=== PATIENT | female | born 1955 | race Caucasian/White ===

== ENCOUNTER → 2020-08-07 15:10 | Outpatient (BNVA) | payer MEDICARE, OTHER, SELFPAY | PROVIDERS: Visit Provider Hospitalist | DX: Z76.89 Persons encountering health services in other specified circumstances (principal) | CPT/HCPCS: Q3014 ==

== ENCOUNTER → 2021-02-05 15:00 | Outpatient (BNVA) | payer MEDICARE, OTHER, SELFPAY | PROVIDERS: PCP Physician Assistant; Visit Provider Hospitalist | DX: J45.20 Mild intermittent asthma, uncomplicated (principal); G47.10 Hypersomnia, unspecified; G47.30 Sleep apnea, unspecified; G47.33 Obstructive sleep apnea (adult) (pediatric) | CPT/HCPCS: 99212 ==

== ENCOUNTER 2021-04-22 10:43 | Outpatient (REF) | payer MEDICARE, OTHER, SELFPAY ==
[2021-04-22 11:55] LABS: Hematocrit 33.2 % (37-47); Hemoglobin 10.8 g/dl (12.0-16.0); Mean Corpuscular HGB Conc 32.5 g/dl (31.0-35.0); Mean Corpuscular Hemoglobin 29.6 pg (27.0-33.0); Mean Platelet Volume 11.1 fL (9.4-12.3); Platelet Count 255 X10*3/uL (160-400); Red Blood Count 3.65 X10*6/uL (4.20-5.50); Red Cell Distribution Width 12.4 % (11.0-16.0); White Blood Count 8.2 X10*3/uL (4.8-10.8)
[2021-04-22 12:48] LABS: Creatinine Urine 43.03 mg/dL; Microalbum/Creatinine Ratio Ur 20.9 ug/mg cr
[2021-04-22 14:09] LABS: Alanine Aminotransferase 16 U/L (0-31); Albumin Level 4.1 g/dL (3.5-5.0); Alkaline Phosphatase 93 U/L (39-117); Anion Gap 13 (12-20); Aspartate Amino Transferase 16 U/L (5-31); Bilirubin Total 0.5 mg/dL (0.0-1.0); Blood Urea Nitrogen 12 mg/dL (9-16); Carbon Dioxide 28 mmol/L (22-29); Chloride 105 mmol/L (96-108); Cholesterol 170 mg/dL; Estimated Glomerular Filt Rate > 60; Glucose Fasting 150 mg/dL (60-99); HDL Cholesterol 50 mg/dL; LDL Cholesterol Calculated 100 mg/dl; Potassium 3.7 mmol/L (3.3-5.1); Sodium 142 mmol/L (135-145); Total Protein 6.6 g/dL (6.5-8.0); Triglycerides 100 mg/dL
[2021-04-22 14:33] LABS: TSH reflex Free T4 0.72 uIU/mL (0.32-4.0)
== END 2021-04-22 10:44 | disposition home or self-care (01) ==
LOC: HO.LAB 10:43
PROVIDERS: PCP Physician Assistant; Visit Provider Physician Assistant
DX: I10 Essential (primary) hypertension (principal); E11.65 Type 2 diabetes mellitus with hyperglycemia; Z79.4 Long term (current) use of insulin
CPT/HCPCS: 36415; 80053; 80061; 82043; 84443; 85027

== ENCOUNTER → 2021-05-02 14:46 | Outpatient (BNVA) | payer MEDICARE, OTHER, SELFPAY | PROVIDERS: PCP Physician Assistant; Referring Provider Physician Assistant; Visit Provider Surgery | DX: D17.1 Benign lipomatous neoplasm of skin and subcutaneous tissue of trunk (principal) | CPT/HCPCS: 99202 ==

== ENCOUNTER → 2021-05-09 15:09 | Outpatient (BNVA) | payer MEDICARE, OTHER, SELFPAY | PROVIDERS: PCP Physician Assistant; Visit Provider Hospitalist | DX: J45.20 Mild intermittent asthma, uncomplicated (principal); J31.0 Chronic rhinitis; R09.81 Nasal congestion; G47.33 Obstructive sleep apnea (adult) (pediatric); E11.9 Type 2 diabetes mellitus without complications; I10 Essential (primary) hypertension; E78.00 Pure hypercholesterolemia, unspecified; E04.1 Nontoxic single thyroid nodule; R53.83 Other fatigue; D64.9 Anemia, unspecified; R60.0 Localized edema; Z77.22 Contact with and (suspected) exposure to environmental tobacco smoke (acute) (chronic); Z88.8 Allergy status to other drugs, medicaments and biological substances; Z88.6 Allergy status to analgesic agent; Z91.041 Radiographic dye allergy status; Z99.89 Dependence on other enabling machines and devices | CPT/HCPCS: 99212 ==

== ENCOUNTER 2021-05-20 13:39 | Outpatient (REF) | payer MEDICARE, OTHER, SELFPAY ==
--- NOTE | ~2021-05-20 | US_ITS ---
EXAMINATION: US ABDOMEN LIMITED CLINICAL INFORMATION: Benign lipomatous neoplasm of skin and subcutaneous tissue. Fullness lesion over left lower flank. Lipoma-like lesion over right flank. COMPARISON: None TECHNIQUE: Targeted ultrasound to bilateral flank (lumps). FINDINGS: The only discrete finding is seen over palpable region of the left lower lateral hip. There is a hypoechoic 1.0 x 0.7 x 1.0 cm well-circumscribed structure with some mildly increased through sound transmission and no internal vascularity. No edematous change within the soft tissues identified. This may represent a lipoma. US/US abdomen limited IMPRESSION: Of patient's complaint of palpable abnormalities, the only defined structure was about the left lower lateral hip where there is a subcutaneous well-circumscribed nonvascular structure with benign appearance and may represent lipoma.
[2021-05-20 14:02] LABS: MANUAL DIFF FLAG NO
[2021-05-20 14:28] LABS: Basophils Percent Auto 0.3 % (0-2); Eosinophils Absolute Auto 0.2 X10*3/uL (0.0-0.4); Eosinophils Percent Auto 1.8 % (0-4); Hematocrit 32.7 % (37-47); Hemoglobin 10.5 g/dl (12.0-16.0); Imm Gran Abs Auto 0.02 X10*3/uL (0.00-0.03); Imm Gran Pct Auto 0.2 % (0.0-0.4); Lymphocytes Absolute Auto 1.9 X10*3/uL (1.2-4.9); Lymphocytes Percent Auto 20.8 % (20-40); Mean Corpuscular HGB Conc 32.1 g/dl (31.0-35.0); Mean Corpuscular Hemoglobin 28.7 pg (27.0-33.0); Mean Corpuscular Volume 89.3 fL (80-98); Mean Platelet Volume 10.9 fL (9.4-12.3); Monocytes Absolute Auto 0.8 X10*3/uL (0.1-1.2); Monocytes Percent Auto 9.3 % (2-11); Neutrophils Absolute Auto 6.1 X10*3/uL (2.0-8.3); Neutrophils Percent Auto 67.6 % (45-73); Platelet Count 250 X10*3/uL (160-400); Red Blood Count 3.66 X10*6/uL (4.20-5.50); Red Cell Distribution Width 12.3 % (11.0-16.0)
[2021-05-20 14:55] LABS: Iron 27 mcg/dL (30-160); Percent Iron Saturation 9 % (15-50); Total Iron Binding Capacity 294 mcg/dL (228-428); Unsaturated Iron Binding 267 ug/dL
[2021-05-20 15:16] LABS: Ferritin 107 ng/mL (10-250)
[2021-05-20 15:31] LABS: Folate 14.7 ng/mL (> or = 4.0); Vitamin B12 492 pg/mL (200-900)
== END 2021-05-20 13:40 | disposition home or self-care (01) ==
LOC: HO.US 13:39
PROVIDERS: Hospitalist; PCP Physician Assistant; Visit Provider Physician Assistant
DX: D50.9 Iron deficiency anemia, unspecified (principal); D64.9 Anemia, unspecified; D17.1 Benign lipomatous neoplasm of skin and subcutaneous tissue of trunk
CPT/HCPCS: 36415; 76705; 82607; 82728; 82746; 83540; 85025

== ENCOUNTER 2021-08-30 11:36 | Outpatient (REF) | payer MEDICARE, OTHER, SELFPAY ==
--- NOTE | ~2021-08-30 | MM_ITS ---
EXAMINATION: BONE DENSITOMETRY CLINICAL INDICATION: Asymptomatic menopausal state. COMPARISON: This is the patient's baseline examination. TECHNIQUE: Using a [employer] DXA System (software version: 13.1) manufactured by [employer], dual-energy x-ray absorptiometry was performed of the lumbar spine and left hip. The images are of good technical quality. Summary results are attached. FINDINGS: AP SPINE L1-L3 (excluding L4): The data of L1-L4 has been changed to exclude the L4 vertebral body, because at this level may cause overestimation of lumbar spine density. BMD 1.732 g/cm2, Z-score 5.1, T-score 4.7, normal. LEFT FEMUR, NECK: BMD 0.888 g/cm2, Z-score -0.4, T-score -1.1, osteopenia. LEFT FEMUR, TOTAL: BMD 1.065 g/cm2, Z-score 0.8, T-score 0.5, normal. IDENTIFIED RISK FACTORS: Renal, family history (parental hip fracture), secondary osteoporosis, thiazide, menopause. HISTORY OF FRACTURE: None listed. MEDICATIONS: Calcium supplements or multivitamin, vitamin D. MM/XR DEXA axial skeleton IMPRESSION: 1. DIAGNOSIS: Osteopenia based on the lowest T-score value of -1.1 in the femoral neck applying World Health Organization criteria. 2. 10-YEAR FRACTURE RISK PREDICTION, FRAX: Major osteoporotic fracture (clinical spine, forearm, hip or shoulder) 14.3%. Hip fracture 0.5%. 3. Treatment Recommendations: NOF guidelines recommend consideration for treatment in postmenopausal women and men age 50 and older presenting with the following: -A hip or vertebral (clinical or morphometric) fracture. -T-score less than or equal to -2.5 at the femoral neck or spine after appropriate evaluation to exclude secondary causes. -Low bone mass at the hip or spine and a 10-year fracture probability by FRAX of greater than or equal to 3% for hip fracture or greater than or equal to 20% for major osteoporotic fracture based on the [place] adapted WHO algorithm. 4. Other Recommendations: All treatment decisions require clinical judgment and consideration of individual patient factors, including patient preferences, comorbidities, previous drug use, risk factors not captured in the FRAX model (e.g. frailty, falls, vitamin D deficiency, increased bone turnover, interval significant decline in bone density) and possible under or overestimation of fracture risk by FRAX. Additional medical evaluation for secondary cause of low bone mineral density may be appropriate. FUTURE SCAN RECOMMENDATION: People with diagnosed cases of osteoporosis or at high risk for fracture should have regular bone mineral density tests. For patients eligible for Medicare, routine testing is allowed once every 2 years. The testing frequency can be increased to one year for patients who have rapidly progressing disease, those who are receiving or discontinuing medical therapy to restore bone mass, or have additional risk factors.
[2021-08-30 13:02] LABS: Creatinine Urine 87.64 mg/dL; Microalbum/Creatinine Ratio Ur 23.9 ug/mg cr
== END 2021-08-30 11:37 | disposition home or self-care (01) ==
LOC: HO.MAMMO 11:36
PROVIDERS: Absent Provider Internal Medicine; PCP Physician Assistant; Visit Provider Physician Assistant
DX: Z13.820 Encounter for screening for osteoporosis (principal); M85.80 Other specified disorders of bone density and structure, unspecified site; Z78.0 Asymptomatic menopausal state; E55.9 Vitamin D deficiency, unspecified; E11.29 Type 2 diabetes mellitus with other diabetic kidney complication; R63.5 Abnormal weight gain; Z79.899 Other long term (current) drug therapy
CPT/HCPCS: 36415; 77080; 80053; 80061; 82043; 82306; 83036; 83540; 84443; 85025

== ENCOUNTER 2021-09-02 08:28 | Outpatient (REF) | payer MEDICARE, OTHER, SELFPAY ==
[2021-09-02 08:55] LABS: MANUAL DIFF FLAG NO
[2021-09-02 09:17] LABS: Basophils Percent Auto 0.4 % (0-2); Eosinophils Absolute Auto 0.2 X10*3/uL (0.0-0.4); Eosinophils Percent Auto 1.8 % (0-4); Hematocrit 38.5 % (37.0-47.0); Hemoglobin 12.5 g/dl (12.0-16.0); Imm Gran Abs Auto 0.04 X10*3/uL (0.00-0.03); Imm Gran Pct Auto 0.5 % (0.0-0.4); Lymphocytes Absolute Auto 2.9 X10*3/uL (1.2-4.9); Lymphocytes Percent Auto 34.6 % (20-40); Mean Corpuscular HGB Conc 32.5 g/dl (31.0-35.0); Mean Corpuscular Hemoglobin 27.9 pg (27.0-33.0); Mean Corpuscular Volume 85.9 fL (80.0-98.0); Mean Platelet Volume 10.4 fL (9.4-12.3); Monocytes Absolute Auto 0.7 X10*3/uL (0.1-1.2); Monocytes Percent Auto 8.5 % (2-11); Neutrophils Absolute Auto 4.6 x10*3/uL (2.0-8.3); Neutrophils Percent Auto 54.2 % (45-73); Platelet Count 250 X10*3/uL (160-400); Red Blood Count 4.48 X10*6/uL (4.20-5.50); White Blood Count 8.5 X10*3/uL (4.8-10.8)
[2021-09-02 09:37] LABS: Estimated Average Glucose 177 mg/dL; Hemoglobin A1c % 7.8 %
[2021-09-02 10:56] LABS: Alanine Aminotransferase 15 U/L (0-31); Albumin Level 4.1 g/dL (3.5-5.0); Alkaline Phosphatase 82 U/L (39-117); Anion Gap 13 (12-20); Aspartate Amino Transferase 17 U/L (5-31); Bilirubin Total 0.9 mg/dL (0.0-1.0); Blood Urea Nitrogen 13 mg/dL (9-16); Calcium 9.4 mg/dL (8.4-10.2); Carbon Dioxide 29 mmol/L (22-29); Chloride 105 mmol/L (96-108); Cholesterol 154 mg/dL; Estimated Glomerular Filt Rate > 60; Glucose Random 122 mg/dL (60-115); HDL Cholesterol 44 mg/dL; Iron 97 mcg/dL (30-160); LDL Cholesterol Calculated 83 mg/dl; Percent Iron Saturation 29 % (15-50); Potassium 3.6 mmol/L (3.3-5.1); Sodium 143 mmol/L (135-145); Total Iron Binding Capacity 330 mcg/dL (228-428); Triglycerides 135 mg/dL; Unsaturated Iron Binding 233 ug/dL
[2021-09-02 11:05] LABS: TSH reflex Free T4 0.83 uIU/mL (0.32-4.0); Vitamin D 25-OH Total 32.8 ng/mL (>30)
== END 2021-09-02 08:29 | disposition home or self-care (01) ==
LOC: HO.LAB 08:28
PROVIDERS: Internal Medicine; PCP Physician Assistant; Visit Provider Physician Assistant
DX: E55.9 Vitamin D deficiency, unspecified (principal); E11.29 Type 2 diabetes mellitus with other diabetic kidney complication; R63.5 Abnormal weight gain
CPT/HCPCS: 36415; 80053; 80061; 82306; 83036; 83540; 84443; 85025

== ENCOUNTER → 2021-09-20 14:45 | Outpatient (BNVA) | payer MEDICARE, OTHER, SELFPAY | PROVIDERS: PCP Physician Assistant; Visit Provider Hospitalist | DX: G47.33 Obstructive sleep apnea (adult) (pediatric) (principal); J45.20 Mild intermittent asthma, uncomplicated | CPT/HCPCS: 99212 ==

== ENCOUNTER → 2021-12-19 13:35 | Outpatient (BNVA) | payer MEDICARE, OTHER, SELFPAY | PROVIDERS: PCP Physician Assistant; Referring Provider Physician Assistant; Visit Provider Surgery | DX: K42.9 Umbilical hernia without obstruction or gangrene (principal) | CPT/HCPCS: 99212 ==

== ENCOUNTER 2022-04-21 12:36 | Emergency (ER) | payer MEDICARE, OTHER, SELFPAY ==
[2022-04-21 12:48] VITALS: BP 169/61; PULSE 69; RESP 18; TEMP 36.6; O2SAT 96; BMI 39.1
[2022-04-21 13:16] LABS: MANUAL DIFF FLAG NO
[2022-04-21 13:19] LABS: Appearance Urine Clear; Basophils Absolute Auto 0.1 X10*3/uL (0.0-0.2); Basophils Percent Auto 0.5 % (0-2); Color Urine Yellow; Eosinophils Absolute Auto 0.1 X10*3/uL (0.0-0.4); Eosinophils Percent Auto 0.8 % (0-4); Glucose Urine UA Negative (Negative); Hematocrit 38.3 % (37.0-47.0); Hemoglobin 12.7 g/dl (12.0-16.0); Imm Gran Abs Auto 0.02 X10*3/uL (0.00-0.03); Imm Gran Pct Auto 0.2 % (0.0-0.4); Leukocyte Esterase Urine Moderate (2+) (Negative); Lymphocytes Absolute Auto 2.7 X10*3/uL (1.2-4.9); Lymphocytes Percent Auto 27.1 % (20-40); Mean Corpuscular HGB Conc 33.2 g/dl (31.0-35.0); Mean Corpuscular Hemoglobin 29.3 pg (27.0-33.0); Mean Corpuscular Volume 88.5 fL (80.0-98.0); Mean Platelet Volume 10.2 fL (9.4-12.3); Monocytes Absolute Auto 0.7 X10*3/uL (0.1-1.2); Monocytes Percent Auto 7.3 % (2-11); Neutrophils Absolute Auto 6.4 x10*3/uL (2.0-8.3); Neutrophils Percent Auto 64.1 % (45-73); Nitrite Urine Negative (Negative); PH 7.5 (5.0-9.0); Platelet Count 272 X10*3/uL (160-400); Red Blood Count 4.33 X10*6/uL (4.20-5.50); UMIC TRIGGER UACC YES; Urine Blood Negative (Negative); Urine Ketones Negative (Negative); Urine Protein Trace mg/dL (Neg-Trace); White Blood Count 9.9 X10*3/uL (4.8-10.8)
[2022-04-21 13:24] LABS: Bacteria Urine None Seen (None Seen); Hyaline Casts Urine 0-2 /LPF (0-2); RBC Urine 0-2 /HPF (0-2); Squamous Epithelial Cell Urine 0-2 /HPF (0-2); UACC Culture Trigger YES
[2022-04-21 13:38] LABS: Alanine Aminotransferase 17 U/L (0-31); Albumin Level 4.5 g/dL (3.5-5.0); Alkaline Phosphatase 76 U/L (39-117); Anion Gap 17 (12-20); Aspartate Amino Transferase 19 U/L (5-31); Bilirubin Total 1.1 mg/dL (0.0-1.0); Blood Urea Nitrogen 15 mg/dL (9-16); Calcium 9.6 mg/dL (8.4-10.2); Carbon Dioxide 27 mmol/L (22-29); Chloride 101 mmol/L (96-108); Creatinine Clr Calc Pharmacy 54.8; Estimated Glomerular Filt Rate 43; Glucose Random 211 mg/dL (60-115); Potassium 3.7 mmol/L (3.3-5.1); Sodium 141 mmol/L (135-145); Total Protein 7.6 g/dL (6.5-8.0)
--- NOTE | 2022-04-21 16:58 | ED_ITS ---
HPI - General Adult General Chief complaint: Back Pain/Injury Stated complaint: R flank pin/back pain/abd pain Time Seen by Provider: 04/21/22 16:53 Source: patient Mode of arrival: ambulatory Limitations: no limitations History of Present Illness HPI narrative: 66-year-old female with history of HTN, DM on insulin, obesity, NSTEMI, WYATT, bipolar, depression, who presents to the ER for evaluation of right-sided lower back pain for the last few days. she reports the pain is located in her right lower back and at times radiates to her right groin when she walks. She reports the pain is worse with any movement, especially when she goes from sitting to standing or lying to sitting. She denies any dysuria, hematuria, difficulty voiding. No fever or chills. No abdominal pain but she has had some nausea whe n her back pain is severe. MD complaint: Right low back and flank pain Onset (ago): day(s) Location: back Radiation: flank Severity: moderate Severity scale (1-10): 7 Quality: stabbing and aching Pain Consistency: intermittent Relieving factors: rest Exacerbating factors: movement Associated symptoms: nausea/vomiting Treatments prior to arrival: none Related Data Home Medications Medication Instructions Recorded Confirmed lurasidone 40 mg tablet (Latuda) 40 mg PO DAILY 08/07/20 12/19/21 insulin degludec 200 unit/mL (3 80 unit subcut BEDTIME 01/17/21 12/19/21 mL) subcutaneous pen vilazodone 20 mg tablet (Viibryd) 40 mg PO DAILY 05/02/21 12/19/21 insulin aspart U-100 100 unit/mL 15 - 17 unit subcut TID 09/20/21 12/19/21 (3 mL) subcutaneous pen (Novolog Flexpen U-100 Insulin aspart) pen needle, diabetic 31 gauge x #50 ea 12/19/21 12/19/21 3/16 (BD Ultra-Fine Mini Pen Needle) Previous Rx's Medication Instructions Recorded nystatin 100,000 unit/gram topical 1 appl topical DAILY 30 days #60 01/17/21 powder grams albuterol sulfate 90 mcg/actuation 2 inh inhalation Q6H PRN shortness 02/05/21 breath activated powder inhaler of breath or wheezing 30 days #1 ea (ProAir RespiClick) atorvastatin 40 mg tablet 40 mg PO DAILY 90 days #90 tabs 09/09/21 hydrochlorothiazide 25 mg tablet 25 mg PO QAM 90 days #90 tabs 09/09/21 losartan 100 mg tablet 100 mg PO DAILY #90 tabs 09/09/21 calcium carbonate 500 mg-vitamin 1 tab PO BID 90 days #180 tabs 02/25/22 D3 10 mcg (400 unit) tablet (Oyster Shell Calcium-Vitamin D3) blood pressure test kit-large #1 ea 02/27/22 isosorbide mononitrate 60 mg 60 mg PO DAILY 90 days #90 tabs 03/23/22 tablet,extended release 24 hr cefuroxime axetil 250 mg tablet 250 mg PO BID 7 days #14 tabs 04/21/22 cyclobenzaprine 10 mg tablet 10 mg PO Q8H PRN muscle spasm #10 04/21/22 tabs Allergies Allergy/AdvReac Type Severity Reaction Status Date / Time aspirin Allergy Severe GI trouble Verified 12/19/21 13:38 Iodinated Contrast Media Allergy Severe Difficulty Verified 12/19/21 13:38 Breathing amlodipine AdvReac Intermediate leg Verified 12/19/21 13:38 swelling Review of Systems Review of Systems: Constitutional: No Fever, No Chills ENT/Mouth: No sore throat, No Rhinorrhea, No Swallowing Difficulty Cardiovascular: No Chest Pain, No SOB, No Orthopnea, No Edema Respiratory: No Cough, No Sputum, No Wheezing, No dyspnea Gastrointestinal: + Nausea, No Vomiting, No Diarrhea, No abdominal Pain, No Hematochezia, No Melena Genitourinary: No Dysuria, No Urinary Frequency, No Hematuria Musculoskeletal: No joint pain, + Myalgias Skin: No Skin Lesions, No rash Neuro: No Weakness, No Numbness, No Dizziness, No Headache Psych: + Anxiety/Panic, No Depression Heme/Lymph: No Bruising, No Lymphadenopathy Endocrine: No Polyuria, No Polydipsia PMFSH Past Medical History Medical History Anemia Asthma Diabetes High cholesterol Hypersomnia with sleep apnea Hypertension Lower extremity edema WYATT (obstructive sleep apnea) Thyroid nodule Surgical History History of removal of cyst Uterine polyp Family History Family History Father Stroke Diabetes Mother Hypertension COPD (chronic obstructive pulmonary disease) CHF (congestive heart failure) Maternal Grandmother Stroke Other Mental health disorder Substance use disorder Social History Social History Housing: House Alcohol intake: never Patient Tobacco Use Status: Never used Tobacco Second Hand Smoke Exposure: Yes service: No Current occupational status: retired Physical Exam ED Vital Signs: Vital Signs - 24 hr 04/21/22 12:48 Temperature 97.9 F Pulse Rate 69 Respiratory Rate 18 Blood Pressure 169/61 H Pulse Oximetry 96 Oxygen Delivery Method Room Air BMI result Body Mass Index 39.1 Appearance: Alert. Oriented X3. No acute distress. Eyes: Pupils equal, round and reactive to light. ENT: Pharynx normal. Neck: Normal inspection. Neck supple. CVS: Normal heart rate and rhythm. Pulses normal. Respiratory: No respiratory distress. Breath sounds normal. Abdomen: Obese, Soft and nontender. +BS x4 Back: middle and upper lumbar area with soft tissue tenderness, no CVA tenderness. No midline tenderness. negative straight leg raise test Skin: Skin warm and dry. Normal skin color. Normal skin turgor. No rashes. Extremities: No lower extremity edema. Neuro: Oriented X 3. No motor deficit. No sensory deficit. Course Course Course Narrative: 66-year-old female presents to the ER for evaluation of right-sided flank pain for the last few days. It is worse with movement. She has some soft tissue tenderness on examination in her lumbar area, no CVA tenderness. No urinary symptoms. Her lab workup today is unremarkable. Her urinalysis shows leukocyte esterase and wbc's consistent with UTI. Will treat accordingly. Will also treat for soft tissue/ muscle spasm with muscle relaxer. She will follow-up with her PCP. Any worsening symptoms she will return back to the ER. She is stable for DC home. Medical Decision Making Lab Data Result diagrams: 04/21/22 13:09 04/21/22 13:09 Labs: Lab Results 04/21/22 04/21/22 04/21/22 Range/Units 13:09 13:09 13:09 WBC 9.9 (4.8-10.8) X10*3/uL RBC 4.33 (4.20-5.50) X10*6/uL Hgb 12.7 (12.0-16.0) g/dl Hct 38.3 (37.0-47.0) % MCV 88.5 (80.0-98.0) fL MCH 29.3 (27.0-33.0) pg MCHC 33.2 (31.0-35.0) g/dl RDW 13.0 (11.0-16.0) % Plt Count 272 (160-400) X10*3/uL MPV 10.2 (9.4-12.3) fL Immature Gran % (Auto) 0.2 (0.0-0.4) % Neut % (Auto) 64.1 (45-73) % Lymph % (Auto) 27.1 (20-40) % [place] % (Auto) 7.3 (2-11) % Eos % (Auto) 0.8 (0-4) % Baso % (Auto) 0.5 (0-2) % Lymph # (Auto) 2.7 (1.2-4.9) X10*3/uL [place] # (Auto) 0.7 (0.1-1.2) X10*3/uL Eos # (Auto) 0.1 (0.0-0.4) X10*3/uL Baso # (Auto) 0.1 (0.0-0.2) X10*3/uL Abs Immat Gran (auto) 0.02 (0.00-0.03) X10*3/uL Absolute Neuts (auto) 6.4 (2.0-8.3) x10*3/uL Absolute Nucleated RBC 0.000 (0.0-0.012) X10*3/uL Nucleated RBC % (auto) 0.0 (0.0-0.2) /100WBC Sodium 141 (135-145) mmol/L Potassium 3.7 (3.3-5.1) mmol/L Chloride 101 (96-108) mmol/L Carbon Dioxide 27 (22-29) mmol/L Anion Gap 17 (12-20) BUN 15 (9-16) mg/dL Creatinine 1.24 (0.5-1.4) mg/dL Estim Creat Clear Calc 54.8 Estimated GFR 43 Random Glucose 211 H (60-115) mg/dL Calcium 9.6 (8.4-10.2) mg/dL Total Bilirubin 1.1 H (0.0-1.0) mg/dL AST 19 (5-31) U/L ALT 17 (0-31) U/L Alkaline Phosphatase 76 (39-117) U/L Total Protein 7.6 (6.5-8.0) g/dL Albumin 4.5 (3.5-5.0) g/dL Urine Color Yellow Urine Appearance Clear Urine pH 7.5 (5.0-9.0) Ur Specific [place] 1.010 (1.005-1.025) Urine Protein Trace (Neg-Trace) mg/dL Urine Glucose (UA) Negative (Negative) mg/dL Urine Ketones Negative (Negative) mg/dL Urine Blood Negative (Negative) Urine Nitrite Negative (Negative) Ur Leukocyte Esterase Moderate (2+) H (Negative) Urine RBC 0-2 (0-2) /HPF Urine WBC 11-20 H (0-5) /HPF Ur Squamous Epith Cells 0-2 (0-2) /HPF Urine Bacteria None Seen (None Seen) Hyaline Casts 0-2 (0-2) /LPF Discharge Plan Discharge Clinical Impression: Acute UTI, Low back pain Patient Disposition: Home, Self-Care Instructions: Urinary Tract Infection in Women (ED), Acute Low Back Pain (ED) Additional Instructions: Your BUN/Cr today were 15/1.24. Your urine only had trace protein but showed infection. Take the prescribed antibiotic as directed for UTI. Start taking it this even ing. M sure drinking plenty of water and staying hydrated. Take the prescribed muscle relaxer as needed for low back pain and muscle pain. Also recommend using a heating pad to the area for 20 minutes at a time several times throughout the day. Recommend trial of Motrin and Tylenol as well. Follow-up with your primary care doctor If you develop new or worsening symptoms call 911 or come back to the ER for further evaluation. Prescriptions: New cyclobenzaprine 10 mg tablet 10 mg PO Q8H PRN (Reason: muscle spasm) Qty: 10 0RF cefuroxime axetil 250 mg tablet 250 mg PO BID 7 Days Qty: 14 0RF No Action hydrochlorothiazide 25 mg tablet 25 mg PO QAM 90 Days Qty: 90 2RF atorvastatin 40 mg tablet 40 mg PO DAILY 90 Days Qty: 90 2RF losartan 100 mg tablet 100 mg PO DAILY Qty: 90 2RF calcium carbonate-vitamin D3 [Oyster Shell Calcium-Vit D3] 500 mg-10 mcg (400 unit) tablet 1 tab PO BID 90 Days Qty: 180 1RF (DME) blood pressure test kit-large Kit See Rx Instructions .Route Qty: 1 0RF Rx Instructions: As directed isosorbide mononitrate 60 mg tablet extended release 24 hr 60 mg PO DAILY 90 Days Qty: 90 2RF Tresiba FlexTouch U-200 200 unit/mL (3 mL) insulin pen 80 unit subcut BEDTIME nystatin 100,000 unit/gram powder 1 appl topical DAILY 30 Days Qty: 60 3RF Viibryd 20 mg tablet 40 mg PO DAILY Latuda 40 mg tablet 40 mg PO DAILY Rx Instructions: must administer with food (at least 350 calories) ProAir RespiClick 90 mcg/actuation aerosol powdr breath activated 2 inh inhalation Q6H PRN (Reason: shortness of breath or wheezing) 30 Days Qty: 1 11RF insulin aspart U-100 [Novolog Flexpen U-100 Insulin] 100 unit/mL (3 mL) insulin pen 15 - 17 unit subcut TID (DME) pen needle, diabetic [BD Ultra-Fine Mini Pen Needle] 31 gauge x 3/16 needle See Rx Instructions subcut .MEDSUPPLY Qty: 50 Rx Instructions: As directed Referrals: Tadeo Dukes PA-C [Primary Care Provider] -
== END 2022-04-21 18:02 | disposition home or self-care (01) ==
LOC: HO.ED 17:31
PROVIDERS: Emergency Provider Internal Medicine; PCP Physician Assistant
DX: N39.0 Urinary tract infection, site not specified (principal); M54.50 Low back pain, unspecified; I10 Essential (primary) hypertension; E11.9 Type 2 diabetes mellitus without complications; E78.5 Hyperlipidemia, unspecified; Z79.4 Long term (current) use of insulin; Z79.02 Long term (current) use of antithrombotics/antiplatelets; Z79.899 Other long term (current) drug therapy
CPT/HCPCS: 36415; 80053; 81001; 85025; 87086; 99282; 99283

== ENCOUNTER 2022-05-08 11:08 | Outpatient (REF) | payer MEDICARE, OTHER, SELFPAY ==
--- NOTE | ~2022-05-08 | XR_ITS ---
EXAMINATION: XR THORACIC SPINE XR LUMBAR SPINE CLINICAL INFORMATION: Back pain. Sciatica, M54.30 COMPARISON: Chest radiographs 09/07/2019, CT abdomen and pelvis 08/17/2019. TECHNIQUE: Thoracic spine is imaged in 3 views. The lumbar spine is imaged in 3 views. There are a total of 6 views. FINDINGS: Thoracic spine: There is normal thoracic segmentation with 12 rib-bearing thoracic vertebrae of normal height and normal thoracic kyphosis. There is no thoracic vertebral compression, spondylolisthesis or erosive changes. No destructive process or paraspinal soft tissue swelling. There are scattered mild degenerative disc changes. There are bridging anterior and right lateral osteophytes with some scattered ossification of the anterior longitudinal spinal ligament. Similar findings on prior chest 09/07/2019. Lumbar spine: Normal lumbar segmentation with 5 nonrib-bearing lumbar vertebrae of normal height and normal lumbar lordosis. There is no lumbar vertebral compression, destructive process, or spondylolisthesis. There are degenerative disc changes L3-L4 with disc narrowing. No erosive change. Multilevel partially bridging anterior and right lateral osteophytes are again noted. The SI joints show no ankylosis or erosive changes or subchondral sclerosis. Visualized sacrum are unremarkable. XR/XR lumbar spine 2-3V IMPRESSION: -No thoracic or lumbar vertebral compression, spondylolisthesis, or destructive process. -Mild scattered degenerative disc changes thoracic spine. Degenerative disc changes L3-L4. -Multilevel thoracic and lumbar bridging osteophytes greater than the degenerative disc changes along with scattered ossification anterior spinal ligament. Findings may be associated with diffuse idiopathic skeletal hyperostosis.
--- NOTE | ~2022-05-08 | XR_ITS ---
EXAMINATION: XR THORACIC SPINE XR LUMBAR SPINE CLINICAL INFORMATION: Back pain. Sciatica, M54.30 COMPARISON: Chest radiographs 09/07/2019, CT abdomen and pelvis 08/17/2019. TECHNIQUE: Thoracic spine is imaged in 3 views. The lumbar spine is imaged in 3 views. There are a total of 6 views. FINDINGS: Thoracic spine: There is normal thoracic segmentation with 12 rib-bearing thoracic vertebrae of normal height and normal thoracic kyphosis. There is no thoracic vertebral compression, spondylolisthesis or erosive changes. No destructive process or paraspinal soft tissue swelling. There are scattered mild degenerative disc changes. There are bridging anterior and right lateral osteophytes with some scattered ossification of the anterior longitudinal spinal ligament. Similar findings on prior chest 09/07/2019. Lumbar spine: Normal lumbar segmentation with 5 nonrib-bearing lumbar vertebrae of normal height and normal lumbar lordosis. There is no lumbar vertebral compression, destructive process, or spondylolisthesis. There are degenerative disc changes L3-L4 with disc narrowing. No erosive change. Multilevel partially bridging anterior and right lateral osteophytes are again noted. The SI joints show no ankylosis or erosive changes or subchondral sclerosis. Visualized sacrum are unremarkable. XR/XR thoracic spine 2V IMPRESSION: -No thoracic or lumbar vertebral compression, spondylolisthesis, or destructive process. -Mild scattered degenerative disc changes thoracic spine. Degenerative disc changes L3-L4. -Multilevel thoracic and lumbar bridging osteophytes greater than the degenerative disc changes along with scattered ossification anterior spinal ligament. Findings may be associated with diffuse idiopathic skeletal hyperostosis.
[2022-05-08 12:21] LABS: Hematocrit 39.8 % (37.0-47.0); Hemoglobin 12.7 g/dl (12.0-16.0); Mean Corpuscular HGB Conc 31.9 g/dl (31.0-35.0); Mean Corpuscular Hemoglobin 28.7 pg (27.0-33.0); Mean Corpuscular Volume 89.8 fL (80.0-98.0); Mean Platelet Volume 10.7 fL (9.4-12.3); Platelet Count 252 X10*3/uL (160-400); Red Blood Count 4.43 X10*6/uL (4.20-5.50); Red Cell Distribution Width 12.9 % (11.0-16.0); White Blood Count 8.2 X10*3/uL (4.8-10.8)
[2022-05-08 12:48] LABS: Appearance Urine Clear; Color Urine Yellow; Glucose Urine UA Negative (Negative); Leukocyte Esterase Urine Negative (Negative); Nitrite Urine Negative (Negative); Specific Gravity - Urine <= 1.005 (1.005-1.025); Urine Blood Negative (Negative); Urine Ketones Negative (Negative); Urine Protein Negative (Neg-Trace)
[2022-05-08 12:57] LABS: Alanine Aminotransferase 14 U/L (0-31); Albumin Level 4.4 g/dL (3.5-5.0); Alkaline Phosphatase 80 U/L (39-117); Anion Gap 14 (12-20); Aspartate Amino Transferase 16 U/L (5-31); Bilirubin Total 0.6 mg/dL (0.0-1.0); Blood Urea Nitrogen 21 mg/dL (9-16); Calcium 9.3 mg/dL (8.4-10.2); Carbon Dioxide 30 mmol/L (22-29); Chloride 102 mmol/L (96-108); Cholesterol 138 mg/dL; Estimated Glomerular Filt Rate 49; Glucose Fasting 126 mg/dL (60-99); HDL Cholesterol 48 mg/dL; LDL Cholesterol Calculated 76 mg/dl; Potassium 3.9 mmol/L (3.3-5.1); Sodium 142 mmol/L (135-145); Total Protein 7.1 g/dL (6.5-8.0); Triglycerides 73 mg/dL
[2022-05-08 13:23] LABS: TSH reflex Free T4 0.49 uIU/mL (0.32-4.0)
== END 2022-05-08 11:09 | disposition home or self-care (01) ==
LOC: HO.LAB 11:08
PROVIDERS: PCP Physician Assistant; Visit Provider Physician Assistant
DX: E78.00 Pure hypercholesterolemia, unspecified (principal); R30.0 Dysuria; M54.14 Radiculopathy, thoracic region; M54.30 Sciatica, unspecified side
CPT/HCPCS: 36415; 72070; 72100; 80053; 80061; 81003; 84443; 85027

== ENCOUNTER 2022-05-15 13:23 | Outpatient (REF) | payer MEDICARE, OTHER, SELFPAY ==
--- NOTE | ~2022-05-15 | XR_ITS ---
EXAMINATION: XR KNEE AP STANDING CLINICAL INFORMATION: Pain right knee. COMPARISON: None TECHNIQUE: AP view of both knees is performed with patient weightbearing. FINDINGS: Right: Mild narrowing medial knee joint compartment. No erosive change, subchondral sclerosis, or chondrocalcinosis. Left: No definite knee joint compartment narrowing. No subchondral sclerosis or erosive change. Bony mineralization appears slightly lesser on the left likely related to technical factors/heel effect. XR/XR knee standing BI IMPRESSION: 1. Right: Mild narrowing medial knee joint compartment. No erosive change. 2. Left: No definite knee joint narrowing. No subchondral sclerosis or erosive change.
== END 2022-05-15 13:24 | disposition home or self-care (01) ==
LOC: HO.XRAY 13:23
PROVIDERS: PCP Physician Assistant; Visit Provider Physician Assistant
DX: G89.29 Other chronic pain (principal); M25.561 Pain in right knee; M25.562 Pain in left knee
CPT/HCPCS: 73565

== ENCOUNTER 2022-06-20 14:00 | Outpatient (RCR) | payer MEDICARE, OTHER, SELFPAY ==
--- NOTE | 2022-05-22 18:16 | MHC.PT.EP ---
[facility] [place] Office [place] Office [place] Office [address] [phone] F: [phone] F: [phone] F: [phone] F: [phone] Physical Therapy Plan of Care Date of Evaluation: Date of Surgery: N/A Diagnosis: Unspecified thoracic, thoracolumbar, and lumbosacral intervertebral disc disorder Assessment: Pt is a pleasant 66yo F who presents to PT with R sided low back pain. She presents to PT with current impairments in pain, decreased lumbar ROM, decreased core stabilization, decreased hip/glute strength, decreased muscle length, soft tissue restrictions, and impaired posture. She is limited functionally by prolonged sitting, twisting, turning over in bed, getting out of bed, prolonged standing, and bending. She is a good candidate for skilled PT in order to address current impairments to facilitate return to PLOF. She is recommended to be seen 2x/week for 4 weeks and will be reassessed at that time. Frequency and Duration: The patient will be seen 2x/week for 4 weeks Short Term Goals: Pt will be I with HEP to promote self management of symptoms Pt will demonstrate improvements in postural awareness and body mechanics throughout the day Perinatal Instructor Goals: Pt will tolerate standing and walking > 30 min with minimal to no pain in low back Pt will return to weekly work out classes at [facility] with minimal to no pain Pt will demonstrate improvements in function as evidenced by statistically significant improvement in LEFI outcome measure Treatment Plan: Modalities to reduce pain, spasms and effusion. Manual therapy to restore motion and function. Therapeutic exercise to improve strength and flexibility. Neuromuscular re-education for posture and balance. Therapeutic activities to return to functional activities of daily living. Electronically signed by: Leidy Bai, PT, DPT Please sign and return to therapist. Thank you for your referral.
--- NOTE | 2022-06-23 15:26 | MHC.PT.DC ---
[facility] [place] [facility] [place] Office [place] Office [address] Shah [address] [phone] F: [phone] F: [phone] F: [phone] F: [phone] Physical Therapy Discharge Report Diagnosis: Unspecified thoracic, thoracolumbar, and lumbosacral intervertebral disc disorder Date of Surgery: N/A Date of Evaluation: 05/22/22 Date of Discharge: 06/23/22 Treatments to Date: 9 Cancellations to Date: 0 No Shows to Date: 0 Discharge Status: Achieved Goals Improved Function Independent with HEP Discharge Summary: Pt was seen for PT from 05/22/22-06/20/22. Her last attended appointment was 06/20/22. She has made excellent progress since SOC. She has met her STGs and LTGs. She has consistently had minimal to no pain. She has returned to walking up to 35 min, returned to her exercise class at the [facility], and has returned to playing pickleball. Pt is being D/C from skilled PT at this time as she has reached her PLOF and is I with HEP. Electronically signed by: Leidy Bai, PT, DPT Please sign and return to therapist. Thank you for your referral.
== END 2022-06-23 15:26 | disposition home or self-care (01) ==
LOC: HO.PT 14:00
PROVIDERS: PCP Physician Assistant; Visit Provider Physician Assistant
DX: M51.9 Unspecified thoracic, thoracolumbar and lumbosacral intervertebral disc disorder (principal)
CPT/HCPCS: 97110; 97161

== ENCOUNTER 2022-07-17 13:12 | Outpatient (REF) | payer MEDICARE, OTHER, SELFPAY | END 2022-07-17 13:13 | disposition home or self-care (01) | LOC: HO.SH 13:12 | PROVIDERS: Visit Provider Physician Assistant | DX: Z01.118 Encounter for examination of ears and hearing with other abnormal findings (principal); H90.3 Sensorineural hearing loss, bilateral | CPT/HCPCS: 92557; 92567; 92700 ==

== ENCOUNTER 2022-10-31 09:58 | Outpatient (REF) | payer MEDICARE, OTHER, SELFPAY ==
[2022-10-31 12:11] LABS: Hematocrit 36.9 % (37.0-47.0); Hemoglobin 11.9 g/dl (12.0-16.0); Mean Corpuscular HGB Conc 32.2 g/dl (31.0-35.0); Mean Corpuscular Hemoglobin 28.7 pg (27.0-33.0); Mean Corpuscular Volume 89.1 fL (80.0-98.0); Mean Platelet Volume 10.9 fL (9.4-12.3); Platelet Count 260 X10*3/uL (160-400); Red Blood Count 4.14 X10*6/uL (4.20-5.50); Red Cell Distribution Width 13.1 % (11.0-16.0); White Blood Count 7.5 X10*3/uL (4.8-10.8)
[2022-10-31 12:43] LABS: Alanine Aminotransferase 13 U/L (0-31); Albumin Level 4.2 g/dL (3.5-5.0); Alkaline Phosphatase 72 U/L (39-117); Anion Gap 14 (12-20); Aspartate Amino Transferase 16 U/L (5-31); Bilirubin Total 0.9 mg/dL (0.0-1.0); Blood Urea Nitrogen 18 mg/dL (9-16); Calcium 9.2 mg/dL (8.4-10.2); Carbon Dioxide 29 mmol/L (22-29); Chloride 105 mmol/L (96-108); Cholesterol 160 mg/dL; Estimated Glomerular Filt Rate 49; Glucose Fasting 110 mg/dL (60-99); HDL Cholesterol 46 mg/dL; LDL Cholesterol Calculated 95 mg/dl; Potassium 4.3 mmol/L (3.3-5.1); Sodium 144 mmol/L (135-145); Total Protein 6.9 g/dL (6.5-8.0); Triglycerides 98 mg/dL
[2022-10-31 13:07] LABS: TSH reflex Free T4 0.41 uIU/mL (0.32-4.0)
[2022-10-31 13:23] LABS: Creatinine Urine 190.97 mg/dL; Microalbum/Creatinine Ratio Ur 11.5 ug/mg cr
== END 2022-10-31 09:59 | disposition home or self-care (01) ==
LOC: HO.LAB 09:58
PROVIDERS: PCP Physician Assistant; Visit Provider Physician Assistant
DX: J45.20 Mild intermittent asthma, uncomplicated (principal); I10 Essential (primary) hypertension; E11.65 Type 2 diabetes mellitus with hyperglycemia; Z79.4 Long term (current) use of insulin; G47.33 Obstructive sleep apnea (adult) (pediatric)
CPT/HCPCS: 36415; 80053; 80061; 82043; 84443; 85027; 99212

== ENCOUNTER 2023-02-18 06:44 | Emergency (ER) | payer MEDICARE, OTHER, SELFPAY ==
[2023-02-18 06:54] VITALS: BP 157/64; PULSE 71; RESP 18; TEMP 36.7; O2SAT 98; BMI 39.9
[2023-02-18 07:15] LABS: Appearance Urine Clear; Color Urine Yellow; Glucose Urine UA Negative (Negative); Leukocyte Esterase Urine Moderate (2+) (Negative); Nitrite Urine Negative (Negative); UMIC TRIGGER UACC YES; Urine Blood Large (3+) (Negative); Urine Ketones Negative (Negative); Urine Protein 100 (2+) mg/dL (Neg-Trace)
[2023-02-18 07:20] LABS: Bacteria Urine 3+ (None Seen); Hyaline Casts Urine 0-2 /LPF (0-2); RBC Urine >20 /HPF (0-2); UACC Culture Trigger YES; WBC Urine >50 /HPF (0-5)
--- NOTE | 2023-02-18 07:45 | PC.NURSE ---
pt a&o x4, pleasant, calm and cooperative. reporting 5/10 pain that runs from the abdomen to BL flank to lower back. pt sts urinary frequency since yesterday but sts no pain/blood in urine. UA collected. pt currently resting quietly on stretcher in no apparent distress. rr even/unlabored. wctm
--- NOTE | 2023-02-18 07:46 | ED.ABDPAIN ---
HPI - Abdominal Pain General Chief Complaint: Abdominal Pain Stated Complaint: Back/Abdominal Pain Time Seen by Provider: 02/18/23 07:23 Source: patient Mode of arrival: ambulatory Limitations: no limitations History of Present Illness HPI narrative: 67 yo female with DM, HTN, high chol, presents with increasing abdominal pressure and back pressure. She is urinating frequently. MD elicited complaint: abdominal pain Pertinent past history: past UTI Onset (ago): hour(s) Pain Consistency: constant Quality: aching Related Data Home Medications Medication Instructions Recorded Confirmed lurasidone 40 mg tablet (Latuda) 40 mg PO DAILY 08/07/20 11/17/22 vilazodone 20 mg tablet (Viibryd) 40 mg PO DAILY 05/02/21 11/17/22 insulin aspart U-100 100 unit/mL 15 - 17 unit subcut TID 09/20/21 11/17/22 (3 mL) subcutaneous pen (Novolog FlexPen U-100 Insulin aspart) pen needle, diabetic 31 gauge x #50 ea 12/19/21 11/17/2210/16 (BD Ultra-Fine Mini Pen Needle) doxazosin 4 mg tablet 4 mg PO DAILY 10/31/22 11/17/22 trihexyphenidyl 2 mg tablet mg PO 10/31/22 11/17/22 multivitamin with minerals 1 cap PO DAILY 11/17/22 11/17/22 trihexyphenidyl 2 mg tablet 2 mg PO DAILY 11/17/22 11/17/22 Previous Rx's Medication Instructions Recorded albuterol sulfate 90 mcg/actuation 2 inh inhalation Q6H PRN shortness 02/05/21 breath activated powder inhaler of breath or wheezing 30 days #1 ea (ProAir RespiClick) blood pressure test kit-large #1 ea 02/27/22 acetaminophen 650 mg 650 mg PO Q12H 30 days #60 tabs 05/15/22 tablet,extended release (Tylenol Arthritis Pain) atorvastatin 40 mg tablet 40 mg PO DAILY 90 days #90 tabs 07/14/22 albuterol sulfate 90 mcg/actuation 2 inh inhalation Q6H PRN shortness 10/31/22 breath activated powder inhaler of breath or wheezing 30 days #1 ea (ProAir RespiClick) hydrochlorothiazide 25 mg tablet 25 mg PO QAM 90 days #90 tabs 11/17/22 isosorbide mononitrate 60 mg 60 mg PO DAILY 90 days #90 tabs 01/06/23 tablet,extended release 24 hr hydrocortisone valerate 0.2 % 1 appl topical BID PRN skin 01/08/23 topical ointment irritation 15 days #15 grams calcium carbonate 500 mg-vitamin 1 tab PO BID 90 days #180 tabs 01/26/23 D3 10 mcg (400 unit) tablet (Oyster Shell Calcium-Vitamin D3) insulin degludec 200 unit/mL (3 80 unit (0.4 mL) subcut BEDTIME 90 02/05/23 mL) subcutaneous pen days #36 mL losartan 100 mg tablet 100 mg PO DAILY #90 tabs 02/16/23 cephalexin 500 mg capsule 500 mg PO Q6H 7 days #28 caps 02/18/23 Allergies Allergy/AdvReac Type Severity Reaction Status Date / Time aspirin Allergy Severe GI trouble Verified 11/17/22 14:29 Iodinated Contrast Media Allergy Severe Difficulty Verified 11/17/22 14:29 Breathing amlodipine AdvReac Intermediate leg Verified 11/17/22 14:29 swelling Review of Systems Review of Systems Yes all other systems are reviewed and are negative FOR[facility]LY [facility] Past Medical History Medical History Anemia Asthma Diabetes High cholesterol Hypersomnia with sleep apnea Hypertension Lower extremity edema [place]ATT (obstructive sleep apnea) Thyroid nodule Surgical History History of removal of cyst Uterine polyp Family History Family History Father Stroke Diabetes Mother Hypertension COPD (chronic obstructive pulmonary disease) CHF (congestive heart failure) Maternal Grandmother Stroke Other Mental health disorder Substance use disorder Social History Social History Housing: House Alcohol intake: never Patient Tobacco Use Status: Never used Tobacco Smoked in Last 30 Days: No Second Hand Smoke Exposure: Yes Use of substances other than those prescribed or required for medical reasons: No Advance Directives: No Advance Directives Information Provided: Yes service: No Current occupational status: retired Cognitive needs: No Hearing needs: No Vision needs: Yes (Glasses) Physical Exam ED Vital Signs: Vital Signs - 24 hr 02/18/23 06:54 Temperature 98.1 F Pulse Rate 71 Respiratory Rate 18 Blood Pressure 157/64 H Pulse Oximetry 98 Oxygen Delivery Method Room Air BMI result Body Mass Index 39.9 Const Other: obese Orientation/consciousness: oriented to person and patient oriented x3 Limitations: no limitations HENMT Head: Yes normal to inspection Ears: external ears normal General nose exam: Normal external nose present Mouth: Normal oral and palatal mucosa present and oropharynx normal Throat: Yes posterior oropharynx normal Eyes General: appearance normal, both eyes and all related structures Neck Neck: Yes normal visual inspection Chest Chest palpation & inspection: normal inspection of the chest Resp Auscultation: clear to auscultation bilaterally Cardio Jugular venous distension: no JVD Rate: regular rate Rhythm: regular rhythm Heart sounds: S1 normal heart sound present and S2 normal heart sound present GI Inspection: Yes normal to inspection Palpation (GI): Soft to palpation, nontender and No hepatosplenomegaly present Auscultation: normal bowel sounds General: Yes no CVA tenderness Back/Spine/Pelvis Back: no CVA tenderness Skin General skin exam: no rashes or lesions noted Neuro General: oriented to person and patient oriented x3 Cranial nerves: Yes CN's II-XII intact bilaterally Motor exam (neuro): 5/5 motor strength present throughout Extrem General: Yes normal to inspection Psych Appearance: grossly normal Course Reevaluation(s) Reevaluation #1: Patient with UTI will dc on keflex Time: 07:53 Medical Decision Making Differential Diagnosis Differential Diagnoses: The differential diagnosis associated with the presentation includes (UTI, diverticulitis, pyelonephritis, lumbago,) Admission/Observation Consideration of admission/observation: Escalation of care including admission/observation considered (IN this obese female with DM, HTN, HIgh Cholesterol with abdominal pain admission was considered) Lab Data MDM Lab Attestation statement: I reviewed the patient's lab results. (significant for increased WBC, RBC and nitrites) Labs: Lab Results 02/18/23 Range/Units 07:08 Urine Color Yellow Urine Appearance Clear Urine pH 6.0 (5.0-9.0) Ur Specific [place] 1.010 (1.005-1.025) Urine Protein 100 (2+) H (Neg-Trace) mg/dL Urine Glucose (UA) Negative (Negative) mg/dL Urine Ketones Negative (Negative) mg/dL Urine Blood Large (3+) H (Negative) Urine Nitrite Negative (Negative) Ur Leukocyte Esterase Moderate (2+) H (Negative) Urine RBC >20 H (0-2) /HPF Urine WBC >50 H (0-5) /HPF Ur Squamous Epith Cells 3-5 (0-2) /HPF Urine Bacteria 3+ (None Seen) Hyaline Casts 0-2 (0-2) /LPF External Record Review External record reviewed: Outpatient record Tests considered The following testing was considered but not selected: I considered obtaining a CT of the abdomen but her urine is obviously infected Prescription Management I considered prescription management with: Pain Medication (narcotic pain meds considered but will allow her abx to act) Chronic Conditions Patient?s care impacted by: Diabetes, Hypertension and Other (obesity, mental illness) Discharge Plan Discharge Clinical Impression: Urinary tract infection Patient Disposition: Home, Self-Care Instructions: Urinary Tract Infection in Older Adults (ED) Prescriptions: New cephalexin 500 mg capsule 500 mg PO Q6H 7 Days Qty: 28 0RF No Action (DME) blood pressure test kit-large Kit See Rx Instructions .Route Qty: 1 0RF Rx Instructions: As directed atorvastatin 40 mg tablet 40 mg PO DAILY 90 Days Qty: 90 2RF isosorbide mononitrate 60 mg tablet extended release 24 hr 60 mg PO DAILY 90 Days Qty: 90 2RF hydrocortisone valerate 0.2 % ointment 1 appl topical BID PRN (Reason: skin irritation) 15 Days Qty: 15 0RF calcium carbonate-vitamin D3 [Oyster Shell Calcium-Vit D3] 500 mg-10 mcg (400 unit) tablet 1 tab PO BID 90 Days Qty: 180 1RF insulin degludec 200 unit/mL (3 mL) insulin pen 80 unit subcut BEDTIME 90 Days Qty: 36 0RF losartan 100 mg tablet 100 mg PO DAILY Qty: 90 2RF Viibryd 20 mg tablet 40 mg PO DAILY acetaminophen [Tylenol Arthritis Pain] 650 mg tablet extended release 650 mg PO Q12H 30 Days Qty: 60 3RF tetanus-diphtheria toxoids-Td 2-2 Lf unit/0.5 mL suspension 0.5 ml IM ONCE Qty: 0.5 0RF multivitamin with minerals Capsule 1 cap PO DAILY trihexyphenidyl 2 mg tablet 2 mg PO DAILY Rx Instructions: give with food (meal/snack) hydrochlorothiazide 25 mg tablet 25 mg PO QAM 90 Days Qty: 90 2RF Latuda 40 mg tablet 40 mg PO DAILY Rx Instructions: must administer with food (at least 350 calories) ProAir RespiClick 90 mcg/actuation aerosol powdr breath activated 2 inh inhalation Q6H PRN (Reason: shortness of breath or wheezing) 30 Days Qty: 1 11RF insulin aspart U-100 [Novolog FlexPen U-100 Insulin] 100 unit/mL (3 mL) insulin pen 15 - 17 unit subcut TID (DME) pen needle, diabetic [BD Ultra-Fine Mini Pen Needle] 31 gauge x 3/16 needle See Rx Instructions subcut .MEDSUPPLY Qty: 50 Rx Instructions: As directed doxazosin 4 mg tablet 4 mg PO DAILY trihexyphenidyl 2 mg tablet PO ProAir RespiClick 90 mcg/actuation aerosol powdr breath activated 2 inh inhalation Q6H PRN (Reason: shortness of breath or wheezing) 30 Days Qty: 1 11RF Referrals: Tadeo Dukes PA-C [Primary Care Provider] - 5 days
[2023-02-18] MEDS: cephALEXin 500 MG CAPSULE PO (08:11)
== END 2023-02-18 08:15 | disposition home or self-care (01) ==
PROVIDERS: Emergency Provider Emergency Medicine; PCP Physician Assistant
DX: N39.0 Urinary tract infection, site not specified (principal); B96.89 Other specified bacterial agents as the cause of diseases classified elsewhere; E11.9 Type 2 diabetes mellitus without complications; I10 Essential (primary) hypertension; E78.5 Hyperlipidemia, unspecified; Z79.4 Long term (current) use of insulin; Z79.899 Other long term (current) drug therapy
CPT/HCPCS: 81001; 87086; 87088; 87186; 99283; 99284

== ENCOUNTER 2023-02-19 13:51 | Outpatient (AMB) | payer MEDICARE, OTHER, SELFPAY ==
[2023-02-19 13:53] VITALS: BP 118/68; PULSE 81; O2SAT 97; BMI 40.0
--- NOTE | 2023-02-19 13:53 | MHC.PC.OV ---
Vital Signs 02/19/23 13:53 Height 5 ft 5 in Weight 240 lb 6 oz BMI 40.0 BP 118/68 Blood Pressure Location Lt brachial Position Sitting Pulse 81 Pulse Source Pulse Oximeter Pulse Oximetry (%) 97 Oxygen Delivery Method Room Air Intake Visit Reasons: f/u DMII Allergies aspirin Allergy (Severe, Verified 02/19/23 14:01) GI trouble Iodinated Contrast Media Allergy (Severe, Verified 02/19/23 14:01) Difficulty Breathing amlodipine Adverse Reaction (Intermediate, Verified 02/19/23 14:01) leg swelling Medication List - Last Reconciled 02/19/23 by Tadeo Dukes PA-C acetaminophen ER (Tylenol Arthritis Pain) 650 mg PO Q12H 30 days albuterol sulfate 90 mcg/actuation (ProAir RespiClick) 2 inhalations inhalation Q6H PRN 30 days albuterol sulfate 90 mcg/actuation (ProAir RespiClick) 2 inhalations inhalation Q6H PRN 30 days atorvastatin 40 mg PO DAILY 90 days blood pressure test kit-large As directed calcium carbonate-vitamin D3 500 mg-10 mcg (400 unit) (Oyster Shell Calcium-Vitamin D3) 1 tab PO BID 90 days cephalexin 500 mg PO Q6H 7 days doxazosin 4 mg PO DAILY hydrochlorothiazide 25 mg PO QAM 90 days hydrocortisone valerate 0.2% 1 appl topical BID PRN 15 days insulin aspart U-100 (Novolog FlexPen U-100 Insulin aspart) 15 - 17 units subcut TID insulin degludec 80 units (0.4 mL) subcut BEDTIME 90 days isosorbide mononitrate ER 60 mg PO DAILY 90 days losartan 100 mg PO DAILY lurasidone (Latuda) 40 mg PO DAILY multivitamin with minerals 1 cap PO DAILY pen needle, diabetic (BD Ultra-Fine Mini Pen Needle) As directed trihexyphenidyl 2 mg PO DAILY trihexyphenidyl mg PO vilazodone (Viibryd) 40 mg PO DAILY Tobacco use date assessed: 11/17/22 HPI f/u DMII HPI Details Patient is a 67-year-old female here today for follow-up visit? Patient has a past medical history significant for type 2 diabetes, hyperlipidemia, hypertension, history of non STEMI,? asthma, WYATT, major depression, PTSD Concerns--> recently seen at the ER for acute lower abdominal pain and dysuria. Found to have UTI and was treated for with cephalexin. Report having diarrhea as of late. She denies any fevers or abdominal pain. She believes she has IBS D. Has taken loperamide which has helped reduce her diarrhea. Diarrhea likely cause of her UTI. She also does report having some significant issues with swallowing mostly solids. She attributes this to having a dry throat though would like evaluation. PLAN: Will send for barium swallow and GI referral for endoscopy. .. MDD: Is followed by a med provider whom prescribes her mental health meds.? She feels her mental health medications are helping her tremendously with decreasing her depression. .. Obstructive sleep apnea:? Patient followed by pulmonology and continues on APAP at night with decent affect. .. HTN:? Patient's blood pressure acceptable today in office.? Has started to use doxazosin at night and feels it is better control her blood pressure. ? She otherwise denies any headaches, chest discomforts or shortness of breath.? She reports she has been in some pain due to her lower back .. DMII: Has been compliant with her Insulins.? Patient is followed by hospitalist physician now in [facility]. Most recent A1c at 7.0 from 7.5 .? Unfortunately no weight loss since last office visit.? She reports blood sugars have been elevated as of lately. .. Asthma:? Has been well controlled with p.r.n. use of albuterol inhaler.? Denies any nighttime awakenings with asthma symptoms.? Does use a CPAP machine at night .. Laboratory Tests 05/15/22 10/31/22 11/17/22 10:42 11:02 14:25 RBC 4.14 L Hgb A1c (Clinic) 6.5 H 7.5 H Urine Blood Ur Leukocyte Stacy ase Urine Bacteria 02/18/23 07:08 RBC Hgb A1c (Clinic) Urine Blood Large (3+) H Ur Leukocyte Stacy ase Moderate (2+) H Urine Bacteria 3+ PFSH Medical History Anemia Asthma Diabetes High cholesterol Hypersomnia with sleep apnea Hypertension Lower extremity edema WYATT (obstructive sleep apnea) Thyroid nodule Surgical History History of removal of cyst Uterine polyp Family History Father Stroke Diabetes Mother Hypertension COPD (chronic obstructive pulmonary disease) CHF (congestive heart failure) Maternal Grandmother Stroke Other Mental health disorder Substance use disorder Social History Housing: House Alcohol intake: never Patient Tobacco Use Status: Never used Tobacco Second Hand Smoke Exposure: Yes service: No Current occupational status: retired Cognitive needs: No Hearing needs: No Vision needs: Yes (Glasses) Questionnaire PHQ-9 Over the last 2 weeks, how often have you been bothered by any of the following problems? 1. Little interest or pleasure in doing things: nearly every day 2. Feeling down, depressed, or hopeless: more than half the days 3. Trouble falling or staying asleep, or sleeping too much: nearly every day 4. Feeling tired or having little energy: not at all 5. Poor appetite or overeating: more than half the days 6. Feeling bad about yourself - or that you are a failure or have let yourself or your family down: more than half the days 7. Trouble concentrating on things, such as reading the newspaper or watching television: not at all 8. Moving or speaking so slowly that other people could have noticed. Or the opposite - being so fidgety or restless that you have been moving around a lot more than usual: not at all 9. Thoughts that you would be better off or of hurting yourself in some way: not at all Total score: 12 Depression Screening Interpretation: Positive 47067 - PHQ-9 Billing: Yes Source: Developed by Drs. Jakob Batres, Kayla Whitney, Iglesia Moreira and colleagues, with an educational vanda from [employer]. Thrive Questionnaire Date Thrive assessed: 11/17/22 I am a: Patient What is your living situation today?: I have a steady place to live Within the past 12 months, did the food you bought not last and you didn't have the money to get more?: Never true Within the past 12 months, did you worry whether your food would run out before you got money to buy more?: Never true Currently or been in a relationship where the following occur: no concerns reported AUDIT C Alcohol Use Questionnaire (AUDIT-C) 1. How often do you have a drink containing alcohol?: Never 3. How often do you have six or more drinks on one occasion?: Never Total Score: 0 YANIQUE-7 AMB Questionnaire YANIQUE-7 Date YANIQUE - 7 assessed: 11/17/22 Feeling nervous, anxious, or on edge: 0 = Not at all Not being able to stop or control worryin = Not at all Worrying too much about different things: 0 = Not at all Trouble relaxin = Not at all Being so restless that it is hard to sit still: 0 = Not at all Becoming easily annoyed or irritable: 0 = Not at all Feeling afraid as if something awful might happen: 0 = Not at all Total YANIQUE-7 score (0-4 normal; 5-9 mild; 10-14 moderate; 15-21 severe): 0 Source: Developed by Drs. Jakob Batres, Kayla Whitney, Iglesia Moreira and colleagues, with an educational vanda from [employer]. YANIQUE-7 Assessment Billing YANIQUE-7 Assessment Tool: YANIQUE-7 Assessment 35553 ACT Questionnaire In the past 4 weeks, how much of the time did your asthma keep you from getting as much done at work, school or at home?: None of the time During the past 4 weeks, how often have you had shortness of breath?: Not at all During the past 4 weeks, how often did your asthma symptoms wake you up at night or earlier than usual in the morning?: Not at all During the past 4 weeks, how often have you had to use your rescue inhaler or nebulizer medication?: Not at all How would you rate your asthma control during the past 4 weeks?: Completely controlled ACT Interpretation: Negative Score: 25 Review of Systems Const Denies headache(s) Eyes Denies loss of vision ENT Denies vertigo, Denies dizziness, Denies headache(s) and Denies sore throat Card Denies chest pain, Denies leg edema and Denies lightheadedness Resp Denies cough, Denies hemoptysis and Denies wheezing GI Denies abdominal pain, Denies melena, Denies constipation, Denies diarrhea and Denies vomiting Denies urinary frequency, Denies dysuria and Denies urinary urgency Musc Denies arthralgias, Denies joint swelling, Denies numbness and Denies tingling Neuro Denies Abnormal speech present, Denies behavioral changes, Denies vertigo, Denies dizziness, Denies headache(s), Denies loss of vision, Denies memory loss, Denies numbness and Denies tingling Psych Reports anxiety, Denies behavioral changes, Reports depression, Denies memory loss and Denies panic attacks Johnnie/Lymph Denies easy bleeding and Denies easy bruising Aller/Immun Denies wheezing Physical exam (Primary Care) Vital Signs: Last Vital Signs Pulse 81 02/19/23 13:53 BP 118/68 02/19/23 13:53 Pulse Ox 97 02/19/23 13:53 Oxygen Delivery Method Room Air 02/19/23 13:53 BMI result Body Mass Index 40.0 BMI Assessment/Plan discussion: High Tobacco/Smoking Status: Tobacco use Status Tobacco use date assessed 11/17/22 02/19/23 13:59 Patient Tobacco Use Status Never used Tobacco 02/19/23 13:59 PHQ-9: PHQ-9 Score PHQ-9: Total score 12 02/19/23 14:31 Depression Screening Interpretation: Positive Thrive Assessment: Date of Thrive Assessment Date Thrive assessed 11/17/22 02/19/23 13:59 Currently or been in a relationship where the following occur: no concerns reported Const Other: Morbidly obese General: no acute distress, alert and awake Nutritional Appearance: well nourished Orientation/consciousness: oriented to person, oriented to place and oriented to time HENMT Ears: TM's normal bilaterally General nose exam: Normal nasal mucous membranes and turbinates present Eyes Conjunctivae: conjunctivae normal Sclerae: sclerae normal Pupils: Equal, round and reactive pupils present Neck Neck: Yes no lymphadenopathy and Yes no JVD Thyroid: Thyroid normal Carotids: no bruits Resp Effort & Inspection: normal respiratory effort and not tachypneic Auscultation: no crackles, no rales, no rhonchi and no wheezes Cardio Rate: regular rate Rhythm: regular rhythm Heart sounds: no murmurs and normal S1 and S2 GI Palpation (GI): Soft to palpation, nontender, no hepatomegaly and no splenomegaly Auscultation: normal bowel sounds Skin General skin exam: no rashes or lesions noted and dry skin Neuro General: oriented to person, oriented to place and oriented to time Cranial nerves: Yes Equal, round and reactive pupils present Speech: No Abnormal speech present Gait exam (Neuro): Normal gait present Motor exam (neuro): no tremor noted Extrem Right upper extremity: full ROM Left upper extremity: full ROM Right lower extremity: full ROM; no edema Left lower extremity: full ROM; no edema Psych Mental Status: mental status grossly normal Speech and movement: Normal speech and movement present Affect: normal affect Attitude: cooperative Thought process: Normal thought process present Results AMB Hemoglobin A1c AMB Hemoglobin A1c 7.3 % Last Edit by Ashwini Alegria MA on 02/19/23 14:02 Immunizations pneumoc 20-moira conj-dip cr(PF) Performing Provider: Tadeo Dukes PA-C Administered by: Ashwini Alegria MA on 02/19/23 14:31 Dose Route Admin Location Lot Number Expiration Date NDC Media Relations Coordinator 0.5 mL IM Left Deltoid [id number] 04/03/24 4102-2001-02 [employer] VIS Given Date VIS Provided VIS Publication Date 02/19/23 Single Vaccine 21 Eligibility Eligibility Date Funding Source Not VFC Eligible 02/19/23 Private Results Reviewed Results Reviewed: Laboratory Last Values Hgb A1c (Clinic) 7.3 % (4.0-6.0) H 02/19/23 13:59 Assessment and Plan Assessment & Plan (1) MDD (major depressive disorder), recurrent episode, moderate: Code(s): F33.1 - Major depressive disorder, recurrent, moderate Plan: Patient's PHQ-9 score positive for moderate depression which has been existing condition for her. She does speak with a mental health therapist and a med psych provider who manages her mental health medication. She feels stable at this time from a mental health point of view. 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 Will continue current anti-hyperglycemic medication with goal A1c to remain below 7.0 (3) Asthma: Code(s): J45.909 - Unspecified asthma, uncomplicated Qualifiers: Asthma complication type: uncomplicated Asthma persistence: intermittent Asthma severity: mild Qualified Code(s): J45.20 - Mild intermittent asthma, uncomplicated Plan: Patient reports her asthma has been fairly well controlled with current p.r.n. use of her albuterol inhaler. Denies any nighttime awakenings with asthma symptoms or recent asthma exacerbations. (4) High cholesterol: Code(s): E78.00 - Pure hypercholesterolemia, unspecified Plan: Patient continues on statin therapy with out side effect. Most recent lipid panel showing appropriate total cholesterol and LDL. Goal LDL to be below 100 (5) Irritable bowel syndrome with diarrhea: Code(s): K58.0 - Irritable bowel syndrome with diarrhea Plan: Patient has intermittent diarrhea most consistent with that irritable bowel syndrome in the setting of her moderate to severe mental health disorders. Will also test for food allergy in and celiac. Advised on loperamide in use of the stool bulking agent (6) Dysphagia: Comment: GI eval Code(s): R13.10 - Dysphagia, unspecified Qualifiers: Dysphagia type: unspecified Qualified Code(s): R13.10 - Dysphagia, unspecified Plan: Patient continues to have dysphagia mostly with solids, will send for barium swallow to evaluate for any esophageal strictures or rings. Will also refer to GI for both her intermittent diarrhea and perhaps have endoscopy for dysphagia. (7) Obese: Code(s): E66.9 - Obesity, unspecified Qualifiers: Obesity type: due to excess calories Obesity classification: adult class 2 (BMI 35 - 39.9) Serious obesity comorbidity presence: with serious comorbidity Body mass index: BMI 37.0-37.9 Qualified Code(s): E66.01 - Morbid (severe) obesity due to excess calories; Z68.37 - Body mass index [BMI] 37.0-37.9, adult Plan: Patient does understand her BMI is over 40 will work on being more physically active and adapting to better eating habits to reduce her weight Orders: Orders Comprehensive [place]. 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 Lipid Panel Today E78.00 - Pure hypercholesterolemia, unspecified [place] barium swallow Today R13.10 - Dysphagia, unspecified Complete Blood Count no Diff Today E11.65 - Type 2 diabetes mellitus with hyperglycemia, Z79.4 - [facility] (current) use of insulin Hemoglobin A1c Today E11.65 - Type 2 diabetes mellitus with hyperglycemia, Z79.4 - [facility] (current) use of insulin Rast Allergen Today K58.0 - Irritable bowel syndrome with diarrhea Transglutaminase IgA Today K58.0 - Irritable bowel syndrome with diarrhea, R14.0 - Abdominal distension (gaseous) Transglutaminase Ab IgG Today K58.0 - Irritable bowel syndrome with diarrhea, R14.0 - Abdominal distension (gaseous) Pneumococcal 20 Immunization Today E11.65 - Type 2 diabetes mellitus with hyperglycemia, Z23 - Encounter for immunization, Z79.4 - 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 senior 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 AMB Hemoglobin A1c Today E11.9 - Type 2 diabetes mellitus without complications Referrals Gastroenterology Referral R13.10 - Dysphagia, unspecified Coding Level of Care Code Est Pt Level 4 (48533) Diagnoses MDD (major depressive disorder), recurrent episode, moderate F33.1 Diabetes E11.65; Z79.4 Diabetes mellitus complication status: with hyperglycemia Diabetes mellitus grants specialist insulin use: with mcc use Diabetes mellitus type: type 2 Asthma J45.20 Asthma complication type: uncomplicated Asthma persistence: intermittent Asthma severity: mild High cholesterol E78.00 Irritable bowel syndrome with diarrhea K58.0 Dysphagia R13.10 Dysphagia type: unspecified Obese E66.01; Z68.37 Obesity type: due to excess calories Obesity classification: adult class 2 (BMI 35 - 39.9) Serious obesity comorbidity presence: with serious comorbidity Body mass index: BMI 37.0-37.9 Additional Codes YANIQUE-7 Assessment Billing - YANIQUE-7 Assessment Tool: YANIQUE-7 Assessment [id number] ([id number])
== END 2023-02-19 14:35 | disposition home or self-care (01) ==
PROVIDERS: PCP Physician Assistant; Visit Provider Physician Assistant
DX: E11.65 Type 2 diabetes mellitus with hyperglycemia (principal); K58.0 Irritable bowel syndrome with diarrhea; F33.1 Major depressive disorder, recurrent, moderate; Z79.4 Long term (current) use of insulin; J45.20 Mild intermittent asthma, uncomplicated; E78.00 Pure hypercholesterolemia, unspecified; R13.10 Dysphagia, unspecified; E66.01 Morbid (severe) obesity due to excess calories; Z68.37 Body mass index [BMI] 37.0-37.9, adult; Z23 Encounter for immunization; E11.9 Type 2 diabetes mellitus without complications
CPT/HCPCS: 83036; 90471; 90677; 99214

== ENCOUNTER 2023-02-19 14:37 | Outpatient (REF) | payer MEDICARE, OTHER, SELFPAY | END 2023-02-19 14:38 | disposition home or self-care (01) | LOC: HO.LAB 14:37 | PROVIDERS: PCP Physician Assistant; Visit Provider Physician Assistant | DX: K58.0 Irritable bowel syndrome with diarrhea (principal); Z91.09 Other allergy status, other than to drugs and biological substances | CPT/HCPCS: 36415; 86003 ==

== ENCOUNTER 2023-04-16 14:35 | Outpatient (AMB) | payer MEDICARE, OTHER, SELFPAY ==
--- NOTE | 2023-04-16 14:40 | MHC.OFFVIS ---
Intake Vital Signs 04/16/23 14:46 Height 5 ft 5 in Weight 240 lb BMI 39.9 BP 154/68 H Blood Pressure Location Lt brachial Position Sitting Pulse 72 Intake Visit Reasons: Dysphagia Intake Note: Patient new consult for Dysphagia and diarrhea Patient cc: dysphagia with solid food, between constipation and diarrhea, and also acid reflex. 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 Accompanied by: Self / Same As Patient Allergies aspirin Allergy (Severe, Verified 04/16/23 14:40) GI trouble Iodinated Contrast Media Allergy (Severe, Verified 04/16/23 14:40) Difficulty Breathing amlodipine Adverse Reaction (Intermediate, Verified 04/16/23 14:40) leg swelling HPI HPI Comments History of Present Illness Details 67-year-old female referred with dysphagia to solid for > 1 year- especially pnut butter- she has a test by psych- that was negative- she uses Cpap Her throat get dry- she has a sore throat alot- drinking smoothies-acid reflux- not taking a ppi-no nausea or vomiting-again admits she does not eat healthy-no culprits identified or avoided appetite is good- metamucil- she just started - taking every few days- she says it really helps to form she had a normal colonoscopy < 4 years ago- Dr. Herrera- she has loose stool a couple times a week- she sdmits to poor diet- blood sugars have been high- She says when she eats better she does not have diarrhea- admits to clenching jaw and tension Lives alone No nausea, vomiting, hematemesis, hematochezia fever or chills PFSH Medical History (Updated 04/16/23 @ 15:19 by Oxana Portillo PA-C) Lower extremity edema Thyroid nodule Anemia Hypersomnia with sleep apnea High cholesterol Diabetes Hypertension Asthma WYATT (obstructive sleep apnea) Surgical History Uterine polyp History of removal of cyst Family History Father Stroke Diabetes Mother Hypertension COPD (chronic obstructive pulmonary disease) CHF (congestive heart failure) Maternal Grandmother Stroke Other Mental health disorder Substance use disorder Social History Housing: House Alcohol intake: never Patient Tobacco Use Status: Never used Tobacco Second Hand Smoke Exposure: Yes service: No Current occupational status: retired Cognitive needs: No Hearing needs: No Vision needs: Yes (Glasses) Review of Systems Const All systems reviewed & are unremarkable except as noted in HPI and below Denies chills and Denies fever(s) ENT Reports dysphagia and Reports odynophagia Card Denies chest pain and Denies dyspnea Resp Denies dyspnea GI Reports dysphagia, Reports heartburn, Denies nausea, Reports odynophagia and Denies vomiting Psych Reports anxiety, Reports depression, Denies homicidal ideation and Denies suicidal ideation Physical Exam Vital Signs: Last Vital Signs Pulse 72 04/16/23 14:46 BP 154/68 H 04/16/23 14:46 BMI result Body Mass Index 39.9 Const General: comfortable Nutritional Appearance: overweight Orientation/consciousness: patient oriented x3 Limitations: no limitations Eyes Sclerae: sclerae normal Resp Effort & Inspection: normal respiratory effort and able to speak in complete sentences Auscultation: clear to auscultation bilaterally, no crackles, no rales, rhonchi and no wheezes Cardio Rate: regular rate Rhythm: regular rhythm Heart sounds: S1 normal heart sound present and S2 normal heart sound present GI Inspection: Yes obesity Palpation (GI): Soft to palpation and nontender Auscultation: normal bowel sounds Neuro General: patient oriented x3 Extrem General: Yes full ROM Psych Speech and movement: Clear speech present Affect: Labile affect present Attitude: cooperative Thought process: Normal thought process present Results Reviewed Results Reviewed: HGA1c> 7 Assessment & Plan Assessment & Plan (1) Dysphagia: Comment: GI eval awaiting BS EGD pos dil r/o pud, esophagitis/ Code(s): R13.10 - Dysphagia, unspecified Qualifiers: Dysphagia type: unspecified Qualified Code(s): R13.10 - Dysphagia, unspecified (2) Asthma: Code(s): J45.909 - Unspecified asthma, uncomplicated Qualifiers: Asthma severity: mild Asthma persistence: intermittent Asthma complication type: uncomplicated Qualified Code(s): J45.20 - Mild intermittent asthma, uncomplicated (3) WYATT (obstructive sleep apnea): Code(s): G47.33 - Obstructive sleep apnea (adult) (pediatric) Orders: Orders EDG - GI Use Only 04/16/23 Medications: New omeprazole 20 mg PO DAILY 30 caps 5RF Patient Instructions: omeprazole 20 mg reflux precautions- avoid culprits EGD pos dil, however reassess after barium study Chew well eat slowly See back after Barium for progress- / ppi Coding Level of Care Code New Pt Level 3 (38251) Diagnoses Dysphagia, unspecified type R13.10 Dysphagia type: unspecified Mild intermittent asthma without complication J45.20 Asthma severity: mild Asthma persistence: intermittent Asthma complication type: uncomplicated WYATT (obstructive sleep apnea) G47.33 Time Spent (min) 30
[2023-04-16 14:46] VITALS: BP 154/68; PULSE 72; BMI 39.9
== END 2023-04-16 15:25 | disposition home or self-care (01) ==
PROVIDERS: PCP Physician Assistant; Visit Provider Physician Assistant
DX: R13.10 Dysphagia, unspecified (principal); J45.20 Mild intermittent asthma, uncomplicated; G47.33 Obstructive sleep apnea (adult) (pediatric)
CPT/HCPCS: 99203

== ENCOUNTER → 2023-04-16 14:35 | Outpatient (BNVA) | payer MEDICARE, OTHER, SELFPAY | PROVIDERS: PCP Physician Assistant; Visit Provider Physician Assistant ==

== ENCOUNTER 2023-05-12 08:21 | Outpatient (REF) | payer MEDICARE, OTHER, SELFPAY | END 2023-05-12 08:22 | disposition home or self-care (01) | LOC: HO.XRAY 08:21 | PROVIDERS: PCP Physician Assistant; Visit Provider Physician Assistant | DX: R13.10 Dysphagia, unspecified (principal) | CPT/HCPCS: 74220 ==

== ENCOUNTER → 2023-05-12 08:23 | Outpatient (BNV) | payer MEDICARE, OTHER, SELFPAY | PROVIDERS: PCP Physician Assistant; Visit Provider Radiology Diagnostic Radiology | DX: R13.10 Dysphagia, unspecified (principal) | CPT/HCPCS: 74221 ==

== ENCOUNTER 2023-05-18 12:36 | Outpatient (AMB) | payer MEDICARE, OTHER, SELFPAY ==
--- NOTE | 2023-05-18 12:57 | MHC.OFFVIS ---
Intake Vital Signs 05/18/23 13:01 Height 5 ft 5 in Weight 244 lb 11.41 oz BMI 40.7 BP 196/75 H Blood Pressure Location Lt brachial Position Sitting Pulse 63 Intake Visit Reasons: 1 month follow up Intake Note: Rocio presents in the office as a 1 month follow up. CC: She would like to know if taking omeprazole can effect the kidneys at all. Other than that she states no concerns. Allergies aspirin Allergy (Severe, Verified 05/18/23 13:02) GI trouble Iodinated Contrast Media Allergy (Severe, Verified 05/18/23 13:02) Difficulty Breathing amlodipine Adverse Reaction (Intermediate, Verified 05/18/23 13:02) leg swelling Medication List - Last Reconciled 05/18/23 by Oxana Portillo PA-C albuterol sulfate 90 mcg/actuation (ProAir RespiClick) 2 inhalations inhalation Q6H PRN 30 days albuterol sulfate 90 mcg/actuation (ProAir RespiClick) 2 inhalations inhalation Q6H PRN 30 days atorvastatin 40 mg PO DAILY 90 days blood pressure test kit-large As directed calcium carbonate-vitamin D3 500 mg-10 mcg (400 unit) (Oyster Shell Calcium-Vitamin D3) 1 tab PO BID 90 days cephalexin 500 mg PO Q6H doxazosin 4 mg PO DAILY hydrochlorothiazide 25 mg PO QAM 90 days hydrocortisone valerate 0.2% 1 appl topical BID PRN 15 days insulin aspart U-100 (Novolog FlexPen U-100 Insulin aspart) 15 - 17 units subcut TID insulin degludec 80 units subcut BEDTIME isosorbide mononitrate ER 60 mg PO DAILY losartan 100 mg PO DAILY lurasidone (Latuda) 80 mg PO DAILY multivitamin with minerals 1 cap PO DAILY omeprazole 20 mg PO DAILY pen needle, diabetic (BD Ultra-Fine Mini Pen Needle) As directed trihexyphenidyl 2 mg PO DAILY trihexyphenidyl mg PO vilazodone (Viibryd) 40 mg PO DAILY HPI HPI Comments History of Present Illness Details A 67-year-old female seen with a dysphagia follows up after recent barium study. She notes improvement with reflux - taking omeprazole 20 mg daily-however does not want to continue taking omeprazole due to side effects that she may experience. Occasional dysphagia -details vague Does not like taking medications. No weight loss Hypertensive, no headache, dizziness, visual change shortness of breath or chest pain Currently she has no nausea, vomiting, hematemesis, hematochezia fever chills she is established with [facility] Medical History Lower extremity edema Thyroid nodule Anemia Hypersomnia with sleep apnea High cholesterol Diabetes Hypertension Asthma WYATT (obstructive sleep apnea) Surgical History Hx of colonoscopy History of esophagogastroduodenoscopy (EGD) Uterine polyp History of removal of cyst Family History Father Stroke Diabetes Mother Hypertension COPD (chronic obstructive pulmonary disease) CHF (congestive heart failure) FHx: colonic polyps Maternal Grandmother Stroke Sister FHx: colonic polyps Other Mental health disorder Substance use disorder Social History Housing: House Alcohol intake: never Patient Tobacco Use Status: Never used Tobacco Second Hand Smoke Exposure: Yes service: No Current occupational status: retired Cognitive needs: No Hearing needs: No Vision needs: Yes (Glasses) Review of Systems Const All systems reviewed & are unremarkable except as noted in HPI and below Denies chills, Denies fever(s) and Denies headache(s) ENT Reports dysphagia (Intermittent) and Denies headache(s) Card Denies chest pain, Denies rapid heart rate, Denies palpitations and Denies dyspnea Resp Denies dyspnea GI Denies abdominal pain, Reports dysphagia (Intermittent) and Reports heartburn (Improved) Neuro Denies headache(s) Endo Denies palpitations Physical Exam Vital Signs: Last Vital Signs Pulse 63 05/18/23 13:01 BP 196/75 H 05/18/23 13:01 BMI result Body Mass Index 40.7 Const General: cooperative, comfortable and no acute distress Nutritional Appearance: overweight Orientation/consciousness: patient oriented x3 Limitations: no limitations Resp Effort & Inspection: normal respiratory effort and able to speak in complete sentences Auscultation: clear to auscultation bilaterally Cardio Rate: regular rate Rhythm: regular rhythm Neuro General: patient oriented x3 Results Reviewed Results Reviewed: FL/FL barium swallow IMPRESSION: 1. Small type I hiatus hernia. 2. Mild gastroesophageal reflux to the level of the nathalia noted episodically. No mucosal changes. Mild presbyesophagus. 3. Moderate cricopharyngeal achalasia present. No evidence of laryngeal penetration or aspiration. 4. Normal-appearing stomach, du Assessment & Plan Assessment & Plan (1) Achalasia of the cricopharyngeus muscle: Code(s): K22.0 - Achalasia of cardia (2) Hiatal hernia: Code(s): K44.9 - Diaphragmatic hernia without obstruction or gangrene (3) Acid reflux: Code(s): K21.9 - Gastro-esophageal reflux disease without esophagitis Patient Instructions: Pleasant, overweight 67-year-old obese hypertensive female follows up after-Barium swallow for dysphagia. Reviewed reflux precautions- Reviewed report, discussed EGD- prefers to see primary early interventionist as he does her colonoscopy and he will have all her records. Copy of report given to patient she will schedule appointment to see Deshawn Encourage encouraged to take medications as prescribed-certainly antihypertensives Continue to monitor BP Appreciate the opportunity assist in the care the patient Coding Level of Care Code Est Pt Level 3 (16069) Diagnoses Achalasia of the cricopharyngeus muscle K22.0 Hiatal hernia K44.9 Acid reflux K21.9 Time Spent (min) 25
[2023-05-18 13:01] VITALS: BP 196/75; PULSE 63; BMI 40.7
== END 2023-05-18 14:10 | disposition home or self-care (01) ==
PROVIDERS: PCP Physician Assistant; Visit Provider Physician Assistant
DX: K22.0 Achalasia of cardia (principal); K44.9 Diaphragmatic hernia without obstruction or gangrene; K21.9 Gastro-esophageal reflux disease without esophagitis
CPT/HCPCS: 99213

== ENCOUNTER → 2023-05-18 12:36 | Outpatient (BNVA) | payer MEDICARE, OTHER, SELFPAY | PROVIDERS: PCP Physician Assistant; Visit Provider Physician Assistant | DX: K22.0 Achalasia of cardia (principal); K21.9 Gastro-esophageal reflux disease without esophagitis; K44.9 Diaphragmatic hernia without obstruction or gangrene | CPT/HCPCS: 99212 ==

== ENCOUNTER 2023-09-01 08:10 | Outpatient (AMB) | payer MEDICARE, OTHER, SELFPAY ==
[2023-09-01 08:30] VITALS: BP 138/58; PULSE 65; O2SAT 98; BMI 40.1
--- NOTE | 2023-09-01 08:30 | MHC.PC.OV ---
Vital Signs 09/01/23 08:30 Height 5 ft 5 in Weight 241 lb BMI 40.1 BP 138/58 L Blood Pressure Location Lt brachial Position Sitting Pulse 65 Pulse Source Pulse Oximeter Pulse Oximetry (%) 98 Oxygen Delivery Method Room Air Intake Visit Reasons: f/u DMII/ HTN, rescheduled from 08/20/23 Sales Account Director Required: No Dry Man: Not Required per policy Accompanied by: Self / Same As Patient Allergies aspirin Allergy (Severe, Verified 09/01/23 08:52) GI trouble Iodinated Contrast Media Allergy (Severe, Verified 09/01/23 08:52) Difficulty Breathing amlodipine Adverse Reaction (Intermediate, Verified 09/01/23 08:52) leg swelling Medication List - Last Reconciled 09/01/23 by Tadeo Dukes PA-C albuterol sulfate 90 mcg/actuation (ProAir RespiClick) 2 inhalations inhalation Q6H PRN 30 days atorvastatin 40 mg PO DAILY 90 days blood pressure test kit-large As directed bupropion HCl 300 mg PO DAILY calcium carbonate-vitamin D3 500 mg-10 mcg (400 unit) (Oyster Shell Calcium-Vitamin D3) 1 tab PO BID 90 days doxazosin 4 mg PO DAILY 90 days hydrochlorothiazide 25 mg PO QAM 90 days hydrocortisone valerate 0.2% 1 appl topical BID PRN 15 days insulin aspart U-100 (Novolog FlexPen U-100 Insulin aspart) 15 - 17 units subcut TID insulin degludec 76 units subcut BEDTIME isosorbide mononitrate ER 60 mg PO DAILY 90 days losartan 100 mg PO DAILY lurasidone (Latuda) 80 mg PO DAILY multivitamin with minerals 1 cap PO DAILY omeprazole 20 mg PO DAILY pen needle, diabetic (BD Ultra-Fine Mini Pen Needle) As directed trihexyphenidyl 2 mg PO DAILY vilazodone (Viibryd) 40 mg PO DAILY Tobacco use date assessed: 09/01/23 Fall risk assessment: No Falls in past year Last assessed Fall Risk: 09/01/23 Dental Screening Dental Screen Date: 09/01/23 Did you have a dental visit in the last 12 months?: Yes Did you have a dental problem in the last 6 months where you did not have access to dental care?: No Was dental information given to patient?: Patient has dentist HPI f/u DMII/ HTN, rescheduled from 08/20/23 HPI Details Patient is a 67-year-old female here today for follow-up visit? Patient has a past medical history significant for type 2 diabetes, hyperlipidemia, hypertension, history of non STEMI,? asthma, WYATT, major depression, PTSD Concerns--> .. MDD: Is followed by a med provider whom prescribes her mental health meds.? Recently started on Wellbutrin which has significantly helped her depression. .. Obstructive sleep apnea:? Patient followed by pulmonology and continues on APAP at night with decent affect. .. HTN:? Patient's blood pressure acceptable today in office.? Has started to use doxazosin at night and feels it is better control her blood pressure. ? She otherwise denies any headaches, chest discomforts or shortness of breath.? She reports she has been in some pain due to her lower back .. DMII: Has been compliant with her Insulins.? Patient is followed by seafood and service meat manager now in [facility]. Most recent A1c at 7.1 done in June of 2023.? Has lost a little bit of weight since last office visit .. Asthma:? Has been well controlled with p.r.n. use of albuterol inhaler.? Denies any nighttime awakenings with asthma symptoms.? Does use a CPAP machine at night Laboratory Tests 11/17/22 02/19/23 14:25 13:59 Hgb A1c (Clinic) 7.5 H 7.3 H PFSH Medical History Lower extremity edema Thyroid nodule Anemia Hypersomnia with sleep apnea High cholesterol Diabetes Hypertension Asthma WYATT (obstructive sleep apnea) Surgical History Hx of colonoscopy History of esophagogastroduodenoscopy (EGD) Uterine polyp History of removal of cyst Family History Father Stroke Diabetes Mother Hypertension COPD (chronic obstructive pulmonary disease) CHF (congestive heart failure) FHx: colonic polyps Maternal Grandmother Stroke Sister FHx: colonic polyps Other Mental health disorder Substance use disorder Social History Housing: House Alcohol intake: never Patient Tobacco Use Status: Never used Tobacco Second Hand Smoke Exposure: Yes service: No Current occupational status: retired Cognitive needs: No Hearing needs: No Vision needs: Yes (Glasses) Questionnaire PHQ-9 Over the last 2 weeks, how often have you been bothered by any of the following problems? 1. Little interest or pleasure in doing things: nearly every day 2. Feeling down, depressed, or hopeless: more than half the days 3. Trouble falling or staying asleep, or sleeping too much: nearly every day 4. Feeling tired or having little energy: not at all 5. Poor appetite or overeating: more than half the days 6. Feeling bad about yourself - or that you are a failure or have let yourself or your family down: more than half the days 7. Trouble concentrating on things, such as reading the newspaper or watching television: not at all 8. Moving or speaking so slowly that other people could have noticed. Or the opposite - being so fidgety or restless that you have been moving around a lot more than usual: not at all 9. Thoughts that you would be better off or of hurting yourself in some way: not at all Total score: 12 Depression Screening Interpretation: Positive Depression Screening Follow-up: Existing condition and In treatment Depression Screening Done: Yes 02481 - PHQ-9 Billing: Yes Source: Developed by Drs. Jakob Batres, Kayla Whitney, Iglesia Moreira and colleagues, with an educational vanda from [employer]. Thrive Questionnaire Date Thrive assessed: 09/01/23 I am a: Patient What is your living situation today?: I have a steady place to live Within the past 12 months, did the food you bought not last and you didn't have the money to get more?: Never true Within the past 12 months, did you worry whether your food would run out before you got money to buy more?: Never true Do you have trouble paying for medicines?: No Do you have trouble getting transportation to medical appointments?: No Do you have trouble paying your heating and electricity bill?: No Do you have trouble taking care of your child, family member or friend?: No Do you have trouble with day-to-day activities such as bathing, preparing meals, shopping, managing finances, etc.?: No Are you currently unemployed and looking for a job?: No Are you interested in more education?: No Please select the resources that you would like help with: None THRIVE Score: 0 AUDIT C Alcohol Use Questionnaire (AUDIT-C) 1. How often do you have a drink containing alcohol?: Never 3. How often do you have six or more drinks on one occasion?: Never Total Score: 0 YANIQUE-7 AMB Questionnaire YANIQUE-7 Date YANIQUE - 7 assessed: 09/01/23 Feeling nervous, anxious, or on edge: 0 = Not at all Not being able to stop or control worryin = Not at all Worrying too much about different things: 0 = Not at all Trouble relaxin = Not at all Being so restless that it is hard to sit still: 0 = Not at all Becoming easily annoyed or irritable: 0 = Not at all Feeling afraid as if something awful might happen: 0 = Not at all Total YANIQUE-7 score (0-4 normal; 5-9 mild; 10-14 moderate; 15-21 severe): 0 Source: Developed by Drs. Jakob Batres, Kayla Whitney, Iglesia Moreira and colleagues, with an educational vanda from [employer]. YANIQUE-7 Assessment Billing YANIQUE-7 Assessment Tool: YANIQUE-7 Assessment 78849 Review of Systems Const Denies headache(s) Eyes Denies loss of vision ENT Denies vertigo, Denies dizziness, Denies headache(s) and Denies sore throat Card Denies chest pain, Denies leg edema and Denies lightheadedness Resp Denies cough, Denies hemoptysis and Denies wheezing GI Denies abdominal pain, Denies melena, Denies constipation, Denies diarrhea and Denies vomiting Denies urinary frequency, Denies dysuria and Denies urinary urgency Musc Denies arthralgias, Denies joint swelling, Denies numbness and Denies tingling Neuro Denies Abnormal speech present, Denies behavioral changes, Denies vertigo, Denies dizziness, Denies headache(s), Denies loss of vision, Denies memory loss, Denies numbness and Denies tingling Psych Denies anxiety, Denies behavioral changes, Denies depression, Denies memory loss and Denies panic attacks Johnnie/Lymph Denies easy bleeding and Denies easy bruising Aller/Immun Denies wheezing Physical exam (Primary Care) Vital Signs: Last Vital Signs Pulse 65 09/01/23 08:30 BP 138/58 L 09/01/23 08:30 Pulse Ox 98 09/01/23 08:30 Oxygen Delivery Method Room Air 09/01/23 08:30 BMI result Body Mass Index 40.1 BMI Assessment/Plan discussion: High Tobacco/Smoking Status: Tobacco use Status Tobacco use date assessed 09/01/23 09/01/23 08:33 Patient Tobacco Use Status Never used Tobacco 09/01/23 08:33 PHQ-9: PHQ-9 Score PHQ-9: Total score 12 09/01/23 08:46 Depression Screening Interpretation: Positive Depression Screening Follow-up: Existing condition and In treatment Thrive Assessment: Date of Thrive Assessment Date Thrive assessed 09/01/23 09/01/23 08:33 Const Other: Morbidly obese General: healthy appearing, no acute distress, alert and awake Nutritional Appearance: well nourished Orientation/consciousness: oriented to person, oriented to place and oriented to time HENMT Ears: TM's normal bilaterally General nose exam: Normal nasal mucous membranes and turbinates present Eyes Conjunctivae: conjunctivae normal Sclerae: sclerae normal Pupils: Equal, round and reactive pupils present Neck Neck: Yes no lymphadenopathy and Yes no JVD Thyroid: Thyroid normal Carotids: no bruits Resp Effort & Inspection: normal respiratory effort and not tachypneic Auscultation: no crackles, no rales, no rhonchi and no wheezes Cardio Rate: regular rate Rhythm: regular rhythm Heart sounds: no murmurs and normal S1 and S2 GI Palpation (GI): Soft to palpation, nontender, no hepatomegaly and no splenomegaly Auscultation: normal bowel sounds Skin General skin exam: no rashes or lesions noted and dry skin Neuro General: oriented to person, oriented to place and oriented to time Cranial nerves: Yes Equal, round and reactive pupils present Speech: No Abnormal speech present Gait exam (Neuro): Normal gait present Motor exam (neuro): no tremor noted Extrem Right upper extremity: full ROM Left upper extremity: full ROM Right lower extremity: full ROM; no edema Left lower extremity: full ROM; no edema Psych Mental Status: mental status grossly normal Speech and movement: Normal speech and movement present Affect: normal affect Attitude: cooperative Thought process: Normal thought process present Assessment and Plan Assessment & Plan (1) Diabetes: Code(s): E11.9 - Type 2 diabetes mellitus without complications Qualifiers: Diabetes mellitus complication detail: with diabetic retinopathy Diabetes mellitus complication status: with ophthalmic complications Diabetes mellitus fci insulin use: with tapering machine operator use Diabetes mellitus macular edema: without macular edema Diabetes mellitus type: type 2 Diabetic retinopathy severity: with mild nonproliferative retinopathy Laterality: bilateral Qualified Code(s): E11.3293 - Type 2 diabetes mellitus with mild nonproliferative diabetic retinopathy without macular edema, bilateral; Z79.4 - FCI (current) use of insulin Plan: Patient's type 2 diabetes currently well controlled on current diabetic med regime. Will continue current anti-hyperglycemic medication with goal A1c to remain below 7.0 (2) MDD (major depressive disorder), recurrent episode, moderate: Code(s): F33.1 - Major depressive disorder, recurrent, moderate Plan: Patient's PHQ-9 score positive for moderate depression which has been existing condition for her. She does speak with a mental health therapist and a med psych provider who manages her mental health medication. She feels stable at this time from a mental health point of view. She was recently placed on Wellbutrin which has been helpful for her depression (3) Asthma: Code(s): J45.909 - Unspecified asthma, uncomplicated Qualifiers: Asthma complication type: uncomplicated Asthma persistence: intermittent Asthma severity: mild Qualified Code(s): J45.20 - Mild intermittent asthma, uncomplicated Plan: Patient reports her asthma has been fairly well controlled with current p.r.n. use of her albuterol inhaler. Denies any nighttime awakenings with asthma symptoms or recent asthma exacerbations. (4) High cholesterol: Code(s): E78.00 - Pure hypercholesterolemia, unspecified Plan: Patient continues on statin therapy with out side effect. Most recent lipid panel showing appropriate total cholesterol and LDL. Goal LDL to be below 100 (5) Obese: Code(s): E66.9 - Obesity, unspecified Qualifiers: Body mass index: BMI 37.0-37.9 Obesity classification: adult class 2 (BMI 35 - 39.9) Obesity type: due to excess calories Serious obesity comorbidity presence: with serious comorbidity Qualified Code(s): E66.01 - Morbid (severe) obesity due to excess calories; Z68.37 - Body mass index [BMI] 37.0-37.9, adult Plan: Patient does understand her BMI is over 40 will work on being more physically active and adapting to better eating habits to reduce her weight (6) CKD (chronic kidney disease) stage 3, GFR 30-59 ml/min: Code(s): N18.30 - Chronic kidney disease, stage 3 unspecified Qualifiers: Chronic kidney disease stage 3 subtype: unspecified whether 3a or 3b Qualified Code(s): N18.30 - Chronic kidney disease, stage 3 unspecified Plan: Patient continues to follow Nephrology in [place]. Has been trying to manage her diabetes and hypertension. Will continue to avoid nephrotoxins. Coding Level of Care Code Est Pt Level 4 (20243) Diagnoses Type 2 diabetes mellitus with both eyes affected by mild nonproliferative retinopathy without macular edema, with long-term current use of insulin E11.3293; Z79.4 Diabetes mellitus complication detail: with diabetic retinopathy Diabetes mellitus complication status: with ophthalmic complications Diabetes mellitus tapering machine operator insulin use: with tapering machine operator use Diabetes mellitus macular edema: without macular edema Diabetes mellitus type: type 2 Diabetic retinopathy severity: with mild nonproliferative retinopathy Laterality: bilateral MDD (major depressive disorder), recurrent episode, moderate F33.1 Mild intermittent asthma without complication J45.20 Asthma complication type: uncomplicated Asthma persistence: intermittent Asthma severity: mild High cholesterol E78.00 Class 2 severe obesity due to excess calories with serious comorbidity and body mass index (BMI) of 37.0 to 37.9 in adult E66.01; Z68.37 Body mass index: BMI 37.0-37.9 Obesity classification: adult class 2 (BMI 35 - 39.9) Obesity type: due to excess calories Serious obesity comorbidity presence: with serious comorbidity Stage 3 chronic kidney disease, unspecified whether stage 3a or 3b CKD N18.30 Chronic kidney disease stage 3 subtype: unspecified whether 3a or 3b Additional Codes YANIQUE-7 Assessment Billing - YANIQUE-7 Assessment Tool: YANIQUE-7 Assessment [id number] ([id number])
== END 2023-09-01 09:10 | disposition home or self-care (01) ==
PROVIDERS: PCP Physician Assistant; Visit Provider Physician Assistant
DX: E11.3293 Type 2 diabetes mellitus with mild nonproliferative diabetic retinopathy without macular edema, bilateral (principal); Z79.4 Long term (current) use of insulin; F33.1 Major depressive disorder, recurrent, moderate; N18.30 Chronic kidney disease, stage 3 unspecified; E66.01 Morbid (severe) obesity due to excess calories; Z68.37 Body mass index [BMI] 37.0-37.9, adult; J45.20 Mild intermittent asthma, uncomplicated; E78.00 Pure hypercholesterolemia, unspecified
CPT/HCPCS: 99214

== ENCOUNTER 2023-10-30 12:56 | Outpatient (REF) | payer MEDICARE, OTHER, SELFPAY ==
--- NOTE | ~2023-10-30 | XR_ITS ---
EXAMINATION: XR CHEST CLINICAL INFORMATION: Asthma. COMPARISON: Chest radiographs dated 09/07/2019. TECHNIQUE: Frontal and lateral views of the chest were obtained. FINDINGS: The heart, great vessels, pulmonary vasculature and mediastinum are normal. The lungs show no focal infiltrate, effusion or pneumothorax. There is mild elevation of the right hemidiaphragm. There is no acute osseous abnormality. There is multi-level thoracolumbar spondylosis. XR/XR chest 2V IMPRESSION: No active cardiopulmonary disease.
== END 2023-10-30 12:57 | disposition home or self-care (01) ==
LOC: HO.XRAY 12:56
PROVIDERS: PCP Physician Assistant; Visit Provider Hospitalist
DX: J45.20 Mild intermittent asthma, uncomplicated (principal); G47.33 Obstructive sleep apnea (adult) (pediatric)
CPT/HCPCS: 71046; 99212

== ENCOUNTER 2023-10-30 12:56 | Outpatient (AMB) | payer MEDICARE, OTHER, SELFPAY ==
[2023-10-30 13:02] VITALS: PULSE 72; O2SAT 96; BMI 39.8
--- NOTE | 2023-10-30 13:02 | A.OFFVIS_ITS ---
Intake Vital Signs 10/30/23 13:02 Height 5 ft 5 in Weight 239 lb BMI 39.8 Pulse 72 Pulse Source Pulse Oximeter Pulse Oximetry (%) 96 Oxygen Delivery Method Room Air Intake Visit Reasons: Asthma Audit Specialist Required: No Allergies aspirin Allergy (Severe, Verified 10/30/23 13:04) GI trouble Iodinated Contrast Media Allergy (Severe, Verified 10/30/23 13:04) Difficulty Breathing amlodipine Adverse Reaction (Intermediate, Verified 10/30/23 13:04) leg swelling HPI HPI Comments History of Present Illness Details The patient is a 67-year-old woman with a known history of obstructive sleep apnea on CPAP in addition to asthma and chronic rhinitis. She continues to use her CPAP every night. The CPAP therapy continues to be effective in beneficial. She does use it for more than 4 hours. However, her machine is no longer working correctly. The patient also has a question of CO2 retention. Therefore she may benefit from a titration study. The patient also has been having increasing nasal congestion. This is resulting in a upper airway cough syndrome. She continues to use her rescue inhaler. She does not tolerate the HFA formulations. She cannot synchronized to be able to use it. The only short- acting beta agonist that she can uses the respiclik device. She did have her pulmonary function studies demonstrating a mild restrictive ventilatory defect. Therefore, she should get an x-ray at some point. 09/20/2021 the patient has a telephone visit today. Overall the patient has been doing well. Her respiratory status has been stable. She has been using her medications as prescribed. In addition to that she continues to use CPAP every night. The CPAP therapy continues to be affective and beneficial. She does use it for more than 4 hours a night. Sometimes she does get a dry mouth and she is going to increase the humidification. I instructed her on how to do it herself. She did bring her mask, Quatro medium. Seems like the mask rides up and is uncomfortable. I fitted her for an F20 medium mask which seem to fit alot better. I also downloaded her APAP and her AHI was 1. We will continue the current APAP settings. Her asthma has been in good control. No need for her AIRAM. She is working on her weight loss. 10/31/2022 the patient is here for a pulmonary follow-up visit. The patient complains of dyspnea on exertion. [id number] severity. She blames that on her weight gain. Now she is working on weight management and increase exercise. She is motivated. We did go for brief walking oximetry the patient was able to maintain adequate pulse ox although she is tachycardic up to about 111. Patient will continue to exercise and monitor closely heart rate. She does benefit from the albuterol prior to exercise. 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 Therefore she responds very well to the a ProAir RespiClick. Will send that 1 to the pharmacy. The patient does continue to use her CPAP. CPAP therapy continues to be affecting beneficial. She does get supplies from [employer]. She does use it more than 4 hours a night. Will send a script for additional supplies. If the patient has any issues she can always call back in follow-up in a year's time. If she continues to have shortness of breath she knows she can always get an x-ray of 1 available for her. 10/30/2023 the patient is here for a pulmonary follow-up visit. Overall she continues to do fairly well. She has been exercising more regularly. She does use the RespiClick with very good effect. Although it is only temporizing. Unfortunately he has not been covered. I do believe that she would be better off with a long-acting beta agonist. I will send her AirDuo to the pharmacy. She can use it twice a day. She can use her rescue inhaler as needed. In the meantime she has been using her CPAP. CPAP therapy continues to be affecting beneficial. She does use it for more than 4 hours a night. Will go ahead and request supplies from a [employer] company. The patient should get a chest x-ray since she has not had 1 in some time. An order will be available for her. [facility] Medical History Lower extremity edema Thyroid nodule Anemia Hypersomnia with sleep apnea High cholesterol Diabetes Hypertension Asthma WYATT (obstructive sleep apnea) Surgical History Hx of colonoscopy History of esophagogastroduodenoscopy (EGD) Uterine polyp History of removal of cyst Family History Father Stroke Diabetes Mother Hypertension COPD (chronic obstructive pulmonary disease) CHF (congestive heart failure) FHx: colonic polyps Maternal Grandmother Stroke Sister FHx: colonic polyps Other Mental health disorder Substance use disorder Social History Housing: House Alcohol intake: never Patient Tobacco Use Status: Never used Tobacco Second Hand Smoke Exposure: Yes service: No Current occupational status: retired Cognitive needs: No Hearing needs: No Vision needs: Yes (Glasses) Review of Systems Const Denies headache(s) Eyes Denies loss of vision ENT Denies vertigo, Denies dizziness, Denies headache(s) and Denies sore throat Card Denies chest pain, Denies leg edema and Denies lightheadedness Resp Denies cough, Denies hemoptysis and Denies wheezing GI Denies abdominal pain, Denies melena, Denies constipation, Denies diarrhea and Denies vomiting Denies urinary frequency, Denies dysuria and Denies urinary urgency Musc Denies arthralgias, Denies joint swelling, Denies numbness and Denies tingling Neuro Denies Abnormal speech present, Denies behavioral changes, Denies confusion, Denies vertigo, Denies dizziness, Denies headache(s), Denies loss of vision, Denies memory loss, Denies numbness and Denies tingling Psych Denies anxiety, Denies behavioral changes, Denies confusion, Denies depression, Denies memory loss and Denies panic attacks Johnnie/Lymph Denies easy bleeding and Denies easy bruising Aller/Immun Denies wheezing Physical Exam Vital Signs: Last Vital Signs Pulse 72 10/30/23 13:02 Pulse Ox 96 10/30/23 13:02 Oxygen Delivery Method Room Air 10/30/23 13:02 BMI result Body Mass Index 39.8 Const General: No confusion Orientation/consciousness: No confusion Neck Neck: Yes normal visual inspection, Yes full ROM and Yes no lymphadenopathy Chest Chest palpation & inspection: normal inspection of the chest Resp Auscultation: no wheezes and diminished lung sounds Cardio Rate: regular rate Rhythm: regular rhythm Heart sounds: S1 normal heart sound present and S2 normal heart sound present GI Palpation (GI): Soft to palpation and nontender Auscultation: normal bowel sounds Skin General skin exam: rashes and/or lesions noted Neuro General: No confusion Speech: No Abnormal speech present Assessment & Plan Assessment & Plan (1) WYATT (obstructive sleep apnea): Code(s): G47.33 - Obstructive sleep apnea (adult) (pediatric) (2) Asthma: Code(s): J45.909 - Unspecified asthma, uncomplicated Qualifiers: Asthma complication type: uncomplicated Asthma persistence: intermittent Asthma severity: mild Qualified Code(s): J45.20 - Mild intermittent asthma, uncomplicated Plan Continue AIRAM as needed and prior to exercise rx proair respiclick, the patient has arthritis making very difficult to use the HFA Add Airduo Continue APAP therapy mask F20 full face mask CXR F/U 12 months Orders: Orders XR chest 2V 10/30/23 J45.909 - Unspecified asthma, uncomplicated Medications: New fluticasone propion-salmeterol 113-14 mcg/actuation (AirDuo RespiClick) 1 inh inhalation Q12H 1 ea 6RF Refilled albuterol sulfate 90 mcg/actuation (ProAir RespiClick) 2 inhalations inhalation Q6H 30 days PRN 1 ea 11RF shortness of breath or wheezing Coding Level of Care Code Est Pt Level 4 (18535) Diagnoses WYATT (obstructive sleep apnea) G47.33 Mild intermittent asthma without complication J45.20 Asthma complication type: uncomplicated Asthma persistence: intermittent Asthma severity: mild Time Spent (min) 17
== END 2023-10-30 13:31 | disposition home or self-care (01) ==
PROVIDERS: PCP Physician Assistant; Visit Provider Hospitalist
DX: G47.33 Obstructive sleep apnea (adult) (pediatric) (principal); J45.20 Mild intermittent asthma, uncomplicated
CPT/HCPCS: 99214

== ENCOUNTER 2024-01-08 11:53 | Outpatient (REF) | payer MEDICARE, OTHER, SELFPAY | END 2024-01-08 11:54 | disposition home or self-care (01) | LOC: HO.SH 11:53 | PROVIDERS: Visit Provider Physician Assistant | DX: Z01.118 Encounter for examination of ears and hearing with other abnormal findings (principal); H90.3 Sensorineural hearing loss, bilateral | CPT/HCPCS: 92557 ==

== ENCOUNTER 2024-03-01 13:18 | Outpatient (AMB) | payer MEDICARE, OTHER, SELFPAY ==
[2024-03-01 13:29] VITALS: BP 136/58; PULSE 78; O2SAT 97; BMI 38.5
--- NOTE | 2024-03-01 13:29 | AM.OFFVISMDC ---
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 Patient has a past medical history significant for type 2 diabetes, CKD stage 3, major depressive disorder, anemia and hypertension. Today we discussed her holy cross of care and end of life planning. Was given a MOLST filled out and scanned into documents. Vaccine: UTD with COVID and flu, up-to-date with pneumonia shingles and tetanus .. Colonoscopy: Dr shafer did colonoscopy in 2018- repeat 10 years. .. MAmmo: UTD-has upcoming mammogram in fall of 2023 .. [employer]: [facility] [employer] [employer] [facility] Ramiro Harrington. . Bone density: Done in 2021 which did show osteopenia of the femoral neck. Will repeat bone density HPI Comments History of Present Illness Details reviewed past medical history- yes reviewed surgical / hospitalization history- yes reviewed current medications- yes reviewed family history- yes home safety throw rugs? grab bars? raised toilet seat? working smoke detectors? activities of daily living difficulty bathing or showering? difficulty dressing? difficulty using the toilet? difficulty getting in and out of bed? difficulty walking? receives help from other person's with any of the above tasks? instrumental activities of daily living uses telephone - gets to place out of walking distance- go shopping for groceries- repairs own meals- does own minor home maintenance- does own laundry- does own housework- manages own money- currently takes medication- end of life planning discussed advanced directives- yes advanced directives on file? discussed wishes expressed in advanced directives. fall risk have you had any falls with injuries in the past year? have you had 2 or more falls in the past year? fall risk assessment: [facility] Medical History Lower extremity edema Thyroid nodule Anemia Hypersomnia with sleep apnea High cholesterol Diabetes Hypertension Asthma WYATT (obstructive sleep apnea) Surgical History Hx of colonoscopy History of esophagogastroduodenoscopy (EGD) Uterine polyp History of removal of cyst Family History Father Stroke Diabetes Mother Hypertension COPD (chronic obstructive pulmonary disease) CHF (congestive heart failure) FHx: colonic polyps Maternal Grandmother Stroke Sister FHx: colonic polyps Other Mental health disorder Substance use disorder Social History Housing: House Alcohol intake: never Patient Tobacco Use Status: Never used Tobacco Second Hand Smoke Exposure: Yes service: No Current occupational status: retired Cognitive needs: No Hearing needs: No Vision needs: Yes (Glasses) Questionnaire Medicare Wellness Checkup What [age] 65-70 What gender do you identify with?: female During the past 4 weeks, how much have you been bothered by emotional problems such as feeling anxious, depressed, irritable, sad or downhearted, and blue?: slightly During the past 4 weeks, has your physical & emotional health limited your social activities with family, friends, neighbors, or groups?: not at all During the past 4 weeks, how much bodily pain have you generally had?: very mild pain During the past 4 weeks, was someone available to help you if you needed & wanted help?: yes, as much as I wanted During the past 4 weeks, what was the hardest physical activity you could do for at least 2 minutes?: moderate Can you get to places out of walking distance without help? (For eg., can you travel alone on buses, taxis or drive your car?): Yes Can you go shopping for groceries or clothes without someone's help?: Yes Can you prepare your own meals?: Yes Can you do your housework without help?: No Because of any health problems, do you need the help of another person with your personal care needs such as eating, bathing, dressing or getting around the house?: No Can you handle your own money without help?: Yes During the past 4 weeks, how would you rate your health in general?: good During the past 4 weeks how have things been going for you?: very well; could hardly better Are you having difficulties driving your car?: no Do you always fasten your seat belt when you are in a car?: yes, usually During past 4 weeks, have you been bothered by the following: never: Sexual problems?, Trouble eating well? and Problems using the telephone?, seldom: Teeth or denture problems? and Tiredness or fatigue? and sometimes: Falling or dizzy when standing up Have you fallen 2 or more times in the past year?: No Are you afraid of falling?: No Are you a smoker?: no During the past 4 weeks, how many drinks of wine, beer, or other alcoholic beverages did you have?: no alcohol at all Do you exercise for about 20 minutes 3 or more times a week?: yes, all the time Have you been given information to help with the following?: yes: Keeping track of your medications? and no: Hazards in your house that might hurt you? How often do you have trouble taking medicines the way you have been told to take them?: I always take medicine as prescribed How confident are you that you can control & manage most of your health problems?: very confident What is your race?: White Mini Mental State Exam (MMSE) Orientation What is the (year) (season) (date) (day) (month)?: year and season Where are we (state) (county) (town or city) (hospital) (floor)?: town or city Attention & Calculation (CHOOSE ONE) Ask pt to begin with 100 & count backward by 7. Stop after 5 repeats. If pt cannot ask them to spell the word WORLD backward.: 86 Spell WORLD backwards (DLROW): 5 letters Score Score: 9 Activity of Daily Living Bathing - sponge bath, tub bath or shower: receives no assistance (gets in/out by self, if usual bathing means Dressing - getting clothes from closets & drawers, including inner/outer garments & fasteners.: gets clothes & gets completely dressed without help Toileting - going to the 'toilet room' for urine/bowel elimination & cleaning self/arranging clothes: goes to toilet room, cleans self, arranges clothes without help Transfer: moves in & out of bed and chair without help (may use support object) Continence: controls urination/bowel movements completely by self Feeding: feeds self without help Total Score: 0 Information obtained from: patient Using telephone: independent Traveling: independent Shopping: independent Preparing meals: independent Housework: independent Taking medicine: independent Managing money: independent PHQ-9 Over the last 2 weeks, how often have you been bothered by any of the following problems? 1. Little interest or pleasure in doing things: not at all 2. Feeling down, depressed, or hopeless: not at all 3. Trouble falling or staying asleep, or sleeping too much: several days 4. Feeling tired or having little energy: not at all 5. Poor appetite or overeating: not at all 6. Feeling bad about yourself - or that you are a failure or have let yourself or your family down: not at all 7. Trouble concentrating on things, such as reading the newspaper or watching television: not at all 8. Moving or speaking so slowly that other people could have noticed. Or the opposite - being so fidgety or restless that you have been moving around a lot more than usual: not at all 9. Thoughts that you would be better off or of hurting yourself in some way: not at all Total score: 1 Depression Screening Interpretation: Negative Depression Screening Done: Yes 67940 - PHQ-9 Billing: Yes Source: Developed by Drs. Jakob Batres, Kayla Whitney, Iglesia Moreira and colleagues, with an educational vanda from [employer]. Physical Exam Vital Signs: Last Vital Signs Pulse 78 03/01/24 13:29 BP 136/58 L 03/01/24 13:29 Pulse Ox 97 03/01/24 13:29 Oxygen Delivery Method Room Air 03/01/24 13:29 BMI result Body Mass Index 38.5 HEENT Other: hearing screening whisper test- Eyes Other: vision screening- 20/20 OS OD OU Other: urinary incontinence? no Neuro Other: balance Romberg- normal tandem walk test- able walk-in turned test- able rise from sit to stand- within 2 seconds Assessment & Plan Assessment & Plan (1) Medicare annual wellness visit, initial: Code(s): Z00.00 - Encounter for general adult medical examination without abnormal findings Plan: As per HPI (2) Post-menopausal: Code(s): Z78.0 - Asymptomatic menopausal state Plan: Bone density in 2021 showing osteopenia of the femoral neck. Has been started calcium supplementation has been working nonweightbearing exercises. Will recheck bone density Orders: Orders AMB Hemoglobin A1c 03/01/24 E11.3293 - Type 2 diabetes mellitus with mild nonproliferative diabetic retinopathy without macular edema, bilateral, Z79.4 - longterm (current) use of insulin Lipid Panel 03/01/24 E78.00 - Pure hypercholesterolemia, unspecified XR DEXA axial skeleton 03/01/24 Z78.0 - Asymptomatic menopausal state Quality Reporting (2019) Depression/Bipolar (159/160/161/177) PHQ-9: Total score: 1 Coding Level of Care Code Medicare First (G0438) Diagnoses Medicare annual wellness visit, initial Z00.00 Post-menopausal Z78.0 CPT Codes Advance Care Planning - Time spent: 1-15 minutes, on File ([id number]) Advance Care Planning Advance Care Planning discussion: Completed/Scanned Date of discussion: 03/01/24 Forms completed: MOLST Time spent: 1-15 minutes, on File Actual minutes spent: 6
== END 2024-03-01 14:05 | disposition home or self-care (01) ==
PROVIDERS: PCP Physician Assistant; Visit Provider Physician Assistant
DX: Z00.00 Encounter for general adult medical examination without abnormal findings (principal); Z78.0 Asymptomatic menopausal state; E11.22 Type 2 diabetes mellitus with diabetic chronic kidney disease; N18.30 Chronic kidney disease, stage 3 unspecified
CPT/HCPCS: 1123F; G0438

== ENCOUNTER 2024-04-12 10:10 | Outpatient (REF) | payer MEDICARE, OTHER, SELFPAY ==
--- NOTE | ~2024-04-12 | MM_ITS ---
EXAMINATION: BONE DENSITOMETRY CLINICAL INDICATION: Menopause. COMPARISON: Baseline BD dated 08/30/2021. TECHNIQUE: Using a [employer] DXA System (software version: 13.1) manufactured by [employer], dual-energy x-ray absorptiometry was performed of the lumbar spine and left hip. The images are of good technical quality. Summary results are attached. FINDINGS: LEFT FEMUR, NECK: Current: BMD 1.013 g/cm2, Z-score 0.6, T-score -0.2, normal. Baseline: BMD 0.888 g/cm2. LEFT FEMUR, TOTAL: Current: BMD 1.178 g/cm2, Z-score 1.8, T-score 1.4, normal, 10.6% increase from baseline (<5% change is not significant). Baseline: BMD 1.065 g/cm2. AP SPINE L1-L4 (excluding L2): The data of L1-L4 has been changed to exclude the L2 vertebral body, because significant degenerative change at this level may cause overestimation of lumbar spine density. Current: BMD 1.787 g/cm2, Z-score 5.6, T-score 5.1, normal, 7.5% increase from baseline (<5% change is not significant). Baseline: BMD 1.663 g/cm2. IDENTIFIED RISK FACTORS: Menopause, family history (parent hip fracture), renal. HISTORY OF FRACTURE: None listed. MEDICATIONS: Calcium, vitamin D. MM/XR DEXA axial skeleton IMPRESSION: 1. DIAGNOSIS: Normal bone density based on the lowest T-score value of -0.2 in the femoral neck applying World Health Organization criteria. 2. 10-YEAR FRACTURE RISK PREDICTION, FRAX: According to the guidelines, FRAX calculation should only be performed on patients in the osteopenia bone density category. Therefore, FRAX was not performed on this patient. 3. Treatment Recommendations: NOF guidelines recommend consideration for treatment in postmenopausal women and men age 50 and older presenting with the following: -A hip or vertebral (clinical or morphometric) fracture. -T-score less than or equal to -2.5 at the femoral neck or spine after appropriate evaluation to exclude secondary causes. -Low bone mass at the hip or spine and a 10-year fracture probability by FRAX of greater than or equal to 3% for hip fracture or greater than or equal to 20% for major osteoporotic fracture based on the [place] adapted WHO algorithm. 4. Other Recommendations: All treatment decisions require clinical judgment and consideration of individual patient factors, including patient preferences, comorbidities, previous drug use, risk factors not captured in the FRAX model (e.g. frailty, falls, vitamin D deficiency, increased bone turnover, interval significant decline in bone density) and possible under or overestimation of fracture risk by FRAX. FUTURE SCAN RECOMMENDATION: People with diagnosed cases of osteoporosis or at high risk for fracture should have regular bone mineral density tests. For patients eligible for Medicare, routine testing is allowed once every 2 years. The testing frequency can be increased to one year for patients who have rapidly progressing disease, those who are receiving or discontinuing medical therapy to restore bone mass, or have additional risk factors. Electronically signed by: Bogdan Marquez MD 04/29/2024 03:35 PM EDT
== END 2024-04-12 10:11 | disposition home or self-care (01) ==
LOC: HO.MAMMO 10:10
PROVIDERS: PCP Physician Assistant; Visit Provider Physician Assistant
DX: Z13.820 Encounter for screening for osteoporosis (principal); Z78.0 Asymptomatic menopausal state
CPT/HCPCS: 77080

== ENCOUNTER 2024-06-27 14:45 | Outpatient (AMB) | payer MEDICARE, OTHER, SELFPAY ==
[2024-06-27 14:49] VITALS: BP 130/58; PULSE 76; O2SAT 97; BMI 38.0
--- NOTE | 2024-06-27 14:49 | MHC.OFFVIS ---
Vital Signs 06/27/24 14:49 Height 5 ft 5 in Weight 228 lb 2.855 oz BMI 38.0 BP 130/58 L Blood Pressure Location Lt brachial Position Sitting Pulse 76 Pulse Source Pulse Oximeter Pulse Oximetry (%) 97 Oxygen Delivery Method Room Air Intake Visit Reasons: asthma Skills Auditor Required: No Allergies aspirin Allergy (Severe, Verified 06/27/24 14:52) GI trouble Iodinated Contrast Media Allergy (Severe, Verified 06/27/24 14:52) Difficulty Breathing amlodipine Adverse Reaction (Intermediate, Verified 06/27/24 14:52) leg swelling HPI Comments Details: The patient is a 68-year-old woman with a known history of obstructive sleep apnea on CPAP in addition to asthma and chronic rhinitis. She continues to use her CPAP every night. The CPAP therapy continues to be effective in beneficial. She does use it for more than 4 hours. However, her machine is no longer working correctly. The patient also has a question of CO2 retention. Therefore she may benefit from a titration study. The patient also has been having increasing nasal congestion. This is resulting in a upper airway cough syndrome. She continues to use her rescue inhaler. She does not tolerate the HFA formulations. She cannot synchronized to be able to use it. The only short-acting beta agonist that she can uses the respiclik device. She did have her pulmonary function studies demonstrating a mild restrictive ventilatory defect. Therefore, she should get an x-ray at some point. 09/20/2021 the patient has a telephone visit today. Overall the patient has been doing well. Her respiratory status has been stable. She has been using her medications as prescribed. In addition to that she continues to use CPAP every night. The CPAP therapy continues to be affective and beneficial. She does use it for more than 4 hours a night. Sometimes she does get a dry mouth and she is going to increase the humidification. I instructed her on how to do it herself. She did bring her mask, Quatro medium. Seems like the mask rides up and is uncomfortable. I fitted her for an F20 medium mask which seem to fit alot better. I also downloaded her APAP and her AHI was 1. We will continue the current APAP settings. Her asthma has been in good control. No need for her AIRAM. She is working on her weight loss. 10/31/2022 the patient is here for a pulmonary follow-up visit. The patient complains of dyspnea on exertion. [id number] severity. She blames that on her weight gain. Now she is working on weight management and increase exercise. She is motivated. We did go for brief walking oximetry the patient was able to maintain adequate pulse ox although she is tachycardic up to about 111. Patient will continue to exercise and monitor closely heart rate. She does benefit from the albuterol prior to exercise. 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 Therefore she responds very well to the a ProAir RespiClick. Will send that 1 to the pharmacy. The patient does continue to use her CPAP. CPAP therapy continues to be affecting beneficial. She does get supplies from [employer]. She does use it more than 4 hours a night. Will send a script for additional supplies. If the patient has any issues she can always call back in follow-up in a year's time. If she continues to have shortness of breath she knows she can always get an x-ray of 1 available for her. 06/27/2024 the patient is here for a pulmonary follow-up visit. Overall she continues to do fairly well. She has been exercising more regularly. She does use the RespiClick with very good effect. Although it is only temporizing. Unfortunately he has not been covered. I do believe that she would be better off with a long-acting beta agonist. I will send her AirDuo to the pharmacy. She can use it twice a day. She did pick it up but has not used it. We did review it again. She can use her rescue inhaler as needed. She does not tolerate the HFA formulations. But, we provided her with a spacer and she used the AIRAM with the spacer well. In the meantime she has been using her CPAP. CPAP therapy continues to be affecting beneficial. She does use it for more than 4 hours a night. Will go ahead and request supplies from a [employer] company. [facility] Medical History Lower extremity edema Thyroid nodule Anemia Hypersomnia with sleep apnea High cholesterol Diabetes Hypertension Asthma WYATT (obstructive sleep apnea) Surgical History Hx of colonoscopy History of esophagogastroduodenoscopy (EGD) Uterine polyp History of removal of cyst Family History Father Stroke Diabetes Mother Hypertension COPD (chronic obstructive pulmonary disease) CHF (congestive heart failure) FHx: colonic polyps Maternal Grandmother Stroke Sister FHx: colonic polyps Other Mental health disorder Substance use disorder Social History Housing: House Alcohol intake: never Patient Tobacco Use Status: Never used Tobacco Second Hand Smoke Exposure: Yes service: No Current occupational status: retired Cognitive needs: No Hearing needs: No Vision needs: Yes (Glasses) Review of Systems Const Denies headache(s) and Reports weight loss Eyes Denies loss of vision ENT Denies vertigo, Denies dizziness, Denies headache(s) and Denies sore throat Card Denies chest pain, Denies leg edema and Denies lightheadedness Resp Denies cough, Denies hemoptysis and Denies wheezing GI Denies abdominal pain, Denies melena, Denies constipation, Denies diarrhea and Denies vomiting Denies urinary frequency, Denies dysuria and Denies urinary urgency Musc Denies arthralgias, Denies joint swelling, Denies numbness and Denies tingling Neuro Denies Abnormal speech present, Denies behavioral changes, Denies confusion, Denies vertigo, Denies dizziness, Denies headache(s), Denies loss of vision, Denies memory loss, Denies numbness and Denies tingling Psych Denies anxiety, Denies behavioral changes, Denies confusion, Denies depression, Denies memory loss and Denies panic attacks Johnnie/Lymph Denies easy bleeding and Denies easy bruising Aller/Immun Denies wheezing Physical Exam Vital Signs: Last Vital Signs Pulse 76 06/27/24 14:49 BP 130/58 L 06/27/24 14:49 Pulse Ox 97 06/27/24 14:49 Oxygen Delivery Method Room Air 06/27/24 14:49 BMI result Body Mass Index 38.0 Const General: No confusion Orientation/consciousness: No confusion Neck Neck: Yes normal visual inspection, Yes full ROM and Yes no lymphadenopathy Chest Chest palpation & inspection: normal inspection of the chest Resp Auscultation: no wheezes and diminished lung sounds Cardio Rate: regular rate Rhythm: regular rhythm Heart sounds: S1 normal heart sound present and S2 normal heart sound present GI Palpation (GI): Soft to palpation and nontender Auscultation: normal bowel sounds Skin General skin exam: rashes and/or lesions noted Neuro General: No confusion Speech: No Abnormal speech present Assessment & Plan Assessment & Plan (1) WYATT (obstructive sleep apnea): Code(s): G47.33 - Obstructive sleep apnea (adult) (pediatric) Category: Medical (2) Asthma: Code(s): J45.909 - Unspecified asthma, uncomplicated Category: Medical Qualifiers: Asthma severity: mild Asthma persistence: intermittent Asthma complication type: uncomplicated Qualified Code(s): J45.20 - Mild intermittent asthma, uncomplicated Plan Continue AIRAM as needed and prior to exercise AIRAM with spacer start Airduo Continue APAP therapy mask F20 full face mask CXR F/U 12 months Coding Level of Care Code Est Pt Level 4 (57814) Diagnoses WYATT (obstructive sleep apnea) G47.33 Mild intermittent asthma without complication J45.20 Asthma severity: mild Asthma persistence: intermittent Asthma complication type: uncomplicated Time Spent (min) 17
== END 2024-06-27 15:12 | disposition home or self-care (01) ==
PROVIDERS: PCP Physician Assistant; Visit Provider Hospitalist
DX: G47.33 Obstructive sleep apnea (adult) (pediatric) (principal); J45.20 Mild intermittent asthma, uncomplicated
CPT/HCPCS: 99214

== ENCOUNTER → 2024-06-27 14:45 | Outpatient (BNVA) | payer MEDICARE, OTHER, SELFPAY | PROVIDERS: PCP Physician Assistant; Visit Provider Hospitalist | DX: J45.20 Mild intermittent asthma, uncomplicated (principal); G47.33 Obstructive sleep apnea (adult) (pediatric); J31.0 Chronic rhinitis; Z77.22 Contact with and (suspected) exposure to environmental tobacco smoke (acute) (chronic); Z99.89 Dependence on other enabling machines and devices | CPT/HCPCS: 99212 ==

== ENCOUNTER 2024-09-01 09:58 | Outpatient (AMB) | payer MEDICARE, OTHER, SELFPAY ==
[2024-09-01 10:09] VITALS: BP 140/80; PULSE 68; TEMP 36.2; O2SAT 96; BMI 37.5
--- NOTE | 2024-09-01 10:09 | MHC.PC.OV ---
Vital Signs 09/01/24 10:09 Height 5 ft 5 in Weight 225 lb 4 oz BMI 37.5 BP 140/80 H Blood Pressure Location Lt brachial Position Sitting Pulse 68 Pulse Source Pulse Oximeter Temp 97.1 F Temp Source Temporal Artery Scan Pulse Oximetry (%) 96 Oxygen Delivery Method Room Air Intake Visit Reasons: f/u DMII/ HTN Surgical Corsetier Required: No Accompanied by: Self / Same As Patient Allergies aspirin Allergy (Severe, Verified 09/01/24 10:15) GI trouble Iodinated Contrast Media Allergy (Severe, Verified 09/01/24 10:15) Difficulty Breathing amlodipine Adverse Reaction (Intermediate, Verified 09/01/24 10:15) leg swelling Medication List - Last Reconciled 09/01/24 by Renetta Quiros PA-C albuterol sulfate 90 mcg/actuation 2 inhalations inhalation Q6H PRN 30 days albuterol sulfate 90 mcg/actuation (ProAir RespiClick) 2 inhalations inhalation Q6H PRN 30 days atorvastatin 40 mg PO DAILY 90 days blood pressure test kit-large As directed bupropion HCl XL 300 mg PO DAILY calcium carbonate-vitamin D3 500 mg-10 mcg (400 unit) (Oyster Shell Calcium-Vitamin D3) 1 tab PO BID 90 days cholecalciferol (vitamin D3) 25 mcg PO DAILY cyanocobalamin (vitamin B-12) 1,000 mcg PO DAILY doxazosin 4 mg PO DAILY 90 days fluticasone propion-salmeterol 113-14 mcg/actuation (AirDuo RespiClick) 1 inh inhalation Q12H hydrochlorothiazide 25 mg PO QAM 90 days hydrocortisone valerate 0.2% 1 appl topical BID PRN 15 days insulin aspart U-100 (Novolog FlexPen U-100 Insulin aspart) 15 - 17 units subcut TID insulin degludec 76 units (0.38 mL) subcut BEDTIME isosorbide mononitrate ER 60 mg PO DAILY 90 days losartan 100 mg PO DAILY lurasidone (Latuda) 80 mg PO DAILY melatonin 20 mg PO DAILY multivitamin with minerals 1 cap PO DAILY omeprazole 20 mg PO DAILY pen needle, diabetic (BD Ultra-Fine Mini Pen Needle) As directed trihexyphenidyl 2 mg PO DAILY vilazodone (Viibryd) 40 mg PO DAILY Tobacco use date assessed: 09/01/24 Fall risk assessment: No Falls in past year Last assessed Fall Risk: 09/01/24 Dental Screening Dental Screen Date: 09/01/24 Did you have a dental visit in the last 12 months?: Yes Did you have a dental problem in the last 6 months where you did not have access to dental care?: No Was dental information given to patient?: Patient has dentist HPI f/u DMII/ HTN HPI Details 68-year-old female with past medical history of obstructive sleep apnea, asthma, hypertension, diabetes mellitus, hypercholesterolemia, NSTEMI, depression, IBS, chronic kidney disease last seen by PA 02/2024 coming in for follow up.?In review of the notes, patient had colonoscopy completed 08/30/2024 advised to repeat colonoscopy in 5 years for surveillance. She was seen by her stone trimmer 06/2024 continue on albuterol as needed, started on AirDuo, continued on APAP therapy in order for chest x-ray advised to follow up in 12 months. She was seen by R[facility]ment[facility] endocrinology 04/2024 maintained on Tresiba and NovoLog. Patient tells us today she has been having numbness and tingling from her elbow down to her wrist. The sensation is typically positional and will resolve with moving the arm around. Numbness and tingling has been present for the last 2 weeks and we will wax and wane. She notices it mostly while leaning on that elbow. She was seen by her kidney specialist advised to start Farxiga however it was not covered by insurance and is working on getting it covered through a 3rd constitution party. Her blood pressure has been good at all of the specialists and the bottle assembler is happy with her numbers. She does mentioned she ate a lot of salt yesterday and has been doing a lot of running around so that could be why it is elevated today. [facility] Medical History Lower extremity edema Thyroid nodule Anemia Hypersomnia with sleep apnea High cholesterol Diabetes Hypertension Asthma WYATT (obstructive sleep apnea) Surgical History Hx of colonoscopy History of esophagogastroduodenoscopy (EGD) Uterine polyp History of removal of cyst Family History Father Stroke Diabetes Mother Hypertension COPD (chronic obstructive pulmonary disease) CHF (congestive heart failure) FHx: colonic polyps Maternal Grandmother Stroke Sister FHx: colonic polyps Other Mental health disorder Substance use disorder Social History Housing: House Alcohol intake: never Patient Tobacco Use Status: Never used Tobacco Second Hand Smoke Exposure: Yes service: No Current occupational status: retired Cognitive needs: No Hearing needs: No Vision needs: Yes (Glasses) Questionnaire PHQ-9 Over the last 2 weeks, how often have you been bothered by any of the following problems? 1. Little interest or pleasure in doing things: several days 2. Feeling down, depressed, or hopeless: more than half the days 3. Trouble falling or staying asleep, or sleeping too much: several days 4. Feeling tired or having little energy: more than half the days 5. Poor appetite or overeating: nearly every day 6. Feeling bad about yourself - or that you are a failure or have let yourself or your family down: more than half the days 7. Trouble concentrating on things, such as reading the newspaper or watching television: not at all 8. Moving or speaking so slowly that other people could have noticed. Or the opposite - being so fidgety or restless that you have been moving around a lot more than usual: not at all 9. Thoughts that you would be better off or of hurting yourself in some way: not at all Total score: 11 [id number] - PHQ-9 Billing: Yes Source: Developed by Drs. Jakob Batres, Kayla Whitney, Iglesia Moreira and colleagues, with an educational vanda from [employer]. Thrive Questionnaire Date Thrive assessed: 09/01/24 I am a: Patient What is your living situation today?: I have a steady place to live Within the past 12 months, did the food you bought not last and you didn't have the money to get more?: Never true Within the past 12 months, did you worry whether your food would run out before you got money to buy more?: Never true Do you have trouble paying for medicines?: No Do you have trouble getting transportation to medical appointments?: No Do you have trouble paying your heating and electricity bill?: No Do you have trouble taking care of your child, family member or friend?: No Do you have trouble with day-to-day activities such as bathing, preparing meals, shopping, managing finances, etc.?: No Are you currently unemployed and looking for a job?: No Are you interested in more education?: No Please select the resources that you would like help with: None Currently or been in a relationship where the following occur: No concerns reported THRIVE Score: 0 AUDIT C Alcohol Use Questionnaire (AUDIT-C) 1. How often do you have a drink containing alcohol?: Never 3. How often do you have six or more drinks on one occasion?: Never Total Score: 0 YANIQUE-7 AMB Questionnaire YANIQUE-7 Date YANIQUE - 7 assessed: 09/01/24 Feeling nervous, anxious, or on edge: 2 = More than half the days Not being able to stop or control worryin = More than half the days Worrying too much about different things: 2 = More than half the days Trouble relaxin = Several days Being so restless that it is hard to sit still: 0 = Not at all Becoming easily annoyed or irritable: 0 = Not at all Feeling afraid as if something awful might happen: 1 = Several days Total YANIQUE-7 score (0-4 normal; 5-9 mild; 10-14 moderate; 15-21 severe): 8 Source: Developed by Drs. Jakob Batres, Kayla Whitney, Iglesia Moreira and colleagues, with an educational vanda from [employer]. YANIQUE-7 Assessment Billing YANIQUE-7 Assessment Tool: YANIQUE-7 Assessment 56117 Review of Systems Const Denies body aches, Denies chills, Denies fever(s), Denies headache(s) and Denies poor appetite Eyes Reports no additional complaints ENT Denies dizziness and Denies headache(s) Card Denies chest pain, Denies syncope, Denies edema, Denies irregular heart rhythm, Denies lightheadedness and Denies dyspnea Resp Denies cough and Denies dyspnea GI Denies abdominal pain, Denies constipation, Denies diarrhea, Denies nausea and Denies vomiting Reports no additional complaints Musc Reports no additional complaints and Denies abnormal gait Skin/Breast Reports system reviewed and no additional complaints, except as documented Neuro Reports as per HPI, Denies abnormal gait, Denies dizziness, Denies syncope and Denies headache(s) Psych Reports no additional complaints Physical exam (Primary Care) Vital Signs: Last Vital Signs Temp 97.1 F 09/01/24 10:09 Pulse 68 09/01/24 10:09 BP 140/80 H 09/01/24 10:09 Pulse Ox 96 09/01/24 10:09 Oxygen Delivery Method Room Air 09/01/24 10:09 BMI result Body Mass Index 37.5 Tobacco/Smoking Status: Tobacco use Status Tobacco use date assessed 09/01/24 09/01/24 10:16 Patient Tobacco Use Status Never used Tobacco 09/01/24 10:16 PHQ-9: PHQ-9 Score PHQ-9: Total score 11 09/01/24 10:16 Thrive Assessment: Date of Thrive Assessment Date Thrive assessed 09/01/24 09/01/24 10:16 Currently or been in a relationship where the following occur: No concerns reported Const General: cooperative, healthy appearing, comfortable and no acute distress Orientation/consciousness: patient oriented x3 HENMT Head: Yes normocephalic Ears: hearing grossly normal bilaterally General nose exam: Normal external nose present Eyes General: appearance normal, both eyes and all related structures Conjunctivae: conjunctivae normal Neck Neck: Yes full ROM and Yes no lymphadenopathy Resp Effort & Inspection: normal respiratory effort Auscultation: clear to auscultation bilaterally, no crackles, no rales, no rhonchi and no wheezes Cardio Rate: regular rate Rhythm: regular rhythm Skin General skin exam: no rashes or lesions noted Neuro General: patient oriented x3 Gait exam (Neuro): Normal gait present Extrem Other: Strength, sensation and pulses intact in bilateral upper extremities General: Yes normal to inspection, Yes full ROM and No edema Psych Affect: normal affect Attitude: cooperative Insight: Good insight present (Psych) Judgement: Good judgement present (Psych) Office Procedures Flu Questionnaire Does the patient have a severe egg allergy?: No Results AMB Hemoglobin A1c AMB Hemoglobin A1c 6.9 % Last Edit by CE Chance on 09/01/24 10:17 Immunizations Fluarix Triv [id number] (PF) 45 mcg (15 mcg x 3)/0.5 mL IM syringe Performing Provider: Tadeo Dukes PA-C Performing Location: [facility] [place] Adult [facility] Documented (not given) by: CE Chance on 09/01/24 10:17 Reason Not Given: Received Previously Results Reviewed Results Reviewed: Laboratory Last Values Hgb A1c (Clinic) 6.9 % (4.0-6.0) H 09/01/24 10:16 Coding Level of Care Code Est Pt Level 4 (89268) Diagnoses Stage 3 chronic kidney disease, unspecified whether stage 3a or 3b CKD N18.30 Chronic kidney disease stage 3 subtype: unspecified whether 3a or 3b Acid reflux K21.9 High cholesterol E78.00 Type 2 diabetes mellitus with both eyes affected by mild nonproliferative retinopathy without macular edema, with long-term current use of insulin E11.3293; Z79.4 Diabetes mellitus type: type 2 Diabetes mellitus penitentiary insulin use: with penitentiary use Diabetes mellitus complication status: with ophthalmic complications Diabetes mellitus complication detail: with diabetic retinopathy Diabetic retinopathy severity: with mild nonproliferative retinopathy Diabetes mellitus macular edema: without macular edema Laterality: bilateral Essential hypertension I10 Hypertension type: essential hypertension Mild intermittent asthma without complication J45.20 Asthma severity: mild Asthma persistence: intermittent Asthma complication type: uncomplicated Class 2 severe obesity due to excess calories with serious comorbidity and body mass index (BMI) of 37.0 to 37.9 in adult E66.01; Z68.37 Obesity type: due to excess calories Obesity classification: adult class 2 (BMI 35 - 39.9) Serious obesity comorbidity presence: with serious comorbidity Body mass index: BMI 37.0-37.9 Numbness and tingling in left arm R20.0; R20.2 Additional Codes YANIQUE-7 Assessment Billing - YANIQUE-7 Assessment Tool: YANIQUE-7 Assessment 78240 ([id number]) PHQ-9 - 03497 - PHQ-9 Billing: Yes ([id number]) Assessment & Plan Assessment & Plan (1) CKD (chronic kidney disease) stage 3, GFR 30-59 ml/min: Code(s): N18.30 - Chronic kidney disease, stage 3 unspecified Category: Medical Qualifiers: Chronic kidney disease stage 3 subtype: unspecified whether 3a or 3b Qualified Code(s): N18.30 - Chronic kidney disease, stage 3 unspecified Plan: Continue to follow with bottle assembler. Avoid kidney irritants such as NSAIDs and stay well hydrated. (2) Acid reflux: Code(s): K21.9 - Gastro-esophageal reflux disease without esophagitis Category: Medical Plan: Avoid trigger foods such as citrus, tomato products, soda, caffeine, spicy foods and other foods that may be irritating to your stomach. Avoid laying flat 3-4 hours after eating and elevate the head of the bed 30 degrees to prevent acid from moving into the esophagus. Continue on omeprazole 20 (3) High cholesterol: Code(s): E78.00 - Pure hypercholesterolemia, unspecified Category: Medical Plan: Avoid foods that are high in cholesterol such as red meat, fried foods, eggs and baked goods. Triglyceride goal of less than 150 and LDL goal of less than 70. Reminded patient about blood work (4) Diabetes: Code(s): E11.9 - Type 2 diabetes mellitus without complications Category: Medical Qualifiers: Diabetes mellitus type: type 2 Diabetes mellitus penitentiary insulin use: with penitentiary use Diabetes mellitus complication status: with ophthalmic complications Diabetes mellitus complication detail: with diabetic retinopathy Diabetic retinopathy severity: with mild nonproliferative retinopathy Diabetes mellitus macular edema: without macular edema Laterality: bilateral Qualified Code(s): E11.3293 - Type 2 diabetes mellitus with mild nonproliferative diabetic retinopathy without macular edema, bilateral; Z79.4 - terminal clerk (current) use of insulin Plan: Decrease the amount of carbohydrates such as pasta, bread, rice, and potatoes and limit the amount of sweets. Although fruits are generally healthy they should be eaten in moderation as they are still high in sugar. Hemoglobin A1c goal of less than 7%. Currently following with [facility] endocrinology maintained on current insulin dose. (5) Hypertension: Code(s): I10 - Essential (primary) hypertension Category: Medical Qualifiers: Hypertension type: essential hypertension Qualified Code(s): I10 - Essential (primary) hypertension Plan: Continue on current blood pressure medication. Avoid salt intake and encourage healthy diet and regular exercise. Blood pressure mildly elevated today advised patient to monitor blood pressures at home and reach out to the office blood pressures are persistently over 140/90. (6) Asthma: Code(s): J45.909 - Unspecified asthma, uncomplicated Category: Medical Qualifiers: Asthma severity: mild Asthma persistence: intermittent Asthma complication type: uncomplicated Qualified Code(s): J45.20 - Mild intermittent asthma, uncomplicated Plan: Asthma currently controlled on present medications. Continue on albuterol as needed. Avoid triggers such as allergies. (7) Obese: Code(s): E66.9 - Obesity, unspecified Category: Medical Qualifiers: Obesity type: due to excess calories Obesity classification: adult class 2 (BMI 35 - 39.9) Serious obesity comorbidity presence: with serious comorbidity Body mass index: BMI 37.0-37.9 Qualified Code(s): E66.01 - Morbid (severe) obesity due to excess calories; Z68.37 - Body mass index [BMI] 37.0-37.9, adult Plan: Healthy diet and regular exercise is encouraged. (8) Numbness and tingling in left arm: Code(s): R20.0 - Anesthesia of skin; R20.2 - Paresthesia of skin Category: Medical Plan: Patient complaining of intermittent numbness and tingling in the left arm that will come and go with positional changes. Denies any pain or swelling of the left arm. Ordered for upper extremity EMG for further evaluation. Strength, sensation and pulses intact in bilateral upper extremities Plan This note was constructed using voice recognition software. While every effort has been made to ensure accuracy and director council on aging, still areas may have been included sometimes these areas may affect the content or meeting of the given symptoms. Total time spent caring for the patient today was 20 minutes. This includes time spent before the visit reviewing the chart, time spent during the visit, and time spent after the visit and documentation. Orders: Orders Influenza [id number] Immunization Today Tadeo Dukes PA-C Z23 - Encounter for immunization Lipid Panel Today Renetta Quiros PA-C E78.00 - Pure hypercholesterolemia, unspecified AMB Hemoglobin A1c Today Tadeo Dukes PA-C E11.3293 - Type 2 diabetes mellitus with mild nonproliferative diabetic retinopathy without macular edema, bilateral, Z79.4 - terminal clerk (current) use of insulin NE electromyogram (EMG) Today Renetta Quiros PA-C R20.0 - Anesthesia of skin, R20.2 - Paresthesia of skin
--- OUTSIDE RECORDS SUMMARY | 2024-09-01 13:07 | XMS_ITS | Clinical Summary ---
Author Organization [facility] Address [address] [place] [address] Phone Care Team Providers Care Patient Transporter Name Role Phone Tadeo Dukes Primary Care Provider [phone] Allergies Active Allergy Reactions Criticality Noted Date Comments Amlodipine Swelling 07/13/2023 Aspirin GI intolerance Medium 07/12/2018 Cashew Nut (Anacardium Occidentale) Skin Test Diarrhea Low 07/12/2018 Iodinated Contrast Media Other (see comments),Hives,Shortness of breath High 07/12/2018 IV dye Peanut (Diagnostic) Diarrhea Low 07/12/2018 Medications albuterol HFA (PROVENTIL HFA;VENTOLIN HFA) 108 (90 Base) MCG/ACT inhaler Inhale 2 puffs every 6 (six) hours if needed Active atorvastatin (LIPITOR) 40 MG tablet Take 40 mg by mouth in the morning. Active Calcium Carb-Cholecalci ferol 500-10 MG-MCG tablet Take 1 tablet by mouth 2 (two) times a day 05/12/20 22 Active cholecalciferol (VITAMIN D-3 SUPER STRENGTH) 50 MCG (2000 UT) tablet Take 2,000 Units by mouth in the morning. Active NovoLOG FLEXPEN 100 UNIT/ML injection INJECT 12 TO 19 UNITS SUBCUTANEOUSLY 2 TO 3 TIMES DAILY BEFORE MEAL(S) 05/13/20 22 Active Tresiba FlexTouch 200 UNIT/ML injection INJECT 80 UNITS SUBCUTANEOUSLY AT BEDTIME FOR 90 DAYS 06/19/20 22 Active lurasidone (LATUDA) 40 MG tablet Take 80 mg by mouth in the morning. Active Melatonin 5 MG tablet Take 10 mg by mouth daily Active losartan (COZAAR) 100 MG tablet Take 100 mg by mouth 1 (one) time each day Active hydroCHLOROthia zide 25 MG tablet 05/30/20 22 Active isosorbide mononitrate (IMDUR) 60 MG 24 hr tablet 05/13/20 22 Active omeprazole (PriLOSEC) [address] capsule Take 20 mg by mouth 1 (one) time each day 07/06/20 23 Active buPROPion XL (WELLBUTRIN XL) 300 MG 24 hr tablet Take 300 mg by mouth every morning 07/07/20 23 Active cyanocobalamin (VITAMIN B-12) 100 MCG tablet Take 100 mcg by mouth in the morning. Active Vilazodone HCl (Viibryd) 40 MG tablet Take by mouth Active doxazosin (CARDURA) 4 MG tablet TAKE 1 TABLET EVERY MORNING 90 tablet 3 01/20/20 24 Active buPROPion XL (WELLBUTRIN XL) 150 MG 24 hr tablet TAKE 1 TABLET BY MOUTH IN THE MORNING TAKE WITH THE 300 MG TABLET 05/13/20 24 Active Dapagliflozin Propanediol 5 MG tablet Take 5 mg by mouth 1 (one) time each day in the morning 90 tablet 3 07/18/20 24 025 Active nitrofurantoin, macrocrystal-mo nohydrate, (Macrobid) 100 MG capsule Take 1 capsule (100 mg total) by mouth in the morning and 1 capsule (100 mg total) in the evening. Do all this for 7 days. 14 capsule 08/01/20 24 025 Active Problems Problem Noted Date Diagnosed Date Chronic kidney disease stage 3 06/18/2022 Hypertensive chronic kidney disease, unspecified, with chronic kidney disease stage I through stage IV, or unspecified 06/18/2022 Renal disorder due to type 2 diabetes mellitus 1 08/18/2021 Candidiasis 06/19/2020 Overview (06/23/2022): Hx recurrent/persistent sx; has and uses Nystatin ointment and also now miconazole powder with reasonably good effect. Last Assessment & Plan: Rocio will continue with Nystatin ointment. We also reviewed cotton bras/clothing, airing out trunk/breast area when possible. Encounters Date Type Department Care Team Description 07/26/2024 Refill [facility] [address] [place] [phone] Gunner Cantorley 07/18/2024 1:15 PM EST Office Visit [facility] [address] [place] [address] [phone] Oliver Drake MD Stage 3 chronic kidney disease, not otherwise specified (HCC) (Primary Dx); Hypertension; Type 2 diabetes mellitus with diabetic chronic kidney disease (HCC); Isolated proteinuria 07/14/2024 Orders Only [facility] [address] [phone] Oliver Drake MD 07/11/2024 Travel from Last 3 Months Immunizations Name Administration Dates Next Due DTaP 12/31/2011 Influenza, MDCK, PF, Quadrivalent 07/19/2018 Influenza, Quadrivalent, With Preservative 05/29,04/13/2018 Influenza, Recombinant, Quadrivalent, Pf 020 Pneumococcal Polysaccharide 06/12/2014 Shingrix 01/22/2020,07/09/2019 Zoster 05/20/2017 Family History Medical History Relation Comments Diabetes Brother Dementia Father Diabetes Father Stroke Father COPD Mother Cancer Mother Diabetes Mother Hypertension Mother Diabetes Sibling 1 Cancer Sibling 2 Diabetes Sister Relation Status Comments Brother Father Mother Sibling 1 Sibling 2 Sister Social History Tobacco Use Types Packs/Day Years Used Date Smoking Tobacco: Never Passive Smoke Exposure: Never Smokeless Tobacco: Never Tobacco Cessation:Counseling Given: No Alcohol Use Standard Drinks/Week Comments No 0 (1 standard drink = 0.6 oz pur e alcohol) Comments Unknown Sex and Gender Information Value Date Recorded Sex Assigned at Not on file Legal Sex Female 5:02 PM EST Gender Identity Female 07/11/2024 10:24 AM EST Sexual Orientation Lesbian 07/11/2024 10 :24 AM EST Last Filed Vital Signs Vital Sign Reading Time Taken Comments Blood Pressure 124/62 07/18/2024 1:10 PM EST Pulse 60 07/18/2024 1:10 PM EST Temperature - - Respiratory Rate - - Oxygen Saturation 95% 07/13/2023 2:01 PM EST Inhaled Oxygen Concentration - - Weight 104 kg (230 lb) 07/18/2024 1:10 PM EST Height - - Body Mass Index - - Plan of Treatment Upcoming Encounters Date Type Department Care Team (Late st Contact Info) Description 07/17/2025 1:15 PM EST Office Visit [facility] [address] [phone] Oliver Drake MD [address] [phone] Health Maintenance Due Date Last Done Comments Breast Cancer Screening 1956 Colorectal Cancer Screening: Annual FOBT 2005 Colorectal Cancer Screening: Colonoscopy 2005 Colorectal Cancer Screening: Sigmoidoscopy 2005 Pneumococcal Vaccine: 65+ Years (2 of 2 - PCV) 06/12/2015 06/12/2014 Diabetes: Hemoglobin A1C 09/03/2020 Diabetes: Ophthalmology Exam 09/03/2020 Diabetes: Pedal Pulse Checked 09/03/2020 Diabetes: Sensory Foot Exam 09/03/2020 Diabetes: Visual Foot Exam 09/03/2020 Influenza Vaccine (#1) 2024 0, 05/29/2019, 07/19/2018, Additional history exists Hepatitis B Vaccine Aged Out No longe r eligible based on patient's age to complete this topic Procedures Procedure Name Priority Date/Time Associated Diagnosis Comments URINE ALBUMIN / CREATININE RATIO Routine 07/14/2024 10:13 AM EST RENAL FUNCTION PANEL Routine 07/14/2024 10:13 AM EST from Last 3 Months Results * Urine Albumin / Creatinine Ratio (07/14/2024 10:13 AM EST) Creatinine, Ur 27.5 Not Estab. mg/dL [facility] Urine Microalbumin 5.3 Not Estab. ug/mL [facility] Microalbumin/Crea tinine Ratio 19 0 - 29 mg/g creat [facility] Comment: ? Normal: ?0 - ??29 ? Moderately increased: 30 - 300 ? Severely increased: ? >300 07/14/2024 10:1 3 AM EST 07/14/2024 us Oliver Drake MD LAB URINE ORDERABLES Final Resul t [facility] [address] [place] [address] * (ABNORMAL) Renal Function Panel (07/14/2024 10:13 AM EST) Glucose 86 70 - 99 mg/dL [facility] BUN 15 8 - 27 mg/dL [facility] Creatinine 1.11(H) 0.57 - 1.00 mg/dL [facility] eGFR CKD-EPI CR 2020 54(L) >59 mL/min/1.7 3 [facility] BUN/Creatinine Ratio 14 12 - 28 [facility] Sodium 142 134 - 144 mmol/L [facility] Potassium 3.9 3.5 - 5.2 mmol/L [facility] Chloride 104 96 - 106 mmol/L [facility] Bicarbonate (CO2) 24 20 - 29 mmol/L [facility] Calcium 9.4 8.7 - 10.3 mg/dL [facility] Phosphorus 3.5 3.0 - 4.3 mg/dL [facility] Albumin 4.2 3.9 - 4.9 g/dL [facility] 07/14/2024 10:1 3 AM EST 07/14/2024 Oliver Drake MD LAB BLOOD ORDERABLES Final Resul t [facility] [address] [place] [phone] from Last 3 Months Insurance MEDICARE [facility] MEDICARE [facility] Care Teams Patient Transporter Relationship Specialty Start Date End Date Tadeo Dukes PA [address] [place] [address], [address] [place] [address] PCP - General Physician Director Of Strategy & Mobile 06/23/22
--- OUTSIDE RECORDS SUMMARY | 2024-09-01 13:07 | XMS_ITS | Encounter Summary ---
Author Organization [facility] Address [address] [place] [address] Care Team Providers Care Tong Setter Name Role Phone Tadeo Dukes Primary Care Provider Reason for Visit * Reason Onset Date Comments Medication Problem 08/26/2024 Encounter Details Date Type Department Care Team (Late st Contact Info) Description 08/26/2024 Telephone Gastroenterology - [address] [place] [phone] Wanda Edwards MA Medication Problem Social History Tobacco Use Types Packs/Day Years Used Date Smoking Tobacco: Never Smokeless Tobacco: Never Alcohol Use Standard Drinks/Week Comments No 0 (1 standard drink = 0.6 oz pur e alcohol) Sex and Gender Information Value Date Recorded Sex Assigned at Not on file Gender Identity Not on file Sexual Orientation Not on file Job Start Date Occupation Industry Not on file Not on file Not on file documented as of this encounter Progress Notes * Wanda Edwards MA - 08/26/2024 2:[address] Herrera told patient that rarely in some cases can cause issues. We also know that chronic acid reflux leads to Moncada's esophagus and cancer. We prefer her not to have reflux. Ultimately her decision regarding medication. Told her if she wants to come in and discuss with md or blacksmith apprentice or pa's. Previous Messages documented in this encounter Plan of Treatment Not on file documented as of this encounter Visit Diagnoses Not on filedocumented in this encounter Care Teams Tong Setter Relationship Specialty Start Date End Date Tadeo Dukes PA [address] [place] [phone] PCP - General Physician Pepper Cutter 05/30/24 documented as of this encounter
--- OUTSIDE RECORDS SUMMARY | 2024-09-01 13:07 | XMS_ITS | Clinical Summary ---
Author Organization [facility] [address] [facility] Address [address] [place] [address] Phone Care Team Providers Care Senior Engineering Manager Name Role Phone Tadeo Dukes Primary Care Provider Allergies Active Allergy Reactions Criticality Noted Date Comments Amlodipine 06/21/2024 Aspirin 06/23/2017 GI trouble Iodinated Contrast Media 08/14/2017 Nut - Unspecified 07/19/2018 Medications Medication Sig Dispensed Refills Start Date End Date Status losartan (COZAAR) 100 mg tablet Take 100 mg by mouth daily. Active hydroCHLOROthiazi de (HYDRODIURIL) 25 mg tablet Take 25 mg by mouth daily. Active lurasidone (LATUDA) 40 mg tablet Take 1 tablet (40 mg total) by mouth 1 (one) time each day. Active atorvastatin (LIPITOR) 40 mg tablet Take 40 mg by mouth daily. 12/09/2018 Active isosorbide mononitrate (IMDUR) 30 mg 24 hr tablet Take 2 tablets (60 mg total) by mouth 1 (one) time each day. 01/24/2019 Active pen needle, diabetic (BD Ultra-Fine Short Pen Needle) 31 gauge x 5/16 needle 12/13/2018 Active albuterol HFA (PROAIR HFA ; PROVENTIL HFA ; VENTOLIN HFA) 90 mcg/actuation inhaler Inhale 2 Puffs into the lungs 4 times daily as needed for Wheezing or Shortness of Breath for up to 30 days. 02/14/2019 Active albuterol sulfate (ProAir RespiClick) 90 mcg/actuation aerosol powdr breath activated inhale 2 puffs by mouth four times a day if needed for (DYSPNEA AND WHEEZING, OR 15 MINUTES PRIOR TO EXERCISE) 02/09/2019 Active insulin degludec (Tresiba FlexTouch U-100) 100 unit/mL (3 mL) injection pen Inject into the skin. Active insulin aspart (NovoLOG Flexpen U-100 Insulin) 100 unit/mL (3 mL) injection pen Inject into the skin. Active omeprazole OTC (PriLOSEC OTC) 20 mg EC tablet Take 1 tablet (20 mg total) by mouth 1 (one) time each day. Do not crush, chew, or split. Active omeprazole (PriLOSEC) [address] capsuleIndication s:Gastroesophagea l reflux disease without esophagitis TAKE 1 CAPSULE ONE TIME DAILY . DO NOT CRUSH OR CHEW. 60 capsule 5 08/24/2024 Active omeprazole (PriLOSEC) [address] capsuleIndication s:Gastroesophagea l reflux disease without esophagitis Take 1 capsule (40 mg total) by mouth 1 (one) time each day. Do not crush or chew. 30 each 1 07/28/2024 08/24/2024 Discontinue d(Reorder) Active Problems Problem Noted Date Diagnosed Date NSTEMI (non-ST elevated myocardial infarction) 0 01/11/2021 Allergic rhinitis 06/23/2017 Asthma 06/23/2017 CKD (chronic kidney disease) stage 3, GFR 30-59 ml/min 06/23/2017 GERD (gastroesophageal reflux disease) 7 Assessment & Plan (06/21/2024 8:56 AM EST): Continue Omeprazole 40mg daily History of alcohol abuse 06/23/2017 Overview (05/30/2024): In AA HTN (hypertension) 06/23/2017 Major depression 06/23/2017 WYATT on CPAP 06/23/2017 Type 2 diabetes mellitus with renal manifestatio ns 06/23/2017 Vitamin D deficiency 06/23/2017 Hyperlipidemia 06/23/2017 Encounters Date Type Department Care Team Description 08/26/2024 Telephone Gastroenterology - [address] [place] [address] Wanda Edwards MA Medication Problem 06/21/2024 8:40 AM EST Office Visit Gastroenterology - [address] [phone] Kimber Liang NP Gastroesophageal reflux disease, unspecified whether esophagitis present (Primary Dx); Family history of colonic polyps; Diarrhea, unspecified type 06/21/2024 Telephone Gastroenterology - [address] [phone] Cortez Herrera MD from Last 3 Months Immunizations Name Administration Dates Next Due DTaP (Infanrix) 6wks to less than 7yo 12/31/2011 Influenza Quadravalent, MDCK , 0.5ml, preservative free (Flucelvax) 6mo and older 07/19/2018 Pneumococcal polysaccharide 23 valent (Pneumovax 23) 2yo and older 06/12/2014 Surgical History Surgery Date Site/Laterality Comments OTHER SURGICAL HISTORY 1999 PROCEDURE: ---- OTHER ----; COMMENT: uterine polyp removed Medical History Medical History Date Comments CKD (chronic kidney disease) stage 3, GFR 30-59 ml/min ([facility]) 06/23/2017 DX:CKD (chronic kidney dise ase) stage 3, GFR 30-59 ml/min ([facility]) Type 2 diabetes mellitus wit h renal manifestations ([facility]) 06/23/2017 DX:Type 2 diabetes mellitus with renal manifestations ([facility]) HTN (hypertension) 06/23/2017 DX:HTN (hyper tension) Hyperlipidemia 06/23/2017 DX:Hyperlipidemi a Major depression 06/23/2017 DX:Major depres pal GERD (gastroesophageal reflu x disease) 06/23/2017 DX:GERD (gastroesophageal re flux disease) Asthma 06/23/2017 DX:Asthma WYATT on CPAP 06/23/2017 DX:WYATT on CPAP Allergic rhinitis 06/23/2017 DX:Allergic rh initis Vitamin D deficiency 06/23/2017 DX:Vitamin D deficiency History of alcohol abuse 06/23/2017 DX:Hist ory of alcohol abuse; COMMENT: In AA Bipolar disorder ([facility]) DX:Bi polar disorder ([facility]) Family History Medical History Relation Name Comments Diabetes Brother Asthma Stroke Father Diabetes, CAD, Glaucoma, Drug/Alcohol Problems Diabetes Grandparent COPD Mother Hypertension Diabetes Sister IBS Relation Name Status Comments Brother Father Grandparent Mother Sister Social History Tobacco Use Types Packs/Day [...] file Not on file Not on file Obstetrics History Last Filed Vital Signs Vital Sign Reading Time Taken Comments Blood Pressure - - Pulse - - Temperature - - Respiratory Rate - - Oxygen Saturation - - Inhaled Oxygen Concentration - - Weight 105 kg (231 lb) 06/21/2024 8:24 AM EST Height 167.6 cm (5' 6 ) 06/21/2024 8:24 AM EST Body Mass Index 37.28 06/21/2024 8:24 AM EST Plan of Treatment Health Maintenance Due Date Last Done Comments Diabetes: Annual Foot Exam 1966 Diabetes: Annual Retina Eye Exam 1966 RSV Immunization Patients 60+ Years Old (1 - Risk 60-74 years 1-dose series) 2016 Depression Screening 07/06/2022 Falls Risk Assessment 07/06/2022 Hepatitis C Screening 07/06/2022 Medicare Annual Wellness Visit 07/06/2022 Osteoporosis Screening (Bone Density Screening) 07/06/2022 Social Influencers of Health Screening 07/06/2022 Diabetes: Blood Sugar Control Test (HGBA1C) 07/16/2022 Diabetes: Annual GFR (Glomerular Filtration Rate) 01/20/2025 01/21/2024, 06/23/2023, 01/23/2023 Hypertension/CHF/CAD Annual BMP Blood Test 01/20/2025 01/21/2024, 06/23/2023, 01/23/2023 Diabetes: Annual Urine Albumin-Creatinine Ratio (uACR) 01/24/2025 01/25/2024, 01/23/2023 Breast Cancer Screening 05/27/2026 05/27/2024 Cholesterol Screening (Lipid Panel) 04/20/2029 04/20/2024 DTaP,Tdap,and Td Vaccines (4 - Td or Tdap) 12/25/2033 12/26/2023, 11/17/2022, 12/31/2011 Colorectal Cancer Screening: Colonoscopy 08/18/2034 08/18/2024, 08/17/2024 Zoster Vaccines Completed 01/22/2020, 1201/2019, 05/20/2017 Pneumococcal Vaccine: 65+ Years Completed 02/19/2023, 06/12/2014 COVID-19 Vaccine Completed 04/30/2024, 07/2023, 05/12/2022, Additional history exists Influenza Vaccine Completed 04/30/2024, , 05/12/2022, Additional history exists HIB Vaccines Aged Out No longer eligi ble based on patient's age to complete this topic HPV Vaccines Aged Out No longer eligi ble based on patient's age to complete this topic Hepatitis A Vaccines Aged Out No long er eligible based on patient's age to complete this topic Hepatitis B Vaccines Aged Out No long er eligible based on patient's age to complete this topic IPV Vaccines Aged Out No longer eligi ble based on patient's age to complete this topic MMR Vaccines Aged Out No longer eligi ble based on patient's age to complete this topic Meningococcal ACWY Vaccine Aged Out N o longer eligible based on patient's age to complete this topic RSV Immunization Patients Under 20 months Aged Out No longer eligible based on patient's age to complete this topic Varicella Vaccines Aged Out No longer eligible based on patient's age to complete this topic Procedures Procedure Name Priority Date/Time Associated Diagnosis Comments COLONOSCOPY Routine 08/18/2024 9:04 AM EST EXTERNAL COLONOSCOPY REPORT Routine 08/17/2024 2:35 PM EST from Last 3 Months Results * COLONOSCOPY (08/18/2024 9:04 AM EST) Anatomical Region Laterality Modality Endoscopy Historical Provider GI~PROCEDURE CAROL WARD * External Colonoscopy Report (08/17/2024 2:35 PM EST) Anatomical Region Laterality Modality Endoscopy Historical Provider GI~PROCEDURE CAROL WARD from Last 3 Months Care Teams Senior Engineering Manager Relationship Specialty Start Date End Date Tadeo Dukes PA [address] [place] [phone] PCP - General Physician Home Service Advisor 05/30/24
== END 2024-09-01 10:45 | disposition home or self-care (01) ==
PROVIDERS: PCP Physician Assistant; Visit Provider Physician Assistant
DX: E11.3293 Type 2 diabetes mellitus with mild nonproliferative diabetic retinopathy without macular edema, bilateral (principal); Z79.4 Long term (current) use of insulin; Z23 Encounter for immunization

== ENCOUNTER → 2024-09-01 09:58 | Outpatient (BNVA) | payer MEDICARE, OTHER, SELFPAY | PROVIDERS: PCP Physician Assistant; Visit Provider Physician Assistant | DX: I12.9 Hypertensive chronic kidney disease with stage 1 through stage 4 chronic kidney disease, or unspecified chronic kidney disease (principal); E11.22 Type 2 diabetes mellitus with diabetic chronic kidney disease; N18.30 Chronic kidney disease, stage 3 unspecified; K21.9 Gastro-esophageal reflux disease without esophagitis; E78.00 Pure hypercholesterolemia, unspecified; E11.3293 Type 2 diabetes mellitus with mild nonproliferative diabetic retinopathy without macular edema, bilateral; Z79.4 Long term (current) use of insulin; J45.20 Mild intermittent asthma, uncomplicated; E66.01 Morbid (severe) obesity due to excess calories; Z68.37 Body mass index [BMI] 37.0-37.9, adult; R20.0 Anesthesia of skin; R20.2 Paresthesia of skin; Z71.3 Dietary counseling and surveillance | CPT/HCPCS: 83036; 90471; 96127; 99212 ==

== ENCOUNTER 2024-10-07 13:15 | Outpatient (REF) | payer MEDICARE, OTHER, SELFPAY ==
--- NOTE | 2024-10-07 13:22 | EMG_ITS ---
Chief complaint: Tingling from left medial elbow down to forearm but denies numbness on fingers. Reason for referral: Evaluate for ulnar neuropathy Referred by: Renetta REINOSO Procedure done: Left upper extremity NCS/EMG Precautions and/or limitations: None The limb temperature was monitored continuously and remained between 32-36 degrees C during the performance of the NCS. Ulnar motor NCS was performed with moderate elbow flexion between 70-90 degrees, with across-elbow distance of 10 cm. Nerve Conduction Studies Anti Sensory Summary Table ?Stim Site NR Onset (ms) Norm Onset (ms) Peak (ms) Norm Peak (ms) O-P Amp (?V) Norm O-P Amp Site1 Site2 Delta-0 (ms) Dist (cm) Colton (m/s) Norm Colton (m/s) Left Median Anti Sensory (2nd Digit) Wrist ? 3.2 3.9 <3.6 22.8 >10 Wrist 2nd Digit 3.2 14.0 44 Left Radial Anti Sensory (Thumb) Forearm ? 1.7 2.3 <3.1 18.5 Forearm Thumb 1.7 0.0 Left Ulnar Anti Sensory (5th Digit) Wrist ? 2.4 2.9 <3.7 22.4 >15.0 Wrist 5th Digit 2.4 14.0 58 Motor Summary Table ?Stim Site NR Onset (ms) Norm Onset (ms) O-P Amp (mV) Norm O-P Amp iAmp (mV) Amp (1st) (%) Site1 Site2 Delta-0 (ms) Dist (cm) Colton (m/s) Norm Colton (m/s) Left Median Motor (Abd Poll Brev) Wrist ? 3.9 <3.9 8.1 >4.5 9.9 100.0 Elbow Wrist 3.9 18.5 47 >45 Elbow ? 7.8 7.1 8.6 87.7 Left Ulnar Motor (Abd Dig Minimi) Wrist ? 2.7 <3.0 8.5 >5 10.9 100.0 B Elbow Wrist 3.2 17.0 53 >45 B Elbow ? 5.9 7.4 9.8 87.1 A Elbow B Elbow 1.2 10.0 83 >45 A Elbow ? 7.1 7.3 9.8 85.9 EMG ?Side Muscle Nerve Root Ins Act Fibs Psw Amp Dur Poly Recrt Int Pat Comment Left 1stDorInt Ulnar C8-T1 Nml Nml Nml Nml Nml 0 Nml Complete Left FlexCarRad Median C6-7 Nml Nml Nml Nml Nml 0 Nml Complete Left Biceps Musculocut C5-6 Nml Nml Nml Nml Nml 0 Nml Complete Left Triceps Radial C6-7-8 Nml Nml Nml Nml Nml 0 Nml Complete Left Deltoid Axillary C5-6 Nml Nml Nml Nml Nml 0 Nml Complete Left FlexCarpiUln Ulnar C8,T1 Nml Nml Nml Nml Nml 0 Nml Complete FINDINGS: Left median sensory nerve showed prolonged peak latency. Rest of nerves tested within normal. Concentric needle EMG was performed in selected muscles of the left upper extremity. Study did not reveal signs of electric abnormalities as shown in the table above. IMPRESSION: 1. This is a abnormal study. 2. There is no electrodiagnostic evidence for ulnar neuropathy, brachial plexopathy, or cervical radiculopathy to explain her symptoms. 3. 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 Patient confirms past history of CTS symptoms. CLINICAL COMMENT: Possible medial epicondylitis, trial [id number] counterforce brace, instructions given to patient. Thank you for your kind referral. Katie Nixon MD, SAGAR Board Certified, [place] [employer] and Rehabilitation (ABPMR) Board Certified, [place] Board of Electrodiagnostic Medicine (ABEM) CODIN [id number] MTDD
--- OUTSIDE RECORDS SUMMARY | 2024-10-07 14:51 | XMS_ITS | Clinical Summary ---
Author Organization [facility] [address] [facility] Address [address] [place] [address] Phone Care Team Providers Care Sports Announcer Name Role Phone Tadeo Dukes Primary Care Provider [phone] Allergies Active Allergy Reactions Criticality Noted Date Comments Amlodipine 06/21/2024 Aspirin 06/23/2017 GI trouble Iodinated Contrast Media 08/14/2017 Nut - Unspecified 07/19/2018 Medications losartan (COZAAR) 100 mg tablet Take 100 mg by mouth daily. Active hydroCHLOROthiaz lara (HYDRODIURIL) 25 mg tablet Take 25 mg by mouth daily. Active lurasidone (LATUDA) 40 mg tablet Take 1 tablet (40 mg total) by mouth 1 (one) time each day. Active atorvastatin (LIPITOR) 40 mg tablet Take 40 mg by mouth daily. 9 Active isosorbide mononitrate (IMDUR) 30 mg 24 hr tablet Take 2 tablets (60 mg total) by mouth 1 (one) time each day. 9 Active pen needle, diabetic (BD Ultra-Fine Short Pen Needle) 31 gauge x 5/16 needle 9 Active albuterol HFA (PROAIR HFA ; PROVENTIL HFA ; VENTOLIN HFA) 90 mcg/actuation inhaler Inhale 2 Puffs into the lungs 4 times daily as needed for Wheezing or Shortness of Breath for up to 30 days. 9 Active albuterol sulfate (ProAir RespiClick) 90 mcg/actuation aerosol powdr breath activated inhale 2 puffs by mouth four times a day if needed for (DYSPNEA AND WHEEZING, OR 15 MINUTES PRIOR TO EXERCISE) 9 Active insulin degludec (Tresiba FlexTouch U-100) 100 [...] split. Active omeprazole (PriLOSEC) [address] capsuleIndicatio ns:Gastroesophag eal reflux disease without esophagitis TAKE 1 CAPSULE ONE TIME DAILY . DO NOT CRUSH OR CHEW. 60 capsule 5 5 Active Active Problems Problem Noted Date Diagnosed Date [...] [address] [place] [address] Wanda Edwards [place] Medication Problem from Last 3 Months Immunizations Name Administration [...] kidney disease) stage 3, GFR 30-59 ml/min ([facility]) 06/23/2017 DX:CKD (chronic kidney dise ase) stage 3, GFR 30-59 ml/min ([facility]) Type 2 diabetes mellitus wit h renal manifestations ([facility]) 06/23/2017 DX:Type 2 diabetes mellitus with renal manifestations ([facility]) HTN (hypertension) 06/23/2017 DX:HTN (hyper tension) Hyperlipidemia [...] alcohol abuse; COMMENT: In AA Bipolar disorder ([facility]) DX:Bi polar disorder ([facility]) Family History Medical History Relation Name Comments [...] at Not on file Legal Sex Female 7:29 AM EST Gender Identity Not on file Sexual Orientation Not on file Obstetrics History Last Filed [...] Vaccines Completed 01/22/2020, 1201/2019, 05/20/2017 Pneumococcal Vaccine: 50+ Years Completed 02/19/2023, 06/12/2014 COVID-19 Vaccine Completed [...] patient's age to complete this topic Meningococcal B Vacine Aged Out No lo nger eligible based on patient's age to complete [...] Region Laterality Modality Endoscopy Historical Provider GI~PROCEDURE ORDERABLES F inal Result * External Colonoscopy Report (08/17/2024 2:35 PM EST) Anatomical Region Laterality Modality Endoscopy Historical Provider GI~PROCEDURE ORDERABLES F inal Result from Last 3 Months Insurance MEDICARE [facility] Care Teams Sports Announcer Relationship Specialty Start Date End Date Tadeo Dukes PA [address] [place] [phone] PCP - General Physician Freight Representative 05/30/24
--- OUTSIDE RECORDS SUMMARY | 2024-10-07 14:51 | XMS_ITS | Encounter Summary ---
Author Organization [facility] Address [address] [address] Phone Care Team Providers Care Chief Mechanical Officer Name Role Phone Tadeo Dukes Primary Care Provider [phone] Encounter Details Date Type Department Care Team (Late Contact Info) Description 09/29/2024 Office Communication [facility] [address] [id number] Nuha Booth [address] [phone] Social History Tobacco Use Types Packs/Day Years Used Date Smoking Tobacco: Never Passive Smoke Exposure: Never Smokeless Tobacco: Never Alcohol Use Standard Drinks/Week Comments No 0 (1 standard drink = 0.6 oz pur e alcohol) Comments Unknown Sex and Gender Information Value Date Recorded Sex Assigned at Not on file Legal Sex Female 5:02 PM EST Gender Identity Female 07/11/2024 10:24 AM EST Sexual Orientation Lesbian 07/11/2024 10 :24 AM EST documented as of this encounter Plan of Treatment Upcoming Encounters Date Type Department Care Team (Late Contact Info) Description 07/17/2025 1:15 PM EST Office Visit [facility] [address] [phone] Oliver Drake MD [address] [phone] documented as of this encounter Visit Diagnoses Not on filedocumented in this encounter Care Teams Chief Mechanical Officer Relationship Specialty Start Date End Date Tadeo Dukes PA [address] [place] [address], [address] [place] [address] PCP - General Physician Fish Housekeeper 06/23/22 documented as of this encounter
--- OUTSIDE RECORDS SUMMARY | 2024-10-07 14:51 | XMS_ITS | Clinical Summary ---
Author Organization [facility] Address [address] [facility] [address] [place] [address] Phone Care Team Providers Care Biomass Plant Technician Name Role Phone Tadeo Dukes Primary Care Provider [phone] Allergies Active Allergy Reactions Criticality Noted Date [...] 90 tablet 3 07/18/20 24 025 Active Active Problems Problem Noted Date Diagnosed [...] Encounters Date Type Department Care Team Description 09/29/2024 Office Communication [facility] [address] [phone] Nuha Booth 07/26/2024 Refill [facility] [address] [address] DevaughnKatrin 07/18/2024 1:15 PM EST Office Visit [facility] [address] [phone] Oliver Drake MD Stage 3 chronic kidney disease, not otherwise specified (HCC) (Primary Dx); Hypertension; Type 2 diabetes mellitus with diabetic chronic kidney disease (HCC); Isolated proteinuria 07/14/2024 Orders Only [facility] [address] [phone] Oliver Drake MD 07/11/2024 Travel from Last [...] Office Visit [facility] [address] [facility] [address] [place] [address] Oliver Drake MD [address] [facility] [address] [place] [address] Health Maintenance Due Date Last Done [...] Creatinine, Ur 27.5 Not Estab. mg/dL [facility] Urine Microalbumin 5.3 Not Estab. ug/mL [facility] Microalbumin/Crea tinine Ratio 19 0 - 29 mg/g creat [facility] Comment: ? Normal: ?0 - ??29 ? Moderately increased: 30 - 300 ? Severely increased: ? >300 07/14/2024 10:1 3 AM EST 07/14/2024 us Oliver Drake MD LAB URINE ORDERABLES [facility] [address] [place] [address] * (ABNORMAL) Renal Function Panel (07/14/2024 10:13 AM EST) Glucose 86 70 - 99 mg/dL [facility] BUN 15 8 - 27 mg/dL [facility] Creatinine 1.11(H) 0.57 - 1.00 mg/dL [facility] eGFR CKD-EPI CR 2020 54(L) >59 mL/min/1.7 3 [facility] BUN/Creatinine Ratio 14 12 - 28 [facility] Sodium 142 134 - 144 mmol/L [facility] Potassium 3.9 3.5 - 5.2 mmol/L [facility] Chloride 104 96 - 106 mmol/L [facility] Bicarbonate (CO2) 24 20 - 29 mmol/L [facility] Calcium 9.4 8.7 - 10.3 mg/dL [facility] Phosphorus 3.5 3.0 - 4.3 mg/dL [facility] Albumin 4.2 3.9 - 4.9 g/dL [facility] 07/14/2024 10:1 3 AM EST 07/14/2024 Oliver Drake MD LAB BLOOD ORDERABLES Final Resul t [facility] [address] [place] [phone] from Last 3 Months Insurance MEDICARE [facility] MEDICARE [facility] Care Teams Biomass Plant Technician Relationship Specialty Start Date End Date Tadeo Dukes PA [address] [place] [address], [address] [place], [place] [phone] PCP - General Physician Content Assistant 06/23/22
== END 2024-10-07 13:16 | disposition home or self-care (01) ==
LOC: HO.NEURO 13:15
PROVIDERS: PCP Physician Assistant
DX: R20.0 Anesthesia of skin (principal); R20.2 Paresthesia of skin
CPT/HCPCS: 95886; 95909

== ENCOUNTER → 2024-10-07 13:22 | Outpatient (BNV) | payer MEDICARE, OTHER, SELFPAY | PROVIDERS: PCP Physician Assistant; Visit Provider Physical Medicine & Rehabilitation | DX: G56.12 Other lesions of median nerve, left upper limb (principal) | CPT/HCPCS: 95886; 95909 ==

== ENCOUNTER 2024-12-05 09:30 | Outpatient (AMB) | payer MEDICARE, OTHER, SELFPAY ==
[2024-12-05 09:47] VITALS: BP 160/80; PULSE 67; O2SAT 100; BMI 37.7
--- NOTE | 2024-12-05 09:47 | MHC.PC.OV ---
Vital Signs 12/05/24 09:47 12/05/24 10:24 Height 5 ft 5 in Weight 226 lb 8 oz BMI 37.7 BP 160/80 H 150/70 H Blood Pressure Location Lt brachial Position Sitting Pulse 67 Pulse Source Pulse Oximeter Pulse Oximetry (%) 100 Oxygen Delivery Method Room Air Intake Visit Reasons: f/u DM / HTN / HLD Area Field Person Required: No Accompanied by: Self / Same As Patient Allergies aspirin Allergy (Severe, Verified 12/05/24 10:10) GI trouble Iodinated Contrast Media Allergy (Severe, Verified 12/05/24 10:10) Difficulty Breathing amlodipine Adverse Reaction (Intermediate, Verified 12/05/24 10:10) leg swelling Medication List - Last Reconciled 12/05/24 by Tadeo Dukes PA-C albuterol sulfate 90 mcg/actuation 2 inhalations inhalation Q6H PRN 30 days albuterol sulfate 90 mcg/actuation (ProAir RespiClick) 2 inhalations inhalation Q6H PRN 30 days atorvastatin 40 mg PO DAILY 90 days blood pressure test kit-large As directed bupropion HCl XL 300 mg PO DAILY calcium carbonate-vitamin D3 500 mg-10 mcg (400 unit) (Oyster Shell Calcium-Vitamin D3) 1 tab PO BID 90 days cholecalciferol (vitamin D3) 25 mcg PO DAILY cyanocobalamin (vitamin B-12) 1,000 mcg PO DAILY doxazosin 4 mg PO DAILY 90 days fluticasone propion-salmeterol 113-14 mcg/actuation (AirDuo RespiClick) 1 inh inhalation Q12H hydrochlorothiazide 25 mg PO QAM 90 days hydrocortisone valerate 0.2% 1 appl topical BID PRN 15 days insulin aspart U-100 (Novolog FlexPen U-100 Insulin aspart) 15 - 17 units subcut TID insulin degludec 76 units (0.38 mL) subcut BEDTIME isosorbide mononitrate ER 60 mg PO DAILY 90 days losartan 100 mg PO DAILY lurasidone (Latuda) 80 mg PO DAILY melatonin 20 mg PO DAILY multivitamin with minerals 1 cap PO DAILY omeprazole 20 mg PO DAILY pen needle, diabetic (BD Ultra-Fine Mini Pen Needle) As directed trihexyphenidyl 2 mg PO DAILY vilazodone (Viibryd) 40 mg PO DAILY Tobacco use date assessed: 09/01/24 Fall risk assessment: No Falls in past year Last assessed Fall Risk: 12/05/24 Dental Screening Dental Screen Date: 09/01/24 HPI f/u DM / HTN / HLD HPI Details Patient is a 69-year-old female here today for follow-up visit? Patient has a past medical history significant for type 2 diabetes, hyperlipidemia, hypertension, history of non STEMI,? asthma, WYATT, major depression, PTSD Concerns--> she reports having some left elbow pain and tingling. She did get an EMG of the left upper extremity that did show mild carpal tunnel syndrome. Her elbow issue has gotten a bit better and would like to continue working on conservative treatment. .. MDD: Is followed by a med provider whom prescribes her mental health meds. She reports recently starting Wellbutrin which has helped her mental health and depression.. .. Obstructive sleep apnea:? Patient followed by pulmonology and continues on APAP at night with decent affect. .. HTN:? Patient's blood pressure elevated today in office. She does report at times having some chest discomfort that radiates into her back. Attributes this to her anxiety and stress though of note had history of NSTEMI a few years ago. PLAN: Will send patient for cardiac stress testing to evaluate for cardiac ischemia on physical exertion. .. DMII: Has been compliant with her Insulins.? Patient is followed by credit collections analyst now in [facility]. She reports some most recent A1c was fairly stable..? Has lost a little bit of weight since last office visit .. Asthma/ WYATT:? Has been well controlled with p.r.n. use of albuterol inhaler.? Recently started on a maintenance inhaler(airduo) Denies any nighttime awakenings with asthma symptoms.? Does use a CPAP machine at night. [facility] Medical History Lower extremity edema Thyroid nodule Anemia Hypersomnia with sleep apnea High cholesterol Diabetes Hypertension Asthma WYATT (obstructive sleep apnea) Surgical History Hx of colonoscopy History of esophagogastroduodenoscopy (EGD) Uterine polyp History of removal of cyst Family History Father Stroke Diabetes Mother Hypertension COPD (chronic obstructive pulmonary disease) CHF (congestive heart failure) FHx: colonic polyps Maternal Grandmother Stroke Sister FHx: colonic polyps Other Mental health disorder Substance use disorder Social History Housing: House Alcohol intake: never Patient Tobacco Use Status: Never used Tobacco e-Cigarette/Vaping Use: Never Used Second Hand Smoke Exposure: Yes service: No Current occupational status: retired Cognitive needs: No Hearing needs: No Vision needs: Yes (Glasses) Questionnaire PHQ-9 Over the last 2 weeks, how often have you been bothered by any of the following problems? 1. Little interest or pleasure in doing things: not at all 2. Feeling down, depressed, or hopeless: not at all 3. Trouble falling or staying asleep, or sleeping too much: several days 4. Feeling tired or having little energy: not at all 5. Poor appetite or overeating: not at all 6. Feeling bad about yourself - or that you are a failure or have let yourself or your family down: not at all 7. Trouble concentrating on things, such as reading the newspaper or watching television: not at all 8. Moving or speaking so slowly that other people could have noticed. Or the opposite - being so fidgety or restless that you have been moving around a lot more than usual: not at all 9. Thoughts that you would be better off or of hurting yourself in some way: not at all Total score: 1 Depression Screening Interpretation: Negative Depression Screening Done: Yes 92132 - PHQ-9 Billing: Yes Source: Developed by Drs. Jakob Batres, Kayla Whitney, Iglesia Moreira and colleagues, with an educational vanda from [employer]. Thrive Questionnaire Date Thrive assessed: 11/28/24 I am a: Patient What is your living situation today?: I have a steady place to live Within the past 12 months, did the food you bought not last and you didn't have the money to get more?: Never true Within the past 12 months, did you worry whether your food would run out before you got money to buy more?: Never true Do you have trouble paying for medicines?: No Do you have trouble getting transportation to medical appointments?: No Do you have trouble paying your heating and electricity bill?: No Do you have trouble taking care of your child, family member or friend?: No Do you have trouble with day-to-day activities such as bathing, preparing meals, shopping, managing finances, etc.?: Yes Are you currently unemployed and looking for a job?: No Are you interested in more education?: No Please select the resources that you would like help with: None Currently or been in a relationship where the following occur: No concerns reported THRIVE Score: 0 AUDIT C Alcohol Use Questionnaire (AUDIT-C) 1. How often do you have a drink containing alcohol?: Never Total Score: 0 YANIQUE-7 AMB Questionnaire YANIQUE-7 Date YANIQUE - 7 assessed: 09/01/24 Feeling nervous, anxious, or on edge: 1 = Several days Not being able to stop or control worryin = Several days Worrying too much about different things: 1 = Several days Trouble relaxin = Not at all Being so restless that it is hard to sit still: 0 = Not at all Becoming easily annoyed or irritable: 0 = Not at all Feeling afraid as if something awful might happen: 1 = Several days Total YANIQUE-7 score (0-4 normal; 5-9 mild; 10-14 moderate; 15-21 severe): 4 Source: Developed by Drs. Jakob Batres, Kayla Whitney, Iglesia Moreira and colleagues, with an educational vanda from [employer]. YANIQUE-7 Assessment Billing YANIQUE-7 Assessment Tool: YANIQUE-7 Assessment 93017 Review of Systems Const Denies headache(s) Eyes Denies loss of vision ENT Denies vertigo, Denies dizziness, Denies headache(s) and Denies sore throat Card Denies chest pain, Denies leg edema and Denies lightheadedness Resp Denies cough, Denies hemoptysis and Denies wheezing GI Denies abdominal pain, Denies melena, Denies constipation, Denies diarrhea and Denies vomiting Denies urinary frequency, Denies dysuria and Denies urinary urgency Musc Denies arthralgias, Denies joint swelling, Denies numbness and Denies tingling Neuro Denies Abnormal speech present, Denies behavioral changes, Denies vertigo, Denies dizziness, Denies headache(s), Denies loss of vision, Denies memory loss, Denies numbness and Denies tingling Psych Denies anxiety, Denies behavioral changes, Denies depression, Denies memory loss and Denies panic attacks Johnnie/Lymph Denies easy bleeding and Denies easy bruising Aller/Immun Denies wheezing Physical exam (Primary Care) Vital Signs: Last Vital Signs Pulse 67 12/05/24 09:47 BP 150/70 H 12/05/24 10:24 Pulse Ox 100 12/05/24 09:47 Oxygen Delivery Method Room Air 12/05/24 09:47 Care Plan Goal for BP management: continue on doxazosin 4 mg, hydrochlorothiazide, isosorbide and losartan Next steps: Will work extensively on low-sodium diet and weight reduction to help control her blood pressure better BMI result Body Mass Index 37.7 BMI Assessment/Plan discussion: High BMI High, discussed plan: lifestyle, weight reduction, dietary and physical activity Tobacco/Smoking Status: Tobacco use Status Tobacco use date assessed 09/01/24 12/05/24 09:49 Patient Tobacco Use Status Never used Tobacco 12/05/24 09:49 e-Cigarette/Vaping Use Never Used 12/05/24 09:49 PHQ-9: PHQ-9 Score PHQ-9: Total score 1 12/05/24 10:08 Depression Screening Interpretation: Negative Thrive Assessment: Date of Thrive Assessment Date Thrive assessed 11/28/24 12/05/24 09:49 Currently or been in a relationship where the following occur: No concerns reported Const Other: Obese General: healthy appearing, no acute distress, alert and awake Nutritional Appearance: well nourished Orientation/consciousness: oriented to person, oriented to place and oriented to time HENMT Ears: TM's normal bilaterally General nose exam: Normal nasal mucous membranes and turbinates present Eyes Conjunctivae: conjunctivae normal Sclerae: sclerae normal Pupils: Equal, round and reactive pupils present Neck Neck: Yes no lymphadenopathy and Yes no JVD Thyroid: Thyroid normal Carotids: no bruits Resp Effort & Inspection: normal respiratory effort and not tachypneic Auscultation: no crackles, no rales, no rhonchi and no wheezes Cardio Rate: regular rate Rhythm: regular rhythm Heart sounds: no murmurs and normal S1 and S2 GI Palpation (GI): Soft to palpation, nontender, no hepatomegaly and no splenomegaly Auscultation: normal bowel sounds Skin General skin exam: no rashes or lesions noted and dry skin Neuro General: oriented to person, oriented to place and oriented to time Cranial nerves: Yes Equal, round and reactive pupils present Speech: No Abnormal speech present Gait exam (Neuro): Normal gait present Motor exam (neuro): no tremor noted Extrem Right upper extremity: full ROM Left upper extremity: full ROM Right lower extremity: full ROM; no edema Left lower extremity: full ROM; no edema Psych Mental Status: mental status grossly normal Speech and movement: Normal speech and movement present Affect: normal affect Attitude: cooperative Thought process: Normal thought process present Coding Level of Care Code Est Pt Level 4 (07515) Diagnoses Essential hypertension I10 Hypertension type: essential hypertension Stage 3 chronic kidney disease, unspecified whether stage 3a or 3b CKD N18.30 Chronic kidney disease stage 3 subtype: unspecified whether 3a or 3b High cholesterol E78.00 Type 2 diabetes mellitus with both eyes affected by mild nonproliferative retinopathy without macular edema, with long-term current use of insulin E11.3293; Z79.4 Diabetes mellitus complication detail: with diabetic retinopathy Diabetes mellitus complication status: with ophthalmic complications Diabetes mellitus mcc insulin use: with terminal supervisor use Diabetes mellitus macular edema: without macular edema Diabetes mellitus type: type 2 Diabetic retinopathy severity: with mild nonproliferative retinopathy Laterality: bilateral Mild intermittent asthma without complication J45.20 Asthma complication type: uncomplicated Asthma persistence: intermittent Asthma severity: mild Precordial pain R07.2 Chest pain type: precordial pain Class 2 obesity E66.812 Additional Codes PHQ-9 - 54823 - PHQ-9 Billing: Yes ([id number]) YANIQUE-7 Assessment Billing - YANIQUE-7 Assessment Tool: YANIQUE-7 Assessment 00413 ([id number]) Assessment & Plan Assessment & Plan (1) Hypertension: Code(s): I10 - Essential (primary) hypertension Category: Medical Qualifiers: Hypertension type: essential hypertension Qualified Code(s): I10 - Essential (primary) hypertension Plan: Continue on current blood pressure medication. Patient's blood pressure elevated today in office. She does not regularly monitor her blood pressure at home. She is on 4 different antihypertensives at this time at maximal doses. She would like to work on lifestyle modifications on reducing sodium and reducing her weight in hopes that her blood pressure will stabilize. Due to her reports of chest pain will send for cardiac stress test to evaluate for cardiac ischemia on physical exertion. Goal blood pressures to be below 140/90 (2) CKD (chronic kidney disease) stage 3, GFR 30-59 ml/min: Code(s): N18.30 - Chronic kidney disease, stage 3 unspecified Category: Medical Qualifiers: Chronic kidney disease stage 3 subtype: unspecified whether 3a or 3b Qualified Code(s): N18.30 - Chronic kidney disease, stage 3 unspecified Plan: Continue to follow with playground aide. Avoid kidney irritants such as NSAIDs and stay well hydrated. (3) High cholesterol: Code(s): E78.00 - Pure hypercholesterolemia, unspecified Category: Medical Plan: Avoid foods that are high in cholesterol such as red meat, fried foods, eggs and baked goods. Triglyceride goal of less than 150 and LDL goal of less than 70. Reminded patient about blood work (4) Diabetes: Code(s): E11.9 - Type 2 diabetes mellitus without complications Category: Medical Qualifiers: Diabetes mellitus complication detail: with diabetic retinopathy Diabetes mellitus complication status: with ophthalmic complications Diabetes mellitus mcc insulin use: with mcc use Diabetes mellitus macular edema: without macular edema Diabetes mellitus type: type 2 Diabetic retinopathy severity: with mild nonproliferative retinopathy Laterality: bilateral Qualified Code(s): E11.3293 - Type 2 diabetes mellitus with mild nonproliferative diabetic retinopathy without macular edema, bilateral; Z79.4 - manager long term care (current) use of insulin Plan: Decrease the amount of carbohydrates such as pasta, bread, rice, and potatoes and limit the amount of sweets. Although fruits are generally healthy they should be eaten in moderation as they are still high in sugar. Hemoglobin A1c goal of less than 7%. Currently following with [facility] endocrinology maintained on current insulin dose. (5) Asthma: Code(s): J45.909 - Unspecified asthma, uncomplicated Category: Medical Qualifiers: Asthma complication type: uncomplicated Asthma persistence: intermittent Asthma severity: mild Qualified Code(s): J45.20 - Mild intermittent asthma, uncomplicated Plan: Asthma currently controlled on present medications. Continue on albuterol as needed. Avoid triggers such as allergies. (6) Chest pain: Code(s): R07.9 - Chest pain, unspecified Category: Medical Qualifiers: Chest pain type: precordial pain Qualified Code(s): R07.2 - Precordial pain Plan: As above, will send for cardiac stress testing to evaluate for cardiac ischemia on physical exertion due to patient's report of chest discomfort at rest. Of note has a history of NSTEMI, was followed by Cardiology at the time though has lost her follow-up. (7) Class 2 obesity: Code(s): E66.812 - Obesity, class 2 Category: Medical Plan: Patient does understand her BMI is over 35 and will continue working on better eating habits and being more physically active to reduce her weight. Orders: Orders CA stress test 12/05/24 R07.2 - Precordial pain Patient Instructions: Goal: Blood pressure to be below 140/90, LDL to be below 100 Barriers: Adherence to physical activity and healthy eating habits
--- OUTSIDE RECORDS SUMMARY | 2024-12-05 10:18 | XMS_ITS | Clinical Summary ---
Author Organization [facility] [address] [facility] Address [address] [place] [address] Phone Care Team Providers Care Slot Operations Manager Name Role Phone Tadeo Dukes Primary [...] Ultra-Fine Short Pen Needle) 31 gauge x /16 needle 9 Active albuterol HFA (PROAIR HFA [...] Noted Date Diagnosed Date NSTEMI (non-ST elevated myoc ardial infarction) ([facility] V24, [facility] V28) 01/11/2021 Allergic rhinitis 06/23/2017 Asthma 06/23/2017 CKD (chronic kidney disease) stage 3, GFR 30-59 ml/min ([facility] V24, [facility] V28) 06/23/2017 GERD (gastroesophageal reflux disease) 7 Assessment & Plan (06/21/2024 8:56 AM EST): Continue Omeprazole 40mg daily History of alcohol abuse 06/23/2017 Overview (05/30/2024): In AA HTN (hypertension) 06/23/2017 Major depression 06/23/2017 WYATT on CPAP 06/23/2017 Type 2 diabetes mellitus wit h renal manifestations ([facility] V24, [facility] V28) 06/23/2017 Vitamin D deficiency 06/23/2017 Hyperlipidemia 06/23/2017 Immunizations Name Administration Dates Next Due DTaP [...] kidney disease) stage 3, GFR 30-59 ml/min ([facility] V24, [facility] V28) 06/23/2017 DX:CKD (chronic kidney disea se) stage 3, GFR 30-59 ml/min ([facility]) Type 2 diabetes mellitus wit h renal manifestations ([facility] V24, [facility] V28) 06/23/2017 DX:Type 2 diabetes mellitus with renal manifestations ([facility]) HTN (hypertension) 06/23/2017 DX:HTN (hyper tension) [...] alcohol abuse; COMMENT: In AA Bipolar disorder ([facility] V2 4, [facility] V28) DX:Bipolar disorder ([facility]) Family History Medical History Relation Name [...] Annual Retina Eye Exam 1966 RSV Immunization Adult Patients (1 - Risk 60-74 years 1-dose series) 2016 Depression Screening 07/06/2022 Falls Risk Assessment 07/06/2022 Hepatitis C Screening 07/06/2022 Medicare Annual Wellness Visit 07/06/2022 Osteoporosis Screening (Bone Density Screening) 07/06/2022 Social Influencers of Health Screening 07/06/2022 Diabetes: Blood Sugar Control Test (HGBA1C) 07/16/2022 COVID-19 Vaccine (8 - Moderna risk season) 2024 04/30/2024, 05/14/2023, 05/12/2022, Additional history exists Diabetes: Annual GFR (Glomerular Filtration Rate) 01/20/2025 [...] Pneumococcal Vaccine: 50+ Years Completed 02/19/2023, 06/12/2014 Influenza Vaccine Completed 04/30/2024, , 05/12/2022, Additional [...] age to complete this topic Meningococcal B Vaccine Aged Out No l onger eligible based on patient's age to complete this topic RSV Immunization Patients Under 20 months Aged Out No longer eligible based on patient's age to complete this topic Varicella Vaccines Aged Out No longer eligible based on patient's age to complete this topic Procedures Procedure Name Priority Date/Time Associated Diagnosis Comments COLONOSCOPY Routine 08/18/2024 9:04 AM EST from Last 3 Months or Most Recently Relevant to Health Maintenance Results * COLONOSCOPY (08/18/2024 9:04 AM EST) Anatomical Region Laterality Modality Endoscopy Historical Provider GI~PROCEDURE ORDERABLES F inal Result from Last 3 Months or Most Recently Relevant to Health Maintenance Insurance MEDICARE [facility] Care Teams Slot Operations Manager Relationship Specialty Start Date End Date Tadeo Dukes PA [facility] [place] [id number] PCP - General Physician [employer] 05/30/24
--- OUTSIDE RECORDS SUMMARY | 2024-12-05 10:19 | XMS_ITS | Clinical Summary ---
Author Organization [facility] Address [address] [facility] [address] [place] [address] Phone Care Team Providers Care Stitching Department Supervisor Name Role Phone Tadeo Dukes Primary Care Provider [phone] Allergies Active Allergy Reactions Criticality Noted Date [...] the morning 90 tablet 3 07/18/20 24 Active Active Problems Problem Noted Date Diagnosed [...] Encounters Date Type Department Care Team Description 11/22/2024 Documentation Only [facility] [address] [phone] Nuha Booth 09/29/2024 Office Communication [facility] [address] [phone] Nuha Booth from Last 3 Months Immunizations Immunization Administration Dates Next Due DTaP 12/31/2011 Influenza, [...] Office Visit [facility] [address] [phone] Oliver Drake MD [address] [phone] Health Maintenance Due Date Last Done Comments Breast Cancer Screening 1955 Colorectal Cancer Screening: Annual FOBT 2005 Colorectal Cancer Screening: Colonoscopy 2005 Colorectal Cancer Screening: Sigmoidoscopy 2005 Pneumococcal Vaccine: 50+ Years (2 of 2 - PCV) 06/12/2015 06/12/2014 Diabetes: Hemoglobin A1C 09/03/2020 Diabetes: Ophthalmology Exam 09/03/2020 Diabetes: Pedal Pulse Checked 09/03/2020 Diabetes: Sensory Foot Exam 09/03/2020 Diabetes: Visual Foot Exam 09/03/2020 Influenza Vaccine (Season Ended) 2025 05/14/2020, 05/29/2019, 07/19/2018, Additional history exists Pneumococcal Vaccine: Peds (0 to 5 Years) and At-Risk Patients (6 to 49 Years) Discontinued 06/12/2014 Hepatitis B Vaccine Aged Out No longe r eligible based on patient's age to complete this topic Procedures Procedure Name Priority Date/Time Associated Diagnosis Comments EXT RESULT ENTRY Routine 11/21/2024 from Last 3 Months Results * EXT RESULT ENTRY (11/21/2024) Sodium 140 137 - 147 Potassium 4.0 3.4 - 5.5 Carbon Dioxide 29 mmol/L Anion Gap 14 <=30 MMOL/L Glucose 152 60 - 200 BUN 17 4 - 21 mg/dL Creatinine 1.00 0.50 - 1.10 mg/dL Calcium 9.2 8.7 - 10.7 mg/dL eGFR Non-Afr Ethiopian 61 11/21/2024 us Historical Provider LAB BLOOD ORDERABLES Skylar l Result from Last 3 Months Insurance Medicare [facility] Medicare [facility] Care Teams Stitching Department Supervisor Relationship Specialty Start Date End Date Tadeo Dukes PA [address] [place] [address], [address] [place] [address] PCP - General Physician Hyperbaric Nurse 06/23/22
[2024-12-05 10:24] VITALS: BP 150/70
== END 2024-12-05 10:33 | disposition home or self-care (01) ==
LOC: HO.HMCH 09:31
PROVIDERS: PCP Physician Assistant; Visit Provider Physician Assistant
DX: I12.9 Hypertensive chronic kidney disease with stage 1 through stage 4 chronic kidney disease, or unspecified chronic kidney disease (principal); N18.30 Chronic kidney disease, stage 3 unspecified; E11.3293 Type 2 diabetes mellitus with mild nonproliferative diabetic retinopathy without macular edema, bilateral; Z79.4 Long term (current) use of insulin; E78.00 Pure hypercholesterolemia, unspecified; J45.20 Mild intermittent asthma, uncomplicated; R07.2 Precordial pain; E66.812 Obesity, class 2

== ENCOUNTER → 2024-12-05 09:30 | Outpatient (BNVA) | payer MEDICARE, OTHER, SELFPAY | PROVIDERS: PCP Physician Assistant; Visit Provider Physician Assistant | DX: I12.9 Hypertensive chronic kidney disease with stage 1 through stage 4 chronic kidney disease, or unspecified chronic kidney disease (principal); E11.22 Type 2 diabetes mellitus with diabetic chronic kidney disease; N18.30 Chronic kidney disease, stage 3 unspecified; E78.00 Pure hypercholesterolemia, unspecified; E11.3293 Type 2 diabetes mellitus with mild nonproliferative diabetic retinopathy without macular edema, bilateral; J45.20 Mild intermittent asthma, uncomplicated; R07.2 Precordial pain; E66.812 Obesity, class 2; Z68.37 Body mass index [BMI] 37.0-37.9, adult; Z79.4 Long term (current) use of insulin; Z71.3 Dietary counseling and surveillance | CPT/HCPCS: 96127; 99212 ==

== ENCOUNTER → 2025-01-23 08:19 | Outpatient (REF) | payer MEDICARE, OTHER, SELFPAY ==
--- NOTE | 2025-01-23 08:23 | CA_ITS ---
Acquisition Time: 2025-01-23 08:30:26 Total Exercise Time: 00:05:00 Test Indications: CP Medications: SEE H&P Protocol: KT Max HR: 141 BPM 92% of Pred: 152 BPM Max BP: 234/60 mmHG Max Work Load: 7.0 METS Exercise stress test with exercise 5 mins of Kt Protocol, achieving 92% MPHR, with reports of SOB, no chest pain, with isolated PVCs, with hypertensive response to exercise- max BP 234/60. With borderline downsloping ST inferiorly and anterolaterally meeting criteria for possible ischemia. In recovery, breathing returned to baseline. ST segment improved. BP improved to 136/64. Recommend nuclear stress test. Test reviewed with Dr. Patel. Referred By: Tadeo Dukes Electronically Signed By: Dirk Nicole
--- OUTSIDE RECORDS SUMMARY | 2025-01-23 08:28 | XMS_ITS | Clinical Summary ---
Author Organization [facility] [address] [facility] Address [address] [place] [address] Phone Care Team Providers Care Managing Consultant Clinical Professor Name Role Phone Tadeo Dukes Primary Care [...] Date NSTEMI (non-ST elevated myoc ardial infarction) ([facility] V24, [facility] V28) 01/11/2021 Allergic rhinitis 06/23/2017 Asthma 06/23/2017 CKD (chronic kidney disease) stage 3, GFR 30-59 ml/min ([facility] V24, [facility] V28) 06/23/2017 GERD (gastroesophageal reflux disease) 7 Assessment & Plan (06/21/2024 8:56 AM EST): Continue Omeprazole 40mg daily History of alcohol abuse 06/23/2017 Overview (05/30/2024): In AA HTN (hypertension) 06/23/2017 Major depression 06/23/2017 WYATT on CPAP 06/23/2017 Type 2 diabetes mellitus wit h renal manifestations ([facility] V24, [facility] V28) 06/23/2017 Vitamin D deficiency 06/23/2017 Hyperlipidemia [...] kidney disease) stage 3, GFR 30-59 ml/min ([facility] [place] [facility] [place] 06/23/2017 DX:CKD (chronic kidney disea se) stage 3, GFR 30-59 ml/min ([facility]) Type 2 diabetes mellitus wit h renal manifestations ([facility] [place], [facility] [place] 06/23/2017 DX:Type 2 diabetes mellitus with renal manifestations ([facility]) HTN (hypertension) 06/23/2017 DX:HTN (hyper tension) Hyperlipidemia [...] alcohol abuse; COMMENT: In AA Bipolar disorder ([facility] [place] 4, [facility] [place]) DX:Bipolar disorder ([facility]) Family History Medical History Relation Name Comments [...] Recently Relevant to Health Maintenance Insurance MEDICARE [facility] Care Teams Managing Consultant Clinical Professor Relationship Specialty Start Date End Date Tadeo Dukes PA [facility] [place] [phone] PCP - General Physician Mobile Engineer 05/30/24
== END ==
LOC: HO.CARD 08:19
PROVIDERS: PCP Physician Assistant; Visit Provider Physician Assistant
DX: R07.2 Precordial pain (principal)
CPT/HCPCS: 93017

== ENCOUNTER → 2025-01-23 08:23 | Outpatient (BNV) | payer MEDICARE, OTHER, SELFPAY | PROVIDERS: PCP Physician Assistant | DX: R06.02 Shortness of breath (principal); I49.3 Ventricular premature depolarization; R03.0 Elevated blood-pressure reading, without diagnosis of hypertension | CPT/HCPCS: 93016; 93018 ==

== ENCOUNTER 2025-02-14 14:29 | Outpatient (AMB) | payer MEDICARE, OTHER, SELFPAY ==
--- NOTE | 2025-02-14 14:33 | AM.OFFWIN_ITS ---
Intake Vital Signs 02/14/25 14:34 Height 5 ft 5 in Weight 226 lb 4 oz BMI 37.6 BP 154/63 H Blood Pressure Location Rt brachial Position Sitting Pulse 82 Pulse Source Pulse Oximeter Temp 99.0 F Temp Source Oral Pulse Oximetry (%) 97 Oxygen Delivery Method Room Air Intake Visit Reasons: EP swollen & pain on LT knee due to a fall Intake Note: Patient present left knee sore fell down 4 days ago worried, diabetic and knee not healing the way she'd like Patient Tobacco Use Status: Never used Tobacco Media Specialist Required: No Is last menstrual period known: No Post menopausal: Yes Patient : No Allergies aspirin Allergy (Severe, Verified 02/14/25 14:43) GI trouble Iodinated Contrast Media Allergy (Severe, Verified 02/14/25 14:43) Difficulty Breathing amlodipine Adverse Reaction (Intermediate, Verified 02/14/25 14:43) leg swelling Do you need a note to return to daycare/school/sports/work: No HPI HPI Comments History of Present Illness Details Patient is a 69 F who presents post fall with L knee pain Pt is a diabetic She had a trip and fall on Thursday and fell onto L knee R knee minimal injury with R arm scratch She said main complain is L knee abrasion Cleaned and has been using triple antibiotic ointment 2/10 ache Walking on it fine No fever or chills PFSH Medical History Lower extremity edema Thyroid nodule Anemia Hypersomnia with sleep apnea High cholesterol Diabetes Hypertension Asthma WYATT (obstructive sleep apnea) Surgical History Hx of colonoscopy History of esophagogastroduodenoscopy (EGD) Uterine polyp History of removal of cyst Family History Father Stroke Diabetes Mother Hypertension COPD (chronic obstructive pulmonary disease) CHF (congestive heart failure) FHx: colonic polyps Maternal Grandmother Stroke Sister FHx: colonic polyps Other Mental health disorder Substance use disorder Social History Housing: House Alcohol intake: never Patient Tobacco Use Status: Never used Tobacco e-Cigarette/Vaping Use: Never Used Second Hand Smoke Exposure: Yes Patient : No service: No Current occupational status: retired Cognitive needs: No Hearing needs: No Vision needs: Yes (Glasses) Review of Systems Const Denies chills, Denies fatigue and Denies fever(s) ENT Denies dizziness Card Denies chest pain, Denies syncope and Denies dyspnea Resp Denies dyspnea Musc Reports deformity (L knee swelling), Denies numbness, Reports stiffness and Denies tingling Skin/Breast Reports wounds Neuro Denies confusion, Denies dizziness, Denies syncope, Denies focal weakness, Denies numbness and Denies tingling Psych Denies confusion Endo Denies fatigue Physical Exam Vital Signs: Last Vital Signs Temp 99.0 F 02/14/25 14:34 Pulse 82 02/14/25 14:34 BP 154/63 H 02/14/25 14:34 Pulse Ox 97 02/14/25 14:34 Oxygen Delivery Method Room Air 02/14/25 14:34 BMI result Body Mass Index 37.6 General: Non-toxic, NAD. Speaking full sentences. Skin: Warm dry throughout + edema noted to L anterior knee. She has one small scabbed abrasion to superior medial aspect of L knee. There is a larger superficial abrasion with central granulation tissue to L anterior knee lateral aspect to patella and along infrapatella region. No active drainage. + surrounding erythema to borders which is not circumfrential. No pitting edema Lower extremities otherwise equal in size/shape Eye: EOMI Neck: No c-spine ttp. Minimal R trapezius paravertebral muscle ttp. Respiratory: CTA bilaterally. No wheezes, rales or rhonchi Cardiac: RRR. No murmur. No calf tenderness to palpation bilaterally MSK: Full ROM extremities.+ ttp L anterior knee over wound but otherwise good ROM L knee with flexion and full extension. Neurology: Alert. No aphasia or facial droop. Gait without abnormality Psych: Good mood and affect Const General: No confusion Orientation/consciousness: No confusion Neuro General: No confusion Assessment & Plan Assessment & Plan (1) Cellulitis: Code(s): L03.90 - Cellulitis, unspecified Qualifiers: Site of cellulitis: extremity Site of cellulitis of extremity: lower extremity Laterality: left Qualified Code(s): L03.116 - Cellulitis of left lower limb Plan: Patient seen and evaluated. No concern for fx as pt ambulating without issue Discussed wound care and continue topical antibiotic and dressing changes Keep knee elevated to help with edema Keflex for concern early cellulitis with hx of diabetes Discussed monitor symptoms and return protocol Discussed leg edema, high fevers, calf pain go to ER Patient gave verbal understanding and had no additional questions or concerns at time of discharge All questions answered Medications: New cephalexin 500 mg PO Q12H 14 caps 0RF Coding Level of Care Code Est Pt Level 3 (59138) Diagnoses Cellulitis of left lower extremity L03.116 Site of cellulitis: extremity Site of cellulitis of extremity: lower extremity Laterality: left
[2025-02-14 14:34] VITALS: BP 154/63; PULSE 82; TEMP 37.2; O2SAT 97; BMI 37.6
--- OUTSIDE RECORDS SUMMARY | 2025-02-14 15:48 | XMS_ITS | Clinical Summary ---
Author Organization [facility] [address] [facility] Address [address] [place] [address] Phone Care Team Providers Care Appeals Examiner Name Role Phone Tadeo Dukes Primary Care [...] NSTEMI (non-ST elevated myoc ardial infarction) ([facility] V24, [facility] V28) 01/11/2021 Allergic rhinitis 06/23/2017 Asthma 06/23/2017 CKD (chronic kidney disease) stage 3, GFR 30-59 ml/min ([facility] V[facility], [facility] V28) 06/23/2017 GERD (gastroesophageal reflux disease) 7 Assessment & Plan (06/21/2024 8:56 AM EST): Continue Omeprazole 40mg daily History of alcohol abuse 06/23/2017 Overview (05/30/2024): In AA HTN (hypertension) 06/23/2017 Major depression 06/23/2017 WYATT on CPAP 06/23/2017 Type 2 diabetes mellitus wit h renal manifestations ([facility] V[facility], [facility] V28) 06/23/2017 Vitamin D deficiency 06/23/2017 Hyperlipidemia [...] kidney disease) stage 3, GFR 30-59 ml/min ([facility] V24, [facility] V28) 06/23/2017 DX:CKD (chronic kidney disea se) stage 3, GFR 30-59 ml/min ([facility]) Type 2 diabetes mellitus wit h renal manifestations ([facility] V24, [facility] V28) 06/23/2017 DX:Type 2 diabetes mellitus with renal manifestations ([facility]) HTN (hypertension) 06/23/2017 DX:HTN (hyper tension) Hyperlipidemia [...] alcohol abuse; COMMENT: In AA Bipolar disorder ([facility] V2 4, [facility] V28) DX:Bipolar disorder ([facility]) Family History Medical History Relation Name Comments [...] Urine Albumin-Creatinine Ratio (uACR) 01/24/2025 01/25/2024, 01/23/2023 Influenza Vaccine (#1) 2025 , 04/09/2023, 05/12/2022, Additional history exists Breast Cancer Screening 05/27/2026 05/27/2024 Cholesterol Screening (Lipid Panel) 04/20/2029 04/20/2024 DTaP,Tdap,and Td Vaccines (4 - Td or Tdap) 12/25/2033 12/26/2023, 11/17/2022, 12/31/2011 Colorectal Cancer Screening: Colonoscopy 08/18/2034 08/18/2024, 08/17/2024 Zoster Vaccines Completed 01/22/2020, 12/0 01/2019, 05/20/2017 Pneumococcal Vaccine: 50+ Years Completed 02/19/2023, 06/12/2014 HIB Vaccines Aged Out No longer eligi [...] AM EST) Anatomical Region Laterality Modality Endoscopy us Historical Provider GI~PROCEDURE ORDERABLES F inal Result from Last 3 Months or Most Recently Relevant to Health Maintenance Insurance MEDICARE [facility] Care Teams Appeals Examiner Relationship Specialty Start Date End Date Tadeo Dukes PA [address] [place] [phone] PCP - General Physician Dishwasher Busser 05/30/24
--- OUTSIDE RECORDS SUMMARY | 2025-02-14 15:48 | XMS_ITS | Clinical Summary ---
Author Organization [facility] Address [address] [facility] [address] [place] [address] Phone Care Team Providers Care Can Slider Name Role Phone Tadeo Dukes Primary Care Provider [phone] Allergies Active Allergy Reactions Criticality Noted Date [...] 40 MG tablet Take by mouth Active buPROPion XL (WELLBUTRIN XL) 150 MG 24 hr tablet TAKE 1 TABLET BY MOUTH IN THE MORNING TAKE WITH THE 300 MG TABLET 05/13/20 24 Active Dapagliflozin Propanediol 5 MG tablet Take 5 mg by mouth 1 (one) time each day in the morning 90 tablet 3 07/18/20 24 Active doxazosin (CARDURA) 4 MG tablet TAKE 1 TABLET EVERY MORNING 90 tablet 3 01/10/20 25 Active Active Problems Problem Noted Date Diagnosed [...] Encounters Date Type Department Care Team Description 01/09/2025 Refill [facility] [address] [place] [address] Oliver Drake MD 11/22/2024 Documentation Only [facility] [address] [phone] Nuha Booth from Last 3 Months Immunizations [...] Office Visit [facility] [address] [phone] Oliver Drake MD [address] [phone] Health Maintenance Due Date Last Done Comments [...] Visual Foot Exam 09/03/2020 Influenza Vaccine (#1) 2025 0, 05/29/2019, 07/19/2018, Additional history exists Pneumococcal Vaccine: [...] 9.2 8.7 - 10.7 mg/dL eGFR Non-Afr Dominican 61 11/21/2024 Historical Provider LAB BLOOD ORDERABLES Skylar l Result from Last 3 Months Insurance Medicare [facility] Medicare [facility] Care Teams Can Slider Relationship Specialty Start Date End Date Tadeo Dukes PA [address] [place] [address], [address] [place] [address] PCP - General Physician Field Artillery Operations Man 06/23/22
== END 2025-02-14 16:30 | disposition home or self-care (01) ==
PROVIDERS: PCP Physician Assistant; Visit Provider Physician Assistant
DX: L03.116 Cellulitis of left lower limb (principal)

== ENCOUNTER → 2025-02-14 14:29 | Outpatient (BNVA) | payer MEDICARE, OTHER, SELFPAY | PROVIDERS: PCP Physician Assistant; Visit Provider Physician Assistant | DX: L03.116 Cellulitis of left lower limb (principal) | CPT/HCPCS: 99212 ==

== ENCOUNTER 2025-03-24 11:21 | Outpatient (AMB) | payer MEDICARE, OTHER, SELFPAY ==
--- OUTSIDE RECORDS SUMMARY | 2025-03-24 11:25 | XMS_ITS | Encounter Summary ---
Author Organization [facility] Address [address] [place] [phone] Phone Care Team Providers Care Boiler Operator Helper Name Role Phone Tadeo Dukes Primary Care Provider + Encounter Details Date Type Department Care Team (Late st Contact Info) Description 03/10/2025 Transcribe Orders Virtual Department [address] [place] [address] Tadeo Dukes PA [address] [place] [address] Breast screening (Primary Dx) Social History Tobacco Use Types Packs/Day Years Used Date Smoking Tobacco: Never Cigarettes 0.5 18 Pipe Passive Smoke Exposure: Yes Smokeless Tobacco: Never Comments:Second-hand smoke o nly Alcohol Use Standard Drinks/Week Comments No 0 (1 standard drink = 0.6 oz pur e alcohol) Education Answer Date Recorded Are you interested in more education? Not on tita e 11/28/2022 Are you concerned about learning? Not on file 11/28/2022 No 11/28/2022 No 11/28/2022 Digital Access Answer Date Recorded No 12/29/2022 No 12/29/2022 Reliable internet access at home? Not on file 12/29/2022 Device with a working camera? Not on file Comments No Sex and Gender Information Value Date Recorded Sex Assigned at Female 02/08/2019 1:06 PM EDT Legal Sex Female 9:53 PM EDT Gender Identity Female 02/08/2019 1:06 PM EDT Sexual Orientation Not on file Occupation Industry Job Start Date Job End Date retired Not on file Not on file Not on file documented as of this encounter Plan of Treatment Upcoming Encounters Date Type Department Care Team (Late st Contact Info) Description 03/10/2025 Procedure Pass [address] [address] 03/28/2025 8:40 AM EDT Office Visit [facility] [address] [place] [address] [place] [address] Pam Guerrero MD [address] [place] [address] 03/30/2025 2:50 PM EDT Office Visit [facility] [address] [place] [address] [address], [address] [place] [address] 06/27/2025 10:40 AM EST Office Visit [facility] [address] [place] [address] Camila Lentz PA-C [address] [place] [address] 2025 3:30 PM EDT Appointment [address] [address] Tadeo Dukes PA [address] [place] [address] Scheduled Orders Name Type Priority Associated Diagnoses Orde r Schedule Mammogram Screening (Bilateral) Imaging Routine Breast screening Expected: 04/10/2025, Expires: 03/10/2026 documented as of this encounter Visit Diagnoses Diagnosis Breast screening- Primary Breast screening, unspecified documented in this encounter Care Teams Boiler Operator Helper Relationship Specialty Start Date End Date Tadeo Dukes PA [address] [place] [address] PCP - General 06/05/21 documented as of this encounter Additional Source Comments The information contained in this document represents components of the legal health record. It is not the complete legal health record.[facility]
--- OUTSIDE RECORDS SUMMARY | 2025-03-24 11:25 | XMS_ITS | Clinical Summary ---
Author Organization [facility] [address] [facility] Address [address] [place] [address] Phone Care Team Providers Care Carpenter Helper Hardwood Flooring Name Role Phone Tadeo Dukes Primary Care Provider [phone] Allergies Active Allergy Reactions Criticality Noted Date [...] Date NSTEMI (non-ST elevated myoc ardial infarction) ([facility] V24, [facility] V28) 01/11/2021 Allergic rhinitis 06/23/2017 Asthma 06/23/2017 CKD (chronic kidney disease) stage 3, GFR 30-59 ml/min ([facility] V24, [facility] V28) 06/23/2017 GERD (gastroesophageal reflux disease) 7 Assessment & Plan (06/21/2024 8:56 AM EST): Continue Omeprazole 40mg daily History of alcohol abuse 06/23/2017 Overview (05/30/2024): In AA HTN (hypertension) 06/23/2017 Major depression 06/23/2017 WYATT on CPAP 06/23/2017 Type 2 diabetes mellitus wit h renal manifestations ([facility] V24, [facility] V28) 06/23/2017 Vitamin D deficiency 06/23/2017 Hyperlipidemia [...] kidney disease) stage 3, GFR 30-59 ml/min ([facility] V24, [facility] V28) 06/23/2017 DX:CKD (chronic kidney disea se) stage 3, GFR 30-59 ml/min ([facility]) Type 2 diabetes mellitus wit h renal manifestations ([facility] V24, [facility] V28) 06/23/2017 DX:Type 2 diabetes mellitus with renal manifestations ([facility]) HTN (hypertension) 06/23/2017 DX:HTN (hyper tension) Hyperlipidemia [...] alcohol abuse; COMMENT: In AA Bipolar disorder ([facility] V2 4, [facility] V28) DX:Bipolar disorder ([facility]) Family History Medical History Relation Name Comments [...] - Risk 60-74 years 1-dose series) 2016 Falls Risk Assessment 07/06/2022 Hepatitis C Screening 07/06/2022 Medicare Annual Wellness Visit 07/06/2022 Osteoporosis Screening (Bone Density Screening) 07/06/2022 Social Influencers of Health Screening 07/06/2022 Diabetes: Blood Sugar Control Test (HGBA1C) 07/16/2022 Depression Screening 08/03/2024 COVID-19 Vaccine (8 - Moderna risk season) [...] Recently Relevant to Health Maintenance Insurance MEDICARE [facility] Care Teams Carpenter Helper Hardwood Flooring Relationship Specialty Start Date End Date Tadeo Dukes PA [address] [place] [phone] PCP - General Physician Archives Specialist 05/30/24
--- OUTSIDE RECORDS SUMMARY | 2025-03-24 11:25 | XMS_ITS | Clinical Summary ---
Author Organization [facility] Address [address] [facility] [address] [place] [address] Phone Care Team Providers Care Expense Analyst Name Role Phone Tadeo Dukes Primary Care Provider [phone] Allergies Active Allergy Reactions Criticality Noted Date [...] mouth 2 (two) times a day 05/12/20 Active cholecalciferol (VITAMIN D-3 SUPER STRENGTH) 50 [...] [facility] [address] [place] [phone] Oliver Drake MD from Last 3 Months Immunizations Immunization Administration [...] Visit [facility] [address] [phone] Oliver Drake MD [address] [phone] Health Maintenance Due Date Last Done Comments [...] Foot Exam 09/03/2020 Influenza Vaccine (#1) 2025 , 05/29/2019, 07/19/2018, Additional history exists Pneumococcal Vaccine: Peds (0 to 5 Years) and At-Risk Patients (6 to 49 Years) Discontinued 06/12/2014 Hepatitis B Vaccine Aged Out No longe r eligible based on patient's age to complete this topic Insurance Medicare [facility] Medicare [facility] Care Teams Expense Analyst Relationship Specialty Start Date End Date Tadeo Dukes PA [address] [place] [address], [address] [place], [place] [phone] PCP - General Physician Orthoptist 06/23/22
[2025-03-24 11:26] VITALS: BP 128/68; PULSE 74; TEMP 36.7; O2SAT 98; BMI 36.6
--- NOTE | 2025-03-24 11:26 | AM.OFFWIN_ITS ---
Intake Vital Signs 03/24/25 11:26 Height 5 ft 5 in Weight 220 lb BMI 36.6 BP 128/68 Blood Pressure Location Lt brachial Position Sitting Pulse 74 Pulse Source Pulse Oximeter Temp 98.1 F Temp Source Oral Pulse Oximetry (%) 98 Oxygen Delivery Method Room Air Intake Visit Reasons: EP Cyst on LT arm? Intake Note: pt presents with concern for a lump on left anterior forearm Patient Tobacco Use Status: Never used Tobacco Allergies aspirin Allergy (Severe, Verified 03/24/25 11:28) GI trouble Iodinated Contrast Media Allergy (Severe, Verified 03/24/25 11:28) Difficulty Breathing amlodipine Adverse Reaction (Intermediate, Verified 03/24/25 11:28) leg swelling Do you need a note to return to daycare/school/sports/work: No HPI HPI Comments History of Present Illness Details History of Present Illness - The patient is a 69-year-old female pr esenting with a cyst of the left arm and knee pain. - The cyst has been present for several years and has recently become painful, especially with hand movement or twisting. - There is no evidence of redness or dis charge from the area. - She is pending ultrasound evaluation f or further assessment, ordered by her PCP. - She denies fever, warmth, or trauma. - She has some numbness to the hand. knee pain - The patient experienced a fall approxi mately one month ago, resulting in knee pain and occasional buckling of the leg. - The knee was treated with antibiotics, and the skin appears healthy, though the patient reports soreness when pressure is applied. - She states that her knee is buckling a t times when she walks. - She denies falls, numbness, tingling, calf pain, ankle pain, foot pain, redness, discharge, or bleeding. Physical Exam General: Cooperative, healthy appearing, comfortable, no acute distress and well developed Orientation: Patient oriented x3 Limitations: No limitations Respiratory: Normal respiratory effort and able to speak in complete sentences. Clear to auscultation bilaterally Cardiovascular: Regular rate and rhythm. Normal S1 and S2 Skin: No rashes or lesions noted. Healing abrasion noted on the left knee. No swelling noted. Neuro: Sensation is intact. Extremities: Normal to inspection. Small soft non-tender moveable mass noted on the left forearm. FROM of the elbow and wrist. FROM of the left knee. No click noted. No TTP of the left patella, medial or lateral condyle, medial or lateral meniscus. No calf tenderness noted. FROM of the left ankle. Ambulates with st joselito gait. Patient was informed and verbally consented to the use of an ambient scribe for clinic note documentation during this visit. [facility] Medical History Lower extremity edema Thyroid nodule Anemia Hypersomnia with sleep apnea High cholesterol Diabetes Hypertension Asthma WYATT (obstructive sleep apnea) Surgical History Hx of colonoscopy History of esophagogastroduodenoscopy (EGD) Uterine polyp History of removal of cyst Family History Father Stroke Diabetes Mother Hypertension COPD (chronic obstructive pulmonary disease) CHF (congestive heart failure) FHx: colonic polyps Maternal Grandmother Stroke Sister FHx: colonic polyps Other Mental health disorder Substance use disorder Social History Housing: House Alcohol intake: never Patient Tobacco Use Status: Never used Tobacco e-Cigarette/Vaping Use: Never Used Second Hand Smoke Exposure: Yes service: No Current occupational status: retired Cognitive needs: No Hearing needs: No Vision needs: Yes (Glasses) Review of Systems Const All systems reviewed & are unremarkable except as noted in HPI and below Physical Exam Vital Signs: Last Vital Signs Temp 98.1 F 03/24/25 11:26 Pulse 74 03/24/25 11:26 BP 128/68 03/24/25 11:26 Pulse Ox 98 03/24/25 11:26 Oxygen Delivery Method Room Air 03/24/25 11:26 BMI result Body Mass Index 36.6 Assessment & Plan Assessment & Plan (1) Skin lump of arm: Code(s): R22.30 - Localized swelling, mass and lump, unspecified upper limb Qualifiers: Laterality: left Qualified Code(s): R22.32 - Localized swelling, mass and lump, left upper limb (2) Knee pain, left: Code(s): M25.562 - Pain in left knee Qualifiers: Chronicity: unspecified Qualified Code(s): M25.562 - Pain in left knee Plan Most likely lipoma of the arm vs cyst, unlikely abscess Knee is healing from the fall Plan - An ultrasound is ordered to evaluate the cyst, ordered by her PCP - The patient is advised to monitor for signs of infection such as redness, heat, or color change. - For knee pain, the patient is advised to allow time for healing and to monitor for persistent symptoms. - follow up with PCP Coding Level of Care Code Est Pt Level 4 (48084) Diagnoses Lump of skin of left upper extremity R22.32 Laterality: left Left knee pain, unspecified chronicity M25.562 Chronicity: unspecified
== END 2025-03-24 12:02 | disposition home or self-care (01) ==
PROVIDERS: PCP Physician Assistant; Visit Provider Physician Assistant Medical
DX: R22.32 Localized swelling, mass and lump, left upper limb (principal); M25.562 Pain in left knee

== ENCOUNTER → 2025-03-24 11:21 | Outpatient (BNVA) | payer MEDICARE, OTHER, SELFPAY | PROVIDERS: PCP Physician Assistant; Visit Provider Physician Assistant Medical | DX: R22.32 Localized swelling, mass and lump, left upper limb (principal); M25.562 Pain in left knee | CPT/HCPCS: 99212 ==

== ENCOUNTER 2025-05-22 13:50 | Outpatient (REF) | payer MEDICARE, OTHER, SELFPAY ==
--- NOTE | ~2025-05-22 | US_ITS ---
EXAMINATION: ULTRASOUND EXTREMITY NONINVASIVE AND LIMITED. CLINICAL INFORMATION: Localized swelling versus mass, left upper extremity. R22.32. TECHNIQUE: Real-time ultrasound of the region of concern in the left forearm using a linear transducer with grayscale technique.. COMPARISON: None FINDINGS: No solid or cystic lesion. US/US Extremity Nonvas Limited LT IMPRESSION: Negative exam. Electronically signed by: Gilberto Patel MD 05/22/2025 03:06 PM EDT
--- OUTSIDE RECORDS SUMMARY | 2025-05-22 17:11 | XMS_ITS | Clinical Summary ---
Author Organization [facility] Address [address] [facility] [place] [address] Phone Care Team Providers Care Respiratory Therapy Instructor Name Role Phone Tadeo Dukes Primary Care Provider [phone] Allergies Active Allergy Reactions Criticality Noted Date [...] bras/clothing, airing out trunk/breast area when possible. Immunizations Immunization Administration Dates Next Due DTaP [...] Visit [facility] [address] [phone] Oliver Drake MD [address] [phone] Health Maintenance Due Date Last Done Comments [...] age to complete this topic Insurance Medicare [facility] Medicare [facility] Care Teams Respiratory Therapy Instructor Relationship Specialty Start Date End Date Tadeo Dukse PA [address] [place] [address], [address] [place] [address] PCP - General Physician Business Continuity Global Director 06/23/22
--- OUTSIDE RECORDS SUMMARY | 2025-05-22 17:11 | XMS_ITS | Encounter Summary ---
Author Organization [facility] Address [address] [place] [phone] Phone Care Team Providers Care Talent Development Analyst Name Role Phone Renato Sinha DO Primary Care Provider [phone] Guera Vasquez NP Primary Care Provid er Renato Sinha DO Primary Care Provider [phone] Tadeo Dukes Primary Care Provider + Encounter Details Date Type Department Care Team (Late st Contact Info) Description 12/16/2017 Ancillary Orders Virtual Department [address] [place] [address] Renato Sinha DO [address] [place] [address] Breast screening Social History Tobacco Use Types Packs/Day Years Used Date Smoking Tobacco: Never Assessed Comments Unknown Sex and Gender Information Value Date Recorded Sex Assigned at Female 02/08/2019 1:06 PM EDT Legal Sex Female 9:53 PM EDT Gender Identity Female 02/08/2019 1:06 PM EDT Sexual Orientation Not on file documented as of this encounter Plan of Treatment Upcoming Encounters Date Type Department Care Team (Late Contact Info) Description 03/10/2025 Procedure [facility], Mammography- [facility] [address] [place] [address] 06/27/2025 10:40 AM EST Office Visit [facility] [address] [place] [address] Camila Lentz PA-C [address] [place] [address] [email or web address] 11/01/2025 9:20 AM EDT Office Visit [facility] [address] [place] [address] Pam Guerrero MD [address] [facility] [address] [place] [address] 2025 3:30 PM EDT Appointment [facility], [facility] [address] [place] [address] Tadeo Dukes PA [address] [place] [phone] documented as of this encounter Results * BI MAMMOGRAM SCREENING WITH TOMOSYNTHESIS WITH CAD (BILATERAL) (02/26/2018 3:31 PM EDT) Anatomical Region Laterality Modality Breast Left, Breast Right, Breast Bilateral Bila teral Mammography 03/01/2018 8:06 AM EDT Impressions 03/01/2018 8:11 AM EDT No mammographic change indicative of malignancy. Routine screening is recommended. BI-RADS CATEGORY: 2 - Benign finding. DENSITY: The breast tissue is heterogeneously dense, an appearance which lowers the sensitivity of mammography. POS - [id number] Narrative 03/01/2018 8:11 AM EDT FINDINGS: Bilateral full-field digital screening mammography is obtained and read in conjunction with computer-aided detection. 3-D tomosynthesis as well as 2-D C view imaging is also performed. Comparison includes the most recent exam from 11/11/2016 and as far back as 06/13/2011. Breasts are composed of heterogeneously dense fibroglandular tissue which limits mammographic sensitivity. Progressive coarse calcifications associated with a subcentimeter nodule in the slightly inner right breast, likely a calcifying fibroadenoma. Other scattered benign-appearing macrocalcifications. No new dominant mass, suspicious microcalcifications, architectural distortion, focal skin thickening, or new asymmetry is detected. Procedure Note Lorenzo Albarran MD - 03/01/2018 FINDINGS: Bilateral full-field digital screening mammography is obtained and read inconjunction with computer-aided detection. 3-D tomosynthesis as well as2-D C view imaging is also performed. Comparison includes the most recentexam from 11/11/2016 and as far back as 06/13/2011. Breasts are composed of heterogeneously dense fibroglandular tissue whichlimits mammographic sensitivity. Progressive coarse calcificationsassociated with a subcentimeter nodule in the slightly inner right breast,likely a calcifying fibroadenoma. Other scattered benign-appearingmacrocalcifications. No new dominant mass, suspiciousmicrocalcifications, architectural distortion, focal skin thickening, ornew asymmetry is detected. IMPRESSION: No mammographic change indicative of malignancy. Routine screening isrecommended. BI-RADS CATEGORY: 2 - Benign finding. DENSITY: The breast tissue is heterogeneously dense, an appearance whichlowers the sensitivity of mammography. POS - CDHMAM2 Renato Sinha DO [facility] MG EXAMS Final Result documented in this encounter Visit Diagnoses Diagnosis Breast screening Breast screening, unspecified Breast screening Breast screening, unspecified documented in this encounter Care Teams Talent Development Analyst Relationship Specialty Start Date End Date Renato Sinha DO PCP - General 08/06/17 02/07/19 Guera Vasquez NP [address] [facility] [address] [place] [address] PCP - General Nurse Practitioner 02/08/1904/03 Renato Sinha DO [address] [facility] [address] [place] [address] PCP - General Family Medicine 04/15/19 06/04/21 Tadeo Dukes PA [address] [place] [address] PCP - General 06/05/21 documented as of this encounter Additional Source Comments The information contained in this document represents components of the legal health record. It is not the complete legal health record.[facility]
--- OUTSIDE RECORDS SUMMARY | 2025-05-22 17:11 | XMS_ITS | Encounter Summary ---
Author Organization [facility] Address [address] [place] [phone] Phone Care Team Providers Care Computer Graphic Artist Name Role Phone Renato Sinha Primary Care Provider [phone] Tadeo Dukes Primary Care Provider + Encounter Details Date Type Department Care Team (Late st Contact Info) Description 04/02/2021 Ancillary Orders Virtual Department [address] [place] [address] Tadeo Dukes PA [facility] [place] [address] Breast screening Social History Tobacco Use Types Packs/Day Years Used Date Smoking Tobacco: Never Smokeless Tobacco: Never Alcohol Use Standard Drinks/Week Comments No 0 (1 standard drink = 0.6 oz pur e alcohol) Comments No Sex and Gender Information Value [...] st Contact Info) Description 03/10/2025 Procedure Pass [facility], Mammography- [facility] [address] [place] [address] 06/27/2025 10:40 AM EST Office Visit [facility] [address] [place] [address] Camila Lentz PA-C 22 [place] [address] [email or web address] 11/01/2025 9:20 AM EDT Office Visit [facility] [address] [place] [address] Pam Guerrero MD [address] [place] [address] [address] [place] [address] 2025 3:30 PM EDT Appointment [facility], [facility]- [facility] [address] [place] [address] Tadeo Dukes PA [address] [place] [address] documented as of this encounter Results * BI MAMMOGRAM SCREENING WITH TOMOSYNTHESIS WITH CAD (BILATERAL) (04/22/2021 1:47 PM EDT) Anatomical Region Laterality Modality Breast Left, Breast Right, Breast Bilateral Bila teral Mammography 04/22/2021 3:23 PM EDT Impressions 04/22/2021 3:25 PM EDT No mammographic change indicative of malignancy. Routine screening is recommended. BI-RADS CATEGORY: 2 - Benign finding. DENSITY: There are scattered fibroglandular densities. Narrative 04/22/2021 3:25 PM EDT Bilateral full-field digital screening mammography is obtained and read in conjunction with computer-aided detection. Tomosynthesis as well as 2-D C view imaging of both breasts in two planes also obtained. Comparison made to multiple prior, most recent 04/19/2020, and most remote 09/26/2014. No dominant mass, architectural distortion, worrisome asymmetry, or suspicious calcification is identified. No skin or nipple finding of concern is appreciated. Fibroadenomatoid and scattered other coarse calcification is again noted. Procedure Note Vineet Sheikh MD - 04/22/2021 Bilateral full-field digital screening mammography is obtained and read inconjunction with computer-aided detection. Tomosynthesis as well as 2-D Cview imaging of both breasts in two planes also obtained. Comparison madeto multiple prior, most recent 04/19/2020, and most remote 09/26/2014. No dominant mass, architectural distortion, worrisome asymmetry, orsuspicious calcification is identified. No skin or nipple finding ofconcern is appreciated. Fibroadenomatoid and scattered other coarsecalcification is again noted. IMPRESSION: No mammographic change indicative of malignancy. Routine screening isrecommended. BI-RADS CATEGORY: 2 - Benign finding. DENSITY: There are scattered fibroglandular densities. Tadeo REINOSO IMG MG EXAMS Final Re sult documented in this encounter Visit Diagnoses Diagnosis Breast screening Breast screening, unspecified Breast screening Breast screening, unspecified documented in this encounter Care Teams Computer Graphic Artist Relationship Specialty Start Date End Date Renato Sinha [address] [address] PCP - General Family Medicine 04/15/19 06/04/21 [place] [address] [place] [address] PCP - General 06/05/21 documented as of this encounter Additional Source Comments The information contained in this document represents components of the legal health record. It is not the complete legal health record.[facility]
--- OUTSIDE RECORDS SUMMARY | 2025-05-22 17:11 | XMS_ITS | Clinical Summary ---
Author Organization [facility] Address [address] [place] [phone] Phone Care Team Providers Care Science Manager Name Role Phone Tadeo Dukes Primary Care Provider + Allergies Active Allergy Reactions Criticality Noted Date Comments Amlodipine Swelling 07/13/2023 Aspirin GI Upset Medium 07/12/2018 Cashew Nut Diarrhea Low 07/12/2018 Iodinated Contrast Media Hives,Shortness Of Breath High 07/12/2018 IV dye Nut - Unspecified 07/19/2018 Peanut Diarrhea Low 07/12/2018 Medications albuterol 90 mcg/actuation inhaler Inhale 2 puffs into the lungs every 6 (six) hours as needed for wheezing. Active atorvastatin (LIPITOR) 40 MG tablet Take 40 mg by mouth daily. Active cholecalciferol (VITAMIN D3) 2,000 unit tablet Take 2,000 Units by mouth daily. Active melatonin 5 mg Tab Take 10 mg by mouth nightly at bedtime. Active lurasidone (LATUDA) 40 mg Tab Take 80 mg by mouth daily. Active doxazosin (CARDURA) 4 MG tablet Take 4 mg by mouth daily. 06/25/2022 Active hydroCHLOROthiaz lara (HYDRODIURIL) 25 MG tablet Take 25 mg by mouth daily. 05/30/2022 Active losartan (COZAAR) 100 MG tablet Take 100 mg by mouth daily. Active vilazodone (VIIBRYD) 40 mg Tab Take 40 mg by mouth daily. 08/03/2021 Active OYSTER SHELL CALCIUM-VIT D3 500 mg-400 units per tablet 2 (two) times a day. 08/26/2022 Active cyanocobalamin, vitamin B-12, 100 MCG tablet Take 100 mcg by mouth daily. Active xquxazhk-sjo-uil miranda gluconate (CENTRUM WITH IRON) 9 mg iron/15 mL Liqd Take 15 mL by mouth daily. Active isosorbide mononitrate (IMDUR) 60 MG 24 hr tablet 11/25/2022 Active buPROPion (WELLBUTRIN XL) 300 MG ER 24 hr tablet Take 300 mg by mouth every morning. To take with a 150mg tablet 07/05/2023 Active omeprazole (PRILOSEC) 40 MG capsule Take 40 mg by mouth daily. 07/06/2023 Active ZINC ORAL Take by mouth daily. Active omega-3 fatty acids-fish oil 340-1,000 mg Cap Take 1 capsule by mouth daily. 1000 daily Active insulin aspart U-100 (NOVOLOG) 100 unit/mL injection vialIndications: Type 2 diabetes mellitus with diabetic nephropathy, with long-term current use of insulin Inject 5-17 Units under the skin 3 (three) times a day before meals. 45 mL 1 04/22/2024 Active BD ULTRA-FINE MINI PEN NEEDLE 31 gauge x 10/16 NdleIndications: Type 2 diabetes mellitus with diabetic nephropathy, with long-term current use of insulin Inject 1 each under the skin 4 (four) times a day. 400 each 3 07/22/2024 Active insulin glargine 100 unit/mL (3 mL) InPn injection pen Inject 45 Units under the skin nightly at bedtime. 45 mL 1 03/28/2025 Active Active Problems Problem Noted Date Diagnosed Date Long-term insulin use 04/22/2024 Assessment & Plan (04/22/2024 8:51 AM EDT): Will maintain her insulin dosing Vitamin D deficiency 01/16/2023 Assessment & Plan (01/16/2023 1:15 PM EDT): Will check levels to determine if medication adjustments are needed Multinodular goiter 01/16/2023 Assessment & Plan (01/16/2023 1:16 PM EDT): Patient was due to have her yearly follow up ultrasound done in December of 2022. Will enter orders to have done. Will check TSH levels Type 2 diabetes mellitus wit h diabetic nephropathy, with long-term current use of insulin 10/13/2022 Overview (02/11/2024): Dexcom G7 supplier is [facility] medical Assessment & Plan (03/28/2025 9:33 AM EDT): Excellent control by Dexcom download and recent A1c of 6.4%. Occasional mild hypoglycemia few hours after meals related to too much NovoLog. Currently using 1 to 2 units when blood sugars in the 80s, 5 to 8 unis. -80-110 10 to 20 units if blood sugar over 100 depending on food. Also on Tresiba 45 units at night. Running out of supplies in April. Insurance would cover Lantus. Weight is down by 4 pounds. Improved neuropathy symptoms Slightly decreased renal function with estimated GFR 55 from 61. Followed by emergency room tech. -Reviewed symptoms, prevention and treatment of hypoglycemia. Decrease NovoLog by 2 units and continue to decrease dose when blood tend to run low within 2 to 3 hours after NovoLog administration - Switch Tresiba to Lantus because of formulary change. Patient to adjust dose pending on overnight/fasting glucose -Patient is planning to go back to the gym few days a week -Call with blood sugar problems Assessment & Plan (12/01/2024 1:39 PM EDT): Control is reasonable/good based upon the patient's dexcom G7 download. No frequent or severe hypoglycemia. Will maintain her insulin dosing. Continue to work on eating healthy and being active. To call or message with any issues managing her glucose levels. Up to date with [facility]. Sees podiatry. Reviewed recent labs. Labs ordered to do prior to her visit with Dr Guerrero Assessment & Plan (08/15/2024 10:50 AM EST): Excellent control by Dexcom download. A1c 6.5% in 07/2024. Rare hypoglycemia midafternoon self-treated, related to overestimating NovoLog dose. Currently using NovoLog 4 to 17 units before meals 3 times a day and Tresiba 40 units at bedtime. His insurance will cover Lantus this year. Currently has enough Tresiba for few months. Cutting back on Tresiba to 30 units tonight and to 20 units tomorrow night in preparation of colonoscopy. Also decrease NovoLog by 50% and hold on day of colonoscopy before procedure. Resume usual doses after back to eating regular meals. Her emergency room tech recommended to add Farxiga but patient was hesitant partly because of cost and possible side effects. We discussed benefits of Farxiga on blood sugar control, decreasing the progression of CKD and cardiovascular benefit. Patient will try to get the free program to pay for Farxiga. Continue current diabetes medicines. Call if blood sugar below 70 or over 250 repeatedly. Assessment & Plan (04/22/2024 8:56 AM EDT): Control is good based upon the patient's dexcom G7 download. No frequent or severe hypoglycemia. Will maintain her insulin dosing. Continue to work on eating healthy and being active. To call or message with any issues managing her glucose levels. Up to date with [facility]. Sees podiatry. Foot and nail care is good. Labs ordered to do today. Will also do labs prior to her visit with Dr Guerrero Assessment & Plan (02/11/2024 12:42 PM EDT): Reasonable control by Dexcom CGM download with average glucose 159 and in target range 70% of the time. Tends to dip down after breakfast while using between 8 to 17 units of NovoLog. Overnight and fasting blood sugars are over target. No frequent or severe hypoglycemia. -May decrease the NovoLog dose by 2 to 3 units if planning to exercise after the meal. -Continue to titrate Tresiba dose to get fasting sugars between 80-130.. -Discussed the importance of staying well-hydrated especially when blood sugars are over 180 range. -Overdue to check urine microalbumin/creatinine, will do today -Combined fasting labs with Dr. Drake' labs in 07/2024. -POC A1c at next visit with Amy in 04/2024 Assessment & Plan (10/21/2023 12:46 PM EDT): Control is good based upon the patient's dexcom G7 download. No frequent or severe hypoglycemia. She will have occasional episodes of hypoglycemia in the morning after breakast. The lows are likely due to taking too much novolog for what she is eating for breakfast. Discussed lowering her morning dose of novolog down to around 5 units to help prevent the lows. She is now focusing on counting her carbs and will enter her carbs and insulin dosing into her dexcom to help guide further adjustments. Continue to work on eating healthy and being active. To call or message with any issues managing her glucose levels. Up to date with [facility]. Sees podiatry. Will do labs prior to her visit with Dr Guerrero Assessment & Plan (07/20/2023 9:57 PM EST): Improved control by Dexcom CGM download and last A1c of 7.1% in 06/2023.. She has been taking 76 units of Tresiba at bedtime or 72 units if bedtime blood sugars is in the 80s. NovoLog is used 15 minutes before meals 2-3 times per day between 10 to 20 units depending on blood sugars. Patient has been working hard on avoiding unhealthy snacks. No frequent or severe hypoglycemia. Starts feeling her lows when they are in the 70s to 80s. Her labs from 06/23/2023 reviewed. Creatinine is 1.1, estimated GFR is 55 vitamin D level is normal on MVI and 2000 IU D3 daily. LDL at target at 67, triglycerides are normal at 123. TSH is normal at 0.6. Her urine microalbumin/creatinine ratio was normal in 01/2023. She has some intermittent paresthesia on her feet which are not bothering her lately. Her vibratory sensation is borderline low. She reports that early signs of diabetic retinopathy in the left eye followed by Dr. Rae. Suggested to increase physical activity. Patient is planning to rejoin the senior center exercise class once a week and going back to the gym as well. Continue to work on healthy meal plan. Reviewed symptoms, prevention and treatment of hypoglycemia. If overnight or fasting hypoglycemia patient to decrease the Tresiba by 2 to 4 units. If having low blood sugars within 2 to 3 hours after taking the NovoLog she may decrease her NovoLog dose by 2 to 4 units. Call if blood sugar below 70 or over 250 repeatedly. Assessment & Plan (01/16/2023 1:29 PM EDT): Control is suboptimal based upon the patient's dexcom G6 download. No frequent or severe hypoglycemia. She has not been active recently and not eating as well as she had been. This has caused her glucose levels to run higher. She is working on improving both of these things to improve her glucose control. She is going to be up grading her dexcom to the G7 once she finishes the G6 sensors she has. Continue to work on eating healthier and being active. To call or message with any issues managing her glucose levels. Scheduled to see ophtho. Sees podiatry. Labs ordered Assessment & Plan (10/13/2022 2:42 PM EDT): Good control by Dexcom G6 download. Last A1c 6.5% in the fall 2021. No frequent or severe hypoglycemia. Patient reports 10 pound weight gain within the last few months. Her depression worsens during the winter, gets less physically active and snacks more especially on nuts. She was interested in going back to carb counting. We will send referral to see reading efficiency course director. She will add more walking. If overnight or fasting glucose gets below 70-80, she will decrease the Tresiba by 4 to 6 units. If having low sugars within 2 to 4 hours after taking NovoLog she will cut back on her NovoLog dose by 2 to 3 units. Call if glucose below 70 or over 250 repeatedly. [facility] no diabetic retinopathy as per the patient. Next visit in 11/23. She has mild kidney disease, followed by Dr. Drake yearly. Denies any lower extremity paresthesia. Recent lipid profile is not available. Blood pressure is at upper target. She will have fasting labs combined with PCPs blood work in 11/23. Call in 1 to 2 weeks if not heard of results. Follow up In 3 M Stage 3 chronic kidney disease 06/18/2022 0 01/16/2023 Unspecified hypertensive kid isabelle disease with chronic kidney disease stage I through stage IV, or unspecified 06/18/202201/16 Resolved Problems Problem Noted Date Diagnosed Date Resolved Date Candidiasis of breast 06/19/20202022 Overview (06/19/2020): Hx recurrent/persistent sx; has and uses Nystatin ointment and also now miconazole powder with reasonably good effect. Assessment & Plan (06/24/2021 2:37 PM EST): Rocio will continue with Nystatin ointment. We also reviewed cotton bras/clothing, airing out trunk/breast area when possible. Encounters Date Type Department Care Team Description 03/30/2025 2:50 PM EDT Office Visit [facility] [address] [place] [address] Hattie Santos CNM Encounter for annual routine gynecological examination (Primary Dx) 03/28/2025 8:40 AM EDT Office Visit [facility] [address] [place] [address] Pam Guerrero MD Type 2 diabetes mellitus with diabetic nephropathy, with long-term current use of insulin (Primary Dx) 03/27/2025 8:00 AM EDT - 03/27/2025 11:59 PM EDT Hospital Encounter [facility] [address] [place] [address] Camila Lentz PA-C Discharge Disposition: Home or Self Care 03/10/2025 Transcribe Orders Virtual Department [address] [place] [address] Tadeo Dukes PA Breast screening (Primary Dx) from Last 3 Months Immunizations Immunization Administration Dates Next Due DTaP 12/31/2011 Influenza Quadrivalent MDCK Preservative Free IM 07/19/2018 Influenza Quadrivalent w/ Preservative IM 2018,04/13/2018 Influenza Recombinant Luigi valent Preservative Free IM 05/14/2020 Pneumococcal polysaccharide PPSV23 06/12/2014 Zoster live 05/20/2017 Zoster recombinant 01/22/2020,07/09/2019 Family History Medical History Relation Comments Cancer Father skin cancer Diabetes mellitus Father Stroke Father CV disease Mother Hypertension Mother Breast cancer Neg Hx Relation Status Comments Father Mother Social History Tobacco Use Types Packs/Day Years Used Date Smoking Tobacco: Never Cigarettes 0.5 18 Pipe Passive Smoke Exposure: Yes Smokeless Tobacco: Never Tobacco Cessation:Counseling Given: Not Answered Comments:Second-hand smoke only Alcohol Use Standard Drinks/Week Comments No 0 [...] file Not on file Not on file Last Filed Vital Signs Vital Sign Reading Time Taken Comments Blood Pressure 116/66 03/30/2025 2:11 PM EDT Pulse 65 03/28/2025 8:51 AM EDT Temperature 36.5 C (97.7 F) 04/22/2024 8:12 AM EDT Respiratory Rate 18 01/16/2023 12:10 PM EDT Oxygen Saturation 97% 03/28/2025 8:51 AM EDT Inhaled Oxygen Concentration - - Weight 101.6 kg (224 lb) 03/30/2025 2:11 PM EDT Height 165.1 cm (5' 5 ) 03/30/2025 2:11 PM EDT Body Mass Index 37.28 03/30/2025 2:11 PM EDT Plan of Treatment Upcoming Encounters Date Type Department Care Team (Late st Contact Info) Description 03/10/2025 Procedure [facility] [address] [place], [place] [id number] 06/27/2025 10:40 AM EST Office Visit [facility] [address] [place] [address] Camila Lentz PA-C [address] [place] [address] 11/01/2025 9:20 AM EDT Office Visit [facility] [address] [place] [address] [place] [address] Pam Guerrero MD [address] [place] [address] 2025 3:30 PM EDT Appointment [facility], Mammography- [address] [address] Tadeo Dukes PA [address] [place] [address] Health Maintenance Due Date Last Done Comments DEPRESSION SCREENING 1968 HEPATITIS C SCREENING 1974 COLOGUARD 2001 COLONOSCOPY 2001 COLORECTAL CANCER SCREENING 2001 FIT TEST 2001 FOBT 2001 SIGMOIDOSCOPY 2001 VIRTUAL COLONOSCOPY 2001 RSV VACCINE (1 - Risk 50-74 years 1-dose series) 2006 OSTEOPOROSIS SCREENING INITIAL (ONE-TIME) 2021 DIABETIC EYE EXAM 10/13/2022 PAP SMEAR 04/26/2024 04/26/2019, 04/26/2019 INFLUENZA VACCINE (#1) 2025 , 04/09/2023, 05/12/2022, Additional history exists COVID-19 VACCINE ( season) 2025 04/30/2024, 05/14/2023, 05/12/2022, Additional history exists HEMOGLOBIN A1C 09/27/2025 03/27/2025, 11/02, 04/22/2024, Additional history exists BLOOD PRESSURE 09/30/2025 03/30/2025 CREATININE LEVEL 03/27/2026 03/27/2025, , 07/14/2024, Additional history exists POTASSIUM LEVEL 03/27/2026 03/27/2025, 11/02, 07/14/2024, Additional history exists MAMMOGRAM 05/27/2026 05/27/2024, 04/04, 04/24/2022, Additional history exists Adult Td,Tdap Booster 12/25/2033 12/26/2023, 023 ZOSTER VACCINES Completed 01/22/2020, 12/0 01/2019, 05/20/2017 PNEUMOCOCCAL VACCINES (50+ years) Completed 02/19/2023, 06/12/2014 SMOKING STATUS SCREENING (Once After 26 Yrs) Completed 03/30/2025 HEPATITIS A VACCINES Aged Out No long er eligible based on patient's age to complete this topic HIB VACCINES Aged Out No longer eligi ble based on patient's age to complete this topic MENINGOCOCCAL VACCINES (ACWY) Aged Out No longer eligible based on patient's age to complete this topic MENINGOCOCCAL VACCINES (B) Aged Out N o longer eligible based on patient's age to complete this topic Medical Devices Not on file Procedures Procedure Name Priority Date/Time Associated Diagnosis Comments HEMOGLOBIN A1C Routine 03/27/2025 8:21 AM EDT Type 2 diabetes mellitus with diabetic nephropathy, with long-term current use of insulin ASPARTATE AMINOTRANSFERASE (AST) Routine 03/27/2025 8:21 AM EDT Type 2 diabetes mellitus with diabetic nephropathy, with long-term current use of insulin ALANINE AMINOTRANSFERASE (ALT) Routine 03/27/2025 8:21 AM EDT Type 2 diabetes mellitus with diabetic nephropathy, with long-term current use of insulin BASIC METABOLIC PANEL Routine 03/27/2025 8:21 AM EDT Type 2 diabetes mellitus with diabetic nephropathy, with long-term current use of insulin BI MAMMOGRAM SCREENING WITH TOMOSYNTHESIS WITH CAD (BILATERAL) Routine 05/27/2024 1:38 PM EDT Breast screening PAP TEST Routine 04/26/2019 12:00 AM EDT from Last 3 Months or Most Recently Relevant to Health Maintenance Results * Alanine aminotransferase (ALT) (03/27/2025 8:21 AM EDT) ALT 12 0 - 40 U/L [facility] Blood 03/27/2025 8:21 AM EDT 03/27/2025 8:24 AM EDT Camila Lentz PA-C LAB BLOOD ORDERABL ES Final Result Performing Organization Address [facility]/ZIP Co de Phone Number [address] [phone] * Aspartate aminotransferase (AST) (03/27/2025 8:21 AM EDT) AST 24 0 - 37 U/L [facility] Blood 03/27/2025 8:21 AM EDT 03/27/2025 8:24 AM EDT Camila Lentz PA-C LAB BLOOD ORDERABL ES Final Result Performing Organization Address [facility] de Phone Number [address] [address] * (ABNORMAL) Hemoglobin A1c (03/27/2025 8:21 AM EDT) Pathologist [facility] HEMOGLOBIN A1C 6.4(H) 4.3 - 5.8 % [facility] Blood 03/27/2025 8:21 AM EDT 03/27/2025 8:24 AM EDT Camila Lentz PA-C LAB BLOOD ORDERABL ES Final Result Performing Organization Address [facility] de Phone Number [address] [address] * (ABNORMAL) Basic metabolic panel (03/27/2025 8:21 AM EDT) SODIUM 139 133 - 146 mmol/L [facility] CHLORIDE 101 96 - 108 mmol/L [facility] POTASSIUM 3.8 3.3 - 5.1 mmol/L [facility] CO2 27 21 - 35 mmol/L [facility] BUN 21(H) 6 - 19 mg/dL [facility] CREATININE 1.10 0.5 - 1.5 mg/dL [facility] GLUCOSE 115(H) 70 - 99 mg/dL [facility] CALCIUM 9.3 8.4 - 10.3 mg/dL [facility] EGFR 55(L) >59 mL/min/1.7 3m2 [facility] Comment:Estimated glomerular filtration rate calculated using the CKD-EPI refit equation. ANION GAP 15 10 - 20 mmol/L [facility] Blood 03/27/2025 8:21 AM EDT 03/27/2025 8:24 AM EDT us Camila Lentz PA-C LAB BLOOD ORDERABL ES Final Result [address] [address] * BI MAMMOGRAM SCREENING WITH TOMOSYNTHESIS WITH CAD (BILATERAL) (05/27/2024 1:38 PM EDT) Anatomical Region Laterality Modality Breast Left, Breast Right, Breast Bilateral Bila teral Mammography 05/30/2024 8:55 AM EDT Impressions 05/30/2024 8:58 AM EDT No mammographic evidence of malignancy in either breast. Annual screening mammography is recommended. BI-RADS 2 BENIGN The patient will be notified of the results and recommendations. Narrative 05/30/2024 8:58 AM EDT BI MAMMOGRAM SCREENING WITH TOMOSYNTHESIS WITH CAD (BILATERAL) Additional patient information: Screening. COMPARISON: Comparison is made with 04/27/2023, 04/24/2022 and 04/19/2020. Breast composition: There are scattered areas of fibroglandular density. FINDINGS: Benign calcifications in both breasts. No abnormal masses, suspicious calcifications, or other significant findings are identified mammographically in either breast. There has been no significant interval change. Procedure Note Ellyn Field MD - 05/30/2024 BI MAMMOGRAM SCREENING WITH TOMOSYNTHESIS WITH CAD (BILATERAL) Additional patient information: Screening. COMPARISON: Comparison is made with 04/27/2023, 04/24/2022 and 04/19/2020. Breast composition: There are scattered areas of fibroglandular density. FINDINGS: Benign calcifications in both breasts. No abnormal masses, suspicious calcifications, or other significantfindings are identified mammographically in either breast. There has been no significant interval change. IMPRESSION: No mammographic evidence of malignancy in either breast. Annual screening mammography is recommended. BI-RADS 2 BENIGN The patient will be notified of the results and recommendations. us Tadeo REINOSO IMG MG EXAMS Final Re sult * Pap Smear (04/26/2019 12:00 AM EDT) 04/26/2019 04/27/2019 10: 32 AM EDT Narrative SEE NARRATIVE - 05/02/2019 3:[place] [address] Golf Course Designer: Sabra Cardoza MD EMT I/99 Cytology Report FINAL DIAGNOSIS A. PAP SMEAR (SUREPATH) CE: SPECIMEN ADEQUACY: Satisfactory for evaluation; transformation zone present. INTERPRETATION: NEGATIVE FOR INTRAEPITHELIAL LESION OR MALIGNANCY. Electronically Signed Out By: CELESTE Feng(ASCP) The Pap test is a screening test primarily for squamous cancers and precursors and has associated false-negative and false-positive results. New technologies such as liquid-based preparations may decrease but will not eliminate all false-negative results. Regular sampling and follow-up of unexplained clinical signs and symptoms are recommended to minimize false negative results. PROCEDURES/ADDENDA HPV Testing (Requested) Ordered Date: 04/27/2019 A. PAP SMEAR (SUREPATH) CE: Human Papilloma Virus Test Negative for high-risk human papillomavirus types 16, 18, 45 and the Other high risk probe set (Includes 31, 33, 35, 39, 51, 52, 56, 58, 59, 66, 68) by [employer] ([employer]) Onclarity HR-HPV analysis. Clinical correlation is advised. This HPV test was performed at [facility], [address] [place] [address]. This test has been FDA approved for SurePath cervical cytology specimens. The accuracy and precision of this test for all other specimen sources has been verified in the Cytopathology Laboratory of the [facility] and has not been cleared or approved by the U.S. Food and Drug Administration. Clinical correlation is advised. CLINICAL HISTORY Date of Last Menstrual Period: Not Provided Menstrual History: Post Menopausal Other Clinical Conditions: Screening Pap SPECIMEN SOURCE A: PAP SMEAR (SUREPATH) CE Patient Name: ROCIO VIZCAINO : 1955 (Age: 63) Sex: F Institution: [facility] Location: [facility] Date of Collection: 04/26/2019 Date of Reported: 05/02/2019 15:58 Results to: Brianna Raman MSN, BS Brianna Raman [employer]PER[employer] SPECIALIST CYTOLOGY ORDERABLES Final Resu lt SEE NARRATIVE from Last 3 Months or Most Recently Relevant to Health Maintenance Insurance MEDICARE PART A & B [facility] MEDICARE SUPPLEMENT MEDICARE PART A & B MEDICARE SUPPLEMENT MEDICARE PART A & B MEDICARE PART A & B MEDICARE PART A & B MEDICARE SUPPLEMENT MEDICARE PART A & B MEDICARE PART A & B MEDICARE SUPPLEMENT MEDICARE PART A & B Member Subscriber Plan / Payer (Ef fective 2008-Present) Name:Rocio Osborn Member ID:[id number] Relation to Subscriber:Self Name:Rocio Osborn Subscriber ID:[id number] Payer ID:[id number] Group ID:Not on file Type:Medicare Address: [employer] [address] [place] [address] [place] [address] MEDICARE SUPPLEMENT MEDICARE PART A & B MEDICARE SUPPLEMENT Care Teams Science Manager Relationship Specialty Start Date End Date Tadeo Dukes PA [address] [place] [phone] PCP - General 06/05/21 Additional Source Comments The information contained in this document represents components of the legal health record. It is not the complete legal health record.[facility]
--- OUTSIDE RECORDS SUMMARY | 2025-05-22 17:11 | XMS_ITS | Encounter Summary ---
Author Organization [facility] Address [address] [place] [address] Phone Care Team Providers Care Lieutenant General Name Role Phone Renato Sinha DO Primary Care Provider [phone] Tadeo Dukes Primary Care Provider + Encounter Details Date Type Department Care Team (Late st Contact Info) Description 02/14/2020 Ancillary Orders Virtual Department [address] [place] [address] Renato Sinha DO [address] [place] [address] Breast screening Social History Tobacco Use Types [...] st Contact Info) Description 03/10/2025 Procedure Pass [facility], [facility]- [address] [address] 06/27/2025 10:40 AM EST Office Visit [facility] [address] [place] [address] Camila Lentz PA-C 22 [place] [address] 11/01/2025 9:20 AM EDT Office Visit [facility] [address] [place] [address] Pam Guerreor MD 22 [facility] 3rd [place] [address] 2025 3:30 PM EDT Appointment [facility], [facility] 30 [place] [address] Tadeo Dukes PA [address] [place] [address] documented as of this encounter Results * BI MAMMOGRAM SCREENING WITH TOMOSYNTHESIS WITH CAD (BILATERAL) (04/19/2020 11:10 AM EDT) Anatomical Region Laterality Modality Breast Left, Breast Right, Breast Bilateral Bila teral Mammography 04/19/2020 7:42 PM EDT Impressions 04/19/2020 7:44 PM EDT BILATERAL BREASTS: Negative, no evidence of malignancy. Normal interval follow- up is recommended in 12 months. BI-RADS: BI-RADS CATEGORY: 1 - Negative. DENSITY: The breast tissue is heterogeneously dense, which may obscure small masses Narrative 04/19/2020 7:44 PM EDT STUDY: Bilateral screening mammography with tomosynthesis and CAD TECHNIQUE: Bilateral full-field digital screening mammography is obtained and read in conjunction with computer-aided detection. Tomosynthesis as well as 2-D C view imaging were obtained. COMPARISON: Comparison made to multiple prior, most recent April 15, 2019, and most remote August 23, 2013. BREAST COMPOSITION: The breasts are heterogeneously dense, which may obscure small masses. BILATERAL BREASTS: No significant masses, calcifications or other abnormalities are seen. Renato Sinha DO IMG MG EXAMS Final Result documented in this encounter Visit Diagnoses Diagnosis Breast screening Breast screening, unspecified Breast screening Breast screening, unspecified documented in this encounter Care Teams Lieutenant General Relationship Specialty Start Date End Date Ernestine DO Renato [address] [address] PCP - General Family Medicine 04/15/19 06/04/21 Tadeo Dukes PA [address] [place] [address] PCP - General 06/05/21 documented as of this encounter Additional Source Comments The information contained in this document represents components of the legal health record. It is not the complete legal health record.[facility]
--- OUTSIDE RECORDS SUMMARY | 2025-05-22 17:11 | XMS_ITS | Encounter Summary ---
Author Organization [facility] Address [address] [place] [address] Phone Care Team Providers Care Sorting Machine Attendant Name Role Phone Tadeo Dukes Primary Care Provider + Encounter Details Date Type Department Care Team (Late st Contact Info) Description 02/13/2022 Procedure Pass [address] [address] Social History Tobacco Use Types Packs/Day Years Used Date Smoking Tobacco: Passive Smo ke Exposure - Never Smoker Cigarettes 0.5 18 Pipe Smokeless Tobacco: Never Comments:Second-hand smoke o nly [...] st Contact Info) Description 03/10/2025 Procedure Pass [address] [address] 06/27/2025 10:40 AM EST Office Visit [facility] 22 [place] [address] Camila Lentz PA-C 22 [place] [address] 11/01/2025 9:20 AM EDT Office Visit [facility] 22 [place] [address] Pam Guerrero MD [address] [address] 2025 3:30 PM EDT Appointment [address] [address] Tadeo Dukes PA [address] [place] [address] documented as of this encounter Visit Diagnoses Not on filedocumented in this encounter Care Teams Sorting Machine Attendant Relationship Specialty Start Date End Date Tadeo Dukes PA [address] [place] [address] PCP - General 06/05/21 documented as of this encounter Additional Source Comments The information contained in this document represents components of the legal health record. It is not the complete legal health record.[facility]
--- OUTSIDE RECORDS SUMMARY | 2025-05-22 17:11 | XMS_ITS | Encounter Summary ---
Author Organization [facility] Address [address] [place] [address] Phone Care Team Providers Care Handyperson Name Role Phone Tadeo Dukes Primary Care Provider + Encounter Details Date Type Department Care Team (Late st Contact Info) Description 01/26/2023 Procedure Pass [facility], [address] [address] Social History Tobacco Use Types Packs/Day Years [...] st Contact Info) Description 03/10/2025 Procedure Pass [address] [address] 06/27/2025 10:40 AM EST Office Visit [facility] 22 [place] [address] Camila Lentz PA-C 22 [place] [address] 11/01/2025 9:20 AM EDT Office Visit [facility] 22 [place] [address] Pam Guerrero MD [address] [place] [address] 2025 3:30 PM EDT Appointment [address] [address] Tadeo Dukes PA [address] [place] [address] documented as of this encounter Visit Diagnoses Not on filedocumented in this encounter Care Teams Handyperson Relationship Specialty [place] [address] [place] [address] PCP - General 06/05/21 documented as of this encounter Additional Source Comments The information contained in this document represents components of the legal health record. It is not the complete legal health record.[facility]
--- OUTSIDE RECORDS SUMMARY | 2025-05-22 17:11 | XMS_ITS | Encounter Summary ---
Author Organization [facility] Address [address] [place] [address] Phone Care Team Providers Care Emotional Support Teacher Name Role Phone ErnestineRenato Primary Care Provider [phone] Tadeo Dukes Primary Care Provider + Encounter Details Date Type Department Care Team (Late st Contact Info) Description 04/02/2021 Procedure Pass [address] [address] Social History Tobacco Use Types Packs/Day Years [...] (Late st Contact Info) Description 03/10/[address] [address] 06/27/2025 10:40 AM EST Office Visit [facility] 22 [place] [address] Camila Lentz PA-C 22 [place] [address] 11/01/2025 9:20 AM EDT Office Visit [facility] 22 [place] [address] Pam Guerrero MD [address] [address] 2025 3:30 PM EDT Appointment [facility], [address] [address] [place] [address] [place] [address] documented as of this encounter Visit Diagnoses Not on filedocumented in this encounter Care Teams Emotional Support Teacher Relationship Specialty Start Date End Date Renato Sinha DO [address] [address] PCP - General Family Medicine 04/15/19 06/04/21 Tadeo Dukes PA [address] [place] [address] PCP - General 06/05/21 documented as of this encounter Additional Source Comments The information contained in this document represents components of the legal health record. It is not the complete legal health record.[facility]
--- OUTSIDE RECORDS SUMMARY | 2025-05-22 17:11 | XMS_ITS | Encounter Summary ---
Author Organization [facility] Address [address] [place] [address] Phone Care Team Providers Care Uniform Patrol Police Officer Name Role Phone Tadeo Dukes Primary Care Provider + Encounter Details Date Type Department Care Team (Latest Contact Info) Description 01/26/2023 Transcribe Orders Virtual Department 30 [place] [address] Brianna Raman, REFINERY OPERATOR 30 [place] [address] [email or web address] Breast screening (Primary Dx) Social History Tobacco [...] st Contact Info) Description 03/10/2025 Procedure Pass [address] [address] 06/27/2025 10:40 AM EST Office Visit [facility] [address] [place] [address] Camila Lentz PA-C [address] [place] [address] 11/01/2025 9:20 AM EDT Office Visit [facility] 22 [place] [address] Pam Guerrreo MD [address] [place] [address] 2025 3:30 PM EDT Appointment [address] [address] Tadeo Dukes PA [address] [place] [address] documented as of this encounter Results * BI MAMMOGRAM SCREENING WITH TOMOSYNTHESIS WITH CAD (BILATERAL) (04/27/2023 1:46 PM EDT) Anatomical Region Laterality Modality Breast Left, Breast Right, Breast Bilateral Bila teral Mammography 05/07/2023 11:5 4 AM EDT Impressions 05/07/2023 12:02 PM EDT No findings suspicious for malignancy. In the absence of a worrisome palpable abnormality, annual screening mammography is recommended. BI-RADS CATEGORY: 2 - Benign finding. DENSITY: There are scattered fibroglandular densities. Narrative 05/07/2023 12:02 PM EDT AVAILABLE COMPARISON: 04/24/2022 through 11/11/2016. Bilateral 3-D tomosynthesis with 2-D reconstructions in the CC and MLO projection. Computer-aided detection system also utilized. No new mass, asymmetry, architectural distortion or suspicious calcifications have become apparent in either breast. Stable chronic benign calcifications bilaterally. Procedure Note Thee Vigil MD - 05/07/2023 AVAILABLE COMPARISON: 04/24/2022 through 11/11/2016. Bilateral 3-D tomosynthesis with 2-D reconstructions in the CC and MLOprojection. Computer-aided detection system also utilized. No new mass, asymmetry, architectural distortion or suspiciouscalcifications have become apparent in either breast. Stable chronic benign calcifications bilaterally. IMPRESSION: No findings suspicious for malignancy. In the absence of a worrisomepalpable abnormality, annual screening mammography is recommended. BI-RADS CATEGORY: 2 - Benign finding. DENSITY: There are scattered fibroglandular densities. Brianna Raman REFINERY OPERATOR IMG MG EXAMS Final Result documented in this encounter Visit Diagnoses Diagnosis Breast screening- Primary Breast screening, unspecified Breast screening Breast screening, unspecified documented in this encounter Care Teams Uniform Patrol Police Officer Relationship Specialty Start Date End Date Tadeo Dukes PA [address] [place] [address] PCP - General 06/05/21 documented as of this encounter Additional Source Comments The information contained in this document represents components of the legal health record. It is not the complete legal health record.[facility]
--- OUTSIDE RECORDS SUMMARY | 2025-05-22 17:11 | XMS_ITS | Encounter Summary ---
Author Organization [facility] Address [address] [address] Phone Care Team Providers Care Machine Stamper Name Role Phone ErnestineRenato Primary Care Provider [phone] Tadeo Dukes Primary Care Provider + Encounter Details Date Type Department Care Team (Late st Contact Info) Description 04/03/2020 Procedure Pass [address] [address] Social History Tobacco Use Types Packs/Day Years [...] st Contact Info) Description 03/10/2025 Procedure Pass [address] [address] 06/27/2025 10:40 AM EST Office Visit [facility] 22 [place] [address] Camila Lentz PA-C 22 [place] [address] 11/01/2025 9:20 AM EDT Office Visit [facility] 22 [place] [address] Pam Guerrero MD [address] [address] 2025 3:30 PM EDT Appointment [address] [address] [place] [address] [place] [address] documented as of this encounter Visit Diagnoses Not on filedocumented in this encounter Care Teams Machine Stamper Relationship Specialty Start Date End Date Renato Sinha DO [address] [address] PCP - General Family Medicine 04/15/19 06/04/21 Tadeo Dukes PA [address] [place] [address] PCP - General 06/05/21 documented as of this encounter Additional Source Comments The information contained in this document represents components of the legal health record. It is not the complete legal health record.[facility]
--- OUTSIDE RECORDS SUMMARY | 2025-05-22 17:11 | XMS_ITS | Encounter Summary ---
Author Organization [facility] Address [address] [place] [address] Phone Care Team Providers Care Pathology Supervisor Name Role Phone Tadeo Dukes Primary Care Provider + Encounter Details Date Type Department Care Team (Late st Contact Info) Description 02/16/2024 Procedure Pass [facility], [address] [address] Social History Tobacco Use Types Packs/Day Years [...] st Contact Info) Description 03/10/2025 Procedure Pass [address] [address] 06/27/2025 10:40 AM EST Office Visit [facility] 22 [place] [address] Camila Lentz PA-C 22 [place] [address] 11/01/2025 9:20 AM EDT Office Visit [facility] 22 [place] [address] Pam Guerrero MD [address] [place] [address] 2025 3:30 PM EDT Appointment [address] [address] Tadeo Dukes PA [address] [place] [address] documented as of this encounter Visit Diagnoses Not on filedocumented in this encounter Care Teams Pathology Supervisor Relationship Specialty [place] [address] [place] [address] PCP - General 06/05/21 documented as of this encounter Additional Source Comments The information contained in this document represents components of the legal health record. It is not the complete legal health record.[facility]
--- OUTSIDE RECORDS SUMMARY | 2025-05-22 17:11 | XMS_ITS | Encounter Summary ---
Author Organization [facility] Address [address] [place] [address] Phone Care Team Providers Care Breakfast Manager Name Role Phone Tadeo Dukes Primary Care Provider + Encounter Details Date Type Department Care Team (Late st Contact Info) Description 03/10/2025 Transcribe Orders Virtual Department 30 [place] [address] Tadeo Dukes PA [address] [place] [address] Breast screening (Primary Dx) Social History Tobacco [...] st Contact Info) Description 03/10/2025 Procedure Pass [address] [address] 06/27/2025 10:40 AM EST Office Visit [facility] [address] [place] [address] Camila Lentz PA-C [address] [place] [address] 11/01/2025 9:20 AM EDT Office Visit [facility] [address] [place] [address] Pam Guerrero MD [address] [place] [address] 2025 3:30 PM EDT Appointment [address] [address] Tadeo Dukes PA [address] [place] [address] Scheduled Orders Name Type Priority Associated Diagnoses Orde r Schedule Mammogram Screening (Bilateral) Imaging Routine Breast screening Expected: 04/10/2025, Expires: 03/10/2026 documented as of this encounter Visit Diagnoses Diagnosis Breast screening- Primary Breast screening, unspecified documented in this encounter Care Teams Breakfast Manager Relationship Specialty Start Date End Date Tadeo Dukes PA [address] [place] [address] PCP - General 06/05/21 documented as of this encounter Additional Source Comments The information contained in this document represents components of the legal health record. It is not the complete legal health record.[facility]
--- OUTSIDE RECORDS SUMMARY | 2025-05-22 17:11 | XMS_ITS | Encounter Summary ---
Author Organization [facility] Address [address] [place] [address] Phone Care Team Providers Care Ceramics Artist Name Role Phone Guera Vasquez NP Primary Care Provid er Renato Sinha DO Primary Care Provider [phone] Tadeo Dukes Primary Care Provider + Encounter Details Date Type Department Care Team (Late Contact Info) Description 04/11/2019 Ancillary Orders Virtual Department 30 [place] [address] Renato Sinha DO [address] [place] [address] Breast screening Social History Tobacco Use Types [...] (Late Contact Info) Description 03/10/2025 Procedure Pass [facility], [facility] 30 [place] [address] 06/27/2025 10:40 AM EST Office Visit [facility] 22 [place] [address] Camila Lentz PA-C 22 [place] [address] [email or web address] 11/01/2025 9:20 AM EDT Office Visit [facility] 22 [place] [address] Pam Guerrero MD [address] [place] [address] [email or web address] 2025 3:30 PM EDT Appointment [facility], [facility]- [address] [address] Tadeo Dukes PA [address] [place] [address] documented as of this encounter Results * BI MAMMOGRAM SCREENING WITH TOMOSYNTHESIS WITH CAD (BILATERAL) (04/15/2019 2:23 PM EDT) Anatomical Region Laterality Modality Breast Left, Breast Right, Breast Bilateral Bila teral Mammography 04/16/2019 11:3 6 AM EDT Impressions 04/16/2019 11:40 AM EDT No mammographic evidence of malignancy. Recommend routine annual surveillance. BI-RADS CATEGORY: 2 - Benign finding. DENSITY: The breast tissue is heterogeneously dense, an appearance which lowers the sensitivity of mammography. POS - [id number] Narrative 04/16/2019 11:40 AM EDT 63-year-old female with no current breast symptoms. Comparison made to previous on 02/26/2018 and as far back as 07/07/2012. Interpretation made in conjunction with computer-aided detection and tomosynthesis. The breasts are heterogeneously dense, which may obscure small masses. 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 Otherwise stable bilateral macrocalcifications. There are no suspicious masses, areas of architectural distortion, or suspicious clusters of microcalcifications. Procedure Note William Bui MD - 04/16/2019 63-year-old female with no current breast symptoms. Comparison made toprevious on 02/26/2018 and as far back as 07/07/2012. Interpretation madein conjunction with computer-aided detection and tomosynthesis. The breasts are heterogeneously dense, which may obscure small masses.Progressive coarse right breast macrocalcification likely a calcifyingfibroadenoma in progressive coarse linear left breast calcification due tothe benign secretory calcification. Otherwise stable bilateralmacrocalcifications. There are no suspicious masses, areas of architectural distortion, orsuspicious clusters of microcalcifications. IMPRESSION: No mammographic evidence of malignancy. Recommend routine annualsurveillance. BI-RADS CATEGORY: 2 - Benign finding. DENSITY: The breast tissue is heterogeneously dense, an appearance whichlowers the sensitivity of mammography. POS - [id number] Renato Sinha DO IM MG EXAMS Final Result documented in this encounter Visit Diagnoses Diagnosis Breast screening Breast screening, unspecified Breast screening Breast screening, unspecified documented in this encounter Care Teams Ceramics Artist Relationship Specialty Start Date End Date Guera Vasquez NP 132 [facility]. [address] [place] [address] PCP - General Nurse Practitioner 02/08/1904/03 Renato Sinha DO 42 [facility] 201 [place] [address] PCP - General Family Medicine 04/15/19 06/04/21 Tadeo Dukes PA [address] [place] [address] PCP - General 06/05/21 documented as of this encounter Additional Source Comments The information contained in this document represents components of the legal health record. It is not the complete legal health record.[facility]
--- OUTSIDE RECORDS SUMMARY | 2025-05-22 17:11 | XMS_ITS | Encounter Summary ---
Author Organization [facility] Address [address] [place] [address] Phone Care Team Providers Care Tattoo Artist Name Role Phone Renato Sinha DO Primary Care Provider [phone] Tadeo Dukes Primary Care Provider + Encounter Details Date Type Department Care Team (Late Contact Info) Description 04/02/2021 Ancillary Orders Virtual Department [address] [place] [address] Renato Sinha DO [address] [place] [address] Social History Tobacco Use Types Packs/Day Years [...] (Late Contact Info) Description 03/10/2025 Procedure Pass [facility], [facility] 30 [place] [address] 06/27/2025 10:40 AM EST Office Visit [facility] [address] [place] [address] Camila Lentz PA-C 22 [place] [address] 11/01/2025 9:20 AM EDT Office Visit [facility] 22 [place] [address] Pam Guerrero MD [address] [address] 2025 3:30 PM EDT Appointment [address] [address] Tadeo Dukes PA [address] [place] [address] documented as of this encounter Visit Diagnoses Not on filedocumented in this encounter Care Teams Tattoo Artist Relationship Specialty Start Date End Date Renato Sinha DO [address] [address] PCP - General Family Medicine 04/15/19 06/04/21 Tadeo Dukes PA [address] [place] [address] PCP - General 06/05/21 documented as of this encounter Additional Source Comments The information contained in this document represents components of the legal health record. It is not the complete legal health record.[facility]
== END 2025-05-22 13:51 | disposition home or self-care (01) ==
LOC: HO.US 13:50
PROVIDERS: PCP Physician Assistant; Visit Provider Physician Assistant
DX: R22.32 Localized swelling, mass and lump, left upper limb (principal)
CPT/HCPCS: 76882

== ENCOUNTER → 2025-05-22 13:51 | Outpatient (BNV) | payer MEDICARE, OTHER, SELFPAY | PROVIDERS: PCP Physician Assistant; Visit Provider Radiology Diagnostic Radiology | DX: R22.32 Localized swelling, mass and lump, left upper limb (principal) | CPT/HCPCS: 76882 ==

== ENCOUNTER 2025-06-23 13:02 | Outpatient (AMB) | payer MEDICARE, OTHER, SELFPAY ==
[2025-06-23 13:07] VITALS: BP 146/60; PULSE 73; O2SAT 98; BMI 37.4
--- NOTE | 2025-06-23 13:07 | A.OFFVIS_ITS ---
Vital Signs 06/23/25 13:07 Height 5 ft 5 in Weight 224 lb 13.944 oz BMI 37.4 BP 146/60 H Blood Pressure Location Lt brachial Position Sitting Pulse 73 Pulse Source Pulse Oximeter Pulse Oximetry (%) 98 Oxygen Delivery Method Room Air Intake Visit Reasons: Asthma Small Business Sales Representative Required: No Accompanied by: Self / Same As Patient Allergies aspirin Allergy (Severe, Verified 06/23/25 13:10) GI trouble Iodinated Contrast Media Allergy (Severe, Verified 06/23/25 13:10) Difficulty Breathing amlodipine Adverse Reaction (Intermediate, Verified 06/23/25 13:10) leg swelling HPI Comments Details: The patient is a 69-year-old woman with a known history of obstructive sleep apnea on CPAP in addition to asthma and chronic rhinitis. She continues to use her CPAP every night. The CPAP therapy continues to be effective in beneficial. She does use it for more than 4 hours. However, her machine is no longer working correctly. The patient also has a question of CO2 retention. Therefore she may benefit from a titration study. The patient also has been having increasing nasal congestion. This is resulting in a upper airway cough syndrome. She continues to use her rescue inhaler. She does not tolerate the HFA formulations. She cannot synchronized to be able to use it. The only short-acting beta agonist that she can uses the respiclik device. She did have her pulmonary function studies demonstrating a mild restrictive ventilatory defect. Therefore, she should get an x-ray at some point. 09/20/2021 the patient has a telephone visit today. Overall the patient has been doing well. Her respiratory status has been stable. She has been using her medications as prescribed. In addition to that she continues to use CPAP every night. The CPAP therapy continues to be affective and beneficial. She does use it for more than 4 hours a night. Sometimes she does get a dry mouth and she is going to increase the humidification. I instructed her on how to do it herself. She did bring her mask, Quatro medium. Seems like the mask rides up and is uncomfortable. I fitted her for an F20 medium mask which seem to fit alot better. I also downloaded her APAP and her AHI was 1. We will continue the current APAP settings. Her asthma has been in good control. No need for her AIRAM. She is working on her weight loss. 10/31/2022 the patient is here for a pulmonary follow-up visit. The patient complains of dyspnea on exertion. Gcei-sx-[id number] severity. She blames that on her weight gain. Now she is working on weight management and increase exercise. She is motivated. We did go for brief walking oximetry the patient was able to maintain adequate pulse ox although she is tachycardic up to about 111. Patient will continue to exercise and monitor closely heart rate. She does benefit from the albuterol prior to exercise. 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 Therefore she responds very well to the a ProAir RespiClick. Will send that 1 to the pharmacy. The patient does continue to use her CPAP. CPAP therapy continues to be affecting beneficial. She does get supplies from [employer]. She does use it more than 4 hours a night. Will send a script for additional supplies. If the patient has any issues she can always call back in follow-up in a year's time. If she continues to have shortness of breath she knows she can always get an x-ray of 1 available for her. 06/27/2024 the patient is here for a pulmonary follow-up visit. Overall she continues to do fairly well. She has been exercising more regularly. She does use the RespiClick with very good effect. Although it is only temporizing. Unfortunately he has not been covered. I do believe that she would be better off with a long-acting beta agonist. I will send her AirDuo to the pharmacy. She can use it twice a day. She did pick it up but has not used it. We did review it again. She can use her rescue inhaler as needed. She does not tolerate the HFA formulations. But, we provided her with a spacer and she used the AIRAM with the spacer well. In the meantime she has been using her CPAP. CPAP therapy continues to be affecting beneficial. She does use it for more than 4 hours a night. Will go ahead and request supplies from a [employer]. 06/23/2025 the patient is here for pulmonary follow-up visit. The patient has been doing okay. She does complaint of shortness of breath. She has been using her albuterol. We did go over how to use the spacer. She also has the albuterol RespiClick that she typically uses. She has not been using the AirDuo. She will hold off on that at this time. The patient also has been using her CPAP. CPAP therapy has been affecting beneficial. Current pressure is 14-20. The patient had bridges with a pressure of 16 and sometimes she needs a pressure of 20. Her mask is leaking. She needs a different mask. She also needs a new machine since her machine is very old. Will go ahead and request a replacement APAP 16-20. Will also provide her with a new mask F20 AirTouch medium full mask. She will do better specially with the high pressures. When she comes back in 4-6 months the patient will bring her new APAP with her. [facility] Medical History Lower extremity edema Thyroid nodule Anemia Hypersomnia with sleep apnea High cholesterol Diabetes Hypertension Asthma WYATT (obstructive sleep apnea) Surgical History Hx of colonoscopy History of esophagogastroduodenoscopy (EGD) Uterine polyp History of removal of cyst Family History Father Stroke Diabetes Mother Hypertension COPD (chronic obstructive pulmonary disease) CHF (congestive heart failure) FHx: colonic polyps Maternal Grandmother Stroke Sister FHx: colonic polyps Other Mental health disorder Substance use disorder Social History Housing: House Alcohol intake: never Patient Tobacco Use Status: Never used Tobacco e-Cigarette/Vaping Use: Never Used Second Hand Smoke Exposure: Yes service: No Current occupational status: retired Cognitive needs: No Hearing needs: No Vision needs: Yes (Glasses) Review of Systems Const Denies headache(s) and Reports weight loss Eyes Denies loss of vision ENT Denies vertigo, Denies dizziness, Denies headache(s) and Denies sore throat Card Denies chest pain, Denies leg edema and Denies lightheadedness Resp Denies cough, Denies hemoptysis and Denies wheezing GI Denies abdominal pain, Denies melena, Denies constipation, Denies diarrhea and Denies vomiting Denies urinary frequency, Denies dysuria and Denies urinary urgency Musc Denies arthralgias, Denies joint swelling, Denies numbness and Denies tingling Neuro Denies Abnormal speech present, Denies behavioral changes, Denies confusion, Denies vertigo, Denies dizziness, Denies headache(s), Denies loss of vision, Denies memory loss, Denies numbness and Denies tingling Psych Denies anxiety, Denies behavioral changes, Denies confusion, Denies depression, Denies memory loss and Denies panic attacks Johnnie/Lymph Denies easy bleeding and Denies easy bruising Aller/Immun Denies wheezing Physical Exam Vital Signs: Last Vital Signs Pulse 73 06/23/25 13:07 BP 146/60 H 06/23/25 13:07 Pulse Ox 98 06/23/25 13:07 Oxygen Delivery Method Room Air 06/23/25 13:07 BMI result Body Mass Index 37.4 Const General: No confusion Orientation/consciousness: No confusion Neck Neck: Yes normal visual inspection, Yes full ROM and Yes no lymphadenopathy Chest Chest palpation & inspection: normal inspection of the chest Resp Auscultation: no wheezes and diminished lung sounds Cardio Rate: regular rate Rhythm: regular rhythm Heart sounds: S1 normal heart sound present and S2 normal heart sound present GI Palpation (GI): Soft to palpation and nontender Auscultation: normal bowel sounds Skin General skin exam: rashes and/or lesions noted Neuro General: No confusion Speech: No Abnormal speech present Assessment & Plan Assessment & Plan (1) WYATT (obstructive sleep apnea): Code(s): G47.33 - Obstructive sleep apnea (adult) (pediatric) Category: Medical (2) Asthma: Code(s): J45.909 - Unspecified asthma, uncomplicated Category: Medical Qualifiers: Asthma complication type: uncomplicated Asthma persistence: intermittent Asthma severity: mild Qualified Code(s): J45.20 - Mild intermittent asthma, uncomplicated Plan Continue AIRAM as needed and prior to exercise AIRAM with spacer stopped Airduo Continue APAP therapy mask F20 full face mask F/U 12 months Coding Level of Care Code Est Pt Level 4 (16101) Inspire Program cplx 4 or more Diagnoses WYATT (obstructive sleep apnea) G47.33 Mild intermittent asthma without complication J45.20 Asthma complication type: uncomplicated Asthma persistence: intermittent Asthma severity: mild Time Spent (min) 18
--- OUTSIDE RECORDS SUMMARY | 2025-06-23 13:22 | XMS_ITS | Encounter Summary ---
Author Organization [facility] Address [address] [place] [address] Phone Care Team Providers Care Real Estate Subagent Name Role Phone Tadeo Dukes Primary Care Provider + Encounter Details Date Type Department Care Team (Late st Contact Info) Description 02/13/2022 Procedure Pass [address] [address] Social History Tobacco Use Types Packs/Day Years [...] st Contact Info) Description 03/10/2025 Procedure Pass [address] [address] 06/27/2025 10:40 AM EST Office Visit [facility] [address] [place] [address] Camila Lentz PA-C 22 [place] [address] 11/01/2025 9:20 AM EDT Office Visit [facility] [address] [place] [address] Pam Guerrero MD [address] [address] 2025 3:30 PM EDT Appointment [address] [address] Tadeo Dukes PA [address] [place] [address] documented as of this encounter Visit Diagnoses Not on filedocumented in this encounter Care Teams Real Estate Subagent Relationship Specialty Start Date End Date Tadeo Dukes PA [address] [place] [address] PCP - General 06/05/21 documented as of this encounter Additional Source Comments The information contained in this document represents components of the legal health record. It is not the complete legal health record.[facility]
--- OUTSIDE RECORDS SUMMARY | 2025-06-23 13:22 | XMS_ITS | Encounter Summary ---
Author Organization [facility] Address [address] [place] [address] Phone Care Team Providers Care Park Attendant Name Role Phone Tadeo Dukes Primary Care Provider + Encounter Details Date Type Department Care Team (Late Contact Info) Description 01/26/2023 Procedure Pass [facility], [address] [address] Social History Tobacco Use Types Packs/Day Years [...] st Contact Info) Description 03/10/2025 Procedure Pass [address] [address] 06/27/2025 10:40 AM EST Office Visit [facility] [address] [place] [address] Camila Lentz PA-C 22 [place] [address] 11/01/2025 9:20 AM EDT Office Visit [facility] [address] [place] [address] Pam Guerrero MD [address] [place] [address] 2025 3:30 PM EDT Appointment [address] [address] Tadeo Dukes PA [address] [place] [address] documented as of this encounter Visit Diagnoses Not on filedocumented in this encounter Care Teams Park Attendant Relationship Specialty [place] [address] [place] [address] PCP - General 06/05/21 documented as of this encounter Additional Source Comments The information contained in this document represents components of the legal health record. It is not the complete legal health record.[facility]
--- OUTSIDE RECORDS SUMMARY | 2025-06-23 13:22 | XMS_ITS | Clinical Summary ---
Author Organization [facility] [address] [facility] Address [address] [place] [address] Phone Care Team Providers Care Pulp Screen Operator Name Role Phone Tadeo Dukes Primary Care [...] Date NSTEMI (non-ST elevated myoc ardial infarction) ([facility] V24, [facility] V28) 01/11/2021 Allergic rhinitis 06/23/2017 Asthma 06/23/2017 CKD (chronic kidney disease) stage 3, GFR 30-59 ml/min ([facility] V24, [facility] V28) 06/23/2017 GERD (gastroesophageal reflux disease) 7 Assessment & Plan (06/21/2024 8:56 AM EST): Continue Omeprazole 40mg daily History of alcohol abuse 06/23/2017 Overview (05/30/2024): In AA HTN (hypertension) 06/23/2017 Major depression 06/23/2017 WYATT on CPAP 06/23/2017 Type 2 diabetes mellitus wit h renal manifestations ([facility] V24, [facility] V28) 06/23/2017 Vitamin D deficiency 06/23/2017 Hyperlipidemia 06/23/2017 Immunizations Immunization Administration Dates Next Due DTaP (Infanrix) 6wks [...] kidney disease) stage 3, GFR 30-59 ml/min ([facility] V24, [facility] V28) 06/23/2017 DX:CKD (chronic kidney disea se) stage 3, GFR 30-59 ml/min ([facility]) Type 2 diabetes mellitus wit h renal manifestations ([facility] V24, [facility] V28) 06/23/2017 DX:Type 2 diabetes mellitus with renal manifestations ([facility]) HTN (hypertension) 06/23/2017 DX:HTN (hyper tension) Hyperlipidemia [...] alcohol abuse; COMMENT: In AA Bipolar disorder ([facility] V2 4, [facility] V28) DX:Bipolar disorder ([facility]) Family History Medical History Relation Name Comments [...] RSV Immunization Adult Patients (1 - Risk 50-74 years 1-dose series) 2006 Falls Risk Assessment 07/06/2022 Hepatitis C Screening 07/06/2022 Medicare Annual Wellness Visit 07/06/2022 Osteoporosis Screening (Bone Density Screening) 07/06/2022 Social Influencers of Health Screening 07/06/2022 Diabetes: Blood Sugar Control Test (HGBA1C) 07/16/2022 Depression Screening 08/03/2024 Diabetes: Annual GFR (Glomerular Filtration Rate) 01/20/2025 01/21/2024, 06/23/2023, 01/23/2023 Hypertension/CHF/CAD Annual BMP Blood Test 01/20/2025 01/21/2024, 06/23/2023, 01/23/2023 COVID-19 Vaccine ( season) 2025 04/30/2024, 05/14/2023, 05/12/2022, Additional history exists Diabetes: Annual Urine Albumin-Creatinine Ratio (uACR) 11/21/2025 11/21/2024, 01/25/2024, 01/23/2023 Breast Cancer Screening 05/27/2026 05/27/2024 Cholesterol Screening (Lipid Panel) 04/20/2029 04/20/2024 DTaP,Tdap,and Td Vaccines (4 - Td or Tdap) 12/25/2033 12/26/2023, 11/17/2022, 12/31/2011 Colorectal Cancer Screening: Colonoscopy 08/18/2034 08/18/2024, 08/17/2024 Zoster Vaccines Completed 01/22/2020, 01/2019, 05/20/2017 Pneumococcal Vaccine: 50+ Years Completed 02/19/2023, 06/12/2014 Influenza Vaccine Completed 04/13/2025, , 04/09/2023, Additional history exists HIB Vaccines Aged Out [...] Relevant to Health Maintenance Insurance MEDICARE [facility] Care Teams Pulp Screen Operator Relationship Specialty Start Date End Date Tadeo Dukes PA [facility] [place] [id number] PCP - General Physician Computer Customer Support Specialist 05/30/24
--- OUTSIDE RECORDS SUMMARY | 2025-06-23 13:22 | XMS_ITS | Encounter Summary ---
Author Organization [facility] Address [address] [place] [address] Phone Care Team Providers Care Supervisor Mattress And Boxsprings Name Role Phone Tadeo Dukes Primary Care Provider + Encounter Details Date Type Department Care Team (Latest Contact Info) Description 01/26/2023 Transcribe Orders Virtual Department [address] [place] [address] Brianna Raman, REVENUE RESEARCH ANALYST [address] [place] [address] [email or web address] Breast screening (Primary Dx) Social History Tobacco [...] st Contact Info) Description 03/10/2025 Procedure Pass [address] [address] 06/27/2025 10:40 AM EST Office Visit [facility] [address] [place] [address] Camila Lentz PA-C [address] [place] [address] 11/01/2025 9:20 AM EDT Office Visit [facility] [address] [place] [address] Pam Guerrero MD [address] [place] [address] 2025 3:30 PM EDT Appointment [address] [address] Tadeo Dukes PA [address] [place] [address] documented as of this encounter Results * [...] There are scattered fibroglandular densities. Brianna Raman REVENUE RESEARCH ANALYST IMG MG EXAMS Final Result documented in this encounter Visit Diagnoses Diagnosis Breast screening- Primary Breast screening, unspecified Breast screening Breast screening, unspecified documented in this encounter Care Teams Supervisor Mattress And Boxsprings Relationship Specialty Start Date End Date Tadeo Dukes PA [address] [place] [address] PCP - General 06/05/21 documented as of this encounter Additional Source Comments The information contained in this document represents components of the legal health record. It is not the complete legal health record.[facility]
--- OUTSIDE RECORDS SUMMARY | 2025-06-23 13:22 | XMS_ITS | Encounter Summary ---
Author Organization [facility] Address [address] [place] [address] Phone Care Team Providers Care Senior Sous Chef Name Role Phone Tadeo Dukes Primary Care Provider + Encounter Details Date Type Department Care Team (Late st Contact Info) Description 03/10/2025 Transcribe Orders Virtual Department 30 [place] [address] Tadeo Dukes PA [address] [place] [address] Breast screening (Primary Dx) Social History Tobacco [...] st Contact Info) Description 03/10/2025 Procedure Pass [address] [address] 06/27/2025 10:40 AM EST Office Visit [facility] [address] [place] [address] Camila Lentz PA-C [address] [place] [address] 11/01/2025 9:20 AM EDT Office Visit [facility] [address] [place] [address] Pam Guerrero MD [address] [place] [address] 2025 3:30 PM EDT Appointment [address] [address] Tadeo Dukes PA [address] [place] [address] Scheduled Orders Name Type Priority Associated Diagnoses Orde r Schedule Mammogram Screening (Bilateral) Imaging Routine Breast screening Expected: 04/10/2025, Expires: 03/10/2026 documented as of this encounter Visit Diagnoses Diagnosis Breast screening- Primary Breast screening, unspecified documented in this encounter Care Teams Senior Sous Chef Relationship Specialty Start Date End Date Tadeo Dukes PA [address] [place] [address] PCP - General 06/05/21 documented as of this encounter Additional Source Comments The information contained in this document represents components of the legal health record. It is not the complete legal health record.[facility]
--- OUTSIDE RECORDS SUMMARY | 2025-06-23 13:23 | XMS_ITS | Encounter Summary ---
Author Organization [facility] Address [address] [place] [address] Phone Care Team Providers Care Collection Systems Modeler Name Role Phone Renato Sinha DO Primary Care Provider [phone] Tadeo Dukes Primary Care Provider + Encounter Details Date Type Department Care Team (Late Contact Info) Description 04/02/2021 Ancillary Orders Virtual Department [address] [place] [address] Renato Sinha DO [address] [place] [address] Social History Tobacco Use Types Packs/Day Years [...] (Late Contact Info) Description 03/10/2025 Procedure Pass [facility] [address] [place] [address] 06/27/2025 10:40 AM EST Office Visit [facility] [address] [place] [address] Camila Lentz PA-C 22 [place] [address] 11/01/2025 9:20 AM EDT Office Visit [facility] 22 [place] [address] Pam Guerrero MD [address] [address] 2025 3:30 PM EDT Appointment [address] [address] Tadeo Dukes PA [address] [place] [address] documented as of this encounter Visit Diagnoses Not on filedocumented in this encounter Care Teams Collection Systems Modeler Relationship Specialty Start Date End Date Renato Sinha DO [address] [address] PCP - General Family Medicine 04/15/19 06/04/21 Tadeo Dukes PA [address] [place] [address] PCP - General 06/05/21 documented as of this encounter Additional Source Comments The information contained in this document represents components of the legal health record. It is not the complete legal health record.[facility]
--- OUTSIDE RECORDS SUMMARY | 2025-06-23 13:23 | XMS_ITS | Encounter Summary ---
Author Organization [facility] Address [address] [place] [address] Phone Care Team Providers Care Research Hydraulic Engineer Name Role Phone Guera Vasquez NP Primary Care Provid er Renato Sinha DO Primary Care Provider [phone] Tadeo Dukes Primary Care Provider + Encounter Details Date Type Department Care Team (Late Contact Info) Description 04/11/2019 Ancillary Orders Virtual Department 30 [place] [address] Renato Sinha DO [address] [place] [address] Breast screening Social History Tobacco Use Types [...] (Late Contact Info) Description 03/10/2025 Procedure Pass [facility] [address] [place] [address] 06/27/2025 10:40 AM EST Office Visit [facility] [address] [place] [address] Camila Lentz PA-C 22 [place] [address] 11/01/2025 9:20 AM EDT Office Visit [facility] 22 [place] [address] Pam Guerrero MD [address] [place] [address] 2025 3:30 PM EDT Appointment [facility] [address] [address] Tadeo Dukes PA [address] [place] [address] documented as of this encounter Results * [...] unspecified documented in this encounter Care Teams Research Hydraulic Engineer Relationship Specialty Start Date End Date Guera Vasquez NP [address] [facility]. [address] [place] [address] PCP - General Nurse Practitioner 02/08/1904/03 Renato Sinha DO 42 [facility] [address] [place] [address] PCP - General Family Medicine 04/15/19 06/04/21 Tadeo Dukes PA [address] [place] [address] PCP - General 06/05/21 documented as of this encounter Additional Source Comments The information contained in this document represents components of the legal health record. It is not the complete legal health record.[facility]
--- OUTSIDE RECORDS SUMMARY | 2025-06-23 13:23 | XMS_ITS | Encounter Summary ---
Author Organization [facility] Address [address] [place] [address] Phone Care Team Providers Care Escrow Clerk Name Role Phone Renato Sinha DO Primary Care Provider [phone] Guera Vasquez NP Primary Care Provid er Renato Sinha DO Primary Care Provider [phone] Tadeo Dukes Primary Care Provider + Encounter Details Date Type Department Care Team (Late st Contact Info) Description 12/16/2017 Ancillary Orders Virtual Department 30 [place] [address] Renato Sinha DO [address] [place] [address] Breast screening Social History Tobacco Use Types [...] (Late Contact Info) Description 03/10/2025 Procedure Pass [facility], Mammography- [facility] 30 [place] [address] 06/27/2025 10:40 AM EST Office Visit [facility] 22 [place] [address] Camila Lentz PA-C 22 [place] [address] [email or web address] 11/01/2025 9:20 AM EDT Office Visit [facility] 22 [place] [address] Pam Guerrero MD 22 [facility] 3rd [place] [address] 2025 3:30 PM EDT Appointment [facility], [facility] 30 [place] [address] Tadeo Dukes PA [address] [place] [address] documented as of this encounter Results * [...] mammography. POS - [id number] Renato Sinha DO [facility] MG EXAMS Final Result documented in this encounter Visit Diagnoses Diagnosis Breast screening Breast screening, unspecified Breast screening Breast screening, unspecified documented in this encounter Care Teams Escrow Clerk Relationship Specialty Start Date End Date Renato Sinha DO PCP - General 08/06/17 02/07/19 Guera Vasquez NP 132 [facility] Christopher. [address] [place] [address] PCP - General Nurse Practitioner 02/08/1904/03 Renato Sinha DO 42 [facility] CHRISTOPHER 201 [place] [address] PCP - General Family Medicine 04/15/19 06/04/21 Tadeo Dukes PA [address] [place] [address] PCP - General 06/05/21 documented as of this encounter Additional Source Comments The information contained in this document represents components of the legal health record. It is not the complete legal health record.[facility]
--- OUTSIDE RECORDS SUMMARY | 2025-06-23 13:23 | XMS_ITS | Encounter Summary ---
Author Organization [facility] Address [address] [address] Phone Care Team Providers Care Facility Assistant Name Role Phone ErnestineRenato Primary Care Provider [phone] Tadeo Dukes Primary Care Provider + Encounter Details Date Type Department Care Team (Late st Contact Info) Description 04/03/2020 Procedure Pass [address] [address] Social History Tobacco Use Types Packs/Day Years [...] st Contact Info) Description 03/10/2025 Procedure Pass [address] [address] 06/27/2025 10:40 AM EST Office Visit [facility] 22 [place] [address] Camila Lentz PA-C 22 [place] [address] 11/01/2025 9:20 AM EDT Office Visit [facility] 22 [place] [address] Pam Guerrero MD [address] [address] 2025 3:30 PM EDT Appointment [address] [address] [place] [address] [place] [address] documented as of this encounter Visit Diagnoses Not on filedocumented in this encounter Care Teams Facility Assistant Relationship Specialty Start Date End Date Renato Sinha DO [address] [address] PCP - General Family Medicine 04/15/19 06/04/21 Tadeo Dukes PA [address] [place] [address] PCP - General 06/05/21 documented as of this encounter Additional Source Comments The information contained in this document represents components of the legal health record. It is not the complete legal health record.[facility]
--- OUTSIDE RECORDS SUMMARY | 2025-06-23 13:23 | XMS_ITS | Clinical Summary ---
Author Organization [facility] Address [address] [place] [address] Phone Care Team Providers Care Plasterer Rough Name Role Phone Tadeo Dukes Primary Care [...] Take 100 mcg by mouth daily. Active lbntiefr-kpt-rul miranda gluconate (CENTRUM WITH IRON) 9 mg [...] 10/13/2022 Overview (02/11/2024): Dexcom G7 supplier is [facility] medical Assessment & Plan (03/28/2025 9:33 AM [...] estimated GFR 55 from 61. Followed by apartment hotel manager. -Reviewed symptoms, prevention and treatment of hypoglycemia. [...] after back to eating regular meals. Her apartment hotel manager recommended to add Farxiga but patient was [...] 07/2024. -POC A1c at next visit with Aym in 04/2024 Assessment & Plan (10/21/2023 12:46 [...] counting. We will send referral to see paraeducator. She will add more walking. If overnight or fasting glucose gets below 70-80, she will decrease the Tresiba by 4 to 6 units. If having low sugars within 2 to 4 hours after taking NovoLog she will cut back on her NovoLog dose by 2 to 3 units. Call if glucose below 70 or over 250 repeatedly. [facility], no diabetic retinopathy as per the patient. [...] Office Visit [facility] [address] [place] [address] [place] [address] Hattie Santos CNM Encounter for annual routine gynecological examination (Primary Dx) 03/28/2025 8:40 AM EDT Office Visit [facility] [address] [place] [address] [place] [address] Pam Guerrero MD Type 2 diabetes mellitus with diabetic nephropathy, with long-term current use of insulin (Primary Dx) 03/27/2025 8:00 AM EDT - 03/27/2025 11:59 PM EDT Hospital Encounter [facility] [address] [place] [address] Camila Lentz PA-C Discharge Disposition: Home or Self Care from Last 3 Months Immunizations Immunization Administration [...] st Contact Info) Description 03/10/2025 Procedure Pass [facility], [facility] 30 [place] [address] 06/27/2025 10:40 AM EST Office Visit [facility] [address] [place] [address] Camila Lentz PA-C 22 [place] [address] 11/01/2025 9:20 AM EDT Office Visit [facility] [address] [place] [address] Pam Guerrero MD [facility] 3rd [place] [address] 2025 3:30 PM EDT Appointment [facility], Mammography- [address] [address] Tadeo Dukes PA [address] [place] [address] Health Maintenance Due Date Last Done Comments [...] current use of insulin BASIC METABOLIC PANEL (BMP) Routine 03/27/2025 8:21 AM EDT Type 2 [...] EDT) ALT 12 0 - 40 U/L [facility] Blood 03/27/2025 8:21 AM EDT 03/27/2025 8:24 AM EDT us Camila Lentz PA-C LAB BLOOD BKR CAROL WARD Final Result [address] [address] * Aspartate aminotransferase (AST) (03/27/2025 8:21 AM EDT) AST 24 0 - 37 U/L [facility] Blood 03/27/2025 8:21 AM EDT 03/27/2025 8:24 AM EDT Camila Lentz PA-C LAB BLOOD BKR CAROL ZARAGOZARADHA Final Result Performing Organization Address City/[facility]/ZIP Co de Phone Number [address] [address] * (ABNORMAL) Hemoglobin A1c (03/27/2025 8:21 AM EDT) HEMOGLOBIN A1C 6.4(H) 4.3 - 5.8 % [facility] Blood 03/27/2025 8:21 AM EDT 03/27/2025 8:24 AM EDT Camila Lentz PA-C LAB BLOOD DIXIER CAROL ZARAGOZARADHA Final Result [address] [address] * (ABNORMAL) Basic metabolic panel (03/27/2025 8:21 AM EDT) SODIUM 139 133 - 146 mmol/L [facility] CHLORIDE 101 96 - 108 mmol/L [facility] POTASSIUM 3.8 3.3 - 5.1 mmol/L [facility] CO2 27 21 - 35 mmol/L [facility] BUN 21(H) 6 - 19 mg/dL [facility] CREATININE 1.10 0.5 - 1.5 mg/dL [facility] GLUCOSE 115(H) 70 - 99 mg/dL [facility] CALCIUM 9.3 8.4 - 10.3 mg/dL [facility] EGFR 55(L) >59 mL/min/1.7 3m2 [facility] Comment:Estimated glomerular filtration rate calculated using the CKD-EPI refit equation. ANION GAP 15 10 - 20 mmol/L [facility] Blood 03/27/2025 8:21 AM EDT 03/27/2025 8:24 AM EDT us Camila Lentz PA-C LAB BLOOD BKR CAROL WARD Final Result [facility] 30 [place] [address] * BI MAMMOGRAM SCREENING WITH TOMOSYNTHESIS WITH [...] SEE NARRATIVE - 05/02/2019 3:58 [place] [address] Voice Over Artist: Sabra Cardoza MD HAT STOCK LAMINATING MACHINE OPERATOR Cytology Report FINAL DIAGNOSIS A. PAP SMEAR [...] 52, 56, 58, 59, 66, 68) by [employer] On[employer]arity HR-HPV analysis. Clinical correlation is advised. This HPV test was performed at [facility], [address] [place] [address]. This test has been FDA approved for SurePath cervical cytology specimens. The accuracy and precision of this test for all other specimen sources has been verified in the Cytopathology Laboratory of the [facility] and has not been cleared or approved by the U.S. Food and Drug Administration. Clinical correlation is advised. CLINICAL HISTORY Date of Last Menstrual Period: Not Provided Menstrual History: Post Menopausal Other Clinical Conditions: Screening Pap SPECIMEN SOURCE A: PAP SMEAR (SUREPATH) CE Patient Name: ROCIO VIZCAINO : 1955 (Age: 63) Sex: F Institution: [facility] Location: [facility] Date of Collection: 04/26/2019 Date of Reported: 05/02/2019 15:58 Results to: Brianna Raman MSN, BS Brianna Raman HAZARDOUS SUBSTANCES SCIENTIST CYTOLOGY ORDERABLES Final Resu lt SEE NARRATIVE from Last 3 Months or Most Recently Relevant to Health Maintenance Insurance MEDICARE PART A & B [facility] MEDICARE SUPPLEMENT MEDICARE PART A & B MEDICARE SUPPLEMENT MEDICARE PART A & B MEDICARE PART A & B MEDICARE PART A & B MEDICARE SUPPLEMENT MEDICARE PART A & B MEDICARE PART A & B MEDICARE SUPPLEMENT MEDICARE PART A & B MEDICARE SUPPLEMENT [place] [id number] [facility] MEDICARE SUPPLEMENT Care Teams Plasterer Rough Relationship Specialty [place] [address] [place] [address] PCP - General 06/05/21 Additional Source Comments The information contained in this document represents components of the legal health record. It is not the complete legal health record.[facility]
--- OUTSIDE RECORDS SUMMARY | 2025-06-23 13:23 | XMS_ITS | Encounter Summary ---
Author Organization [facility] Address [address] [place] [address] Phone Care Team Providers Care Planning Management It Specialist Name Role Phone Tadeo Dukes Primary Care Provider + Encounter Details Date Type Department Care Team (Late st Contact Info) Description 02/16/2024 Procedure Pass [facility], [address] [address] Social History Tobacco Use Types Packs/Day Years [...] st Contact Info) Description 03/10/2025 Procedure Pass [address] [address] 06/27/2025 10:40 AM EST Office Visit [facility] 22 [place] [address] Camila Lentz PA-C 22 [place] [address] 11/01/2025 9:20 AM EDT Office Visit [facility] 22 [place] [address] Pam Guerrero MD [address] [place] [address] 2025 3:30 PM EDT Appointment [address] [address] Tadeo Dukes PA [address] [place] [address] documented as of this encounter Visit Diagnoses Not on filedocumented in this encounter Care Teams Planning Management It Specialist Relationship Specialty Start [place] [address] [place] [address] PCP - General 06/05/21 documented as of this encounter Additional Source Comments The information contained in this document represents components of the legal health record. It is not the complete legal health record.[facility]
--- OUTSIDE RECORDS SUMMARY | 2025-06-23 13:23 | XMS_ITS | Encounter Summary ---
Author Organization [facility] Address [address] [place] [address] Phone Care Team Providers Care Entertainment Director Name Role Phone ErnestineRenato Primary Care Provider [phone] Tadeo Dukes Primary Care Provider + Encounter Details Date Type Department Care Team (Late st Contact Info) Description 04/02/2021 Procedure Pass [address] [address] Social History Tobacco Use Types Packs/Day Years [...] (Late st Contact Info) Description 03/10/[address] [address] 06/27/2025 10:40 AM EST Office Visit [facility] 22 [place] [address] Camila Lentz PA-C 22 [place] [address] 11/01/2025 9:20 AM EDT Office Visit [facility] 22 [place] [address] Pam Guerrero MD [address] [address] 2025 3:30 PM EDT Appointment [facility], [address] [address] [place] [address] [place] [address] documented as of this encounter Visit Diagnoses Not on filedocumented in this encounter Care Teams Entertainment Director Relationship Specialty Start Date End Date Renato Sinha DO [address] [address] PCP - General Family Medicine 04/15/19 06/04/21 Tadeo Dukes PA [address] [place] [address] PCP - General 06/05/21 documented as of this encounter Additional Source Comments The information contained in this document represents components of the legal health record. It is not the complete legal health record.[facility]
--- OUTSIDE RECORDS SUMMARY | 2025-06-23 13:23 | XMS_ITS | Encounter Summary ---
Author Organization [facility] Address [address] [place] [address] Phone Care Team Providers Care Special Event Assistant Name Role Phone Renato Sinha DO Primary Care Provider [phone] Tadeo Dukes Primary Care Provider + Encounter Details Date Type Department Care Team (Late st Contact Info) Description 02/14/2020 Ancillary Orders Virtual Department [address] [place] [address] Renato Sinha DO [address] [place] [address] Breast screening Social History Tobacco Use Types [...] st Contact Info) Description 03/10/2025 Procedure Pass [facility], [facility]- [address] [address] 06/27/2025 10:40 AM EST Office Visit [facility] [address] [place] [address] Camila Lentz PA-C 22 [place] [address] 11/01/2025 9:20 AM EDT Office Visit [facility] [address] [place] [address] Pam Guerrero MD [address] [facility] 3rd [place] [address] 2025 3:30 PM EDT Appointment [facility], [facility] 30 [place] [address] Tadeo Dukes PA [address] [place] [address] documented as of this encounter Results * [...] unspecified documented in this encounter Care Teams Special Event Assistant Relationship Specialty Start Date End Date Ernestine DO Renato [address] [address] PCP - General Family Medicine 04/15/19 06/04/21 Tadeo Dukes PA [address] [place] [address] PCP - General 06/05/21 documented as of this encounter Additional Source Comments The information contained in this document represents components of the legal health record. It is not the complete legal health record.[facility]
--- OUTSIDE RECORDS SUMMARY | 2025-06-23 13:23 | XMS_ITS | Encounter Summary ---
Author Organization [facility] Address [address] [place] [address] Phone Care Team Providers Care Drop Forge Hand Name Role Phone Renato Sinha Primary Care Provider [phone] Tadeo Dukes Primary Care Provider + Encounter Details Date Type Department Care Team (Late st Contact Info) Description 04/02/2021 Ancillary Orders Virtual Department [address] [place] [address] Tadeo Dukes PA [facility] [place] [address] Breast screening Social History Tobacco Use Types [...] st Contact Info) Description 03/10/2025 Procedure Pass [facility], Mammography- [facility] 30 [place] [address] 06/27/2025 10:40 AM EST Office Visit [facility] 22 [place] [address] Camila Lentz PA-C 22 [place] [address] 11/01/2025 9:20 AM EDT Office Visit [facility] 22 [place] [address] Pam Guerrero MD [address] [place] [address] 3rd [place] [address] 2025 3:30 PM EDT Appointment [facility], [facility]- [facility] 30 [place] [address] Tadeo Dukes PA [address] [place] [address] documented as of this encounter Results * [...] unspecified documented in this encounter Care Teams Drop Forge Hand Relationship Specialty Start Date End Date Renato Sinha [address] [address] PCP - General Family Medicine 04/15/19 06/04/21 [place] [address] [place] [address] PCP - General 06/05/21 documented as of this encounter Additional Source Comments The information contained in this document represents components of the legal health record. It is not the complete legal health record.[facility]
--- OUTSIDE RECORDS SUMMARY | 2025-06-23 13:23 | XMS_ITS | Clinical Summary ---
Author Organization [facility] Address [address] [facility] [address] [place] [address] Phone Care Team Providers Care Electronic Parts Salesperson Name Role Phone Tadeo Dukes Primary Care Provider [phone] Allergies Active Allergy Reactions Criticality Noted Date [...] Office Visit [facility] [address] [address] Oliver Drake MD [address] [address] 07/18/2025 Orders Only [facility] [address] [address] Oilver Drake MD [address] [address] Stage 3 chronic kidney disease, not otherwise specified (HCC) Health Maintenance Due Date Last Done Comments Breast Cancer Screening 1955 Colorectal Cancer Screening: Annual FOBT 2005 Colorectal Cancer Screening: Colonoscopy 2005 Colorectal Cancer Screening: Sigmoidoscopy 2005 Pneumococcal Vaccine: 50+ Years (2 of 2 - PCV) 06/12/2015 06/12/2014 Diabetes: Hemoglobin A1C 09/03/2020 Diabetes: Ophthalmology Exam 09/03/2020 Diabetes: Pedal Pulse Checked 09/03/2020 Diabetes: Sensory Foot Exam 09/03/2020 Diabetes: Visual Foot Exam 09/03/2020 Pneumococcal Vaccine: Peds (0 to 5 Years) and At-Risk Patients (6 to 49 Years) Discontinued 06/12/2014 Influenza Vaccine Completed 04/13/2025, , 05/29/2019, Additional history exists Hepatitis B Vaccine Aged Out No longe r eligible based on patient's age to complete this topic Insurance Medicare [facility] Medicare [facility] Care Teams Electronic Parts Salesperson Relationship Specialty Start Date End Date Tadeo Dukes PA [address] [place] [address], [address] [place] [address] PCP - General Physician Mold Hoister 06/23/22
== END 2025-06-23 13:54 | disposition home or self-care (01) ==
PROVIDERS: PCP Physician Assistant; Visit Provider Hospitalist
DX: Z45.42 Encounter for adjustment and management of neurostimulator (principal); G47.33 Obstructive sleep apnea (adult) (pediatric); J45.20 Mild intermittent asthma, uncomplicated
CPT/HCPCS: 95977; 99214

== ENCOUNTER → 2025-06-23 13:02 | Outpatient (BNVA) | payer MEDICARE, OTHER, SELFPAY | PROVIDERS: PCP Physician Assistant; Visit Provider Hospitalist | DX: J45.20 Mild intermittent asthma, uncomplicated (principal); J31.0 Chronic rhinitis; G47.33 Obstructive sleep apnea (adult) (pediatric); Z99.89 Dependence on other enabling machines and devices | CPT/HCPCS: 95977; 99212 ==

== ENCOUNTER → 2025-06-26 08:55 | Outpatient (REF) | payer MEDICARE, OTHER, SELFPAY ==
--- NOTE | ~2025-06-26 | NM_ITS ---
EXERCISE MYOCARDIAL PERFUSION STUDY INDICATION: Abnormal stress test TECHNIQUE: The patient was brought in for an exercise perfusion study on 06/26/2025. Patient performed exercise as per [place] protocol and was injected 35 mCi of sestamibi once target heart rate was achieved. Images were obtained using the SPECT gamma camera interlaced with the gating device. Images were obtained in supine position. Resting perfusion study was performed on 06/27/2025. Patient was administered 35 mCi of sestamibi intravenously at rest. Images were then obtained in supine position. Total DLP 223 mGy-cm. Images were processed with the software and compared side to side in short axis, horizontal long axis and vertical long axis views. FINDINGS: Raw aquisition reviewed. Arms by the patient's side. The stress perfusion study showed diminished tracer uptake in the distal part of inferior wall. Improvement with CT attenuation correction suggestive of diaphragmatic attenuation artifact. There is also small perfusion defect in the mid anterior wall that improves with CT attenuation correction. The gated study shows normal LV systolic function with calculated LVEF of 59%. LV cavity is normal in size. The gated study shows normal wall thickening and contraction of segments. Resting study shows no significant perfusion abnormality. Gating at rest reveals normal wall motion with ejection fraction at 43%. The findings are consistent with reversible distal inferior defect and mid anterior defect. Could be related to small areas of ischemia versus artifact. NM/NM cardiolite stress test IMPRESSION: 1. Myocardial perfusion imaging study shows possible ischemia in the distal inferior wall and mid anterior wall. 2. Gated LVEF is 59% during stress and 43% during rest but visually normal. Correlate with echocardiogram. 3. Transient ischemic dilatation not present. EKG component of the test reported separately. Electronically signed by: John Patel MD 06/27/2025 05:[address] [facility]
--- NOTE | 2025-06-26 08:58 | CA_ITS ---
Acquisition Time: 2025-06-26 10:03:57 Total Exercise Time: 00:05:15 Test Indications: abn ett Medications: see h&p Protocol: KT Max HR: 148 BPM 97% of Pred: 152 BPM Max BP: 154/84 mmHG Max Work Load: 7.0 METS Exercise stress test with exercise 5 mins 15 secs of Kt Protocol, achieving 97% MPHR, with reports of SOB, no chest pain, with isolated PVCs, with normotensive response to exercise. With downsloping ST depression inferolaterally meeting criteria for ischemia. In recovery, breathing improved to baseline. ST segment improved slowly. Recommend referral to Cardiology. Nuclear images pending. Test reviewed with Dr. Cooper. Referred By: Tadeo Dukes Electronically Signed By: Dirk Nicole
--- OUTSIDE RECORDS SUMMARY | 2025-06-26 09:34 | XMS_ITS | Clinical Summary ---
Author Organization [facility] [address] [facility] Address [address] [place] [address] Phone Care Team Providers Care Bench Mover Name Role Phone Tadeo Dukes Primary Care [...] Date NSTEMI (non-ST elevated myoc ardial infarction) ([facility] V24, [facility] V28) 01/11/2021 Allergic rhinitis 06/23/2017 Asthma 06/23/2017 CKD (chronic kidney disease) stage 3, GFR 30-59 ml/min ([facility] V24, [facility] V28) 06/23/2017 GERD (gastroesophageal reflux disease) 7 Assessment & Plan (06/21/2024 8:56 AM EST): Continue Omeprazole 40mg daily History of alcohol abuse 06/23/2017 Overview (05/30/2024): In AA HTN (hypertension) 06/23/2017 Major depression 06/23/2017 WYATT on CPAP 06/23/2017 Type 2 diabetes mellitus wit h renal manifestations ([facility] V24, [facility] V28) 06/23/2017 Vitamin D deficiency [...] kidney disease) stage 3, GFR 30-59 ml/min ([facility] V24, [facility] V28) 06/23/2017 DX:CKD (chronic kidney disea se) stage 3, GFR 30-59 ml/min ([facility]) Type 2 diabetes mellitus wit h renal manifestations ([facility] V24, [facility] V28) 06/23/2017 DX:Type 2 diabetes mellitus with renal manifestations ([facility]) HTN (hypertension) 06/23/2017 DX:HTN (hyper tension) Hyperlipidemia 06/23/2017 DX:Hyperlipidemi a Major depression 06/23/2017 DX:Major depres pla GERD (gastroesophageal reflu x disease) 06/23/2017 DX:GERD (gastroesophageal re flux disease) Asthma 06/23/2017 DX:Asthma WYATT on CPAP 06/23/2017 DX:WYATT on CPAP Allergic rhinitis 06/23/2017 DX:Allergic rh initis Vitamin D deficiency 06/23/2017 DX:Vitamin D deficiency History of alcohol abuse 06/23/2017 DX:Hist ory of alcohol abuse; COMMENT: In AA Bipolar disorder ([facility] V2 4, [facility] V28) DX:Bipolar disorder ([facility]) Family History Medical History Relation [...] Recently Relevant to Health Maintenance Insurance MEDICARE [facility] Care Teams Bench Mover Relationship Specialty Start Date End Date Tadeo Dukes PA [facility] [place] [phone] PCP - General Physician Middle [employer] Band Teacher 05/30/24
--- OUTSIDE RECORDS SUMMARY | 2025-06-26 09:35 | XMS_ITS | Encounter Summary ---
Author Organization [facility] Address [address] [place] [address] Phone Care Team Providers Care Microbiology Laboratory Manager Name Role Phone Tadeo Dukes Primary Care Provider + Encounter Details Date Type Department Care Team (Latest Contact Info) Description 01/26/2023 Transcribe Orders Virtual Department 30 [place] [address] Brianna Raman, BRANCH LENDING MANAGER 30 [place] [address] [email or web address] Breast screening (Primary Dx) Social History Tobacco [...] st Contact Info) Description 03/10/2025 Procedure Pass [address] [address] 06/27/2025 10:40 AM EST Office Visit [facility] [address] [place] [address] Camila Lentz PA-C [address] [place] [address] 11/01/2025 9:20 AM EDT Office Visit [facility] 22 [place] [address] Pam Guerrero MD [address] [place] [address] 2025 3:30 PM EDT Appointment [address] [address] Tadeo Dukes PA [address] [place] [address] documented as of this encounter Results * [...] There are scattered fibroglandular densities. Brianna Raman BRANCH LENDING MANAGER IMG MG EXAMS Final Result documented in this encounter Visit Diagnoses Diagnosis Breast screening- Primary Breast screening, unspecified Breast screening Breast screening, unspecified documented in this encounter Care Teams Microbiology Laboratory Manager Relationship Specialty Start Date End Date Tadeo Dukes PA [address] [place] [address] PCP - General 06/05/21 documented as of this encounter Additional Source Comments The information contained in this document represents components of the legal health record. It is not the complete legal health record.[facility]
--- OUTSIDE RECORDS SUMMARY | 2025-06-26 09:35 | XMS_ITS | Encounter Summary ---
Author Organization [facility] Address [address] [place] [address] Phone Care Team Providers Care Electro Winning Operator Name Role Phone Tadeo Dukes Primary Care Provider + Encounter Details Date Type Department Care Team (Late st Contact Info) Description 03/10/2025 Transcribe Orders Virtual Department 30 [place] [address] Tadeo Dukes PA [address] [place] [address] Breast screening (Primary Dx) Social History Tobacco [...] st Contact Info) Description 03/10/2025 Procedure Pass [address] [address] 06/27/2025 10:40 AM EST Office Visit [facility] [address] [place] [address] Camila Lentz PA-C [address] [place] [address] 11/01/2025 9:20 AM EDT Office Visit [facility] [address] [place] [address] Pam Guerrero MD [address] [place] [address] 2025 3:30 PM EDT Appointment [address] [address] Tadeo Dukes PA [address] [place] [address] Scheduled Orders Name Type Priority Associated Diagnoses Orde r Schedule Mammogram Screening (Bilateral) Imaging Routine Breast screening Expected: 04/10/2025, Expires: 03/10/2026 documented as of this encounter Visit Diagnoses Diagnosis Breast screening- Primary Breast screening, unspecified documented in this encounter Care Teams Electro Winning Operator Relationship Specialty Start Date End Date Tadeo Dukes PA [address] [place] [address] PCP - General 06/05/21 documented as of this encounter Additional Source Comments The information contained in this document represents components of the legal health record. It is not the complete legal health record.[facility]
--- OUTSIDE RECORDS SUMMARY | 2025-06-26 09:35 | XMS_ITS | Encounter Summary ---
Author Organization [facility] Address [address] [place] [address] Phone Care Team Providers Care Ent Nurse Name Role Phone Tadeo Dukes Primary Care Provider + Encounter Details Date Type Department Care Team (Late Contact Info) Description 01/26/2023 Procedure Pass [facility], [address] [address] Social History Tobacco Use Types Packs/Day Years [...] st Contact Info) Description 03/10/2025 Procedure Pass [address] [address] 06/27/2025 10:40 AM EST Office Visit [facility] 22 [place] [address] Camila Lentz PA-C 22 [place] [address] 11/01/2025 9:20 AM EDT Office Visit [facility] 22 [place] [address] Pam Guerrero MD [address] [place] [address] 2025 3:30 PM EDT Appointment [address] [address] Tadeo Dukes PA [address] [place] [address] documented as of this encounter Visit Diagnoses Not on filedocumented in this encounter Care Teams Ent Nurse Relationship Specialty [place] [address] [place] [address] PCP - General 06/05/21 documented as of this encounter Additional Source Comments The information contained in this document represents components of the legal health record. It is not the complete legal health record.[facility]
--- OUTSIDE RECORDS SUMMARY | 2025-06-26 09:36 | XMS_ITS | Encounter Summary ---
Author Organization [facility] Address [address] [place] [address] Phone Care Team Providers Care Gallery Or Museum Attendant Name Role Phone Tadeo Dukes Primary Care Provider + Encounter Details Date Type Department Care Team (Late st Contact Info) Description 02/13/2022 Procedure Pass [address] [address] Social History Tobacco Use Types Packs/Day Years [...] st Contact Info) Description 03/10/2025 Procedure Pass [address] [address] 06/27/2025 10:40 AM EST Office Visit [facility] 22 [place] [address] Camila Lentz PA-C 22 [place] [address] 11/01/2025 9:20 AM EDT Office Visit [facility] 22 [place] [address] Pam Guerrero MD [address] [address] 2025 3:30 PM EDT Appointment [address] [address] Tadeo Dukes PA [address] [place] [address] documented as of this encounter Visit Diagnoses Not on filedocumented in this encounter Care Teams Gallery Or Museum Attendant Relationship Specialty Start Date End Date Tadeo Dukes PA [address] [place] [address] PCP - General 06/05/21 documented as of this encounter Additional Source Comments The information contained in this document represents components of the legal health record. It is not the complete legal health record.[facility]
--- OUTSIDE RECORDS SUMMARY | 2025-06-26 09:36 | XMS_ITS | Encounter Summary ---
Author Organization [facility] Address [address] [place] [address] Phone Care Team Providers Care Mobile Marketing Manager Name Role Phone Renato Sinha DO Primary Care Provider [phone] Guera Vasquez NP Primary Care Provid er Renato Sinha DO Primary Care Provider [phone] Tadeo Dukes Primary Care Provider + Encounter Details Date Type Department Care Team (Late st Contact Info) Description 12/16/2017 Ancillary Orders Virtual Department 30 [place] [address] Renato Sinha DO [address] [place] [address] Breast screening Social History Tobacco Use Types [...] (Late Contact Info) Description 03/10/2025 Procedure Pass [facility], Mammography- [facility] 30 [place] [address] 06/27/2025 10:40 AM EST Office Visit [facility] 22 [place] [address] Camila Lentz PA-C 22 [place] [address] [email or web address] 11/01/2025 9:20 AM EDT Office Visit [facility] 22 [place] [address] Pam Guerrero MD 22 [facility] 3rd [place] [address] 2025 3:30 PM EDT Appointment [facility], [facility] 30 [place] [address] Tadeo Dukes PA [address] [place] [address] documented as of this encounter Results * [...] mammography. POS - [id number] Renato Sinha DO [facility] Final Result documented in this encounter Visit Diagnoses Diagnosis Breast screening Breast screening, unspecified Breast screening Breast screening, unspecified documented in this encounter Care Teams Mobile Marketing Manager Relationship Specialty Start Date End Date Renato Sinha DO PCP - General 08/06/17 02/07/19 Guera Vasquez NP 132 [facility]. [address] [place] [address] PCP - General Nurse Practitioner 02/08/1904/03 Renato Sinha DO 42 [facility] CHRISTOPHER [address] [place] [address] PCP - General Family Medicine 04/15/19 06/04/21 Tadeo Dukes PA [address] [place] [address] PCP - General 06/05/21 documented as of this encounter Additional Source Comments The information contained in this document represents components of the legal health record. It is not the complete legal health record.[facility]
--- OUTSIDE RECORDS SUMMARY | 2025-06-26 09:36 | XMS_ITS | Clinical Summary ---
Author Organization [facility] Address [address] [facility] [address] [place] [address] Phone Care Team Providers Care Pawn Broker Name Role Phone Tadeo Dukes Primary Care Provider [phone] Allergies Active Allergy Reactions Criticality Noted Date [...] Office Visit [facility] [address] [phone] Oliver Drake MD [address] [address] 07/18/2025 Orders Only [facility] [address] [address] Oliver Drake MD [address] [phone] Stage 3 chronic kidney disease, not otherwise [...] Systems Medicare [facility] Care Teams Pawn Broker Relationship Specialty Start Date End Date Tadeo Dukes PA [address] [place] [address], [address] [place] [address] PCP - General Physician Philosophy Specialist 06/23/22
--- OUTSIDE RECORDS SUMMARY | 2025-06-26 09:36 | XMS_ITS | Encounter Summary ---
Author Organization [facility] Address [address] [place] [address] Phone Care Team Providers Care Auto Collision Repair Instructor Name Role Phone Guera Vasquez NP Primary Care Provid er Renato Sinha DO Primary Care Provider [phone] Tadeo Dukes Primary Care Provider + Encounter Details Date Type Department Care Team (Late Contact Info) Description 04/11/2019 Ancillary Orders Virtual Department 30 [place] [address] Renato Sinha DO [address] [place] [address] Breast screening Social History Tobacco Use Types [...] (Late Contact Info) Description 03/10/2025 Procedure Pass [facility], [facility] 30 [place] [address] 06/27/2025 10:40 AM EST Office Visit [facility] 22 [place] [address] Camila Lentz PA-C 22 [place] [address] 11/01/2025 9:20 AM EDT Office Visit [facility] 22 [place] [address] Pam Guerrero MD [address] [place] [address] 2025 3:30 PM EDT Appointment [facility], [facility]- [address] [address] Tadeo Dukes PA 12[address] [place] [address] documented as of this encounter Results * [...] unspecified documented in this encounter Care Teams Auto Collision Repair Instructor Relationship Specialty Start Date End Date Guera Vasquez NP 132 [facility]. 116 [place] [address] PCP - General Nurse Practitioner 02/08/1904/03 Renato Sinha DO 42 [facility] 201 [place] [address] PCP - General Family Medicine 04/15/19 06/04/21 Tadeo Dukes PA 1221 [place] [address] PCP - General 06/05/21 documented as of this encounter Additional Source Comments The information contained in this document represents components of the legal health record. It is not the complete legal health record.[facility]
--- OUTSIDE RECORDS SUMMARY | 2025-06-26 09:36 | XMS_ITS | Encounter Summary ---
Author Organization [facility] Address [address] [place] [address] Phone Care Team Providers Care Control Operator Name Role Phone Renato Sinha DO Primary Care Provider [phone] Tadeo Dukes Primary Care Provider + Encounter Details Date Type Department Care Team (Late st Contact Info) Description 02/14/2020 Ancillary Orders Virtual Department [address] [place] [address] Renato Sinha DO [address] [place] [address] Breast screening Social History Tobacco Use Types [...] st Contact Info) Description 03/10/2025 Procedure Pass [facility], [facility]- [address] [address] 06/27/2025 10:40 AM EST Office Visit [facility] [address] [place] [address] Camila Lentz PA-C 22 [place] [address] 11/01/2025 9:20 AM EDT Office Visit [facility] [address] [place] [address] Pam Guerrero MD 22 [facility] 3rd [place] [address] 2025 3:30 PM EDT Appointment [facility], [facility] 30 [place] [address] Tadeo Dukes PA [address] [place] [address] documented as of this encounter Results * [...] unspecified documented in this encounter Care Teams Control Operator Relationship Specialty Start Date End Date Ernestine DO Renato [address] [address] PCP - General Family Medicine 04/15/19 06/04/21 Tadeo Dukes PA [address] [place] [address] PCP - General 06/05/21 documented as of this encounter Additional Source Comments The information contained in this document represents components of the legal health record. It is not the complete legal health record.[facility]
--- OUTSIDE RECORDS SUMMARY | 2025-06-26 09:36 | XMS_ITS | Encounter Summary ---
Author Organization [facility] Address [address] [place] [address] Phone Care Team Providers Care Malted Milk Masher Name Role Phone ErnestineRenato Primary Care Provider [phone] Tadeo Dukes Primary Care Provider + Encounter Details Date Type Department Care Team (Late st Contact Info) Description 04/02/2021 Procedure Pass [address] [address] Social History Tobacco Use Types Packs/Day Years [...] (Late st Contact Info) Description 03/10/[address] [address] 06/27/2025 10:40 AM EST Office Visit [facility] 22 [place] [address] Camila Lentz PA-C 22 [place] [address] 11/01/2025 9:20 AM EDT Office Visit [facility] 22 [place] [address] Pam Guerrero MD [address] [address] 2025 3:30 PM EDT Appointment [facility], [address] [address] [place] [address] [place] [address] documented as of this encounter Visit Diagnoses Not on filedocumented in this encounter Care Teams Malted Milk Masher Relationship Specialty Start Date End Date Renato Sinha DO [address] [address] PCP - General Family Medicine 04/15/19 06/04/21 Tadeo Dukes PA [address] [place] [address] PCP - General 06/05/21 documented as of this encounter Additional Source Comments The information contained in this document represents components of the legal health record. It is not the complete legal health record.[facility]
--- OUTSIDE RECORDS SUMMARY | 2025-06-26 09:36 | XMS_ITS | Encounter Summary ---
Author Organization [facility] Address [address] [place] [address] Phone Care Team Providers Care Equipment Engineering Technician Name Role Phone Renato Sinha DO Primary Care Provider [phone] Tadeo Dukes Primary Care Provider + Encounter Details Date Type Department Care Team (Late Contact Info) Description 04/02/2021 Ancillary Orders Virtual Department [address] [place] [address] Renato Sinha DO [address] [place] [address] Social History Tobacco Use Types Packs/Day Years [...] (Late Contact Info) Description 03/10/2025 Procedure Pass [facility], [facility] 30 [place] [address] 06/27/2025 10:40 AM EST Office Visit [facility] [address] [place] [address] Camila Lentz PA-C 22 [place] [address] 11/01/2025 9:20 AM EDT Office Visit [facility] 22 [place] [address] Pam Guerrero MD [address] [address] 2025 3:30 PM EDT Appointment [address] [address] Tadeo Dukes PA [address] [place] [address] documented as of this encounter Visit Diagnoses Not on filedocumented in this encounter Care Teams Equipment Engineering Technician Relationship Specialty Start Date End Date Renato Sinha DO [address] [address] PCP - General Family Medicine 04/15/19 06/04/21 Tadeo Dukes PA [address] [place] [address] PCP - General 06/05/21 documented as of this encounter Additional Source Comments The information contained in this document represents components of the legal health record. It is not the complete legal health record.[facility]
--- OUTSIDE RECORDS SUMMARY | 2025-06-26 09:36 | XMS_ITS | Encounter Summary ---
Author Organization [facility] Address [address] [address] Phone Care Team Providers Care Senior Systems Architect Name Role Phone ErnestineRenato Primary Care Provider [phone] Tadeo Dukes Primary Care Provider + Encounter Details Date Type Department Care Team (Late st Contact Info) Description 04/03/2020 Procedure Pass [address] [address] Social History Tobacco Use Types Packs/Day Years [...] st Contact Info) Description 03/10/2025 Procedure Pass [address] [address] 06/27/2025 10:40 AM EST Office Visit [facility] 22 [place] [address] Camila Lentz PA-C 22 [place] [address] 11/01/2025 9:20 AM EDT Office Visit [facility] 22 [place] [address] Pam Guerrero MD [address] [address] 2025 3:30 PM EDT Appointment [address] [address] [place] [address] [place] [address] documented as of this encounter Visit Diagnoses Not on filedocumented in this encounter Care Teams Senior Systems Architect Relationship Specialty Start Date End Date Renato Sinha DO [address] [address] PCP - General Family Medicine 04/15/19 06/04/21 Tadeo Dukes PA [address] [place] [address] PCP - General 06/05/21 documented as of this encounter Additional Source Comments The information contained in this document represents components of the legal health record. It is not the complete legal health record.[facility]
--- OUTSIDE RECORDS SUMMARY | 2025-06-26 09:36 | XMS_ITS | Clinical Summary ---
Author Organization [facility] Address [address] [place] [address] Phone Care Team Providers Care Chief Merchandising Officer Name Role Phone Tadeo Dukes Primary [...] Take 100 mcg by mouth daily. Active ocapqlxq-csf-mnm miranda gluconate (CENTRUM WITH IRON) 9 mg [...] 10/13/2022 Overview (02/11/2024): Dexcom G7 supplier is [facility] medical Assessment & Plan (03/28/2025 [...] estimated GFR 55 from 61. Followed by electronics research engineer. -Reviewed symptoms, prevention and treatment of hypoglycemia. [...] after back to eating regular meals. Her electronics research engineer recommended to add Farxiga but patient was [...] counting. We will send referral to see family living educator. She will add more walking. If overnight or fasting glucose gets below 70-80, she will decrease the Tresiba by 4 to 6 units. If having low sugars within 2 to 4 hours after taking NovoLog she will cut back on her NovoLog dose by 2 to 3 units. Call if glucose below 70 or over 250 repeatedly. [facility], no diabetic retinopathy as per the patient. [...] Office Visit [facility] [address] [place] [address] [place] [address] Hattie Santos CNM Encounter for annual routine gynecological examination (Primary Dx) 03/28/2025 8:40 AM EDT Office Visit [facility] [address] [place] [address] [place] [address] Pam Guerrero MD Type 2 diabetes mellitus with diabetic nephropathy, with long-term current use of insulin (Primary Dx) 03/27/2025 8:00 AM EDT - 03/27/2025 11:59 PM EDT Hospital Encounter [facility] [address] [place] [address] Camila Lentz PA-C Discharge Disposition: Home or [...] st Contact Info) Description 03/10/2025 Procedure Pass [facility], [facility] 30 [place] [address] 06/27/2025 10:40 AM EST Office Visit [facility] [address] [place] [address] Camila Lentz PA-C 22 [place] [address] 11/01/2025 9:20 AM EDT Office Visit [facility] [address] [place] [address] Pam Guerrero MD [facility] 3rd [place] [address] 2025 3:30 PM EDT Appointment [facility], Mammography- [address] [address] Tadeo Dukes PA 1221 [place] [address] Health Maintenance Due Date Last Done Comments [...] EDT) ALT 12 0 - 40 U/L [facility] Blood 03/27/2025 8:21 AM EDT 03/27/2025 8:24 AM EDT us Camila Lentz PA-C LAB BLOOD BKR CAROL WARD Final Result [address] [address] * Aspartate aminotransferase (AST) (03/27/2025 8:21 AM EDT) AST 24 0 - 37 U/L [facility] Blood 03/27/2025 8:21 AM EDT 03/27/2025 8:24 AM EDT Camila Lentz PA-C LAB BLOOD BKR CAROL ZARAGOZARADHA Final Result Performing Organization Address City/[facility]/ZIP Co de Phone Number [address] [address] * (ABNORMAL) Hemoglobin A1c (03/27/2025 8:21 AM EDT) HEMOGLOBIN A1C 6.4(H) 4.3 - 5.8 % [facility] Blood 03/27/2025 8:21 AM EDT 03/27/2025 8:24 AM EDT Camila Lentz PA-C LAB BLOOD DIXIER CAROL ZARAGOZARADHA Final Result [address] [address] * (ABNORMAL) Basic metabolic panel (03/27/2025 8:21 AM EDT) SODIUM 139 133 - 146 mmol/L [facility] CHLORIDE 101 96 - 108 mmol/L [facility] POTASSIUM 3.8 3.3 - 5.1 mmol/L [facility] CO2 27 21 - 35 mmol/L [facility] BUN 21(H) 6 - 19 mg/dL [facility] CREATININE 1.10 0.5 - 1.5 mg/dL [facility] GLUCOSE 115(H) 70 - 99 mg/dL [facility] CALCIUM 9.3 8.4 - 10.3 mg/dL [facility] EGFR 55(L) >59 mL/min/1.7 3m2 [facility] Comment:Estimated glomerular filtration rate calculated using the CKD-EPI refit equation. ANION GAP 15 10 - 20 mmol/L [facility] Blood 03/27/2025 8:21 AM EDT 03/27/2025 8:24 AM EDT us Camila Lentz PA-C LAB BLOOD BKR CAROL WARD Final Result [facility] 30 [place] [address] * BI MAMMOGRAM SCREENING WITH TOMOSYNTHESIS WITH [...] SEE NARRATIVE - 05/02/2019 3:58 [place] [address] Travel Money Advisor: Sabra Cardoza MD ENCODING MACHINE OPERATOR Cytology Report FINAL DIAGNOSIS A. [...] 52, 56, 58, 59, 66, 68) by [employer] On[employer]arity HR-HPV analysis. Clinical correlation is advised. This HPV test was performed at [facility], [address] [place] [address]. This test has been FDA approved for [facility] cervical cytology specimens. The accuracy and precision of this test for all other specimen sources has been verified in the Cytopathology Laboratory of the [facility] and has not been cleared or approved by the U.S. Food and Drug Administration. Clinical correlation is advised. CLINICAL HISTORY Date of Last Menstrual Period: Not Provided Menstrual History: Post Menopausal Other Clinical Conditions: Screening Pap SPECIMEN SOURCE A: PAP SMEAR (SUREPATH) CE Patient Name: ROCIO VIZCAINO : 1955 (Age: 63) Sex: F Institution: [facility] Location: [facility] Date of Collection: 04/26/2019 Date of Reported: 05/02/2019 15:58 Results to: Brianna Raman MSN, BS Brianna Raman IMPREGNATOR AND DRIER HELPER CYTOLOGY ORDERABLES Final Resu lt SEE NARRATIVE from Last 3 Months or Most Recently Relevant to Health Maintenance Insurance MEDICARE PART A & B [facility] MEDICARE SUPPLEMENT MEDICARE PART A & B MEDICARE SUPPLEMENT MEDICARE PART A & B MEDICARE PART A & B MEDICARE PART A & B MEDICARE SUPPLEMENT MEDICARE PART A & B MEDICARE PART A & B MEDICARE SUPPLEMENT MEDICARE PART A & B MEDICARE SUPPLEMENT MEDICARE PART A [place] [id number] [facility] MEDICARE SUPPLEMENT Care Teams Chief Merchandising Officer Relationship Specialty [place] [address] [place] [address] PCP - General 06/05/21 Additional Source Comments The information contained in this document represents components of the legal health record. It is not the complete legal health record.[facility]
--- OUTSIDE RECORDS SUMMARY | 2025-06-26 09:36 | XMS_ITS | Encounter Summary ---
Author Organization [facility] Address [address] [place] [address] Phone Care Team Providers Care Feed Mixer Helper Name Role Phone Tadeo Dukes Primary Care Provider + Encounter Details Date Type Department Care Team (Late st Contact Info) Description 02/16/2024 Procedure Pass [facility], [address] [address] Social History Tobacco Use Types Packs/Day Years [...] st Contact Info) Description 03/10/2025 Procedure Pass [address] [address] 06/27/2025 10:40 AM EST Office Visit [facility] 22 [place] [address] Camila Lentz PA-C 22 [place] [address] 11/01/2025 9:20 AM EDT Office Visit [facility] 22 [place] [address] Pam Guerrero MD [address] [place] [address] 2025 3:30 PM EDT Appointment [address] [address] Tadeo Dukes PA [address] [place] [address] documented as of this encounter Visit Diagnoses Not on filedocumented in this encounter Care Teams Feed Mixer Helper Relationship Specialty [place] [address] [place] [address] PCP - General 06/05/21 documented as of this encounter Additional Source Comments The information contained in this document represents components of the legal health record. It is not the complete legal health record.[facility]
--- OUTSIDE RECORDS SUMMARY | 2025-06-26 09:36 | XMS_ITS | Encounter Summary ---
Author Organization [facility] Address [address] [place] [address] Phone Care Team Providers Care Manager Highway Name Role Phone Renato Sinha Primary Care Provider [phone] Tadeo Dukes Primary Care Provider + Encounter Details Date Type Department Care Team (Late st Contact Info) Description 04/02/2021 Ancillary Orders Virtual Department [address] [place] [address] Tadeo Dukes PA [facility] [place] [address] Breast screening Social History Tobacco Use Types [...] st Contact Info) Description 03/10/2025 Procedure Pass [facility], Mammography- [facility] 30 [place] [address] 06/27/2025 10:40 AM EST Office Visit [facility] 22 [place] [address] Camila Lentz PA-C 22 [place] [address] 11/01/2025 9:20 AM EDT Office Visit [facility] 22 [place] [address] Pam Guerrero MD [address] [place] [address] 3rd [place] [address] 2025 3:30 PM EDT Appointment [facility], [facility]- [facility] 30 [place] [address] Tadeo Dukes PA [address] [place] [address] documented as of this encounter Results * [...] unspecified documented in this encounter Care Teams Manager Highway Relationship Specialty Start Date End Date Renato Sinha [address] [address] PCP - General Family Medicine 04/15/19 06/04/21 [place] [address] [place] [address] PCP - General 06/05/21 documented as of this encounter Additional Source Comments The information contained in this document represents components of the legal health record. It is not the complete legal health record.[facility]
== END ==
LOC: HO.CARD 08:55
PROVIDERS: PCP Physician Assistant; Visit Provider Physician Assistant
DX: R94.39 Abnormal result of other cardiovascular function study (principal)
CPT/HCPCS: 78452; 93017; A9500

== ENCOUNTER → 2025-06-26 08:58 | Outpatient (BNV) | payer MEDICARE, OTHER, SELFPAY | PROVIDERS: PCP Physician Assistant | DX: I49.3 Ventricular premature depolarization (principal); R06.02 Shortness of breath | CPT/HCPCS: 78452; 93016; 93018 ==

== ENCOUNTER 2025-06-27 08:25 | Outpatient (REF) | payer MEDICARE, OTHER, SELFPAY ==
--- OUTSIDE RECORDS SUMMARY | 2025-06-27 08:41 | XMS_ITS | Encounter Summary ---
Author Organization [facility] Address [address] [place] [address] Phone Care Team Providers Care Foundry Melt Supervisor Name Role Phone Renato Sinha DO Primary Care Provider [phone] Tadeo Dukes Primary Care Provider + Encounter Details Date Type Department Care Team (Late Contact Info) Description 04/02/2021 Ancillary Orders Virtual Department [address] [place] [address] Renato Sinha DO [address] [place] [address] Social History Tobacco Use Types Packs/Day Years [...] (Late Contact Info) Description 03/10/2025 Procedure Pass , [facility] 30 [place] [address] 06/27/2025 10:40 AM EST Office Visit [facility] [address] [place] [address] Camila Lentz PA-C 22 [place] [address] 11/01/2025 9:20 AM EDT Office Visit [facility] 22 [place] [address] Pam Guerrero MD [address] [address] 2025 3:30 PM EDT Appointment [address] [address] Tadeo Dukes PA [address] [place] [address] documented as of this encounter Visit Diagnoses Not on filedocumented in this encounter Care Teams Foundry Melt Supervisor Relationship Specialty Start Date End Date Renato Sinha DO [address] [address] PCP - General Family Medicine 04/15/19 06/04/21 Tadeo Dukes PA [address] [place] [address] PCP - General 06/05/21 documented as of this encounter Additional Source Comments The information contained in this document represents components of the legal health record. It is not the complete legal health record.[facility]
--- OUTSIDE RECORDS SUMMARY | 2025-06-27 08:41 | XMS_ITS | Clinical Summary ---
Author Organization [facility] Address [address] [place] [address] Phone Care Team Providers Care Candle Molder Machine Name Role Phone Tadeo Dukes Primary Care [...] Take 100 mcg by mouth daily. Active pvkekkga-afq-jeb miranda gluconate (CENTRUM WITH IRON) 9 mg [...] 10/13/2022 Overview (02/11/2024): Dexcom G7 supplier is [facility] medical Assessment & Plan (03/28/2025 9:33 [...] estimated GFR 55 from 61. Followed by naval architect specialist. -Reviewed symptoms, prevention and treatment of hypoglycemia. [...] after back to eating regular meals. Her naval architect specialist recommended to add Farxiga but patient was [...] counting. We will send referral to see wellness educator. She will add more walking. If overnight or fasting glucose gets below 70-80, she will decrease the Tresiba by 4 to 6 units. If having low sugars within 2 to 4 hours after taking NovoLog she will cut back on her NovoLog dose by 2 to 3 units. Call if glucose below 70 or over 250 repeatedly. [facility] no diabetic retinopathy as per the [...] Office Visit [facility] [address] [place] [address] [place] [address] Hattie Santos CNM Encounter for annual routine gynecological examination (Primary Dx) 03/28/2025 8:40 AM EDT Office Visit [facility] [address] [place] [address] [place] [address] Pam Guerrero MD Type 2 diabetes mellitus with diabetic nephropathy, with long-term current use of insulin (Primary Dx) 03/27/2025 8:00 AM EDT - 03/27/2025 11:59 PM EDT Hospital Encounter [facility] [address] [place] [address] Camila Lentz PA-C Discharge Disposition: Home or [...] st Contact Info) Description 03/10/2025 Procedure Pass [facility], [facility] 30 [place] [address] 06/27/2025 10:40 AM EST Office Visit [facility] [address] [place] [address] Camila Lentz PA-C 22 [place] [address] 11/01/2025 9:20 AM EDT Office Visit [facility] [address] [place] [address] Pam Guerrero MD [facility] 3rd [place] [address] 2025 3:30 PM EDT Appointment [facility], Mammography- [address] [address] Tadeo Dukes PA [address] [place] [address] Health Maintenance Due Date Last Done Comments [...] EDT) ALT 12 0 - 40 U/L [facility] Blood 03/27/2025 8:21 AM EDT 03/27/2025 8:24 AM EDT us Camila Lentz PA-C LAB BLOOD BKR CAROL WARD Final Result [address] [address] * Aspartate aminotransferase (AST) (03/27/2025 8:21 AM EDT) AST 24 0 - 37 U/L [facility] Blood 03/27/2025 8:21 AM EDT 03/27/2025 8:24 AM EDT Camila Lentz PA-C LAB BLOOD BKR CAROL ZARAGOZARADHA Final Result Performing Organization Address City/[facility]/ZIP Co de Phone Number [address] [address] * (ABNORMAL) Hemoglobin A1c (03/27/2025 8:21 AM EDT) HEMOGLOBIN A1C 6.4(H) 4.3 - 5.8 % [facility] Blood 03/27/2025 8:21 AM EDT 03/27/2025 8:24 AM EDT Camila Lentz PA-C LAB BLOOD DIXIER CAROL ZARAGOZARADHA Final Result [address] [address] * (ABNORMAL) Basic metabolic panel (03/27/2025 8:21 AM EDT) SODIUM 139 133 - 146 mmol/L [facility] CHLORIDE 101 96 - 108 mmol/L [facility] POTASSIUM 3.8 3.3 - 5.1 mmol/L [facility] CO2 27 21 - 35 mmol/L [facility] BUN 21(H) 6 - 19 mg/dL [facility] CREATININE 1.10 0.5 - 1.5 mg/dL [facility] GLUCOSE 115(H) 70 - 99 mg/dL [facility] CALCIUM 9.3 8.4 - 10.3 mg/dL [facility] EGFR 55(L) >59 mL/min/1.7 3m2 [facility] Comment:Estimated glomerular filtration rate calculated using the CKD-EPI refit equation. ANION GAP 15 10 - 20 mmol/L [facility] Blood 03/27/2025 8:21 AM EDT 03/27/2025 8:24 AM EDT us Camila Lentz PA-C LAB BLOOD BKR CAROL WARD Final Result [facility] 30 [place] [address] * BI MAMMOGRAM SCREENING WITH TOMOSYNTHESIS WITH [...] SEE NARRATIVE - 05/02/2019 3:58 [place] [address] [facility]: Sabra Cardoza MD TRAINING AND DEVELOPMENT REP Cytology Report FINAL DIAGNOSIS A. PAP SMEAR [...] 52, 56, 58, 59, 66, 68) by Celltrix Onclarity HR-HPV analysis. Clinical correlation is advised. This HPV test was performed at [facility], [address] [place] [address]. This test has been FDA approved for SurePath cervical cytology specimens. The accuracy and precision of this test for all other specimen sources has been verified in the Cytopathology Laboratory of the [facility] and has not been cleared or approved by the U.S. Food and Drug Administration. Clinical correlation is advised. CLINICAL HISTORY Date of Last Menstrual Period: Not Provided Menstrual History: Post Menopausal Other Clinical Conditions: Screening Pap SPECIMEN SOURCE A: PAP SMEAR (SUREPATH) CE Patient Name: ROCIO VIZCAINO : 1955 (Age: 63) Sex: F Institution: [facility] Location: [facility] Date of Collection: 04/26/2019 Date of Reported: 05/02/2019 15:58 Results to: Brianna Raman MSN, BS Brianna Raman SNACK BAR CASHIER CYTOLOGY ORDERABLES Final Resu lt SEE NARRATIVE from Last 3 Months or Most Recently Relevant to Health Maintenance Insurance MEDICARE PART A & B [facility] MEDICARE SUPPLEMENT MEDICARE PART A & B MEDICARE SUPPLEMENT MEDICARE PART A & B MEDICARE PART A & B MEDICARE PART A & B MEDICARE SUPPLEMENT MEDICARE PART A & B MEDICARE PART A & B MEDICARE SUPPLEMENT MEDICARE PART A & B MEDICARE SUPPLEMENT MEDICARE PART A & B Member Subscriber Plan / Payer (Ef fective 2008-Present) Name:Rocio Osborn Member ID:[id number] Relation to Subscriber:Self Name:Rocio Osborn Subscriber ID:[id number] Payer ID:[id number] Group ID:Not on file Type:Medicare Address: [facility] [employer] [facility] [address] [place] [address] [place] [address] [facility] MEDICARE SUPPLEMENT Care Teams Candle Molder Machine Relationship Specialty [place] [address] [place] [address] PCP - General 06/05/21 Additional Source Comments The information contained in this document represents components of the legal health record. It is not the complete legal health record.[facility]
--- OUTSIDE RECORDS SUMMARY | 2025-06-27 08:41 | XMS_ITS | Encounter Summary ---
Author Organization [facility] Address [address] [place] [address] Phone Care Team Providers Care Metal Window Screen Assembler Name Role Phone Reanto Sinha DO Primary Care Provider [phone] Tadeo Dukes Primary Care Provider + Encounter Details Date Type Department Care Team (Late st Contact Info) Description 02/14/2020 Ancillary Orders Virtual Department [address] [place] [address] Renato Sinha DO [address] [place] [address] Breast screening Social History Tobacco Use Types [...] st Contact Info) Description 03/10/2025 Procedure Pass [facility], [facility]- [address] [address] 06/27/2025 10:40 AM EST Office Visit [facility] [address] [place] [address] Camila Lentz PA-C 22 [place], [place] [address] 11/01/2025 9:20 AM EDT Office Visit [facility] [address] [place] [address] Pam Guerrero MD 22 [facility] 3rd [place] [address] 2025 3:30 PM EDT Appointment [facility], [facility] 30 [place] [address] Tadeo Dukes PA [address] [place] [address] documented as of this encounter Results * [...] unspecified documented in this encounter Care Teams Metal Window Screen Assembler Relationship Specialty Start Date End Date Ernestine DO Renato [address] [address] PCP - General Family Medicine 04/15/19 06/04/21 Tadeo Dukes PA [address] [place] [address] PCP - General 06/05/21 documented as of this encounter Additional Source Comments The information contained in this document represents components of the legal health record. It is not the complete legal health record.[facility]
--- OUTSIDE RECORDS SUMMARY | 2025-06-27 08:41 | XMS_ITS | Clinical Summary ---
Author Organization [facility] Address [address] [facility] [address] [place] [address] Phone Care Team Providers Care Project Portfolio Analyst Name Role Phone Tadeo Dukes Primary Care Provider [phone] Allergies Active Allergy Reactions Criticality Noted Date [...] Office Visit [facility] [address] [address] Oliver Drake MD [address] [address] 07/18/2025 Orders Only [facility] [address] [address] Oliver Drake MD [address] [address] Stage 3 chronic kidney disease, not otherwise [...] age to complete this topic Insurance Medicare [facility] Medicare [facility] Care Teams Project Portfolio Analyst Relationship Specialty Start Date End Date Tadeo Dukes PA [address] [place] [address], [address] [place] [address] PCP - General Physician Theatre Program Director 06/23/22
--- OUTSIDE RECORDS SUMMARY | 2025-06-27 08:41 | XMS_ITS | Clinical Summary ---
Author Organization [facility] [address] [facility] Address [address] [place] [address] Phone Care Team Providers Care Abrasive Wheel Molder Name Role Phone Tadeo Dukes Primary Care [...] Date NSTEMI (non-ST elevated myoc ardial infarction) ([facility] V24, [facility] V28) 01/11/2021 Allergic rhinitis 06/23/2017 Asthma 06/23/2017 CKD (chronic kidney disease) stage 3, GFR 30-59 ml/min ([facility] V24, [facility] V28) 06/23/2017 GERD (gastroesophageal reflux disease) 7 Assessment & Plan (06/21/2024 8:56 AM EST): Continue Omeprazole 40mg daily History of alcohol abuse 06/23/2017 Overview (05/30/2024): In AA HTN (hypertension) 06/23/2017 Major depression 06/23/2017 WYATT on CPAP 06/23/2017 Type 2 diabetes mellitus wit h renal manifestations ([facility] V24, [facility] V28) 06/23/2017 Vitamin D deficiency [...] kidney disease) stage 3, GFR 30-59 ml/min ([facility] V24, [facility] V28) 06/23/2017 DX:CKD (chronic kidney disea se) stage 3, GFR 30-59 ml/min ([facility]) Type 2 diabetes mellitus wit h renal manifestations ([facility] V24, [facility] V28) 06/23/2017 DX:Type 2 diabetes mellitus with renal manifestations ([facility]) HTN (hypertension) 06/23/2017 DX:HTN (hyper [...] alcohol abuse; COMMENT: In AA Bipolar disorder ([facility] V2 4, [facility] V28) DX:Bipolar disorder ([facility]) Family History Medical History Relation [...] Recently Relevant to Health Maintenance Insurance MEDICARE [facility] Care Teams Abrasive Wheel Molder Relationship Specialty Start Date End Date Tadeo Dukes PA [facility] [place] [phone] PCP - General Physician Production Shift Supervisor 05/30/24
--- OUTSIDE RECORDS SUMMARY | 2025-06-27 08:41 | XMS_ITS | Encounter Summary ---
Author Organization [facility] Address [address] [place] [address] Phone Care Team Providers Care Recapper Name Role Phone Renato Sinha Primary Care Provider [phone] Tadeo Dukes Primary Care Provider + Encounter Details Date Type Department Care Team (Late st Contact Info) Description 04/02/2021 Ancillary Orders Virtual Department [address] [place] [address] Tadeo Dukes PA [facility] [place] [address] Breast screening Social History Tobacco Use Types [...] st Contact Info) Description 03/10/2025 Procedure Pass [facility], Mammography- [facility] 30 [place] [address] 06/27/2025 10:40 AM EST Office Visit [facility] 22 [place] [address] Camila Lentz PA-C 22 [place] [address] [email or web address] 11/01/2025 9:20 AM EDT Office Visit [facility] 22 [place] [address] Pam Guerrero MD [address] [place] [address] 3rd [place] [address] 2025 3:30 PM EDT Appointment [facility], [facility]- [facility] 30 [place] [address] Tadeo Dukes PA [address] [place] [address] documented as of this encounter Results * [...] unspecified documented in this encounter Care Teams Recapper Relationship Specialty Start Date End Date Renato Sinha [address] [address] PCP - General Family Medicine 04/15/19 06/04/21 [place] [address] [place] [address] PCP - General 06/05/21 documented as of this encounter Additional Source Comments The information contained in this document represents components of the legal health record. It is not the complete legal health record.[facility]
--- OUTSIDE RECORDS SUMMARY | 2025-06-27 08:41 | XMS_ITS | Encounter Summary ---
Author Organization [facility] Address [address] [place] [address] Phone Care Team Providers Care Child Care Lead Teacher Name Role Phone Tadeo Dukes Primary Care Provider + Encounter Details Date Type Department Care Team (Late st Contact Info) Description 02/13/2022 Procedure Pass [address] [address] Social History Tobacco Use Types Packs/Day Years [...] st Contact Info) Description 03/10/2025 Procedure Pass [address] [address] 06/27/2025 10:40 AM EST Office Visit [facility] 22 [place] [address] Camila Lentz PA-C 22 [place] [address] 11/01/2025 9:20 AM EDT Office Visit [facility] 22 [place] [address] Pam Guerrero MD [address] [address] 2025 3:30 PM EDT Appointment [address] [address] Tadeo Dukes PA [address] [place] [address] documented as of this encounter Visit Diagnoses Not on filedocumented in this encounter Care Teams Child Care Lead Teacher Relationship Specialty Start Date End Date Tadeo Dukes PA [address] [place] [address] PCP - General 06/05/21 documented as of this encounter Additional Source Comments The information contained in this document represents components of the legal health record. It is not the complete legal health record.[facility]
--- OUTSIDE RECORDS SUMMARY | 2025-06-27 08:41 | XMS_ITS | Encounter Summary ---
Author Organization [facility] Address [address] [address] Phone Care Team Providers Care Grievance And Appeals Coordinator Name Role Phone ErnestineRenato Primary Care Provider [phone] Tadeo Dukes Primary Care Provider + Encounter Details Date Type Department Care Team (Late st Contact Info) Description 04/03/2020 Procedure Pass [address] [address] Social History Tobacco Use Types Packs/Day Years [...] st Contact Info) Description 03/10/2025 Procedure Pass [address] [address] 06/27/2025 10:40 AM EST Office Visit [facility] 22 [place] [address] Camila Lentz PA-C 22 [place] [address] 11/01/2025 9:20 AM EDT Office Visit [facility] 22 [place] [address] Pam Guerrero MD [address] [address] 2025 3:30 PM EDT Appointment [address] [address] [place] [address] [place] [address] documented as of this encounter Visit Diagnoses Not on filedocumented in this encounter Care Teams Grievance And Appeals Coordinator Relationship Specialty Start Date End Date Renato Sinha DO [address] [address] PCP - General Family Medicine 04/15/19 06/04/21 Tadeo Dukes PA [address] [place] [address] PCP - General 06/05/21 documented as of this encounter Additional Source Comments The information contained in this document represents components of the legal health record. It is not the complete legal health record.[facility]
--- OUTSIDE RECORDS SUMMARY | 2025-06-27 08:41 | XMS_ITS | Encounter Summary ---
Author Organization [facility] Address [address] [place] [address] Phone Care Team Providers Care Hardboard Factory Worker Name Role Phone Tadeo Dukes Primary Care Provider + Encounter Details Date Type Department Care Team (Late st Contact Info) Description 03/10/2025 Transcribe Orders Virtual Department [address] [place] [address] Tadeo Dukes PA [address] [place] [address] Breast screening (Primary Dx) Social History Tobacco [...] st Contact Info) Description 03/10/2025 Procedure Pass [address] [address] 06/27/2025 10:40 AM EST Office Visit [facility] [address] [place] [address] Camila Lentz PA-C [address] [place] [address] 11/01/2025 9:20 AM EDT Office Visit [facility] [address] [place] [address] Pam Guerrero MD [address] [place] [address] 2025 3:30 PM EDT Appointment [address] [address] Tadeo Dukes PA [address] [place] [address] Scheduled Orders Name Type Priority Associated Diagnoses Orde r Schedule Mammogram Screening (Bilateral) Imaging Routine Breast screening Expected: 04/10/2025, Expires: 03/10/2026 documented as of this encounter Visit Diagnoses Diagnosis Breast screening- Primary Breast screening, unspecified documented in this encounter Care Teams Hardboard Factory Worker Relationship Specialty Start Date End Date Tadeo Dukes PA [address] [place] [address] PCP - General 06/05/21 documented as of this encounter Additional Source Comments The information contained in this document represents components of the legal health record. It is not the complete legal health record.[facility]
--- OUTSIDE RECORDS SUMMARY | 2025-06-27 08:41 | XMS_ITS | Encounter Summary ---
Author Organization [facility] Address [address] [place] [address] Phone Care Team Providers Care Systems Lead Name Role Phone Tadeo Dukes Primary Care Provider + Encounter Details Date Type Department Care Team (Late st Contact Info) Description 02/16/2024 Procedure Pass [facility], [address] [address] Social History Tobacco Use Types Packs/Day Years [...] st Contact Info) Description 03/10/2025 Procedure Pass [address] [address] 06/27/2025 10:40 AM EST Office Visit [facility] 22 [place] [address] Camila Lentz PA-C 22 [place] [address] 11/01/2025 9:20 AM EDT Office Visit [facility] [address] [place] [address] Pam Guerrero MD [address] [place] [address] 2025 3:30 PM EDT Appointment [address] [address] Taedo Dukes PA [address] [place] [address] documented as of this encounter Visit Diagnoses Not on filedocumented in this encounter Care Teams Systems Lead Relationship Specialty [place] [address] [place] [address] PCP - General 06/05/21 documented as of this encounter Additional Source Comments The information contained in this document represents components of the legal health record. It is not the complete legal health record.[facility]
--- OUTSIDE RECORDS SUMMARY | 2025-06-27 08:41 | XMS_ITS | Encounter Summary ---
Author Organization [facility] Address [address] [place] [address] Phone Care Team Providers Care Composition Mixer Name Role Phone Renato Sinha DO Primary Care Provider [phone] Guera Vasquez NP Primary Care Provid er Renato Sinha DO Primary Care Provider [phone] Tadeo Dukes Primary Care Provider + Encounter Details Date Type Department Care Team (Late st Contact Info) Description 12/16/2017 Ancillary Orders Virtual Department 30 [place] [address] Renato Sinha DO [address] [place] [address] Breast screening Social History Tobacco Use Types [...] (Late Contact Info) Description 03/10/2025 Procedure Pass [facility], Mammography- [facility] [address] [place] [address] 06/27/2025 10:40 AM EST Office Visit [facility] [address] [place] [address] Camila Lentz PA-C 22 [place] [address] 11/01/2025 9:20 AM EDT Office Visit [facility] 22 [place] [address] Pam Guerrero MD 22 [facility] [address] [place] [address] 2025 3:30 PM EDT Appointment [facility], [facility] [address] [place] [address] Tadeo Dukes PA [address] [place] [address] documented as of this encounter Results * [...] mammography. POS - [id number] Renato Sinha DO [facility] MG EXAMS Final Result documented in this encounter Visit Diagnoses Diagnosis Breast screening Breast screening, unspecified Breast screening Breast screening, unspecified documented in this encounter Care Teams Composition Mixer Relationship Specialty Start Date End Date Renato Sinha DO PCP - General 08/06/17 02/07/19 Guera Vasquez NP 132 [facility]. [address] [place] [address] PCP - General Nurse Practitioner 02/08/1904/03 Renato Sinha DO 42 [facility] [address] [place] [address] PCP - General Family Medicine 04/15/19 06/04/21 Tadeo Dukes PA [address] [place] [address] PCP - General 06/05/21 documented as of this encounter Additional Source Comments The information contained in this document represents components of the legal health record. It is not the complete legal health record.[facility]
--- OUTSIDE RECORDS SUMMARY | 2025-06-27 08:41 | XMS_ITS | Encounter Summary ---
Author Organization [facility] Address [address] [place] [address] Phone Care Team Providers Care Neon Sign Installer Name Role Phone Tadeo Dukes Primary Care Provider + Encounter Details Date Type Department Care Team (Late Contact Info) Description 01/26/2023 Procedure Pass [facility], [address] [address] Social History Tobacco Use Types Packs/Day Years [...] st Contact Info) Description 03/10/2025 Procedure Pass [address] [address] 06/27/2025 10:40 AM EST Office Visit [facility] 22 [place] [address] Camila Lentz PA-C 22 [place] [address] 11/01/2025 9:20 AM EDT Office Visit [facility] [address] [place] [address] Pam Guerrero MD [address] [place] [address] 2025 3:30 PM EDT Appointment [address] [address] Tadeo Dukes PA [address] [place] [address] documented as of this encounter Visit Diagnoses Not on filedocumented in this encounter Care Teams Neon Sign Installer Relationship Specialty [place] [address] [place] [address] PCP - General 06/05/21 documented as of this encounter Additional Source Comments The information contained in this document represents components of the legal health record. It is not the complete legal health record.[facility]
--- OUTSIDE RECORDS SUMMARY | 2025-06-27 08:41 | XMS_ITS | Encounter Summary ---
Author Organization [facility] Address [address] [place] [address] Phone Care Team Providers Care Tool Chaser Name Role Phone Guera Vasquez NP Primary Care Provid er Renato Sinha DO Primary Care Provider Tadeo Dukes Primary Care Provider + Encounter Details Date Type Department Care Team (Late Contact Info) Description 04/11/2019 Ancillary Orders Virtual Department 30 [place] [address] Renato Sinha DO [address] [place] [address] Breast screening Social History Tobacco Use Types [...] (Late Contact Info) Description 03/10/2025 Procedure Pass [facility], [facility] 30 [place] [address] 06/27/2025 10:40 AM EST Office Visit [facility] [address] [place] [address] Camila Lentz PA-C 22 [place] [address] [email or web address] 11/01/2025 9:20 AM EDT Office Visit [facility] [address] [place] [address] Pam Guerrero MD [address] [place] [address] [email or web address] 2025 3:30 PM EDT Appointment [facility], [facility]- [address] [address] Tadeo Dukes PA [address] [place] [address] documented as of this encounter Results * [...] unspecified documented in this encounter Care Teams Tool Chaser Relationship Specialty Start Date End Date Guera Vasquez NP 132 [facility]. [address] [place] [address] PCP - General Nurse Practitioner 02/08/1904/03 Renato Sinha DO 42 [facility] 201 [place] [address] PCP - General Family Medicine 04/15/19 06/04/21 Tadeo Dukes PA [address] [place] [address] PCP - General 06/05/21 documented as of this encounter Additional Source Comments The information contained in this document represents components of the legal health record. It is not the complete legal health record.[facility]
--- OUTSIDE RECORDS SUMMARY | 2025-06-27 08:41 | XMS_ITS | Encounter Summary ---
Author Organization [facility] Address [address] [place] [address] Phone Care Team Providers Care Drum Loader And Unloader Name Role Phone Tadeo Dukes Primary Care Provider + Encounter Details Date Type Department Care Team (Latest Contact Info) Description 01/26/2023 Transcribe Orders Virtual Department 30 [place] [address] Brianna Raman, SHAKE BACKBOARD NOTCHER 30 [place] [address] [email or web address] Breast screening (Primary Dx) Social History Tobacco [...] Contact Info) Description 03/10/2025 Procedure Pass [address] [address] 06/27/2025 10:40 AM EST Office Visit [facility] [address] [place] [address] Camila Lentz PA-C [address] [place] [address] 11/01/2025 9:20 AM EDT Office Visit [facility] 22 [place] [address] Pam Guerrero MD [address] [place] [address] 2025 3:30 PM EDT Appointment [address] [address] Tadeo Dukes PA [address] [place] [address] documented as of this encounter Results * [...] There are scattered fibroglandular densities. Brianna Raman SHAKE BACKBOARD NOTCHER IMG MG EXAMS Final Result documented in this encounter Visit Diagnoses Diagnosis Breast screening- Primary Breast screening, unspecified Breast screening Breast screening, unspecified documented in this encounter Care Teams Drum Loader And Unloader Relationship Specialty Start Date End Date Tadeo Dukes PA [address] [place] [address] PCP - General 06/05/21 documented as of this encounter Additional Source Comments The information contained in this document represents components of the legal health record. It is not the complete legal health record.[facility]
--- OUTSIDE RECORDS SUMMARY | 2025-06-27 08:41 | XMS_ITS | Encounter Summary ---
Author Organization [facility] Address [address] [place] [address] Phone Care Team Providers Care Dish Washer Name Role Phone ErnestineRenato Primary Care Provider [phone] Tadeo Dukes Primary Care Provider + Encounter Details Date Type Department Care Team (Late st Contact Info) Description 04/02/2021 Procedure Pass [address] [address] Social History Tobacco Use Types Packs/Day Years [...] (Late st Contact Info) Description 03/10/[address] [address] 06/27/2025 10:40 AM EST Office Visit [facility] 22 [place] [address] Camila Lentz PA-C 22 [place] [address] 11/01/2025 9:20 AM EDT Office Visit [facility] 22 [place] [address] Pam uGerrero MD [address] [address] 2025 3:30 PM EDT Appointment [facility], [address] [address] [place] [address] [place] [address] documented as of this encounter Visit Diagnoses Not on filedocumented in this encounter Care Teams Dish Washer Relationship Specialty Start Date End Date Renato Sinha DO [address] [address] PCP - General Family Medicine 04/15/19 06/04/21 Tdaeo Dukes PA [address] [place] [address] PCP - General 06/05/21 documented as of this encounter Additional Source Comments The information contained in this document represents components of the legal health record. It is not the complete legal health record.[facility]
--- NOTE | 2025-06-27 11:20 | EMG_ITS ---
Chief complaint: Pain in left hand Referred by: ARLETH Pugh Procedure done: NCS and EMG of the left upper extremity Left median and ulnar motor studies were performed. Left median and ulnar mixed sensory studies and radial sensory study was performed and paraspinal muscles were tested with a needle. Findings: Left median motor distal latencies was mildly prolonged. Median mixed distal latencies was moderately prolonged with slowing of conduction velocity. Impression: [id number] left median neuropathy across carpal tunnel [place] [address] [facility]
== END 2025-06-27 08:26 | disposition home or self-care (01) ==
LOC: HO.NEURO 08:25
PROVIDERS: PCP Physician Assistant; Visit Provider Physician Assistant
DX: R20.2 Paresthesia of skin (principal); M79.642 Pain in left hand
CPT/HCPCS: 95886; 95909

== ENCOUNTER → 2025-06-27 11:20 | Outpatient (BNV) | payer MEDICARE, OTHER, SELFPAY | PROVIDERS: PCP Physician Assistant; Visit Provider Psychiatry & Neurology Neurology | DX: G56.02 Carpal tunnel syndrome, left upper limb (principal) | CPT/HCPCS: 95886; 95909 ==

== ENCOUNTER 2025-06-28 08:53 | Outpatient (AMB) | payer MEDICARE, OTHER, SELFPAY ==
[2025-06-28 09:14] VITALS: BP 132/78; PULSE 80; TEMP 36.2; O2SAT 96; BMI 37.0
--- NOTE | 2025-06-28 09:14 | MHC.PC.OV ---
Vital Signs 06/28/25 09:14 Height 5 ft 5 in Weight 222 lb 4 oz BMI 37.0 BP 132/78 Blood Pressure Location Lt brachial Position Sitting Pulse 80 Pulse Source Pulse Oximeter Temp 97.1 F Temp Source Temporal Artery Scan Pulse Oximetry (%) 96 Oxygen Delivery Method Room Air Intake Visit Reasons: Annual Exam Allergies aspirin Allergy (Severe, Verified 06/28/25 09:29) GI trouble Iodinated Contrast Media Allergy (Severe, Verified 06/28/25 09:29) Difficulty Breathing amlodipine Adverse Reaction (Intermediate, Verified 06/28/25 09:29) leg swelling Medication List - Last Reconciled 06/28/25 by Tadeo Dukes PA-C albuterol sulfate 90 mcg/actuation 2 inhalations inhalation Q6H PRN 30 days albuterol sulfate 90 mcg/actuation (ProAir RespiClick) 2 inhalations inhalation Q6H PRN 30 days aspirin (Adult Low Dose Aspirin) 81 mg PO DAILY 90 days atorvastatin 40 mg PO DAILY 90 days blood pressure test kit-large As directed bupropion HCl XL 300 mg PO DAILY calcium carbonate-vitamin D3 500 mg-10 mcg (400 unit) (Oyster Shell Calcium-Vitamin D3) 1 tab PO BID 90 days cholecalciferol (vitamin D3) 25 mcg PO DAILY cyanocobalamin (vitamin B-12) 1,000 mcg PO DAILY doxazosin 4 mg PO DAILY 90 days fluticasone propion-salmeterol 113-14 mcg/actuation (AirDuo RespiClick) 1 inh inhalation Q12H hydrochlorothiazide 25 mg PO QAM 90 days insulin aspart U-100 (Novolog FlexPen U-100 Insulin aspart) 15 - 17 units subcut TID insulin degludec 76 units (0.38 mL) subcut BEDTIME isosorbide mononitrate ER 60 mg PO DAILY 90 days losartan 100 mg PO DAILY lurasidone (Latuda) 80 mg PO DAILY melatonin 20 mg PO DAILY multivitamin with minerals 1 cap PO DAILY omeprazole 20 mg PO DAILY pen needle, diabetic (BD Ultra-Fine Mini Pen Needle) As directed vilazodone (Viibryd) 40 mg PO DAILY Tobacco use date assessed: 06/28/25 Fall risk assessment: 1 Fall in past year Last assessed Fall Risk: 06/28/25 Dental Screening Dental Screen Date: 11/26/25 Did you have a dental visit in the last 12 months?: Yes Did you have a dental problem in the last 6 months where you did not have access to dental care?: No Was dental information given to patient?: Patient has dentist HPI Annual Exam HPI Details Patient is a 69-year-old female here today for routine annual physical Patient has a past medical history significant for type 2 diabetes, hyperlipidemia, hypertension, history of non STEMI,? asthma, WYATT, major depression, PTSD Left wrist pain: The patient reports left wrist pain that started with a small bump, which has somewhat diminished. The pain is now localized to a specific spot, hurts with certain thumb and wrist movements, and has a severity of 2/10. A nerve test confirmed moderate carpal tunnel syndrome, and the patient believes the pain could be from holding a phone. .. Type 2 diabetes: Today's A1c is 6.4, continues to monitor her blood sugars fairly close. She does see an nitrate operator who manages her diabetes on insulin. .. Abnormal nuclear stress test: Has a history of an NSTEMI. Recent nuclear stress test done June 2025 showing EKG evidence of downsloping ST depressions inferolaterally meeting criteria for ischemia. She has an upcoming appointment with Cardiology for evaluation. She reports she has gotten labs at [facility] yesterday and we are awaiting results these labs include a lipid panel. Patient does report whenever she is more physically active she does get chest pain thus will supply patient with nitro to use as needed. .. MDD: Is followed by a med provider whom prescribes her mental health meds. She reports recently starting Wellbutrin which has helped her mental health and depression.. .. Obstructive sleep apnea:? Patient followed by pulmonology and continues on APAP at night with decent affect. .. HTN:? Patient's blood pressure acceptable today in office. Will continue her current dose of antihypertensive medication. .. DMII: Has been compliant with her Insulins.? Patient is followed by nitrate operator now in [facility]. She reports some most recent A1c was fairly stable..? Has lost a little bit of weight since last office visit .. Asthma/ WYATT:? Has been well controlled with p.r.n. use of albuterol inhaler.? Recently started on a maintenance inhaler(airduo) Denies any nighttime awakenings with asthma symptoms.? Does use a CPAP machine at night. Vaccine: UTD with COVID and flu, up-to-date with pneumonia shingles and tetanus .. Colonoscopy: Dr shafer did colonoscopy in 2024-repeat 5 years due to family history of polyps. .. MAmmo: UTD-has upcoming mammogram in fall of 2024 .. PRESSURISED CONTAINER FILLER: sees a PRESSURISED CONTAINER FILLER ( Victor) Ramiro Harrington. . Bone density: Done in 2023 normal bone density [facility] Medical History Lower extremity edema Thyroid nodule Anemia Hypersomnia with sleep apnea High cholesterol Diabetes Hypertension Asthma WYATT (obstructive sleep apnea) Surgical History Hx of colonoscopy History of esophagogastroduodenoscopy (EGD) Uterine polyp History of removal of cyst Family History Father Stroke Diabetes Mother Hypertension COPD (chronic obstructive pulmonary disease) CHF (congestive heart failure) FHx: colonic polyps Maternal Grandmother Stroke Sister FHx: colonic polyps Other Mental health disorder Substance use disorder Social History Housing: House Alcohol intake: never Patient Tobacco Use Status: Never used Tobacco e-Cigarette/Vaping Use: Never Used Second Hand Smoke Exposure: Yes service: No Current occupational status: retired Cognitive needs: No Hearing needs: No Vision needs: Yes (Glasses) Questionnaire PHQ-9 Over the last 2 weeks, how often have you been bothered by any of the following problems? 1. Little interest or pleasure in doing things: not at all 2. Feeling down, depressed, or hopeless: not at all 3. Trouble falling or staying asleep, or sleeping too much: several days 4. Feeling tired or having little energy: not at all 5. Poor appetite or overeating: not at all 6. Feeling bad about yourself - or that you are a failure or have let yourself or your family down: not at all 7. Trouble concentrating on things, such as reading the newspaper or watching television: not at all 8. Moving or speaking so slowly that other people could have noticed. Or the opposite - being so fidgety or restless that you have been moving around a lot more than usual: not at all 9. Thoughts that you would be better off or of hurting yourself in some way: not at all Total score: 1 Depression Screening Interpretation: Negative Depression Screening Done: Yes 97184 - PHQ-9 Billing: Patient declined-do not bill Source: Developed by Drs. Jakob Batres, Kayla Whitney, Iglesia Moreira and colleagues, with an educational vanda from [employer]. Thrive Questionnaire Date Thrive assessed: 11/28/24 I am a: Patient What is your living situation today?: I have a steady place to live Within the past 12 months, did the food you bought not last and you didn't have the money to get more?: Never true Within the past 12 months, did you worry whether your food would run out before you got money to buy more?: Never true Do you have trouble paying for medicines?: No Do you have trouble getting transportation to medical appointments?: No Do you have trouble paying your heating and electricity bill?: No Do you have trouble taking care of your child, family member or friend?: No Do you have trouble with day-to-day activities such as bathing, preparing meals, shopping, managing finances, etc.?: Yes Are you currently unemployed and looking for a job?: No Are you interested in more education?: No Please select the resources that you would like help with: None Currently or been in a relationship where the following occur: No concerns reported THRIVE Score: 0 AUDIT C Alcohol Use Questionnaire (AUDIT-C) 1. How often do you have a drink containing alcohol?: Never 3. How often do you have six or more drinks on one occasion?: Never Total Score: 0 YANIQUE-7 AMB Questionnaire YANIQUE-7 Date YANIQUE - 7 assessed: 09/01/24 Feeling nervous, anxious, or on edge: 1 = Several days Not being able to stop or control worryin = Several days Worrying too much about different things: 1 = Several days Trouble relaxin = Not at all Being so restless that it is hard to sit still: 0 = Not at all Becoming easily annoyed or irritable: 0 = Not at all Feeling afraid as if something awful might happen: 1 = Several days Total YANIQUE-7 score (0-4 normal; 5-9 mild; 10-14 moderate; 15-21 severe): 4 Source: Developed by Drs. Jakob Batres, Kayla Whitney, Iglesia Moreira and colleagues, with an educational vanda from [employer]. Review of Systems Const Denies body aches, Denies chills, Denies excessive sweating, Denies fatigue, Denies fever(s) and Denies headache(s) Eyes Denies blurry vision ENT Denies dysphagia, Denies vertigo, Denies dizziness, Denies headache(s), Denies hearing loss and Denies tinnitus Card Denies chest pain, Reports chest pain with activity, Denies syncope, Denies irregular heart rhythm and Denies dyspnea Resp Denies chest congestion, Denies cough, Denies hemoptysis, Denies dyspnea and Denies wheezing GI Denies abdominal pain, Denies melena, Denies hematochezia, Denies coffee ground emesis, Denies dysphagia, Denies diarrhea, Denies nausea and Denies vomiting Denies urinary frequency, Denies dysuria, Denies urinary hesitancy and Denies urinary urgency Musc Denies arthralgias, Denies limited range of motion, Denies muscle cramps and Denies muscle weakness Skin/Breast Denies rash and Denies skin ulcer Neuro Denies Abnormal speech present, Denies confusion, Denies vertigo, Denies dizziness, Denies syncope, Denies headache(s), Denies memory loss and Denies seizure-like activity Psych Denies anxiety, Denies confusion, Denies depression, Denies memory loss, Denies panic attacks and Denies paranoia Endo Denies excessive sweating, Denies fatigue, Denies flushing, Denies polydipsia and Denies polyuria Aller/Immun Denies wheezing Physical exam (Primary Care) Vital Signs: Last Vital Signs Temp 97.1 F 06/28/25 09:14 Pulse 80 06/28/25 09:14 BP 132/78 06/28/25 09:14 Pulse Ox 96 06/28/25 09:14 Oxygen Delivery Method Room Air 06/28/25 09:14 BMI result Body Mass Index 37.0 BMI Assessment/Plan discussion: High BMI High, discussed plan: lifestyle, weight reduction, dietary and physical activity Tobacco/Smoking Status: Tobacco use Status Tobacco use date assessed 06/28/25 06/28/25 09:22 Patient Tobacco Use Status Never used Tobacco 06/28/25 09:22 e-Cigarette/Vaping Use Never Used 06/28/25 09:22 PHQ-9: PHQ-9 Score PHQ-9: Total score 1 06/28/25 09:22 Depression Screening Interpretation: Negative Thrive Assessment: Date of Thrive Assessment Date Thrive assessed 11/28/24 06/28/25 09:22 Currently or been in a relationship where the following occur: No concerns reported Const General: cooperative, comfortable, no acute distress, alert and awake; No confusion Orientation/consciousness: oriented to person, oriented to place, patient oriented x3 and No confusion HENMT Head: Yes normocephalic Ears: external ears normal and TM's normal bilaterally Face and sinus: No sinus tenderness Mouth: Normal oral and palatal mucosa present and tongue normal Teeth and gingiva: dentition normal and gingiva normal Throat: Yes posterior oropharynx normal, Yes tonsils normal and Yes uvula midline Eyes Conjunctivae: conjunctivae normal Sclerae: sclerae normal Pupils: Equal, round and reactive pupils present EOM: EOMs intact bilaterally Direct Ophthalmoscopy: No no photophobia Neck Neck: Yes no lymphadenopathy, No tender and Yes no JVD Thyroid: Thyroid normal Carotids: no bruits Chest Chest palpation & inspection: no tenderness Resp Effort & Inspection: normal respiratory effort, no audible wheezes, not labored and no stridor Auscultation: no crackles, no rales, no rhonchi and no wheezes Cardio Jugular venous distension: no JVD Rate: regular rate, not bradycardic and not tachycardic Rhythm: regular rhythm Bruits: no carotid bruits Peripheral pulses: Peripheral pulses 2+ throughout GI Inspection: Yes normal to inspection, No abdominal wall ecchymosis and No visible herniation Palpation (GI): Soft to palpation, nontender, no guarding, not rigid and No hepatosplenomegaly present Auscultation: normoactive bowel sounds General: Yes no CVA tenderness Back/Spine/Pelvis Back: no CVA tenderness and No back tenderness Cervical Spine: cervical ROM normal Thoracic/Lumbar Spine: thoracic and lumbar spine normal to inspection, straight leg raise negative bilaterally, No thoraco-lumbar ROM limited and No lumbar spinal tenderness Skin Lesions: no lesions Rashes: no rashes Wounds: no wounds Neuro General: oriented to person, oriented to place, patient oriented x3, CN's II-XI intact bilaterally and No confusion Cranial nerves: Yes Equal, round and reactive pupils present and Yes Normal accommodation reflex present Cognition (Neuro): normal cognition Speech: No Abnormal speech present Gait exam (Neuro): Normal gait present Motor exam (neuro): 5/5 motor strength present throughout Extrem Right upper extremity: full ROM; no cyanosis Left upper extremity: full ROM; no cyanosis Right lower extremity: no edema Left lower extremity: no edema Psych Appearance: grossly normal Mental Status: mental status grossly normal Affect: normal affect Attitude: cooperative Thought process: Normal thought process present Results AMB Hemoglobin A1c AMB Hemoglobin A1c 6.4 % Last Edit by Ashwini Alegria CMA on 06/28/25 09:27 Results Reviewed Results Reviewed: Laboratory Last Values Hgb A1c (Clinic) 6.4 % (4.0-6.0) H 06/28/25 09:26 Coding Level of Care Code Est Pt Prev Care >65y(10688) Diagnoses Annual physical exam Z00.00 Essential hypertension I10 Hypertension type: essential hypertension Stage 3 chronic kidney disease, unspecified whether stage 3a or 3b CKD N18.30 Chronic kidney disease stage 3 subtype: unspecified whether 3a or 3b High cholesterol E78.00 Type 2 diabetes mellitus with both eyes affected by mild nonproliferative retinopathy without macular edema, with long-term current use of insulin E11.3293; Z79.4 Diabetes mellitus type: type 2 Diabetes mellitus senior care insulin use: with termite inspector use Diabetes mellitus complication status: with ophthalmic complications Diabetes mellitus complication detail: with diabetic retinopathy Diabetic retinopathy severity: with mild nonproliferative retinopathy Diabetes mellitus macular edema: without macular edema Laterality: bilateral Mild intermittent asthma without complication J45.20 Asthma severity: mild Asthma persistence: intermittent Asthma complication type: uncomplicated Class 2 obesity E66.812 MDD (major depressive disorder), recurrent episode, moderate F33.1 Coronary artery disease of [place] artery of [place] heart with stable angina pectoris I25.118 Coronary Disease-Associated Artery/Lesion type: [place] artery [place] vs. transplanted heart: [place] heart Associated angina: with stable angina Left wrist tendinitis M77.8 Assessment & Plan Assessment & Plan (1) Annual physical exam: Code(s): Z00.00 - Encounter for general adult medical examination without abnormal findings Category: Medical Plan: As per HPI (2) Hypertension: Code(s): I10 - Essential (primary) hypertension Category: Medical Qualifiers: Hypertension type: essential hypertension Qualified Code(s): I10 - Essential (primary) hypertension Plan: Continue on current blood pressure medication. The pressure acceptable today in office.. She does not regularly monitor her blood pressure at home. She is on 4 different antihypertensives at this time at maximal doses. Of note most recent nuclear stress test showing ischemia and will be following up with Cardiology next week. Goal blood pressures to be below 140/90 (3) CKD (chronic kidney disease) stage 3, GFR 30-59 ml/min: Code(s): N18.30 - Chronic kidney disease, stage 3 unspecified Category: Medical Qualifiers: Chronic kidney disease stage 3 subtype: unspecified whether 3a or 3b Qualified Code(s): N18.30 - Chronic kidney disease, stage 3 unspecified Plan: Continue to follow with search director. Avoid kidney irritants such as NSAIDs and stay well hydrated. (4) High cholesterol: Code(s): E78.00 - Pure hypercholesterolemia, unspecified Category: Medical Plan: Avoid foods that are high in cholesterol such as red meat, fried foods, eggs and baked goods. Triglyceride goal of less than 150 and LDL goal of less than 70. Reminded patient about blood work (5) Diabetes: Code(s): E11.9 - Type 2 diabetes mellitus without complications Category: Medical Qualifiers: Diabetes mellitus type: type 2 Diabetes mellitus senior care insulin use: with senior care use Diabetes mellitus complication status: with ophthalmic complications Diabetes mellitus complication detail: with diabetic retinopathy Diabetic retinopathy severity: with mild nonproliferative retinopathy Diabetes mellitus macular edema: without macular edema Laterality: bilateral Qualified Code(s): E11.3293 - Type 2 diabetes mellitus with mild nonproliferative diabetic retinopathy without macular edema, bilateral; Z79.4 - [facility]CI (current) use of insulin Plan: Patient's type 2 diabetes well controlled Hemoglobin A1c goal of less than 7%. Currently following with [facility] endocrinology maintained on current insulin dose. (6) Asthma: Code(s): J45.909 - Unspecified asthma, uncomplicated Category: Medical Qualifiers: Asthma severity: mild Asthma persistence: intermittent Asthma complication type: uncomplicated Qualified Code(s): J45.20 - Mild intermittent asthma, uncomplicated Plan: Asthma currently controlled on present medications. Continue on albuterol as needed. Avoid triggers such as allergies. (7) Class 2 obesity: Code(s): E66.812 - Obesity, class 2 Category: Medical Plan: Patient does understand her BMI is over 35 and will continue working on better eating habits and being more physically active to reduce her weight. (8) MDD (major depressive disorder), recurrent episode, moderate: Code(s): F33.1 - Major depressive disorder, recurrent, moderate Category: Medical Plan: Depression has been fairly well controlled a mental her to health therapist. (9) CAD (coronary artery disease): Code(s): I25.10 - Atherosclerotic heart disease of [place] coronary artery without angina pectoris Category: Medical Qualifiers: Coronary Disease-Associated Artery/Lesion type: [place] artery [place] vs. transplanted heart: [place] heart Associated angina: with stable angina Qualified Code(s): I25.118 - Atherosclerotic heart disease of [place] coronary artery with other forms of angina pectoris Plan: Regarding the abnormal cardiac stress test, the patient will follow up with cardiology on Thursday. The possibility of a cardiac catheterization and stent placement was discussed, noting it is a day procedure typically performed at [facility]. A prescription for sublingual nitroglycerin will be sent to [facility] for prn use with chest pain (10) Left wrist tendinitis: Code(s): M77.8 - Other enthesopathies, not elsewhere classified Category: Medical Plan: For the left wrist pain, an X-ray of the left wrist will be ordered to rule out a bone lesion. Referrals will be placed for orthopedics and occupational therapy, as the patient prefers therapy over a cortisone injection. The patient was advised on conservative management, including icing the wrist and using [id number] diclofenac (Voltaren) cream. Orders: Orders XR wrist LT 2V Today M77.8 - Other enthesopathies, not elsewhere classified OT Evaluation and Treatment Today M77.8 - Other enthesopathies, not elsewhere classified Complete Blood Count no Diff Today I25.118 - Atherosclerotic heart disease of [place] coronary artery with other forms of angina pectoris AMB Hemoglobin A1c Today Z13.9 - Encounter for screening, unspecified Lipid Panel Today I25.118 - Atherosclerotic heart disease of [place] coronary artery with other forms of angina pectoris Comprehensive [place]. Panel Fast Today I25.118 - Atherosclerotic heart disease of [place] coronary artery with other forms of angina pectoris Referrals Orthopedics Referral M77.8 - Other enthesopathies, not elsewhere classified Medications: New nitroglycerin do not exceed 3 doses per episode 0.4 mg sublingual Q5M PRN 30 tabs 0RF chest pain 30 days I25.118 - Atherosclerotic heart disease of [place] coronary artery with other forms of angina pectoris
--- OUTSIDE RECORDS SUMMARY | 2025-06-28 09:24 | XMS_ITS | Clinical Summary ---
Author Organization [facility] [address] [facility] Address [address] [place] [address] Phone Care Team Providers Care Balance Engineer Name Role Phone Tadeo Dukes Primary Care [...] Date NSTEMI (non-ST elevated myoc ardial infarction) ([facility] V24, [facility] V28) 01/11/2021 Allergic rhinitis 06/23/2017 Asthma 06/23/2017 CKD (chronic kidney disease) stage 3, GFR 30-59 ml/min ([facility] V24, [facility] V28) 06/23/2017 GERD (gastroesophageal reflux disease) 7 Assessment & Plan (06/21/2024 8:56 AM EST): Continue Omeprazole 40mg daily History of alcohol abuse 06/23/2017 Overview (05/30/2024): In AA HTN (hypertension) 06/23/2017 Major depression 06/23/2017 WYATT on CPAP 06/23/2017 Type 2 diabetes mellitus wit h renal manifestations ([facility] V24, [facility] V28) 06/23/2017 Vitamin D deficiency 06/23/2017 [...] kidney disease) stage 3, GFR 30-59 ml/min ([facility] V24, [facility] V28) 06/23/2017 DX:CKD (chronic kidney disea se) stage 3, GFR 30-59 ml/min ([facility]) Type 2 diabetes mellitus wit h renal manifestations ([facility] V24, [facility] V28) 06/23/2017 DX:Type 2 diabetes mellitus with renal manifestations ([facility]) HTN (hypertension) 06/23/2017 DX:HTN (hyper tension) [...] alcohol abuse; COMMENT: In AA Bipolar disorder ([facility] V2 4, [facility] V28) DX:Bipolar disorder ([facility]) Family History Medical History Relation Name [...] Recently Relevant to Health Maintenance Insurance MEDICARE [facility] Care Teams Balance Engineer Relationship Specialty Start Date End Date Tadeo Dukes PA [facility] [place] [id number] PCP - General Physician Filling And Stapling Machine Operator 05/30/24
--- OUTSIDE RECORDS SUMMARY | 2025-06-28 09:24 | XMS_ITS | Clinical Summary ---
Author Organization [facility] Address [address] [place] [address] Phone Care Team Providers Care Principal Secretary Name Role Phone Tadeo Dukes Primary Care Provider [phone] Allergies Active Allergy Reactions Criticality Noted Date [...] Office Visit [facility] [address] [phone] Oliver Drake MD [address] [phone] 07/18/2025 Orders Only [facility] [address] [address] Oliver Drake MD [address] [phone] Stage 3 chronic kidney disease, not otherwise [...] age to complete this topic Insurance Medicare [facility] Medicare [facility] Care Teams Principal Secretary Relationship Specialty Start Date End Date Tadeo Dukes PA [address] [place] [address], [address] [place] [address] PCP - General Physician Manager Utilities 06/23/22
== END 2025-06-28 09:55 | disposition home or self-care (01) ==
LOC: HO.HMCH 08:54
PROVIDERS: PCP Physician Assistant; Visit Provider Physician Assistant
DX: Z00.00 Encounter for general adult medical examination without abnormal findings (principal); I12.9 Hypertensive chronic kidney disease with stage 1 through stage 4 chronic kidney disease, or unspecified chronic kidney disease; E11.3293 Type 2 diabetes mellitus with mild nonproliferative diabetic retinopathy without macular edema, bilateral; N18.30 Chronic kidney disease, stage 3 unspecified; Z79.4 Long term (current) use of insulin; F33.1 Major depressive disorder, recurrent, moderate; E78.00 Pure hypercholesterolemia, unspecified; J45.20 Mild intermittent asthma, uncomplicated; E66.812 Obesity, class 2; I25.118 Atherosclerotic heart disease of native coronary artery with other forms of angina pectoris; M77.8 Other enthesopathies, not elsewhere classified

== ENCOUNTER → 2025-06-28 08:53 | Outpatient (BNVA) | payer MEDICARE, OTHER, SELFPAY | PROVIDERS: PCP Physician Assistant; Visit Provider Physician Assistant | DX: Z00.00 Encounter for general adult medical examination without abnormal findings (principal); I10 Essential (primary) hypertension; N18.30 Chronic kidney disease, stage 3 unspecified; E78.00 Pure hypercholesterolemia, unspecified; E11.3293 Type 2 diabetes mellitus with mild nonproliferative diabetic retinopathy without macular edema, bilateral; Z79.4 Long term (current) use of insulin; J45.20 Mild intermittent asthma, uncomplicated; E66.812 Obesity, class 2; F33.1 Major depressive disorder, recurrent, moderate; I25.118 Atherosclerotic heart disease of native coronary artery with other forms of angina pectoris; Z13.31 Encounter for screening for depression; M77.8 Other enthesopathies, not elsewhere classified | CPT/HCPCS: 83036; 96127; 99397 ==

== ENCOUNTER 2025-07-03 13:22 | Outpatient (AMB) | payer MEDICARE, OTHER, SELFPAY ==
[2025-07-03 14:05] VITALS: BP 120/78; PULSE 61; BMI 37.4
--- NOTE | 2025-07-03 14:05 | A.OFFVIS_ITS ---
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 mx Loan Documentation Specialist Required: No Allergies aspirin Allergy (Severe, Verified 06/28/25 09:29) GI trouble Iodinated Contrast Media Allergy (Severe, Verified 06/28/25 09:29) Difficulty Breathing amlodipine Adverse Reaction (Intermediate, Verified 06/28/25 09:29) leg swelling Medication List - Last Reconciled 07/03/25 by Dirk Nicole NP albuterol sulfate 90 mcg/actuation 2 inhalations inhalation Q6H PRN 30 days albuterol sulfate 90 mcg/actuation (ProAir RespiClick) 2 inhalations inhalation Q6H PRN 30 days aspirin (Adult Low Dose Aspirin) 81 mg PO DAILY 90 days atorvastatin 40 mg PO DAILY 90 days blood pressure test kit-large As directed bupropion HCl XL 300 mg PO DAILY calcium carbonate-vitamin D3 500 mg-10 mcg (400 unit) (Oyster Shell Calcium- Vitamin D3) 1 tab PO BID 90 days cholecalciferol (vitamin D3) 25 mcg PO DAILY cyanocobalamin (vitamin B-12) 1,000 mcg PO DAILY doxazosin 4 mg PO DAILY 90 days fluticasone propion-salmeterol 113-14 mcg/actuation (AirDuo RespiClick) 1 inh inhalation Q12H hydrochlorothiazide 25 mg PO QAM 90 days insulin aspart U-100 (Novolog FlexPen U-100 Insulin aspart) 15 - 17 units subcut TID insulin degludec 76 units (0.38 mL) subcut BEDTIME isosorbide mononitrate ER 60 mg PO DAILY 90 days losartan 100 mg PO DAILY lurasidone (Latuda) 80 mg PO DAILY melatonin 10 mg PO DAILY multivitamin with minerals 1 cap PO DAILY nitroglycerin 0.4 mg sublingual Q5M PRN 30 days omeprazole 20 mg PO DAILY pen needle, diabetic (BD Ultra-Fine Mini Pen Needle) As directed vilazodone (Viibryd) 40 mg PO DAILY HPI Comments Details: This is a 69-year-old female patient new to our office referred for consultation of abnormal stress test. Moving forward, patient will be under Dr. Cooper's care as he was the rounding top collar baster. Patient with a history of hypertension, hyperlipidemia, diabetes, sleep apnea, and obesity. Patient also has a history of NSTEMI back in 2020 which was ruled in due to elevated troponins where patient states that she had undergone a stress test at that time which was negative for cardiac etiology and was thought to be type 2 related to her uncontrolled blood sugars. Patient reports exertional chest discomfort and shortness of breath ongoing for the past few months. Patient reports that these symptoms get better after resting. Given these reports of symptoms, patient underwent a regular stress test which had borderline EKG changes and therefore underwent a nuclear stress test. Today, patient is reporting ongoing symptoms of exertional chest pain and shortness of breath due to which patient has stopped exerting herself. Patient is otherwise denying any palpitations, dizziness, orthopnea, PND, leg edema, presyncope or syncope. Patient is reporting compliance with all her medications. [facility] Medical History Lower extremity edema Thyroid nodule Anemia Hypersomnia with sleep apnea High cholesterol Diabetes Hypertension Asthma WYATT (obstructive sleep apnea) Surgical History Hx of colonoscopy History of esophagogastroduodenoscopy (EGD) Uterine polyp History of removal of cyst Family History Father Stroke Diabetes Mother Hypertension COPD (chronic obstructive pulmonary disease) CHF (congestive heart failure) FHx: colonic polyps Maternal Grandmother Stroke Sister FHx: colonic polyps Other Mental health disorder Substance use disorder Social History Housing: House Alcohol intake: never Patient Tobacco Use Status: Never used Tobacco e-Cigarette/Vaping Use: Never Used Second Hand Smoke Exposure: Yes service: No Current occupational status: retired Cognitive needs: No Hearing needs: No Vision needs: Yes (Glasses) Review of Systems Const Denies chills, Denies daytime sleepiness, Denies fatigue, Denies fever(s), Den ies frequent falls, Denies poor appetite, Denies snoring, Denies stops breathing during sleep, Denies weakness, Denies weight gain and Denies weight loss Eyes Denies loss of vision ENT Denies dizziness and Denies hearing loss Card Denies chest pain, Denies claudication, Denies leg edema, Denies lightheadedness, Denies palpitations, Denies dyspnea, Denies dyspnea on exertion and Denies orthopnea Resp Denies cough, Denies excessive phlegm production, Denies dyspnea, Denies dyspnea on exertion, Denies snoring and Denies wheezing GI Denies abdominal pain, Denies hematochezia, Denies change in bowel habits, Denies nausea and Denies vomiting Denies urinary frequency and Denies dysuria Musc Denies arthralgias, Denies muscle weakness and Denies numbness Skin/Breast Denies nail changes and Denies rash Neuro Denies Abnormal speech present, Denies dizziness, Denies frequent falls, Denies loss of vision, Denies memory loss, Denies numbness and Denies weakness Psych Denies depression and Denies memory loss Endo Denies fatigue and Denies palpitations Johnnie/Lymph Reports easy bruising and Reports other (anemia) Aller/Immun Denies wheezing Physical Exam Vital Signs: Last Vital Signs Pulse 61 07/03/25 14:05 BP 120/78 07/03/25 14:05 BMI result Body Mass Index 37.4 Const General: cooperative, healthy appearing, comfortable and no acute distress Orientation/consciousness: patient oriented x3 HEENT Head: Yes normal to inspection Neck Neck: Yes normal visual inspection, Yes trachea midline and Yes supple Chest Chest palpation & inspection: normal inspection of the chest Resp Effort & Inspection: normal respiratory effort Auscultation: clear to auscultation bilaterally, no crackles, no rales, no rhonchi and no wheezes Cardio Jugular venous distension: no JVD Palpation: normal PMI Rate: regular rate Rhythm: regular rhythm Heart sounds: S1 normal heart sound present, S2 normal heart sound present, no click, no gallops, no murmurs and no rubs Peripheral pulses: Peripheral pulses 2+ throughout GI Inspection: Yes normal to inspection Palpation (GI): Soft to palpation Auscultation: normal bowel sounds Skin General skin exam: no rashes or lesions noted Neuro General: patient oriented x3 Speech: No Abnormal speech present Extrem General: Yes normal to inspection, No no pedal edema and No calf tenderness Psych Appearance: grossly normal Mental Status: mental status grossly normal Speech and movement: Normal speech and movement present Office Procedures EKG Details: EKG today showed normal sinus rhythm, rate 61 beats per minute, nonspecific STT wave, normal [place], [place]. [id number], Complete Assessment & Plan Assessment & Plan (1) Chest pain: Code(s): R07.9 - Chest pain, unspecified Category: Medical Qualifiers: Chest pain type: precordial pain Qualified Code(s): R07.2 - Precordial pain Plan: 06/26/2025-patient underwent a myocardial perfusion study that showed possible ischemia in the distal inferior wall and mid anterior wall. For the stress portion of the test, patient walked about 5 minutes with reports of shortness of breath and with downsloping ST-depression inferolaterally with the exercise meeting criteria for ischemia. Given her multiple risk factors, exertional chest discomfort and shortness of breath along with abnormal stress testing, we will proceed with a cardiac catheterization to evaluate for coronary artery disease. The procedure along with its indications, risks, and benefits was thoroughly discussed with the patient. Patient in agreement with the plan. Continue aspirin, statin, losartan, and isosorbide. No reported signs of bleeding. Patient also has nitro prescribed by PCP. Explained how to take this. We will also plan for an echo to look for LV systolic and diastolic dysfunction in the near future. Patient does labs at [facility] and states that they have been within normal limits. Ideally, LDL goal less than 70. A1c goal less than 7%. (2) Abnormal stress ECG with treadmill: Code(s): R94.39 - Abnormal result of other cardiovascular function study Category: Medical Plan: As above. (3) Hypertension: Code(s): I10 - Essential (primary) hypertension Category: Medical Qualifiers: Hypertension type: essential hypertension Qualified Code(s): I10 - Essential (primary) hypertension Plan: Blood pressure today is well-controlled. Continue with current regimen. Advised on blood pressure goal less than 130/80. Advised on low-salt diet. (4) High cholesterol: Code(s): E78.00 - Pure hypercholesterolemia, unspecified Category: Medical Plan: As above (5) Diabetes: Code(s): E11.9 - Type 2 diabetes mellitus without complications Category: Medical Qualifiers: Diabetes mellitus type: type 2 Diabetes mellitus intermediate project manager insulin use: with intermediate project manager use Diabetes mellitus complication status: with ophthalmic complications Diabetes mellitus complication detail: with diabetic retinopathy Diabetic retinopathy severity: with mild nonproliferative retinopathy Diabetes mellitus macular edema: without macular edema Laterality: bilateral Qualified Code(s): E11.3293 - Type 2 diabetes mellitus with mild nonproliferative diabetic retinopathy without macular edema, bilateral; Z79.4 - nursing home (current) use of insulin Plan: As above. (6) Class 2 obesity: Code(s): E66.812 - Obesity, class 2 Category: Medical Plan: As above. (7) WYATT (obstructive sleep apnea): Code(s): G47.33 - Obstructive sleep apnea (adult) (pediatric) Category: Medical Plan: Continue CPAP therapy, followed by pulmonology. Advised on heart healthy diet, med compliance, and aggressive management of vascular risk factors. Follow up after cardiac catheterization. In the interim, patient will call the office with any concerns or change in symptoms. Advised to seek ER care in case of exertional chest pain not resolved with rest. This note was generated using voice recognition software. While every effort has been made to ensure accuracy and proper frame pulley mortising machine operator, there may be occasional errors that could affect the content or meaning of the described symptoms. Orders: Orders Complete Blood Count no Diff Today R07.2 - Precordial pain Basic Metabolic Panel Today R07.2 - Precordial pain AMB EKG-In Office Today R07.2 - Precordial pain Cardiac Cath LT w PCI Today R07.2 - Precordial pain, R94.39 - Abnormal result of other cardiovascular function study Prothrombin Time INR Today R07.2 - Precordial pain CA echo transthoracic complete 2 Weeks R07.2 - Precordial pain Medications: New methylprednisolone (Medrol) 32 mg PO BID 2 tabs 0RF cetirizine 10 mg PO DAILY 1 tab 0RF Coding Level of Care Code New Pt Level 4 (82010) Complex visit Add On G2211 Diagnoses Precordial pain R07.2 Chest pain type: precordial pain Abnormal stress ECG with treadmill R94.39 Essential hypertension I10 Hypertension type: essential hypertension High cholesterol E78.00 Type 2 diabetes mellitus with both eyes affected by mild nonproliferative retinopathy without macular edema, with long-term current use of insulin E11.3293; Z79.4 Diabetes mellitus type: type 2 Diabetes mellitus senior living insulin use: with intermediate project manager use Diabetes mellitus complication status: with ophthalmic complications Diabetes mellitus complication detail: with diabetic retinopathy Diabetic retinopathy severity: with mild nonproliferative retinopathy Diabetes mellitus macular edema: without macular edema Laterality: bilateral Class 2 obesity E66.812 WYATT (obstructive sleep apnea) G47.33 CPT Codes EKG - CPT: 96081-[id number], Complete ([id number]) Time Spent (min) 34 Comment Time spent in reviewing the chart, test results, assessment, counseling and documentation.
--- OUTSIDE RECORDS SUMMARY | 2025-07-03 17:00 | XMS_ITS | Clinical Summary ---
Author Organization [facility] [address] [facility] Address [address] [place] [address] Phone Care Team Providers Care Yard Rigger Name Role Phone Tadeo Dukes Primary Care Provider [phone] Allergies Active Allergy Reactions Criticality Noted Date [...] Date NSTEMI (non-ST elevated myoc ardial infarction) ([facility] V24, [facility] V28) 01/11/2021 Allergic rhinitis 06/23/2017 Asthma 06/23/2017 CKD (chronic kidney disease) stage 3, GFR 30-59 ml/min ([facility] V24, [facility] V28) 06/23/2017 GERD (gastroesophageal reflux disease) 7 Assessment & Plan (06/21/2024 8:56 AM EST): Continue Omeprazole 40mg daily History of alcohol abuse 06/23/2017 Overview (05/30/2024): In AA HTN (hypertension) 06/23/2017 Major depression 06/23/2017 WYATT on CPAP 06/23/2017 Type 2 diabetes mellitus wit h renal manifestations ([facility] V24, [facility] V28) 06/23/2017 Vitamin D deficiency [...] kidney disease) stage 3, GFR 30-59 ml/min ([facility] V24, [facility] V28) 06/23/2017 DX:CKD (chronic kidney disea se) stage 3, GFR 30-59 ml/min ([facility]) Type 2 diabetes mellitus wit h renal manifestations ([facility] V24, [facility] V28) 06/23/2017 DX:Type 2 diabetes mellitus with renal manifestations ([facility]) HTN (hypertension) 06/23/2017 DX:HTN (hyper [...] alcohol abuse; COMMENT: In AA Bipolar disorder ([facility] V2 4, [facility] V28) DX:Bipolar disorder ([facility]) Family History Medical History Relation [...] Recently Relevant to Health Maintenance Insurance MEDICARE [facility] Care Teams Yard Rigger Relationship Specialty Start Date End Date Tadeo Dukes PA [facility] [place] [phone] PCP - General Physician Concrete Tile Machine Operator 05/30/24
--- OUTSIDE RECORDS SUMMARY | 2025-07-03 17:00 | XMS_ITS | Encounter Summary ---
Author Organization [facility] Address [address] [place] [phone] Phone Care Team Providers Care Environmental Science Professor Name Role Phone Tadeo Dukes Primary Care Provider + Clee Drake MD Unavailable [phone] Encounter Details Date Type Department Care Team (Late st Contact Info) Description 01/26/2023 Procedure Pass [facility], [facility] [address] [place] [address] Social History Tobacco Use Types Packs/Day Years [...] st Contact Info) Description 03/10/2025 Procedure Pass [address] [address] 11/01/2025 9:20 AM EDT Office Visit [facility] [address] [place] [address] Pam Guerrero MD [address] [place] [address] 2025 3:30 PM EDT Appointment [address] [address] [place] [address] [place] [address] 01/31/2026 9:40 AM EDT Office Visit [facility] [address] [place] [address] Camila Lentz PA-C [address] [place] [address] [email or web address] documented as of this encounter Visit Diagnoses Not on filedocumented in this encounter Care Teams Environmental Science Professor Relationship Specialty Start [place] [address] [place] [address] PCP - General 06/05/21 Cele Drake MD [address] [facility] [address] [place] [address] [email or web address] 06/27/25 documented as of this encounter Additional Source Comments The information contained in this document represents components of the legal health record. It is not the complete legal health record.[facility]
--- OUTSIDE RECORDS SUMMARY | 2025-07-03 17:00 | XMS_ITS | Clinical Summary ---
Author Organization [facility] Address [address] [place] [address] Phone Care Team Providers Care Global Cmo Name Role Phone Tadeo Dukes Primary Care Provider + Tam Drake-Alvaro Sánchez MD Unavailable +1- [phone] Allergies Active Allergy Reactions Criticality Noted Date Comments Amlodipine Swelling 07/13/2023 Aspirin GI Upset Medium 07/12/2018 Iodinated Contrast Media Hives,Shortness Of Breath High 07/12/2018 IV dye Medications albuterol 90 mcg/actuation inhaler Inhale 2 [...] tablet Take 4 mg by mouth daily. 06/25/20 22 Active hydroCHLOROthia zide (HYDRODIURIL) 25 MG tablet Take 25 mg by mouth daily. 05/30/20 22 Active losartan (COZAAR) 100 MG tablet Take 100 mg by mouth daily. Active vilazodone (VIIBRYD) 40 mg Tab Take 40 mg by mouth daily. 08/03/19 22 Active OYSTER SHELL CALCIUM-VIT D3 500 mg-400 units per tablet 2 (two) times a day. 08/26/19 23 Active cyanocobalamin, vitamin B-12, 100 MCG tablet Take 100 mcg by mouth daily. Active grbctgpr-miq-sl rrous gluconate (CENTRUM WITH IRON) 9 mg iron/15 mL Liqd Take 15 mL by mouth daily. Active isosorbide mononitrate (IMDUR) 60 MG 24 hr tablet 11/26/19 23 Active buPROPion (WELLBUTRIN XL) 300 MG ER 24 hr tablet Take 300 mg by mouth every morning. To take with a 150mg tablet 07/05/20 23 Active omeprazole (PRILOSEC) 40 MG capsule Take 40 mg by mouth daily. 07/06/20 23 Active omega-3 fatty acids-fish oil 340-1,000 mg Cap Take 1 capsule by mouth daily. 1000 daily Active BD ULTRA-FINE MINI PEN NEEDLE 31 gauge x 10/16 NdleIndications :Type 2 diabetes mellitus with diabetic nephropathy, with long-term current use of insulin Inject 1 each under the skin 4 (four) times a day. 400 each 3 06/27/20 25 Active insulin aspart U-100 (NOVOLOG) 100 unit/mL injection vialIndications :Type 2 diabetes mellitus with diabetic nephropathy, with long-term current use of insulin Inject 5-17 Units under the skin 3 (three) times a day before meals. 45 mL 1 06/27/20 25 Active insulin glargine 100 unit/mL (3 mL) InPn injection penIndications: Type 2 diabetes mellitus with diabetic nephropathy, with long-term current use of insulin Inject 45 Units under the skin nightly at bedtime. 45 mL 1 06/27/20 25 Active ZINC ORAL Take by mouth daily. 025 Discontinued insulin aspart U-100 (NOVOLOG) 100 unit/mL injection vialIndications :Type 2 diabetes mellitus with diabetic nephropathy, with long-term current use of insulin Inject 5-17 Units under the skin 3 (three) times a day before meals. 45 mL 1 04/22/20 24 025 Discontinued(Re order) BD ULTRA-FINE MINI PEN NEEDLE 31 gauge x 10/16 NdleIndications :Type 2 diabetes mellitus with diabetic nephropathy, with long-term current use of insulin Inject 1 each under the skin 4 (four) times a day. 400 each 3 07/22/20 24 025 Discontinued(Re order) insulin glargine 100 unit/mL (3 mL) InPn injection pen Inject 45 Units under the skin nightly at bedtime. 45 mL 1 03/28/20 25 025 Discontinued(Re order) Active Problems Problem Noted Date Diagnosed Date [...] 10/13/2022 Overview (02/11/2024): Dexcom G7 supplier is [facility] medical Assessment & Plan (06/27/2025 11:12 AM EST): Control is reasonable based upon the patient's dexcom G7 download. No frequent or severe hypoglycemia. She has not been as active recently while undergoing the cardiac stress testing. She will start her walking again once she has gotten the clearance from cardiology. Will maintain her insulin dosing. Continue to work on eating healthy and being active. To call or message with any issues managing her glucose levels. Up to date with ophtho. Sees podiatry. Labs ordered to do today. Labs also ordered to be done prior to Dr Guerrero visit in November. Assessment & Plan (03/28/2025 9:33 AM EDT): [...] estimated GFR 55 from 61. Followed by warrant clerk. -Reviewed symptoms, prevention and treatment of hypoglycemia. [...] her glucose levels. Up to date with marlee. Sees podiatry. Reviewed recent labs. Labs ordered [...] after back to eating regular meals. Her warrant clerk recommended to add Farxiga but patient was [...] her glucose levels. Up to date with [facility]. Sees podiatry. Foot and nail care is [...] her glucose levels. Up to date with [facility]. Sees podiatry. Will do labs prior to [...] activity. Patient is planning to rejoin the [employer] exercise class once a week and going [...] counting. We will send referral to see hospice educator. She will add more walking. If overnight or fasting glucose gets below 70-80, she will decrease the Tresiba by 4 to 6 units. If having low sugars within 2 to 4 hours after taking NovoLog she will cut back on her NovoLog dose by 2 to 3 units. Call if glucose below 70 or over 250 repeatedly. Up-to-date with ophtho, no diabetic retinopathy as per the patient. [...] Encounters Date Type Department Care Team Description 07/01/2025 Refill [facility] [address] [place] [address] Dr [place], [place] [address] Camila Lentz PA-C Medication Refill 06/27/2025 10:40 AM EST Office Visit [facility] [address] [place] [address] Camila Lentz PA-C Type 2 diabetes mellitus with diabetic nephropathy, with long-term current use of insulin (Primary Dx) from Last 3 Months Immunizations [...] Sign Reading Time Taken Comments Blood Pressure 136/78 06/27/2025 10:31 AM EST Pulse 64 06/27/2025 10:31 AM EST Temperature 36.5 C (97.7 F) 04/22/2024 8:12 AM EDT Respiratory Rate 18 01/16/2023 12:10 PM EDT Oxygen Saturation 98% 06/27/2025 10:31 AM EST Inhaled Oxygen Concentration - - Weight 102 kg (224 lb 12.8 oz) 06/27/2025 10:31 AM EST Height 165.1 cm (5' 5 ) 06/27/2025 10:31 AM EST Body Mass Index 37.41 06/27/2025 10:31 AM EST Plan of Treatment Upcoming Encounters Date Type Department Care Team (Late st Contact Info) Description 03/10/2025 Procedure Pass [address] [address] 11/01/2025 9:20 AM EDT Office Visit [facility] [address] [place] [address] Pam Guerrero MD [address] [place] [address] 2025 3:30 PM EDT Appointment [address] [address] Tadeo Dukes PA [address] [place] [address] 01/31/2026 9:40 AM EDT Office Visit [facility] [address] [place] [address] Camila Lentz PA-C [address] [place] [address] Health Maintenance Due Date Last Done Comments [...] 2025 04/30/2024, 05/14/2023, 05/12/2022, Additional history exists BLOOD PRESSURE 12/25/2025 06/27/2025 HEMOGLOBIN A1C 12/25/2025 06/27/2025, 03/04, 11/21/2024, Additional history exists MAMMOGRAM 05/27/2026 05/27/2024, 04/04, 04/24/2022, Additional history exists CREATININE LEVEL 06/27/2026 06/27/2025, , 11/21/2024, Additional history exists POTASSIUM LEVEL 06/27/2026 06/27/2025, 03/04, 11/21/2024, Additional history exists Adult Td,Tdap Booster 12/25/2033 12/26/2023, 023 ZOSTER VACCINES Completed 01/22/2020, 01/2019, 05/20/2017 PNEUMOCOCCAL VACCINES (50+ years) Completed 02/19/2023, 06/12/2014 SMOKING STATUS SCREENING (Once After 26 Yrs) Completed 06/27/2025 HEPATITIS A VACCINES Aged Out No long [...] Procedure Name Priority Date/Time Associated Diagnosis Comments BASIC METABOLIC PANEL (BMP) Routine 06/27/2025 11:44 AM EST Type 2 diabetes mellitus with diabetic nephropathy, with long-term current use of insulin ASPARTATE AMINOTRANSFERASE (AST) Routine 06/27/2025 11:44 AM EST Type 2 diabetes mellitus with diabetic nephropathy, with long-term current use of insulin ALANINE AMINOTRANSFERASE (ALT) Routine 06/27/2025 11:44 AM EST Type 2 diabetes mellitus with diabetic nephropathy, with long-term current use of insulin HEMOGLOBIN A1C Routine 06/27/2025 11:44 AM EST Type 2 diabetes mellitus with diabetic nephropathy, with long-term current use of insulin BI MAMMOGRAM SCREENING WITH TOMOSYNTHESIS WITH CAD (BILATERAL) Routine 05/27/2024 1:38 PM EDT Breast screening PAP TEST Routine 04/26/2019 12:00 AM EDT from Last 3 Months or Most Recently Relevant to Health Maintenance Results * Alanine Aminotransferase (ALT) (06/27/2025 11:44 AM EST) ALT 16 <34 U/L 06/27/2025 4:4 4 PM EST [facility] Blood (Blood) Venipuncture / Unknown 06/27/2025 11:44 AM EST 06/27/2025 11:45 AM EST Camila Lentz PA-C LAB BLOOD SCOTT WARD Final Result Performing Organization Address City/[facility]/ZIP Co de Phone Number [address] [address] * Aspartate Aminotransferase (AST) (06/27/2025 11:44 AM EST) AST 22 <33 U/L 06/27/2025 4:4 4 PM EST [facility] Blood (Blood) Venipuncture / Unknown 06/27/2025 11:44 AM EST 06/27/2025 11:45 AM EST Camila Lentz PA-C LAB BLOOD BKR ORDBenjamin RABRADHA Final Result [address] [address] * (ABNORMAL) Hemoglobin A1c (06/27/2025 11:44 AM EST) Hemoglobin A1c 6.6(H) 4.3 - 5.6 % 06/27/2025 5:48 PM [facility] Calculated Mean Blood Glucose 143 mg/dL 06/27/2025 5:48 PM [facility] Comment:There is no [facility] normal range for the Estimated Average Glucose (EAG). However, a HbA1c of 5.6% (upper limit of normal) represents an EAG of 114 mg/dL. The diagnostic HbA1c level for diabetes is greater than or equal to 6.5%, which represents an EAG greater than or equal to 140 mg/dL. Blood (Blood) Venipuncture / Unknown 06/27/2025 11:44 AM EST 06/27/2025 11:45 AM EST us Camila Lentz PA-C LAB BLOOD BKR CAROL WARD Final Result [address] [address] * (ABNORMAL) Basic Metabolic Panel (BMP) (06/27/2025 11:44 AM EST) Pathologist [facility] Sodium 138 136 - 145 mmol/L 06/27/2025 4:44 PM [facility] Potassium 4.1 3.4 - 5.1 mmol/L 06/27/2025 4:44 PM [facility] Chloride 100 98 - 107 mmol/L 06/27/2025 4:44 PM [facility] CO2 29 20 - 31 mmol/L 06/27/2025 4:44 PM [facility] Anion Gap 9 3 - 17 mmol/L 06/27/2025 4:44 PM [facility] BUN 17 6 - 23 mg/dL 06/27/2025 4:44 PM [facility] Creatinine 0.90 0.50 - 1.00 mg/dL 06/27/2025 4:44 PM [facility] eGFR 70 >59 mL/min/1.7 3m2 06/27/2025 4:44 PM EST [facility] Comment:Estimated glomerular filtration rate calculated using the CKD-EPI refit equation. Glucose 185(H) 70 - 99 mg/dL 06/27/2025 4:44 PM EST [facility] Calcium 9.3 8.5 - 10.5 mg/dL 06/27/2025 4:44 PM EST [facility] Blood (Blood) Venipuncture / Unknown 06/27/2025 11:44 AM EST 06/27/2025 11:45 AM EST us Camila Lentz PA-C LAB BLOOD BKR CAROL WARD Final Result [address] [address] * BI MAMMOGRAM SCREENING WITH TOMOSYNTHESIS WITH [...] SEE NARRATIVE - 05/02/2019 3:58 [place] [address] Headliner Installer: Sabra Cardoza MD MANAGER INTERVENTIONAL Cytology Report FINAL DIAGNOSIS A. PAP SMEAR [...] 52, 56, 58, 59, 66, 68) by [employer] HR-HPV analysis. Clinical correlation is advised. This HPV test was performed at [facility], [address] [place] [address]. This test has been FDA approved for [facility] cervical cytology specimens. The accuracy and precision of this test for all other specimen sources has been verified in the Cytopathology Laboratory of the [facility] and has not been cleared or approved by the U.S. Food and Drug Administration. Clinical correlation is advised. CLINICAL HISTORY Date of Last Menstrual Period: Not Provided Menstrual History: Post Menopausal Other Clinical Conditions: Screening Pap SPECIMEN SOURCE A: PAP SMEAR (SUREPATH) CE Patient Name: ROCIO VIZCAINO : 1955 (Age: 63) Sex: F Institution: [facility] Location: [facility] Date of Collection: 04/26/2019 Date of Reported: 05/02/2019 15:58 Results to: Brianna Raman MSN, BS Brianna Raman CLOTH DESIGNER CYTOLOGY ORDERABLES Final Resu lt SEE NARRATIVE from Last 3 Months or Most Recently Relevant to Health Maintenance Insurance MEDICARE PART A & B Member Subscriber Plan / Payer (Ef fective 2008-Present) Name:Rocio Osborn Member ID:[id number] Relation to Subscriber:Self Name:Rocio Osborn Subscriber ID:[id number] Payer ID:[id number] Group ID:Not on file Type:Medicare Address: [facility] [employer] [facility] [address] [place] [address] [facility] MEDICARE SUPPLEMENT MEDICARE PART A & B MEDICARE SUPPLEMENT MEDICARE PART A & B MEDICARE PART A & B MEDICARE PART A & B Member Subscriber Plan / Payer (Ef fective 2008-Present) Name:Rocio Osborn Member ID:[id number] Relation to Subscriber:Self Name:Rocio Osborn Subscriber ID:[id number] Payer ID:[id number] Group ID:Not on file Type:Medicare Address: [employer] MEDICARE SUPPLEMENT MEDICARE PART A & B MEDICARE PART A & B MEDICARE SUPPLEMENT MEDICARE PART A & B [facility] MEDICARE SUPPLEMENT MEDICARE PART A & B MEDICARE SUPPLEMENT Care Teams Global Cmo Relationship Specialty Start Date End Date Tadeo Dukes PA [address] [place] [address] PCP - General 06/05/21 Cele Drake MD 100 [facility] 200 [place] [address] [email or web address] Nephrology 06/27/25 Additional Source Comments The information contained in this document represents components of the legal health record. It is not the complete legal health record.[facility]
--- OUTSIDE RECORDS SUMMARY | 2025-07-03 17:00 | XMS_ITS | Encounter Summary ---
Author Organization [facility] Address [address] [facility] [address] [place] [address] Phone Care Team Providers Care Latent Print Examiner Name Role Phone Tadeo Dukes Primary Care Provider + Cele Drake MD Unavailable [phone]- [phone] Reason for Visit * Reason Comments Medication Refill Encounter Details Date Type Department Care Team (Late st Contact Info) Description 07/01/2025 Refill [facility] 22 [place] [address] Camila Lentz PA-C 22 [place] [address] [email or web address] Medication Refill Social History Tobacco Use Types Packs/Day Years [...] st Contact Info) Description 03/10/2025 Procedure Pass [address] [address] 11/01/2025 9:20 AM EDT Office Visit [facility] [address] [place] [address] Pam Guerrero MD [address] [place] [address] 2025 3:30 PM EDT Appointment [address] [address] Tadeo Dukes PA [address] [place] [address] 01/31/2026 9:40 AM EDT Office Visit [facility] 22 [place] [address] Camila Lenzt PA-C [address] [place] [address] documented as of this encounter Visit Diagnoses Diagnosis Type 2 diabetes mellitus with diabetic nephropathy, with long-term current use of insulin documented in this encounter Care Teams Latent Print Examiner Relationship Specialty Start Date End Date Tadeo Dukes PA [address] [place] [address] PCP - General 06/05/21 Cele Drake MD [address] [place] [address] [address] [email or web address] 06/27/25 documented as of this encounter Additional Source Comments The information contained in this document represents components of the legal health record. It is not the complete legal health record.[facility]
--- OUTSIDE RECORDS SUMMARY | 2025-07-03 17:00 | XMS_ITS | Encounter Summary ---
Author Organization [facility] Address [address] [place] [address] Phone Care Team Providers Care Neurophysiological Technician Name Role Phone Tadeo Dukes Primary Care Provider + Cele Drake MD Unavailable [phone]- [phone] Encounter Details Date Type Department Care Team (Late st Contact Info) Description 03/10/2025 Transcribe Orders Virtual Department [address] [place] [address] Tadeo Dukes PA [address] [place] [address] Breast screening (Primary Dx) Social History Tobacco [...] st Contact Info) Description 03/10/2025 Procedure Pass [facility], [address] [address] 11/01/2025 9:20 AM EDT Office Visit [facility] [address] [place] [address] Pam Guerrero MD [address] [place] [address] 2025 3:30 PM EDT Appointment [address] [address] Tadeo Dukes PA [address] [place] [address] 01/31/2026 9:40 AM EDT Office Visit [facility] [address] [place] [address] Camila Lentz PA-C [address] [place] [address] Scheduled Orders Name Type Priority Associated Diagnoses Orde r Schedule Mammogram Screening (Bilateral) Imaging Routine Breast screening Expected: 04/10/2025, Expires: 03/10/2026 documented as of this encounter Visit Diagnoses Diagnosis Breast screening- Primary Breast screening, unspecified documented in this encounter Care Teams Neurophysiological Technician Relationship Specialty Start Date End Date Tadeo Dukes PA [address] [place] [address] PCP - General 06/05/21 Cele Drake MD 100 Yessy Shah [address] [place] [address] [email or web address] 06/27/25 documented as of this encounter Additional Source Comments The information contained in this document represents components of the legal health record. It is not the complete legal health record.[facility]
--- OUTSIDE RECORDS SUMMARY | 2025-07-03 17:00 | XMS_ITS | Encounter Summary ---
Author Organization [facility] Address [address] [place] [address] Phone Care Team Providers Care Primer Press Operator Name Role Phone Tadeo Dukes Primary Care Provider + Cele Drake MD Unavailable [phone]- [phone] Encounter Details Date Type Department Care Team (Latest Contact Info) Description 01/26/2023 Transcribe Orders Virtual Department 30 [place] [address] Brianna Raman MEDICINE AIDE [address] [place] [address] [email or web address] Breast screening (Primary Dx) Social History Tobacco [...] st Contact Info) Description 03/10/2025 Procedure Pass [address] [address] 11/01/2025 9:20 AM EDT Office Visit [facility] [address] [place] [address] Pam Guerrero MD [address] [place] [address] 2025 3:30 PM EDT Appointment [address] [address] Tadeo Dukes PA [address] [place] [address] 01/31/2026 9:40 AM EDT Office Visit [facility] [address] [place] [address] Camila Lentz PA-C [address] [place] [address] documented as of this encounter Results * [...] There are scattered fibroglandular densities. Brianna Raman MEDICINE AIDE IMG MG EXAMS Final Result documented in this encounter Visit Diagnoses Diagnosis Breast screening- Primary Breast screening, unspecified Breast screening Breast screening, unspecified documented in this encounter Care Teams Primer Press Operator Relationship Specialty Start Date End Date Tadeo Dukes PA [address] [place] [address] PCP - General 06/05/21 Cele Drake MD [address] [address] [email or web address] Nephrology 06/27/25 documented as of this encounter Additional Source Comments The information contained in this document represents components of the legal health record. It is not the complete legal health record.[facility]
--- OUTSIDE RECORDS SUMMARY | 2025-07-03 17:00 | XMS_ITS | Encounter Summary ---
Author Organization [facility] Address [address] [place] [address] Phone Care Team Providers Care Director Instrumentation Name Role Phone Tadeo Dukes Primary Care Provider + Tam Drake-Alvaro Sánchez MD Unavailable [phone]- [phone] Encounter Details Date Type Department Care Team (Late st Contact Info) Description 02/13/[address] [address] Social History Tobacco Use Types Packs/Day Years [...] (Late st Contact Info) Description 03/10/[address] [address] 11/01/2025 9:20 AM EDT Office Visit [facility] [address] [place] [address] Pam Guerrero MD [address] [address] [email or web address] 2025 3:30 PM EDT Appointment [facility]- [address] [address] [place] [address] [place] [address] 01/31/2026 9:40 AM EDT Office Visit [facility] 22 [place] [address] Camila Lentz PA-C [address] [place] [address] [email or web address] documented as of this encounter Visit Diagnoses Not on filedocumented in this encounter Care Teams Director Instrumentation Relationship Specialty Start Date End Date Tadeo Dukes PA [address] [place] [address] PCP - General 06/05/21 Cele Drake MD 100 [facility] [address] [place] [address] [email or web address] Nephrology 06/27/25 documented as of this encounter Additional Source Comments The information contained in this document represents components of the legal health record. It is not the complete legal health record.[facility]
--- OUTSIDE RECORDS SUMMARY | 2025-07-03 17:01 | XMS_ITS | Encounter Summary ---
Author Organization [facility] Address [address] [place] [address] Phone Care Team Providers Care Provider Relations Rep Name Role Phone Renato Sinha Primary Care Provider [phone] Tadeo Dukes Primary Care Provider + Cele Drake MD Unavailable [phone]- [phone] Encounter Details Date Type Department Care Team (Late st Contact Info) Description 04/03/2020 Procedure Pass [address] [address] Social History Tobacco Use Types Packs/Day Years [...] st Contact Info) Description 03/10/2025 Procedure Pass [address] [address] 11/01/2025 9:20 AM EDT Office Visit [facility] [address] [place] [address] Pam Guerrero MD [address] [place] [address] 2025 3:30 PM EDT Appointment [facility] 30 [place] [address] [place] [address] [place] [address] 01/31/2026 9:40 AM EDT Office Visit [facility] 22 [place] [address] Camila Lentz PA-C 22 [place] [address] [email or web address] documented as of this encounter Visit Diagnoses Not on filedocumented in this encounter Care Teams Provider Relations Rep Relationship Specialty Start Date End Date Renato Sinha DO 42 [facility] 201 [place] [address] PCP - General Family Medicine 04/15/19 06/04/21 [place] [address] [place] [address] PCP - General 06/05/21 Cele Drake MD 100 [facility] 200 [place] [address] [email or web address] [email or web address] 06/27/25 documented as of this encounter Additional Source Comments The information contained in this document represents components of the legal health record. It is not the complete legal health record.[facility]
--- OUTSIDE RECORDS SUMMARY | 2025-07-03 17:01 | XMS_ITS | Encounter Summary ---
Author Organization [facility] Address [address] [place] [address] Phone Care Team Providers Care Director Immunology Name Role Phone Renato Sinha DO Primary Care Provider [phone] Tadeo Dukes Primary Care Provider + Tam Drake-Alvaro Sánchez MD Unavailable [phone] Encounter Details Date Type Department Care Team (Late Contact Info) Description 02/14/2020 Ancillary Orders Virtual Department [address] [place] [address] Renato Sinha DO [address] [place] [address] Breast screening Social History Tobacco Use Types [...] Info) Description 03/10/2025 Procedure Pass [facility], Mammography- [facility] 30 [place] [address] 11/01/2025 9:20 AM EDT Office Visit [facility] 22 [place] [address] Pam Guerrero MD 22 [facility] 3rd [place] [address] 2025 3:30 PM EDT Appointment [facility], Mammography- [facility] 30 [place] [address] Tadeo Dukes PA [facility]1 [place] [address] 01/31/2026 9:40 AM EDT Office Visit [facility] 22 [place] [address] Camila Lentz PA-C [address] [place] [address] [email or web address] documented as of this encounter Results * [...] unspecified documented in this encounter Care Teams Director Immunology Relationship Specialty Start Date End Date Renato Sinha DO 42 [facility] 201 [place] [address] PCP - General Family Medicine 04/15/19 06/04/21 [place] [address] [place] [address] PCP - General 06/05/21 Cele Drake MD 100 [facility] 200 [place] [address] [email or web address] 06/27/25 documented as of this encounter Additional Source Comments The information contained in this document represents components of the legal health record. It is not the complete legal health record.[facility]
--- OUTSIDE RECORDS SUMMARY | 2025-07-03 17:01 | XMS_ITS | Encounter Summary ---
Author Organization [facility] Address [address] [place] [address] Phone Care Team Providers Care Carton Filler Name Role Phone Renato Sinha DO Primary Care Provider Tadeo Dukes Primary Care Provider + Tam Drake-Alvaro Sánchez MD Unavailable [phone] Encounter Details Date Type Department Care Team (Late st Contact Info) Description 04/02/2021 Ancillary Orders Virtual Department [address] [place] [address] Renato Sinha DO [address] [place] [address] Social History Tobacco Use Types Packs/Day Years [...] st Contact Info) Description 03/10/2025 Procedure Pass [facility], [facility]- [facility] 30 [place] [address] 11/01/2025 9:20 AM EDT Office Visit [facility] [address] [place] [address] Pam Guerrero MD 22 [facility] 3rd [place] [address] [email or web address] 2025 3:30 PM EDT Appointment [facility] 30 [place] [address] [place] [address] [place] [address] 01/31/2026 9:40 AM EDT Office Visit [facility] 22 [place] [address] Camila Lentz PA-C 22 [place] [address] [email or web address] documented as of this encounter Visit Diagnoses Not on filedocumented in this encounter Care Teams Carton Filler Relationship Specialty Start Date End Date Renato Sinha DO 42 [facility] 201 [place] [address] PCP - General Family Medicine 04/15/19 06/04/21 Tadeo Dukes PA [address] [place] [address] PCP - General 06/05/21 Cele Drake MD 100 [facility] 200 [place] [address] [email or web address] 06/27/25 documented as of this encounter Additional Source Comments The information contained in this document represents components of the legal health record. It is not the complete legal health record.[facility]
--- OUTSIDE RECORDS SUMMARY | 2025-07-03 17:01 | XMS_ITS | Clinical Summary ---
Author Organization [facility] Address [address] [facility] 204 [place] [address] Phone Care Team Providers Care Account Executive Trainee Name Role Phone Tadeo Dukes Primary Care Provider [phone] Allergies Active Allergy Reactions Criticality Noted Date [...] Office Visit [facility] [address] [address] Oliver Drake MD [address] [address] 07/18/2025 Orders Only [facility] [address] [address] Oliver Drake MD [address] [address] Stage 3 chronic kidney disease, not otherwise [...] complete this topic Insurance Medicare [facility] Medicare [facility] Care Teams Account Executive Trainee Relationship Specialty Start Date End Date Tadeo Dukes PA [address] [place] [address], [address] [place] [address] PCP - General Physician Paperhanger Apprentice 06/23/22
--- OUTSIDE RECORDS SUMMARY | 2025-07-03 17:01 | XMS_ITS | Encounter Summary ---
Author Organization [facility] Address [address] [place] [address] Phone Care Team Providers Care Med Peds Name Role Phone Tadeo Dukes Primary Care Provider + Cele Drake MD Unavailable [phone] Encounter Details Date Type Department Care Team (Late st Contact Info) Description 02/16/2024 Procedure Pass [employer] [facility], [facility] 30 [place] [address] Social History Tobacco Use Types Packs/Day Years [...] st Contact Info) Description 03/10/2025 Procedure Pass [address] [address] 11/01/2025 9:20 AM EDT Office Visit [facility] 22 [place] [address] Pam Guerrero MD [address] [place] [address] 2025 3:30 PM EDT Appointment [address] [address] [place] [address] [place] [address] 01/31/2026 9:40 AM EDT Office Visit [facility] 22 [place] [address] Camila Lentz PA-C [address] [place] [address] [email or web address] documented as of this encounter Visit Diagnoses Not on filedocumented in this encounter Care Teams Med Peds Relationship Specialty [place] [address] [place] [address] PCP - General 06/05/21 Cele Drake MD [address] [facility] 200 [place] [address] [email or web address] 06/27/25 documented as of this encounter Additional Source Comments The information contained in this document represents components of the legal health record. It is not the complete legal health record.[facility]
--- OUTSIDE RECORDS SUMMARY | 2025-07-03 17:01 | XMS_ITS | Encounter Summary ---
Author Organization [facility] Address [address] [place] [address] Phone Care Team Providers Care First Grade Teacher Name Role Phone Renato Sinha Primary Care Provider [phone] Tadeo Dukes Primary Care Provider + Cele Drake MD Unavailable [phone] Encounter Details Date Type Department Care Team (Late st Contact Info) Description 04/02/2021 Procedure Pass [address] [address] Social History Tobacco Use Types Packs/Day Years [...] st Contact Info) Description 03/10/2025 Procedure Pass [address] [address] 11/01/2025 9:20 AM EDT Office Visit [facility] [address] [place] [address] [place] [address] Pam Guerrero MD [address] [address] 2025 3:30 PM EDT Appointment [facility], [facility]- [facility] 30 [place] [address] [place] [address] [place] [address] 01/31/2026 9:40 AM EDT Office Visit [facility] 22 [place] [address] Camila Lentz PA-C 22 [place] [address] [email or web address] documented as of this encounter Visit Diagnoses Not on filedocumented in this encounter Care Teams First Grade Teacher Relationship Specialty Start Date End Date Renato Sinha DO 42 [facility] 201 [place] [address] PCP - General Family Medicine 04/15/19 06/04/21 Tadeo Dukes PA [address] [place] [address] PCP - General 06/05/21 Cele Drake MD 100 [facility] 200 [place] [address] [email or web address] 06/27/25 documented as of this encounter Additional Source Comments The information contained in this document represents components of the legal health record. It is not the complete legal health record.[facility]
--- OUTSIDE RECORDS SUMMARY | 2025-07-03 17:01 | XMS_ITS | Encounter Summary ---
Author Organization [facility] Address [address] [place] [address] Phone Care Team Providers Care Model And Pattern Supervisor Name Role Phone Renato Sinha Primary Care Provider Tadeo Dukes Primary Care Provider + Cele Drake MD Unavailable [phone] Encounter Details Date Type Department Care Team (Late st Contact Info) Description 04/02/2021 Ancillary Orders Virtual Department [address] [place] [address] Tadeo Dukes PA [address] [place] [address] Breast screening Social History Tobacco Use Types [...] st Contact Info) Description 03/10/2025 Procedure Pass [facility], [facility]- [facility] 30 [place] [address] 11/01/2025 9:20 AM EDT Office Visit [facility] [address] [place] [address] Pam Guerrero MD 22 [facility] 3rd [place] [address] 2025 3:30 PM EDT Appointment [facility], Mammography- [facility] 30 [place] [address] Tadeo Dukes PA [facility]1 [place] [address] 01/31/2026 9:40 AM EDT Office Visit [facility] [address] [place] [address] Camila Lentz PA-C [address] [place] [address] [email or web address] documented as of this encounter Results * BI MAMMOGRAM SCREENING WITH TOMOSYNTHESIS WITH CAD (BILATERAL) (04/22/2021 1:47 PM EDT) Anatomical Region Laterality Modality Breast Left, Breast Right, Breast Bilateral Bila teral Mammography 04/22/2021 3:2 3 PM EDT Impressions 04/22/2021 3:25 PM EDT [...] unspecified documented in this encounter Care Teams Model And Pattern Supervisor Relationship Specialty Start Date End Date Renato Sinha DO 42 [facility] 201 [place] [address] PCP - General Family Medicine 04/15/19 06/04/21 [place] [address] [place] [address] PCP - General 06/05/21 Cele Drake MD 100 [facility] 200 [place] [address] [email or web address] 06/27/25 documented as of this encounter Additional Source Comments The information contained in this document represents components of the legal health record. It is not the complete legal health record.[facility]
--- OUTSIDE RECORDS SUMMARY | 2025-07-03 17:01 | XMS_ITS | Encounter Summary ---
Author Organization [facility] Address [address] [place] [address] Phone Care Team Providers Care Circulation Supervisor Name Role Phone Renato Sinha DO Primary Care Provider [phone] Guera Vasquez NP Primary Care Provid er Renato Sinha DO Primary Care Provider [phone] Tadeo Dukes Primary Care Provider + Cele Drake MD Unavailable [phone] Encounter Details Date Type Department Care Team (Late st Contact Info) Description 12/16/2017 Ancillary Orders Virtual Department 30 [place] [address] Renato Sinha DO [address] [place] [address] Breast screening Social History Tobacco Use Types [...] Contact Info) Description 03/10/2025 Procedure Pass [facility], Mammography- [facility] 30 [place] [address] 11/01/2025 9:20 AM EDT Office Visit [facility] [address] [place] [address] Pam Guerrero MD 22 [facility] 3rd [place] [address] 2025 3:30 PM EDT Appointment [facility], [facility]- [facility] 30 [place] [address] Tadeo Dukes PA [facility]1 [place] [address] 01/31/2026 9:40 AM EDT Office Visit [facility] 22 [place] [address] Camial Lentz PA-C [address] [place] [address] documented as of this encounter Results * [...] mammography. POS - [id number] Renato Sinha DO IMG MG EXAMS Final Result documented in this encounter Visit Diagnoses Diagnosis Breast screening Breast screening, unspecified Breast screening Breast screening, unspecified documented in this encounter Care Teams Circulation Supervisor Relationship Specialty Start Date End Date Renato Sinha DO PCP - General 08/06/17 02/07/19 Guera Vasquez NP 132 [facility] 116 [place] [address] PCP - General Nurse Practitioner 02/08/1904/03 Renato Sinha DO 42 [facility] 201 [place] [address] PCP - General Family Medicine 04/15/19 06/04/21 Tdaeo Dukes PA 1221 [place] [address] PCP - General 06/05/21 Cele Drake MD 100 [facility] 200 [place] [address] [email or web address] 06/27/25 documented as of this encounter Additional Source Comments The information contained in this document represents components of the legal health record. It is not the complete legal health record.[facility]
--- OUTSIDE RECORDS SUMMARY | 2025-07-03 17:01 | XMS_ITS | Encounter Summary ---
Author Organization [facility] Address [address] [place] [address] Phone Care Team Providers Care Residential Designer Name Role Phone Guera Vasquez NP Primary Care Provid er Renato Sinha DO Primary Care Provider [phone] Tadeo Dukes Primary Care Provider + Cele Drake MD Unavailable [phone] Encounter Details Date Type Department Care Team (Late st Contact Info) Description 04/11/2019 Ancillary Orders Virtual Department [address] [place] [address] Renato Sinha DO [address] [place] [address] Breast screening Social History Tobacco Use Types [...] st Contact Info) Description 03/10/2025 Procedure Pass [facility], [facility] 30 [place] [address] 11/01/2025 9:20 AM EDT Office Visit [facility] 22 [place] [address] Pam Guerrero MD [address] [place] [address] 3rd [place] [address] 2025 3:30 PM EDT Appointment [facility], Mammography- [facility] 30 [place] [address] Tadeo Dukes PA [facility]1 [place] [address] 01/31/2026 9:40 AM EDT Office Visit [facility] [address] [place] [address] Camila Lentz PA-C [address] [place] [address] [email or web address] documented as of this encounter Results * [...] unspecified documented in this encounter Care Teams Residential Designer Relationship Specialty Start Date End Date Guera Vasquez NP 132 [facility] 116 [place] [address] PCP - General Nurse Practitioner 02/08/1904/03 Renato Sinha DO 42 [facility] 201 [place] [address] PCP - General Family Medicine 04/15/19 06/04/21 [place] [address] [place] [address] PCP - General 06/05/21 Cele Drake MD 100 [facility] 200 [place] [address] [email or web address] 06/27/25 documented as of this encounter Additional Source Comments The information contained in this document represents components of the legal health record. It is not the complete legal health record.[facility]
== END 2025-07-03 15:03 | disposition home or self-care (01) ==
LOC: HO.HCS 13:26
PROVIDERS: PCP Physician Assistant
DX: R07.2 Precordial pain (principal); R94.39 Abnormal result of other cardiovascular function study; I10 Essential (primary) hypertension; E78.00 Pure hypercholesterolemia, unspecified; E11.3293 Type 2 diabetes mellitus with mild nonproliferative diabetic retinopathy without macular edema, bilateral; Z79.4 Long term (current) use of insulin; E66.812 Obesity, class 2; G47.33 Obstructive sleep apnea (adult) (pediatric)
CPT/HCPCS: 93010; 99214; G2211

== ENCOUNTER → 2025-07-03 13:22 | Outpatient (BNVA) | payer MEDICARE, OTHER, SELFPAY | PROVIDERS: PCP Physician Assistant | DX: R07.2 Precordial pain (principal); R94.39 Abnormal result of other cardiovascular function study; I10 Essential (primary) hypertension; E78.00 Pure hypercholesterolemia, unspecified; E11.3293 Type 2 diabetes mellitus with mild nonproliferative diabetic retinopathy without macular edema, bilateral; Z79.4 Long term (current) use of insulin; E66.812 Obesity, class 2; G47.33 Obstructive sleep apnea (adult) (pediatric); Z99.89 Dependence on other enabling machines and devices | CPT/HCPCS: 93005; 99212 ==

== ENCOUNTER → 2025-07-05 09:37 | Outpatient (REF) | payer MEDICARE, OTHER, SELFPAY ==
--- NOTE | 2025-07-05 09:40 | CA_ITS ---
Transthoracic Echocardiogram Patient (Last, First, Middle): Rocio Benavides J Gender: Female Date of : 1955 Age: 69 Procedure Date: 07/05/2025 Procedure Type: Transthoracic Echocardiogram Location: OP Height: 165.1 cm Weight: 101.61 kg BSA: 2.08 m2 Heart Rate: bpm BP: 144 / 78 mmHg Technical Support Engineer: TO Referring MD: Dirk Nicole RIVER RAFTING GUIDE Symptoms: R07.2 - Precordial pain Study Quality: Fair/Contrast ECG Rhythm: Sinus Conclusions: - The left ventricular systolic function is normal. The calculated ejection fraction is 58% by biplane method. - No obvious valvular pathology seen on this study. - Mild pulmonary hypertension is present. Findings Procedure Information Contrast agent, definity, is being given per protocol without apparent complications. Left Ventricle Normal left ventricular cavity size. There is mildly increased left ventricular wall thickness. The left ventricular systolic function is normal. The calculated ejection fraction is 58% by biplane method. There is no evidence of regional wall motion abnormalities. Evidence suggests grade I (mild) diastolic dysfunction. Right Ventricle Normal right ventricular cavity size and systolic function. Atria The left atrium is mildly dilated. The right atrium is normal in size. Aortic Valve There is a normal trileaflet aortic valve. There is mild calcification of the aortic valve. There is no aortic valve stenosis. There is no aortic valve regurgitation. Mitral Valve The mitral valve appears normal. There is mild mitral annular calcification. There is trace mitral valve regurgitation. There is no mitral valve stenosis. Pulmonic Valve The pulmonic valve is likely normal. Tricuspid Valve There is mild tricuspid valve regurgitation. Mild pulmonary hypertension is present. Great Vessels The asc aorta is normal in size. Small plaque is seen in the sino tubular ridge. Venous The inferior vena cava is normal in size and collapses greater than 50% with inspiration. Pericardium/Pleural Prominent epicardial adipose tissue noted. There is no evidence of pericardial effusion. Prior Study Comparison No prior study available for comparison. Recommendations, Care & Conclusions No obvious valvular pathology seen on this study. Measurements 2D Linear Measurements IVSd: 1.06 0.6-0.9/0.6-1.0 cm LVIDd: 4.37 3.9-5.3/4.2-5.9 cm LVIDd Index: 2.10 2.4-3.2/2.2-3.1 cm/m2 LVIDs: 2.62 2.0-3.6 cm LVPWd: 1.17 0.7-1.1 cm LA Diam: 3.70 2.7-3.8/3.0-4.0 cm LAIDs Index: 1.78 1.5-2.3 cm/m2 LV Mass: 212.20 67-162/88-224 g LV Mass Index: 102.02 43-95/49-115 g/m2 LVOT Diam: 2.10 3.0+(-)1.3 cm 2D Systolic Function EF 4C: 62.00 >55% EF 2C: 53.00 >55% EF BiP: 57.60 >55% Mitral Valve MV Pk E: 0.91 MV PK A: 1.11 MV Decel Time: 234.00 E/A: 0.80 E'Lateral: 7.51 E'Medial: 4.57 E/E' Med: 19.90 E/E' Lat: 12.10 PHT: 68.00 MVA PHT: 3.24 Decel [place]: 3.89 Aortic Valve AoV Pk Colton: 1.75 AoV Mn Colton: 1.20 AoV VTI: 0.40 AoV Pk Grad: 12.00 Aov Mn Grad: 6.00 RUBEN Cont.VTI: 2.63 LVOT LVOT Pk Colton: 1.23 LVOT Mn [place]ton: 0.86 LVOT VTI: 0.30 LVOT Pk Grad: 6.00 LVOT Mn Grad: 3.00 LVOT Diam: 2.10 LVOT Area: 3.46 Diastolic Function MV Pk E: 0.91 MV Pk A: 1.11 E/A: 0.80 E'Medial: 4.57 E/E' Med: 19.90 E' Laterial: 7.51 E/E' Lat: 12.10 Right Ventricle TAPSE (mm): 28.80 TVS' Colton: 14.80 Tricuspid Valve TR Pk Colton: 3.14 TR Pk Grad: 39.00 RA Press: 3.00 RVSP: 42.00 Great Vessels Aorta Sinus of Valsalva: 2.64 2.0-3.5 cm Ao Asc: 3.00 2.1-3.4 cm Updated in Other Vendor System with Status of Final John Patel MD electronically signed on 07/07/2025 12:03:14 PM with status of Final
--- OUTSIDE RECORDS SUMMARY | 2025-07-05 10:38 | XMS_ITS | Clinical Summary ---
Author Organization [facility] Address [address] [facility] 204 [place] [address] Phone Care Team Providers Care Lan/Wan Engineer Name Role Phone Tadeo Dukes Primary Care Provider [phone] Allergies Active Allergy Reactions Criticality Noted Date [...] Office Visit [facility] [address] [address] Oliver Drake MD [address] [address] 07/18/2025 Orders Only [facility] [address] [address] Oliver Drake MD [address] [address] Stage 3 chronic kidney disease, not otherwise [...] age to complete this topic Insurance Medicare [facility] Medicare [facility] Care Teams Lan/Wan Engineer Relationship Specialty Start Date End Date Tadeo Dukes PA [address] [place] [address], [address] [place] [address] PCP - General Physician Qa Software Tester 06/23/22
--- OUTSIDE RECORDS SUMMARY | 2025-07-05 10:38 | XMS_ITS | Encounter Summary ---
Author Organization [facility] Address [address] [place] [address] Phone Care Team Providers Care Senior Sales Executive Name Role Phone Tadeo Dukes Primary Care Provider + Cele Drake MD Unavailable [phone] Encounter Details Date Type Department Care Team (Late st Contact Info) Description 03/10/2025 Transcribe Orders Virtual Department 30 [place] [address] Tadeo Dukes PA [address] [place] [address] Breast screening (Primary Dx) Social History Tobacco [...] st Contact Info) Description 03/10/2025 Procedure Pass [facility], [address] [address] 11/01/2025 9:20 AM EDT Office Visit [facility] 22 [place] [address] Pam Guerrero MD [address] [place] [address] 2025 3:30 PM EDT Appointment [address] [address] Tadeo Dukes PA [address] [place] [address] 01/31/2026 9:40 AM EDT Office Visit [facility] 22 [place] [address] Camila Lentz PA-C [address] [place] [address] Scheduled Orders Name Type Priority Associated Diagnoses Orde r Schedule Mammogram Screening (Bilateral) Imaging Routine Breast screening Expected: 04/10/2025, Expires: 03/10/2026 documented as of this encounter Visit Diagnoses Diagnosis Breast screening- Primary Breast screening, unspecified documented in this encounter Care Teams Senior Sales Executive Relationship Specialty Start Date End Date Tadeo Dukes PA [address] [place] [address] PCP - General 06/05/21 Cele Drake MD [address] [place] [address] [email or web address] 06/27/25 documented as of this encounter Additional Source Comments The information contained in this document represents components of the legal health record. It is not the complete legal health record.[facility]
--- OUTSIDE RECORDS SUMMARY | 2025-07-05 10:38 | XMS_ITS | Clinical Summary ---
Author Organization [facility] Address [address] [place] [address] Phone Care Team Providers Care Clinical Informatics Educator Name Role Phone Tadeo Dukes Primary Care Provider + Tam Drake-Alvaro Sánchez MD Unavailable +[phone]- [phone] Allergies Active Allergy Reactions Criticality Noted Date [...] Take 100 mcg by mouth daily. Active qxiieiwb-arl-zi rrous gluconate (CENTRUM WITH IRON) 9 mg [...] 10/13/2022 Overview (02/11/2024): Dexcom G7 supplier is [facility] medical Assessment & Plan (06/27/2025 11:12 [...] estimated GFR 55 from 61. Followed by sql developer. -Reviewed symptoms, prevention and treatment of hypoglycemia. [...] after back to eating regular meals. Her sql developer recommended to add Farxiga but patient was [...] her glucose levels. Up to date with [facility]. Sees podiatry. Foot and nail care is [...] her glucose levels. Up to date with [facility]. Sees podiatry. Will do labs prior to [...] activity. Patient is planning to rejoin the [employer] exercise class once a week and going [...] counting. We will send referral to see clinical trial educator. She will add more walking. If [...] Care Team Description 07/01/2025 Refill [facility] [address] [place] [address] Dr [place], [place] [address] Camila Lentz PA-C Medication Refill 06/27/2025 10:40 AM EST Office Visit [facility] [address] [place] [address] Camila Lentz PA-C Type 2 diabetes mellitus [...] st Contact Info) Description 03/10/2025 Procedure Pass [address] [address] 11/01/2025 9:20 AM EDT Office Visit [facility] [address] [place] [address] Pam Guerrero MD [address] [place] [address] 2025 3:30 PM EDT Appointment [address] [address] Tadeo Dukes PA [address] [place] [address] 01/31/2026 9:40 AM EDT Office Visit [facility] [address] [place] [address] Camila Lentz PA-C [address] [place] [address] Health Maintenance Due Date Last Done Comments [...] <34 U/L 06/27/2025 4:4 4 PM EST [facility] Blood (Blood) Venipuncture / Unknown 06/27/2025 11:44 AM EST 06/27/2025 11:45 AM EST Camila Lentz PA-C LAB BLOOD SCOTT WARD Final Result Performing Organization Address City/[facility]/ZIP Co de Phone Number [address] [address] * Aspartate Aminotransferase (AST) (06/27/2025 11:44 AM EST) AST 22 <33 U/L 06/27/2025 4:4 4 PM EST [facility] Blood (Blood) Venipuncture / Unknown 06/27/2025 11:44 AM EST 06/27/2025 11:45 AM EST Camila Lentz PA-C LAB BLOOD BKR ORDBenjamin RABRADHA Final Result [address] [address] * (ABNORMAL) Hemoglobin A1c (06/27/2025 11:44 AM EST) Hemoglobin A1c 6.6(H) 4.3 - 5.6 % 06/27/2025 5:48 PM [facility] Calculated Mean Blood Glucose 143 mg/dL 06/27/2025 5:48 PM [facility] Comment:There is no [facility] normal range for the Estimated Average Glucose [...] LAB BLOOD BKR CAROL WARD Final Result [address] [address] * (ABNORMAL) Basic Metabolic Panel (BMP) (06/27/2025 11:44 AM EST) Pathologist [facility] Sodium 138 136 - 145 mmol/L 06/27/2025 4:44 PM [facility] Potassium 4.1 3.4 - 5.1 mmol/L 06/27/2025 4:44 PM [facility] Chloride 100 98 - 107 mmol/L 06/27/2025 4:44 PM [facility] CO2 29 20 - 31 mmol/L 06/27/2025 4:44 PM [facility] Anion Gap 9 3 - 17 mmol/L 06/27/2025 4:44 PM [facility] BUN 17 6 - 23 mg/dL 06/27/2025 4:44 PM [facility] Creatinine 0.90 0.50 - 1.00 mg/dL 06/27/2025 4:44 PM [facility] eGFR 70 >59 mL/min/1.7 3m2 06/27/2025 4:44 PM EST [facility] Comment:Estimated glomerular filtration rate calculated using the CKD-EPI refit equation. Glucose 185(H) 70 - 99 mg/dL 06/27/2025 4:44 PM EST [facility] Calcium 9.3 8.5 - 10.5 mg/dL 06/27/2025 4:44 PM EST [facility] Blood (Blood) Venipuncture / Unknown 06/27/2025 11:44 AM EST 06/27/2025 11:45 AM EST us Camila Lentz PA-C LAB BLOOD BKR CAROL WARD Final Result [address] [address] * BI MAMMOGRAM SCREENING WITH TOMOSYNTHESIS WITH [...] SEE NARRATIVE - 05/02/2019 3:58 [place] [address] Runner Out: Sabra Cardoza MD AFTER SCHOOL COUNSELOR Cytology Report FINAL DIAGNOSIS A. PAP SMEAR [...] 52, 56, 58, 59, 66, 68) by [facility] HR-HPV analysis. Clinical correlation is advised. This HPV test was performed at [facility], [address] [place] [address]. This test has been FDA approved for [facility] cervical cytology specimens. The accuracy and precision of this test for all other specimen sources has been verified in the Cytopathology Laboratory of the [facility] and has not been cleared or approved by the U.S. Food and Drug Administration. Clinical correlation is advised. CLINICAL HISTORY Date of Last Menstrual Period: Not Provided Menstrual History: Post Menopausal Other Clinical Conditions: Screening Pap SPECIMEN SOURCE A: PAP SMEAR (SUREPATH) CE Patient Name: ROCIO VIZCAINO : 1955 (Age: 63) Sex: F Institution: [facility] Location: [facility] Date of Collection: 04/26/2019 Date of Reported: 05/02/2019 15:58 Results to: Brianna Raman MSN, BS Brianna Raman GEAR CHANGER CYTOLOGY ORDERABLES Final Resu lt SEE NARRATIVE from Last 3 Months or Most Recently Relevant to Health Maintenance Insurance MEDICARE PART A & B Member Subscriber Plan / Payer (Ef fective 2008-Present) Name:Rocio Osborn Member ID:[id number] Relation to Subscriber:Self Name:Rocio Osborn Subscriber ID:[id number] Payer ID:[id number] Group ID:Not on file Type:Medicare Address: [facility] [employer] [facility] [address] [place] [address] [facility] MEDICARE SUPPLEMENT MEDICARE PART A & B Member Subscriber Plan / Payer (Ef fective 2008-Present) Name:Rocio Osborn Member ID:[id number] Relation to Subscriber:Self Name:Rocio Osborn Subscriber ID:[id number] Payer ID:[id number] Group ID:Not on file Type:Medicare Address: [employer] [address] [place] [address] MEDICARE SUPPLEMENT MEDICARE PART A & B Member Subscriber Plan / Payer (Ef fective 2008-Present) Name:Rocio Osborn Member ID:[id number] Relation to Subscriber:Self Name:Rocio Osborn Subscriber ID:[id number] Payer ID:[id number] Group ID:Not on file Type:Medicare Address: My 1% [address] [place] [address] MEDICARE PART A & B MEDICARE PART A & B Member Subscriber Plan / Payer (Ef fective 2008-Present) Name:Rocio Osborn Member ID:[id number] Relation to Subscriber:Self Name:Rocio Osborn Subscriber ID:[id number] Payer ID:[id number] Group ID:Not on file Type:Medicare Address: [employer] MEDICARE SUPPLEMENT MEDICARE PART A & B Member Subscriber Plan / Payer (Ef fective 2008-Present) Name:Rocio Osborn Member ID:[id number] Relation to Subscriber:Self Name:Rocio Osborn Subscriber ID:[id number] Payer ID:[id number] Group ID:Not on file Type:Medicare Address: My 1% [employer] [address] [place] [address] MEDICARE PART A & B Member Subscriber Plan / Payer (Ef fective 2008-Present) Name:Rocio Osborn Member ID:[id number] Relation to Subscriber:Self Name:Rocio Osborn Subscriber ID:[id number] Payer ID:[id number] Group ID:Not on file Type:Medicare Address: [employer]% [employer] [address] [place] [address] MEDICARE SUPPLEMENT MEDICARE PART A & B [facility] MEDICARE SUPPLEMENT MEDICARE PART A & B MEDICARE SUPPLEMENT Care Teams Clinical Informatics Educator Relationship Specialty Start Date End Date Tadeo Dukes PA [address] [place] [address] PCP - General 06/05/21 Cele Drake MD 100 [facility] 200 [place] [address] [email or web address] 06/27/25 Additional Source Comments The information contained in this document represents components of the legal health record. It is not the complete legal health record.[facility]
--- OUTSIDE RECORDS SUMMARY | 2025-07-05 10:38 | XMS_ITS | Encounter Summary ---
Author Organization [facility] Address [address] [place] [address] Phone Care Team Providers Care Charging Board Operator Name Role Phone Tadeo Dukes Primary Care Provider + Cele Drake MD Unavailable [phone] Encounter Details Date Type Department Care Team (Latest Contact Info) Description 01/26/2023 Transcribe Orders Virtual Department 30 [place] [address] Brianna Raman REFINERY OPERATOR VISBREAKING 30 [place] [address] [email or web address] Breast screening (Primary Dx) Social History Tobacco [...] st Contact Info) Description 03/10/2025 Procedure Pass [address] [address] 11/01/2025 9:20 AM EDT Office Visit [facility] [address] [place] [address] Pam Guerrero MD [address] [place] [address] 2025 3:30 PM EDT Appointment [address] [address] Tadeo Dukes PA [address] [place] [address] 01/31/2026 9:40 AM EDT Office Visit [facility] [address] [place] [address] Camila Lentz PA-C [address] [place] [address] documented as of this encounter Results * [...] scattered fibroglandular densities. Brianna Raman REFINERY OPERATOR VISBREAKING IMG MG EXAMS Final Result documented in this encounter Visit Diagnoses Diagnosis Breast screening- Primary Breast screening, unspecified Breast screening Breast screening, unspecified documented in this encounter Care Teams Charging Board Operator Relationship Specialty Start Date End Date Tadeo Dukes PA 1221 [place] [address] PCP - General 06/05/21 Cele Drake MD [address] [address] [email or web address] 06/27/25 documented as of this encounter Additional Source Comments The information contained in this document represents components of the legal health record. It is not the complete legal health record.[facility]
--- OUTSIDE RECORDS SUMMARY | 2025-07-05 10:38 | XMS_ITS | Encounter Summary ---
Author Organization [facility] Address [address] [place] [address] Phone Care Team Providers Care Core Winding Operator Name Role Phone Tadeo Dukes Primary Care Provider + Cele Drake MD Unavailable [phone]- [phone] Encounter Details Date Type Department Care Team (Late st Contact Info) Description 02/16/2024 Procedure Pass [facility], [facility] 30 [place] [address] Social History Tobacco Use Types Packs/Day Years [...] st Contact Info) Description 03/10/2025 Procedure Pass [address] [address] 11/01/2025 9:20 AM EDT Office Visit [facility] 22 [place] [address] Pam Guerrero MD [address] [place] [address] 2025 3:30 PM EDT Appointment [address] [address] [place] [address] [place] [address] 01/31/2026 9:40 AM EDT Office Visit [facility] 22 [place] [address] Camila Lentz PA-C [address] [place] [address] [email or web address] documented as of this encounter Visit Diagnoses Not on filedocumented in this encounter Care Teams Core Winding Operator Relationship Specialty [place] [address] [place] [address] PCP - General 06/05/21 Cele Drake MD 100 Y[address] [facility] 200 [place] [address] [email or web address] 06/27/25 documented as of this encounter Additional Source Comments The information contained in this document represents components of the legal health record. It is not the complete legal health record.[facility]
--- OUTSIDE RECORDS SUMMARY | 2025-07-05 10:38 | XMS_ITS | Encounter Summary ---
Author Organization [facility] Address [address] [place] [address] Phone Care Team Providers Care Disability Case Manager Name Role Phone Renato Sinha Primary Care Provider [phone] Tadeo Dukes Primary Care Provider + Cele Drake MD Unavailable [phone] Encounter Details Date Type Department Care Team (Late st Contact Info) Description 04/02/2021 Procedure Pass [address] [address] Social History Tobacco Use Types Packs/Day Years [...] Contact Info) Description 03/10/2025 Procedure Pass [address] [address] 11/01/2025 9:20 AM EDT Office Visit [facility] [address] [place] [address] [place] [address] Pam Guerrero MD [address] [address] 2025 3:30 PM EDT Appointment [facility], [facility] 30 [place] [address] [place] [address] [place] [address] 01/31/2026 9:40 AM EDT Office Visit [facility] 22 [place] [address] Camila Lentz PA-C 22 [place] [address] [email or web address] documented as of this encounter Visit Diagnoses Not on filedocumented in this encounter Care Teams Disability Case Manager Relationship Specialty Start Date End Date Renato Sinha DO 42 [facility] 201 [place] [address] PCP - General Family Medicine 04/15/19 06/04/21 Tadeo Dukes PA [address] [place] [address] PCP - General 06/05/21 Cele Drake MD 100 [facility] 200 [place] [address] [email or web address] 06/27/25 documented as of this encounter Additional Source Comments The information contained in this document represents components of the legal health record. It is not the complete legal health record.[facility]
--- OUTSIDE RECORDS SUMMARY | 2025-07-05 10:38 | XMS_ITS | Encounter Summary ---
Author Organization [facility] Address [address] [place] [address] Phone Care Team Providers Care Stock Raiser Name Role Phone Renato Sinha DO Primary Care Provider [phone] Guera Vasquez NP Primary Care Provid er Renato Sinha DO Primary Care Provider [phone] Tadeo Dukes Primary Care Provider + Cele Drake MD Unavailable [phone]- [phone] Encounter Details Date Type Department Care Team (Late st Contact Info) Description 12/16/2017 Ancillary Orders Virtual Department 30 [place] [address] Renato Sinha DO [address] [place] [address] Breast screening Social History Tobacco Use Types [...] st Contact Info) Description 03/10/2025 Procedure Pass [facility], Mamm[facility]- [facility] 30 [place] [address] 11/01/2025 9:20 AM EDT Office Visit [facility] [address] [place] [address] Pam Guerrero MD 22 [facility] 3rd [place] [address] 2025 3:30 PM EDT Appointment [facility], [facility] 30 [place] [address] Tadeo Dukes PA [facility]1 [place] [address] 01/31/2026 9:40 AM EDT Office Visit [facility] [address] [place] [address] Camila Lentz PA-C [address] [place] [address] documented as of this encounter Results * [...] unspecified documented in this encounter Care Teams Stock Raiser Relationship Specialty Start Date End Date Renato Sinha DO PCP - General 08/06/17 02/07/19 Guera Vasquez NP 132 [facility] 116 [place] [address] PCP - General Nurse Practitioner 02/08/1904/03 Renato Sinha DO 42 [facility] 201 [place] [address] PCP - General Family Medicine 04/15/19 06/04/21 Tadeo Dukes PA 12[address] [place] [address] PCP - General 06/05/21 Cele Drake MD 100 [facility] 200 [place] [address] [email or web address] 06/27/25 documented as of this encounter Additional Source Comments The information contained in this document represents components of the legal health record. It is not the complete legal health record.[facility]
--- OUTSIDE RECORDS SUMMARY | 2025-07-05 10:38 | XMS_ITS | Encounter Summary ---
Author Organization [facility] Address [address] [place] [address] Phone Care Team Providers Care Assistant Community Manager Name Role Phone Renato Sinha DO Primary Care Provider [phone] Tadeo Dukes Primary Care Provider + Tam Drake-Alvaro Sánchez MD Unavailable [phone] Encounter Details Date Type Department Care Team (Late st Contact Info) Description 04/02/2021 Ancillary Orders Virtual Department [address] [place] [address] Renato Sinha DO [address] [place] [address] Social History Tobacco Use Types Packs/Day Years [...] st Contact Info) Description 03/10/2025 Procedure Pass [facility], [facility] 30 [place] [address] 11/01/2025 9:20 AM EDT Office Visit [facility] [address] [place] [address] Pam Guerrero MD 22 [facility] 3rd [place] [address] [email or web address] 2025 3:30 PM EDT Appointment [facility] 30 [place] [address] [place] [address] [place] [address] 01/31/2026 9:40 AM EDT Office Visit [facility] 22 [place] [address] Camila Lentz PA-C 22 [place] [address] [email or web address] documented as of this encounter Visit Diagnoses Not on filedocumented in this encounter Care Teams Assistant Community Manager Relationship Specialty Start Date End Date Renato Sinha DO 42 [facility] 201 [place] [address] PCP - General Family Medicine 04/15/19 06/04/21 Tadeo Dukes PA [address] [place] [address] PCP - General 06/05/21 Cele Drake MD 100 [facility] 200 [place] [address] [email or web address] 06/27/25 documented as of this encounter Additional Source Comments The information contained in this document represents components of the legal health record. It is not the complete legal health record.[facility]
--- OUTSIDE RECORDS SUMMARY | 2025-07-05 10:38 | XMS_ITS | Encounter Summary ---
Author Organization [facility] Address [address] [place] [address] Phone Care Team Providers Care University Archivist Name Role Phone Tadeo Dukes Primary Care Provider + Cele Drake MD Unavailable [phone] Encounter Details Date Type Department Care Team (Late st Contact Info) Description 01/26/2023 Procedure Pass , [facility] 30 [place] [address] Social History Tobacco Use Types Packs/Day Years [...] Contact Info) Description 03/10/2025 Procedure Pass [address] [address] 11/01/2025 9:20 AM EDT Office Visit [facility] 22 [place] [address] Pam Guerrero MD [address] [place] [address] 2025 3:30 PM EDT Appointment [address] [address] [place] [address] [place] [address] 01/31/2026 9:40 AM EDT Office Visit [facility] 22 [place] [address] Camila Lentz PA-C [address] [place] [address] [email or web address] documented as of this encounter Visit Diagnoses Not on filedocumented in this encounter Care Teams University Archivist Relationship Specialty Start [place] [address] [place] [address] PCP - General 06/05/21 Cele Drake MD 100 Yess[address] [facility] 200 [place] [address] [email or web address] 06/27/25 documented as of this encounter Additional Source Comments The information contained in this document represents components of the legal health record. It is not the complete legal health record.[facility]
--- OUTSIDE RECORDS SUMMARY | 2025-07-05 10:38 | XMS_ITS | Encounter Summary ---
Author Organization [facility] Address [address] [place] [address] Phone Care Team Providers Care Body Art Technician Name Role Phone Renato Sinha Primary Care Provider [phone] Tadeo Dukes Primary Care Provider + Cele Drake MD Unavailable [phone] Encounter Details Date Type Department Care Team (Late st Contact Info) Description 04/02/2021 Ancillary Orders Virtual Department [address] [place] [address] Tadeo Dukes PA [address] [place] [address] Breast screening Social History Tobacco Use Types [...] st Contact Info) Description 03/10/2025 Procedure Pass [facility], [facility]- [facility] 30 [place] [address] 11/01/2025 9:20 AM EDT Office Visit [facility] [address] [place] [address] Pam Guerrero MD 22 [facility] 3rd [place] [address] 2025 3:30 PM EDT Appointment [facility], Mammography- [facility] 30 [place] [address] Tadeo Dukes PA [facility]1 [place] [address] 01/31/2026 9:40 AM EDT Office Visit [facility] [address] [place] [address] Camila Lentz PA-C [address] [place] [address] [email or web address] documented as of [...] unspecified documented in this encounter Care Teams Body Art Technician Relationship Specialty Start Date End Date Renato Sinha DO 42 [facility] 201 [place] [address] PCP - General Family Medicine 04/15/19 06/04/21 [place] [address] [place] [address] PCP - General 06/05/21 Cele Drake MD 100 [facility] 200 [place] [address] [email or web address] 06/27/25 documented as of this encounter Additional Source Comments The information contained in this document represents components of the legal health record. It is not the complete legal health record.[facility]
--- OUTSIDE RECORDS SUMMARY | 2025-07-05 10:38 | XMS_ITS | Encounter Summary ---
Author Organization [facility] Address [address] [facility] [address] [place] [address] Phone Care Team Providers Care Construction Producer Name Role Phone Tadeo Dukes Primary Care Provider + Cele Drake MD Unavailable [phone] Reason for Visit * Reason Comments Medication Refill Encounter Details Date Type Department Care Team (Late st Contact Info) Description 07/01/2025 Refill [facility] 22 [place] [address] Camila Lentz PA-C 22 [place] [address] [email or web address] Medication Refill Social History Tobacco Use [...] st Contact Info) Description 03/10/2025 Procedure Pass [address] [address] 11/01/2025 9:20 AM EDT Office Visit [facility] [address] [place] [address] Pam Guerrero MD [address] [place] [address] 2025 3:30 PM EDT Appointment [address] [address] Tadeo Dukes PA [address] [place] [address] 01/31/2026 9:40 AM EDT Office Visit [facility] 22 [place] [address] Camila Lentz PA-C [address] [place] [address] documented as of this encounter Visit Diagnoses Diagnosis Type 2 diabetes mellitus with diabetic nephropathy, with long-term current use of insulin documented in this encounter Care Teams Construction Producer Relationship Specialty Start Date End Date Tadeo Dukes PA [address] [place] [address] PCP - General 06/05/21 Cele Drake MD [address] [place] [address] [address] [email or web address] 06/27/25 documented as of this encounter Additional Source Comments The information contained in this document represents components of the legal health record. It is not the complete legal health record.[facility]
--- OUTSIDE RECORDS SUMMARY | 2025-07-05 10:38 | XMS_ITS | Clinical Summary ---
Author Organization [facility] [address] [facility] Address [address] [place] [address] Phone Care Team Providers Care Shell Molding Roller Blast Operator Name Role Phone Tadeo Dukes Primary Care Provider [phone] Allergies Active Allergy Reactions Criticality Noted Date [...] Date NSTEMI (non-ST elevated myoc ardial infarction) ([facility] V24, [facility] V28) 01/11/2021 Allergic rhinitis 06/23/2017 Asthma 06/23/2017 CKD (chronic kidney disease) stage 3, GFR 30-59 ml/min ([facility] V24, [facility] V28) 06/23/2017 GERD (gastroesophageal reflux disease) 7 Assessment & Plan (06/21/2024 8:56 AM EST): Continue Omeprazole 40mg daily History of alcohol abuse 06/23/2017 Overview (05/30/2024): In AA HTN (hypertension) 06/23/2017 Major depression 06/23/2017 WYATT on CPAP 06/23/2017 Type 2 diabetes mellitus wit h renal manifestations ([facility] V24, [facility] V28) 06/23/2017 Vitamin D deficiency 06/23/2017 Hyperlipidemia [...] kidney disease) stage 3, GFR 30-59 ml/min ([facility] V24, [facility] V28) 06/23/2017 DX:CKD (chronic kidney disea se) stage 3, GFR 30-59 ml/min ([facility]) Type 2 diabetes mellitus wit h renal manifestations ([facility] V24, [facility] V28) 06/23/2017 DX:Type 2 diabetes mellitus with renal manifestations ([facility]) HTN (hypertension) 06/23/2017 DX:HTN (hyper tension) Hyperlipidemia [...] alcohol abuse; COMMENT: In AA Bipolar disorder ([facility] V2 4, [facility] V28) DX:Bipolar disorder ([facility]) Family History Medical History Relation Name Comments [...] Recently Relevant to Health Maintenance Insurance MEDICARE [facility] Care Teams Shell Molding Roller Blast Operator Relationship Specialty Start Date End Date Tadeo Dukes PA [facility] [place] [id number] PCP - General Physician Health Benefits Specialist 05/30/24
--- OUTSIDE RECORDS SUMMARY | 2025-07-05 10:38 | XMS_ITS | Encounter Summary ---
Author Organization [facility] Address [address] [place] [address] Phone Care Team Providers Care Hard Rock Miner Name Role Phone Tadeo Dukes Primary Care Provider + Tam Drake-Alvaro Sánchez MD Unavailable [phone] Encounter Details Date Type Department Care Team (Late st Contact Info) Description 02/13/[address] [address] Social History Tobacco Use Types Packs/Day Years [...] (Late st Contact Info) Description 03/10/[address] [address] 11/01/2025 9:20 AM EDT Office Visit [facility] [address] [place] [address] Pam Guerrero MD [address] [address] [email or web address] 2025 3:30 PM EDT Appointment [facility], [facility]- [address] [address] [place] [address] [place] [address] 01/31/2026 9:40 AM EDT Office Visit [facility] [address] [place] [address] Camila Lentz PA-C [address] [place] [address] [email or web address] documented as of this encounter Visit Diagnoses Not on filedocumented in this encounter Care Teams Hard Rock Miner Relationship Specialty Start Date End Date Tadeo Dukes PA [address] [place] [address] PCP - General 06/05/21 Cele Drake MD 100 [facility] [address] [place] [address] [email or web address] 06/27/25 documented as of this encounter Additional Source Comments The information contained in this document represents components of the legal health record. It is not the complete legal health record.[facility]
--- OUTSIDE RECORDS SUMMARY | 2025-07-05 10:39 | XMS_ITS | Encounter Summary ---
Author Organization [facility] Address [address] [place] [address] Phone Care Team Providers Care Testing Tech Name Role Phone Guera Vasquez NP Primary Care Provid er Renato Sinha DO Primary Care Provider [phone] Tadeo Dukes Primary Care Provider + Cele Drake MD Unavailable [phone] Encounter Details Date Type Department Care Team (Late st Contact Info) Description 04/11/2019 Ancillary Orders Virtual Department [address] [place] [address] Renato Sinha DO [address] [place] [address] Breast screening Social History Tobacco Use Types [...] st Contact Info) Description 03/10/2025 Procedure Pass [facility], [facility]- Main [facility] [address] [place] [address] 11/01/2025 9:20 AM EDT Office Visit [facility] [address] [place] [address] Pam Guerrero MD [address] [place] [address] [address] [place] [address] 2025 3:30 PM EDT Appointment [facility], Mammography- [facility] [address] [place] [address] Tadeo Dukes PA [facility]1 [place] [address] 01/31/2026 9:40 AM EDT Office Visit [facility] [address] [place] [address] Camila Lentz PA-C [address] [place] [address] [email or web address] documented as of this encounter Results * [...] unspecified documented in this encounter Care Teams Testing Tech Relationship Specialty Start Date End Date Guera Vasquez NP 132 [facility] 116 [place] [address] PCP - General Nurse Practitioner 02/08/1904/03 Renato Sinha DO 42 [facility] 201 [place] [address] PCP - General Family Medicine 04/15/19 06/04/21 [place] [address] [place] [address] PCP - General 06/05/21 Cele Drake MD 100 [facility] 200 [place] [address] [email or web address] 06/27/25 documented as of this encounter Additional Source Comments The information contained in this document represents components of the legal health record. It is not the complete legal health record.[facility]
--- OUTSIDE RECORDS SUMMARY | 2025-07-05 10:39 | XMS_ITS | Encounter Summary ---
Author Organization [facility] Address [address] [place] [address] Phone Care Team Providers Care Supervisor Mail Carriers Name Role Phone Renato Sinha Primary Care Provider [phone] Tadeo Dukes Primary Care Provider + Cele Drake MD Unavailable [phone] Encounter Details Date Type Department Care Team (Late st Contact Info) Description 04/03/2020 Procedure Pass [address] [address] Social History Tobacco Use Types Packs/Day Years [...] st Contact Info) Description 03/10/2025 Procedure Pass [address] [address] 11/01/2025 9:20 AM EDT Office Visit [facility] [address] [place] [address] Pam Guerrero MD [address] [place] [address] 2025 3:30 PM EDT Appointment [facility], [facility] 30 [place] [address] [place] [address] [place] [address] 01/31/2026 9:40 AM EDT Office Visit [facility] 22 [place] [address] Camila Lentz PA-C 22 [place] [address] [email or web address] documented as of this encounter Visit Diagnoses Not on filedocumented in this encounter Care Teams Supervisor Mail Carriers Relationship Specialty Start Date End Date Renato Sinha DO 42 [facility] 201 [place] [address] PCP - General Family Medicine 04/15/19 06/04/21 [place] [address] [place] [address] PCP - General 06/05/21 Cele Drake MD 100 [facility] 200 [place] [address] [email or web address] 06/27/25 documented as of this encounter Additional Source Comments The information contained in this document represents components of the legal health record. It is not the complete legal health record.[facility]
--- OUTSIDE RECORDS SUMMARY | 2025-07-05 10:39 | XMS_ITS | Encounter Summary ---
Author Organization [facility] Address [address] [place] [address] Phone Care Team Providers Care Flap Maker Name Role Phone Renato Sinha DO Primary Care Provider [phone] Tadeo Dukes Primary Care Provider + Tam Drake-Alvaro Sánchez MD Unavailable [phone] Encounter Details Date Type Department Care Team (Late Contact Info) Description 02/14/2020 Ancillary Orders Virtual Department [address] [place] [address] Renato Sinha DO [address] [place] [address] Breast screening Social History Tobacco Use Types [...] (Late Contact Info) Description 03/10/2025 Procedure Pass [facility], Mammography- [facility] 30 [place] [address] 11/01/2025 9:20 AM EDT Office Visit [facility] [address] [place] [address] Pam Guerrero MD 22 [facility] 3rd [place] [address] 2025 3:30 PM EDT Appointment [facility], Mammography- [facility] 30 [place] [address] Tadeo Dukes PA [facility]1 [place] [address] 01/31/2026 9:40 AM EDT Office Visit [facility] 22 [place] [address] Camila Lentz PA-C [address] [place] [address] [email or web address] documented as of this encounter Results * [...] unspecified documented in this encounter Care Teams Flap Maker Relationship Specialty Start Date End Date Renato Sinha DO 42 [facility] 201 [place] [address] PCP - General Family Medicine 04/15/19 06/04/21 [place] [address] [place] [address] PCP - General 06/05/21 Cele Drake MD 100 [facility] 200 [place] [address] [email or web address] 06/27/25 documented as of this encounter Additional Source Comments The information contained in this document represents components of the legal health record. It is not the complete legal health record.[facility]
== END ==
LOC: HO.CARD 09:37
DX: R07.2 Precordial pain (principal)
CPT/HCPCS: 93306; Q9957

== ENCOUNTER → 2025-07-05 09:40 | Outpatient (BNV) | payer MEDICARE, OTHER, SELFPAY | PROVIDERS: Visit Provider Internal Medicine | DX: I27.20 Pulmonary hypertension, unspecified (principal) | CPT/HCPCS: 93306 ==

== ENCOUNTER → 2025-07-12 12:57 | Outpatient (REF) | payer MEDICARE, OTHER, SELFPAY | LOC: HO.SL 12:57 | PROVIDERS: PCP Physician Assistant; Visit Provider Physician Assistant | DX: G47.33 Obstructive sleep apnea (adult) (pediatric) (principal); G47.10 Hypersomnia, unspecified | CPT/HCPCS: 95806 ==

== ENCOUNTER → 2025-07-12 13:12 | Outpatient (BNV) | payer MEDICARE, OTHER, SELFPAY | PROVIDERS: PCP Physician Assistant; Visit Provider Psychiatry & Neurology Neurology | DX: G47.33 Obstructive sleep apnea (adult) (pediatric) (principal) | CPT/HCPCS: 95806 ==

== ENCOUNTER 2025-08-02 08:47 | Outpatient (RCR) | payer MEDICARE, OTHER, SELFPAY ==
--- NOTE | 2025-07-05 12:51 | MHC.OT.EP ---
[facility] Office [address] [facility] [address] [facility] [phone] F: [phone] F: [phone] Occupational Therapy Plan of Care Patient Name: Rocio Benavides Date of Evaluation: 07/05/25 Diagnosis: Left wrist tendonitis Pain Location: Pain left radial wrist Current: 3-4/10 Worst: 7/10 Pain Score: 3 Pain Scale Used: Numeric (0 - 10) Aggravating Factors: Holding the cell phone to play games, lifting/carrying Alleviating Factors: Ice, rest Assessment: Pt is a 69 y/o right hand female referred to OT with approx 4 month history of worsening left wrist and thumb pain. She did have an EMG nerve conduction study which revealed moderate compression of the median nerve, although she denies numbness in digits. Primary complaint is radial wrist pain that she believes was exacerbated by holding her phone in the same position for several hours at night. Quick DASH score of 52.3% indicated moderate functional limitations of the L UE. Rocio would benefit from skilled OT services including activity modification, ergonomic education, splinting options, and therapeutic exercises to return to OF. Frequency and Duration: The patient will be seen 2x/wk for 4 weeks Short Term Goals: Decrease pain to <2/10 in left hand/wrist Pt will be educated in proper ergonomics for phone/computer use for symptom reduction IND with splint wear to reduce joint strain Longterm Goals: Pain free with ADL's/IADL's IND with joint protection techniques and activity modification Improve L wrist flex/ext to WNL's Improve Quick DASH score <25% to increase ease with functional tasks Treatment Plan: Therapeutic Exercise Therapeutic Activity Home Exercise Program Splinting Patient Education Ultrasound [facility] Cold Packs Soft Tissue Mobilization Kinesiotaping Electronically Signed By: Sabra Almaguer MS OTR/L Please Sign and return to therapist. Thank you once again for your referral.
--- NOTE | 2025-08-02 09:56 | MHC.OT.DC ---
[facility] Office [address] [facility] [address] [facility] [address] [phone] F: [phone] F: [phone] Occupational Therapy Discharge Note Patient Name: Rocio Benavides Provider: Tadeo Dukes Diagnosis: Left wrist tendonitis Date of Evaluation: 07/05/25 Date of Discharge: 08/02/26 Treatments to Date: 6 Discharge Status: Achieved Goals Improved Function Independent with HEP Discharge Summary: Rocio has progressed very well in OT and met all LTG's set on admission. Pt has modified how she hold the phone at night and is IND with stretching and strengthening program. She reports no longer needing to wear thumb brace for pain management. She is tolerating progressive strengthening well with excellent compliance with HEP. At this time, pt. is pain free with all activities and gross grasp returned to baseline 55# bilaterally. She is in agreement with d/c to home program. Thank you for this referral! Electronically Signed By: Sabra Almaguer, MS OTR/L Reviewed/agree with student documentation: Therapist: Please Sign and return to therapist, thank you for your referral.
== END 2025-08-02 09:57 | disposition home or self-care (01) ==
LOC: HO.OTS 08:47
PROVIDERS: Visit Provider Physician Assistant
DX: M77.8 Other enthesopathies, not elsewhere classified (principal)
CPT/HCPCS: 97035; 97110; 97165